=== PATIENT | male | born 1950 | race Two or more races ===

== ENCOUNTER → 2020-07-25 10:09 | Outpatient (BNVA) | payer MEDICARE, MEDICAID, SELFPAY | PROVIDERS: PCP Internal Medicine; Referring Provider Internal Medicine; Visit Provider Internal Medicine Endocrinology, Diabetes & Metabolism | DX: E11.65 Type 2 diabetes mellitus with hyperglycemia (principal); E11.649 Type 2 diabetes mellitus with hypoglycemia without coma; E11.22 Type 2 diabetes mellitus with diabetic chronic kidney disease; I12.9 Hypertensive chronic kidney disease with stage 1 through stage 4 chronic kidney disease, or unspecified chronic kidney disease; N18.30 Chronic kidney disease, stage 3 unspecified; Z79.4 Long term (current) use of insulin; E78.5 Hyperlipidemia, unspecified | CPT/HCPCS: 99214 ==

== ENCOUNTER → 2020-08-24 10:44 | Outpatient (BNVA) | payer MEDICARE, MEDICAID, SELFPAY | PROVIDERS: PCP Internal Medicine; Visit Provider Internal Medicine | DX: I25.10 Atherosclerotic heart disease of native coronary artery without angina pectoris (principal); R94.39 Abnormal result of other cardiovascular function study; Z79.899 Other long term (current) drug therapy | CPT/HCPCS: 99212 ==

== ENCOUNTER → 2020-10-24 08:22 | Outpatient (BNVA) | payer MEDICARE, MEDICAID, SELFPAY | PROVIDERS: PCP Internal Medicine; Referring Provider Internal Medicine; Visit Provider Internal Medicine Endocrinology, Diabetes & Metabolism | DX: Z76.89 Persons encountering health services in other specified circumstances (principal) | CPT/HCPCS: Q3014 ==

== ENCOUNTER → 2020-11-09 13:49 | Outpatient (BNVA) | payer MEDICARE, MEDICAID, SELFPAY | PROVIDERS: PCP Internal Medicine; Referring Provider Internal Medicine; Visit Provider Internal Medicine Gastroenterology | DX: Z13.89 Encounter for screening for other disorder (principal) | CPT/HCPCS: Q3014 ==

== ENCOUNTER → 2021-01-15 09:03 | Outpatient (BNVA) | payer MEDICARE, MEDICAID, SELFPAY | PROVIDERS: Visit Provider Internal Medicine | DX: R94.39 Abnormal result of other cardiovascular function study (principal); E11.8 Type 2 diabetes mellitus with unspecified complications; E11.22 Type 2 diabetes mellitus with diabetic chronic kidney disease; I12.9 Hypertensive chronic kidney disease with stage 1 through stage 4 chronic kidney disease, or unspecified chronic kidney disease; N18.32 Chronic kidney disease, stage 3b; I77.810 Thoracic aortic ectasia; K74.60 Unspecified cirrhosis of liver; R18.8 Other ascites | CPT/HCPCS: 99212 ==

== ENCOUNTER → 2021-01-23 09:37 | Outpatient (BNVA) | payer MEDICARE, MEDICAID, SELFPAY | PROVIDERS: PCP Internal Medicine; Visit Provider Internal Medicine Endocrinology, Diabetes & Metabolism | DX: E11.21 Type 2 diabetes mellitus with diabetic nephropathy (principal); E11.649 Type 2 diabetes mellitus with hypoglycemia without coma; Z79.4 Long term (current) use of insulin; I10 Essential (primary) hypertension; E78.5 Hyperlipidemia, unspecified | CPT/HCPCS: 82947; 99212 ==

== ENCOUNTER 2021-01-25 09:26 | Outpatient (REF) | payer MEDICARE, MEDICAID, SELFPAY ==
[2021-01-25 11:04] LABS: Hematocrit 35.1 % (42-52); Hemoglobin 10.4 g/dl (14.0-18.0); Mean Corpuscular HGB Conc 29.6 g/dl (31.0-36.0); Mean Corpuscular Volume 74.4 fL (80-98); Red Blood Count 4.72 X10*6/uL (4.60-5.80); Red Cell Distribution Width 16.3 % (11.0-16.0); White Blood Count 5.9 X10*3/uL (4.8-10.8)
[2021-01-25 11:10] LABS: Platelet Count 73 X10*3/uL (160-400)
[2021-01-25 11:24] LABS: Estimated Average Glucose 123 mg/dL; Hemoglobin A1c % 5.9 %; Iron 43 mcg/dL (45-160); Percent Iron Saturation 13 % (15-50); Phosphorus 3.8 mg/dL (2.7-4.5); Total Iron Binding Capacity 344 mcg/dL (228-428); Unsaturated Iron Binding 301 ug/dL
[2021-01-25 11:27] LABS: Alanine Aminotransferase 27 U/L (0-40); Albumin Level 3.5 g/dL (3.5-5.0); Alkaline Phosphatase 111 U/L (39-117); Anion Gap 15 (12-20); Aspartate Amino Transferase 37 U/L (5-37); Bilirubin Total 1.1 mg/dL (0.0-1.0); Blood Urea Nitrogen 18 mg/dL (9-16); Calcium 9.1 mg/dL (8.4-10.2); Carbon Dioxide 23 mmol/L (22-29); Chloride 109 mmol/L (96-108); Cholesterol 123 mg/dL; Estimated Glomerular Filt Rate 57; Glucose Fasting 89 mg/dL (60-99); HDL Cholesterol 60 mg/dL; LDL Cholesterol Calculated 47 mg/dl; Potassium 4.2 mmol/L (3.3-5.1); Sodium 143 mmol/L (135-145); Total Protein 7.5 g/dL (6.5-8.0); Triglycerides 80 mg/dL; Uric Acid 6.3 mg/dL (3.4-7.0)
[2021-01-25 11:45] LABS: Free T4 (Free Thyroxine) 0.83 ng/dL (0.71-1.85); Thyroid Stimulating Hormone 0.94 uIU/mL (0.32-4.0)
[2021-01-25 11:48] LABS: Vitamin B12 641 pg/mL (200-900)
[2021-01-25 12:01] LABS: Creatinine Urine 182.72 mg/dL; Creatinine Urine 184.17 mg/dL
[2021-01-25 12:14] LABS: Protein/Creatinine Ratio, Ur 2.05 (<0.2); Total Protein Urine Random 374 mg/dL (<12)
[2021-01-25 12:23] LABS: Microalbum/Creatinine Ratio Ur 1070.2 ug/mg cr
[2021-01-26 05:12] LABS: LDL Cholesterol Direct 46 mg/dL (<100)
[2021-01-26 12:46] LABS: Calcium (PTHI) 9.1 mg/dL (8.6-10.3); PTHI 75 pg/mL (14-64)
[2021-01-31 12:31] LABS: Vitamin D 25-OH, D2 <4 ng/mL; Vitamin D 25-OH, D3 25 ng/mL; Vitamin D 25-OH, Total 25 ng/mL (30-100)
== END 2021-01-25 09:27 | disposition home or self-care (01) ==
LOC: HO.LAB 09:26
PROVIDERS: Absent Provider Internal Medicine; PCP Internal Medicine; Referring Provider Internal Medicine Nephrology; Visit Provider Internal Medicine Endocrinology, Diabetes & Metabolism
DX: M1A.30X0 Chronic gout due to renal impairment, unspecified site, without tophus (tophi) (principal); I12.9 Hypertensive chronic kidney disease with stage 1 through stage 4 chronic kidney disease, or unspecified chronic kidney disease; N18.32 Chronic kidney disease, stage 3b; E11.22 Type 2 diabetes mellitus with diabetic chronic kidney disease; E78.5 Hyperlipidemia, unspecified; E55.9 Vitamin D deficiency, unspecified; E11.65 Type 2 diabetes mellitus with hyperglycemia
CPT/HCPCS: 36415; 80053; 80061; 82043; 82306; 82607; 83036; 83540; 83721; 83970; 84100; 84156; 84439; 84443; 84550; 85027

== ENCOUNTER → 2021-04-24 09:37 | Outpatient (BNVA) | payer MEDICARE, MEDICAID, SELFPAY | PROVIDERS: PCP Internal Medicine; Visit Provider Internal Medicine Endocrinology, Diabetes & Metabolism | DX: E11.65 Type 2 diabetes mellitus with hyperglycemia (principal); E11.21 Type 2 diabetes mellitus with diabetic nephropathy; E11.649 Type 2 diabetes mellitus with hypoglycemia without coma; E78.5 Hyperlipidemia, unspecified; I10 Essential (primary) hypertension; Z79.4 Long term (current) use of insulin | CPT/HCPCS: 82947; 99212 ==

== ENCOUNTER 2021-05-07 18:58 | Emergency (ER) | payer MEDICARE, MEDICAID, SELFPAY ==
--- NOTE | 2021-05-07 | ECG_ITS ---
Test Reason : HIGH BLOOD PRESSURE Blood Pressure : / mmHG Vent. Rate : 055 BPM Atrial Rate : 055 BPM P-R Int : 166 ms QRS Dur : 102 ms QT Int : 488 ms P-R-T Axes : 040 -38 022 degrees QTc Int : 466 ms Sinus bradycardia Left axis deviation Incomplete right bundle branch block Abnormal ECG When compared with ECG of 29-MAR-2014 21:17, Nonspecific T wave abnormality no longer evident in Lateral leads QT has lengthened Referred By: Generic ED Physician Electronically Signed By:TOBY TRUJILLO
--- NOTE | ~2021-05-07 | CT_ITS ---
EXAMINATION: CT ABDOMEN AND PELVIS WITHOUT CONTRAST CLINICAL INFORMATION: Abdominal pain COMPARISON: 02/03/2020 TECHNIQUE: Multidetector volumetric imaging was performed from the superior aspect of the liver through the pubic symphysis. Sagittal and coronal reformatted images were obtained on the technologist's workstation. This CT examination was performed using dose optimization techniques as appropriate, variously including the following: *Automated exposure control *Adjustment of mA and/or kV according to patient size (this includes techniques or standardized protocols for targeted exams where dose is matched to indication/reason for exam; i.e. extremities or head) *Use of iterative reconstruction technique DLP: 649 mGy-cm FINDINGS: LUNG BASES: Lungs are clear. Coronary calcifications. LIVER, GALLBLADDER, AND BILIARY TREE: Morphologically cirrhotic liver. No focal liver lesions. No intra or extrahepatic biliary dilatation. Cholelithiasis. No pericholecystic fluid. PANCREAS: Unremarkable. SPLEEN: Mildly enlarged measuring 14 cm long axis. ADRENAL GLANDS: Unremarkable. KIDNEYS AND URETERS: The kidneys are normal in size, shape, and attenuation. Bilateral renal cysts redemonstrated, incompletely characterized on this unenhanced exam but stable in size. No hydronephrosis, hydroureter, or calculi seen. No perinephric stranding. BLADDER: Unremarkable. GASTROINTESTINAL TRACT: Pancolonic diverticulosis without evidence of diverticulitis. Normal appendix. ABDOMINAL WALL: No significant hernia is appreciated. PERITONEUM: Small volume ascites. LYMPH NODES: Mildly prominent but nonpathologically enlarged upper abdominal lymph nodes redemonstrated. VASCULAR: Aorta is atherosclerotic but normal caliber. PELVIC VISCERA: Mild prostatomegaly. OSSEOUS STRUCTURES: No acute or suspicious osseous abnormalities. CT/CT abdomen pelvis wo con IMPRESSION: * Cholelithiasis without CT imaging evidence of cholecystitis. * Morphologically cirrhotic liver with small volume ascites, decreased from prior. Mild splenomegaly. * Pancolonic diverticulosis, most extensive within the left colon. No evidence of diverticulitis.
[2021-05-07 19:03] VITALS: BP 177/100; PULSE 62; RESP 18; TEMP 37.1; O2SAT 97; BMI 30.5
[2021-05-07 20:55] LABS: Eosinophils Percent Auto 23.7 % (0-4); Imm Gran Abs Auto 0.01 X10*3/uL (0.00-0.03); Imm Gran Pct Auto 0.2 % (0.0-0.4); MANUAL DIFF FLAG SCAN; Mean Corpuscular HGB Conc 31.1 g/dl (31.0-36.0); Red Cell Distribution Width 17.5 % (11.0-16.0); SCAN SMEAR FLAG 1
[2021-05-07 20:56] LABS: Basophils Percent Auto 0.5 % (0-2); Eosinophils Absolute Auto 1.4 X10*3/uL (0.0-0.4); Hematocrit 36.6 % (42-52); Hemoglobin 11.4 g/dl (14.0-18.0); Lymphocytes Absolute Auto 1.9 X10*3/uL (1.2-4.9); Lymphocytes Percent Auto 31.8 % (20-40); Mean Corpuscular Hemoglobin 23.5 pg (27.0-33.0); Mean Corpuscular Volume 75.5 fL (80-98); Monocytes Absolute Auto 0.6 X10*3/uL (0.1-1.2); Monocytes Percent Auto 9.3 % (2-11); Neutrophils Percent Auto 34.5 % (45-73); Red Blood Count 4.85 X10*6/uL (4.60-5.80); White Blood Count 5.9 X10*3/uL (4.8-10.8)
[2021-05-07 21:16] LABS: PLT ABN DIST 1; Platelet Count 54 X10*3/uL (160-400)
[2021-05-07 21:17] LABS: SLIDE REVIEW VERIFIED
[2021-05-07 21:27] LABS: Alanine Aminotransferase 23 U/L (0-40); Albumin Level 3.6 g/dL (3.5-5.0); Alkaline Phosphatase 105 U/L (39-117); Anion Gap 13 (12-20); Aspartate Amino Transferase 30 U/L (5-37); Bilirubin Total 0.8 mg/dL (0.0-1.0); Blood Urea Nitrogen 17 mg/dL (9-16); Calcium 9.3 mg/dL (8.4-10.2); Carbon Dioxide 27 mmol/L (22-29); Chloride 110 mmol/L (96-108); Estimated Glomerular Filt Rate 50; Glucose Random 115 mg/dL (60-115); Lipase 74 U/L (8-78); Potassium 4.1 mmol/L (3.3-5.1); Sodium 146 mmol/L (135-145); Total Protein 7.3 g/dL (6.5-8.0); Troponin-I High Sensitivity 4.7 ng/L (<3.5-35.0)
[2021-05-07 22:35] VITALS: BP 190/105; PULSE 55; RESP 18; TEMP 36.4; O2SAT 98
--- NOTE | 2021-05-07 22:59 | ED_ITS ---
HPI - General Adult General Chief complaint: General Medical Stated complaint: high bp Time Seen by Provider: 05/07/21 19:20 Source: patient Mode of arrival: ambulatory History of Present Illness HPI narrative: 70-year-old male with significant past medical history of diabetes/gastroparesis/CKD as well as liver cirrhosis who presents with a few days of increased shortness breath and patient states that he feels like ?I have fluid accumulating again?. Otherwise, he denies any fevers, chills, chest pain/palpitations, nausea, vomiting, diarrhea or urinary symptoms, but states he does feel ?very tired?. As per his who is at bedside she states that he has not been very active today and has not eaten very much. Patient has had [place] VID-19 vaccine ([place]) and otherwise has not seen a primary care provider or had any recent changes in medications in the past 3 months. Related Data Home Medications Medication Instructions Recorded Confirmed potassium chloride 10 mEq meq PO 07/25/20 04/24/21 tablet,extended release(part/cryst) metoprolol succinate 50 mg 50 mg PO BID tab 01/23/21 04/24/21 tablet,extended release 24 hr ibuprofen 600 mg tablet 600 mg PO TID 04/24/21 04/24/21 Previous Rx's Medication Instructions Recorded alcohol swabs 1 pad TOPICAL TID 30 Days #100 ea 07/25/20 flash glucose scanning reader #1 ea 07/25/20 flash glucose sensor #2 ea 07/25/20 atorvastatin 20 mg tablet 20 mg PO DAILY 90 Days #90 tab 01/23/21 ezetimibe 10 mg tablet 10 mg PO BEDTIME #28 tab 01/23/21 ferrous sulfate 325 mg (65 mg 325 mg PO DAILY 90 Days #90 tab 02/02/21 iron) tablet aspirin 81 mg tablet,delayed 81 mg PO DAILY #90 tab 02/09/21 release nitroglycerin 0.4 mg sublingual 0.4 mg SUBLINGUAL Q5M PRN #30 tab 03/19/21 tablet blood sugar diagnostic 1 strip MISCELLANEOUS .3 times a 04/24/21 day 90 Days #300 strip insulin glargine U-300 conc 300 25 unit SUBCUT DAILY 30 Days #4.5 04/24/21 unit/mL (1.5 mL) subcutaneous pen ml insulin lispro 100 unit/mL See Rx Instructions SUBCUT TID 30 04/24/21 subcutaneous pen Days #15 ml lancets 28 gauge 31 gauge TOPICAL .3 times a day 90 04/24/21 Days #300 ea linagliptin 5 mg tablet 5 mg PO QAM 30 Days #30 tab 04/24/21 metformin 500 mg tablet 500 mg PO BID 30 Days #60 tab 04/24/21 pen needle, diabetic 32 gauge x #400 ea 04/24/21 hydralazine 10 mg tablet 10 mg PO TID #84 tab 05/07/21 isosorbide mononitrate 30 mg 30 mg PO DAILY 90 Days #90 tab 05/07/21 tablet,extended release 24 hr omeprazole 40 mg capsule,delayed 40 mg PO DAILY #28 cap 05/07/21 release lactulose 20 g PO TID #237 ml 05/08/21 Allergies Allergy/AdvReac Type Severity Reaction Status Date / Time wheat [WHEAT] AdvReac Intermediate DIARRHEA Verified 01/31/21 17:13 Review of Systems Review of Systems: Pertinent positives and negatives as stated in HPI 10 point review of systems is otherwise negative. 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 GENERAL: Well developed, well nourished, in no acute distress. HEAD: Normocephalic/atraumatic, EYES: PERRLA, EOMI EARS: Ext canals without abnormality NOSE: Nares patent bilateral OROPHARYNX: no oral lesions noted, posterior pharynx clear LUNGS: Normal breath sounds. No adventitious sounds or accessory muscle use. SpO2<98> CARDIOVASCULAR: Regular rate and rhythm without noted murmurs, no JVD or lower extremity edema. ABDOMEN: Soft, mild tenderness on palpation of the left lower quadrant without rebound, non-distended with bowel sounds. MUSCULOSKELETAL: No tenderness, deformities, or effusions noted on gross inspection. EXTREMITIES: No cyanosis, clubbing or edema. SKIN: Inspection of the skin reveals no rashes, jaundice NEUROLOGIC: Alert and oriented x 4. Strength and sensation to light touch were grossly intact x 4, no facial asymmetry, no pronator drift, cranial nerves 2-12 grossly intact. Course Course Course Narrative: 70-year-old male with history and clinical presentation consistent with abdominal ascites, but will rule out infectious etiology, ammonia level, and ensure no acute diabetic pathology. Patient received medication here in the emergency room for blood pressure and on re-evaluation is noted to be within normal limits and patient is otherwise asymptomatic. Review of all investigations without acute findings when compared to chronic levels. Sodium and chloride levels are noted and the renal function is chronically stable. The ammonia level is duly noted but is in conjunction without confusion and CT scan shows small volume of ascites. On re-evaluation patient is answering all questions appropriately and both he and his were encouraged to return to the emergency room for any acute worsening of symptoms to include confusion. They understand that he will be discharged with a medication called lactulose and that he will need a repeat ammonia level which should prompt a call to the PCP this morning. Medical Decision Making Lab Data Result diagrams: 05/07/21 20:44 05/07/21 20:44 Labs: Lab Results 05/07/21 05/07/21 05/07/21 Range/Units 20:44 20:44 20:44 WBC 5.9 (4.8-10.8) X10*3/uL RBC 4.85 (4.60-5.80) X10*6/uL Hgb 11.4 L (14.0-18.0) g/dl Hct 36.6 L (42-52) % MCV 75.5 L (80-98) fL MCH 23.5 L (27.0-33.0) pg MCHC 31.1 (31.0-36.0) g/dl RDW 17.5 H (11.0-16.0) % Plt Count 54 L D (160-400) X10*3/uL MPV Not Reportable Immature Gran % (Auto) 0.2 (0.0-0.4) % Neut % (Auto) 34.5 L (45-73) % Lymph % (Auto) 31.8 (20-40) % [place] % (Auto) 9.3 (2-11) % Eos % (Auto) 23.7 H (0-4) % Baso % (Auto) 0.5 (0-2) % Lymph # (Auto) 1.9 (1.2-4.9) X10*3/uL [place] # (Auto) 0.6 (0.1-1.2) X10*3/uL Eos # (Auto) 1.4 H (0.0-0.4) X10*3/uL Baso # (Auto) 0.0 (0.0-0.2) X10*3/uL Abs Immat Gran (auto) 0.01 (0.00-0.03) X10*3/uL Absolute Neuts (auto) 2.0 (2.0-8.3) X10*3/uL Absolute Nucleated RBC 0.000 (0.0-0.012) X10*3/uL Nucleated RBC % (auto) 0.0 (0.0-0.2) /100WBC Smear Tech's Comments VERIFIED Sodium 146 H (135-145) mmol/L Potassium 4.1 (3.3-5.1) mmol/L Chloride 110 H (96-108) mmol/L Carbon Dioxide 27 (22-29) mmol/L Anion Gap 13 (12-20) BUN 17 H (9-16) mg/dL Creatinine 1.41 H (0.5-1.4) mg/dL Estim Creat Clear Calc 48.0 Estimated GFR 50 Random Glucose 115 (60-115) mg/dL Calcium 9.3 (8.4-10.2) mg/dL Total Bilirubin 0.8 (0.0-1.0) mg/dL AST 30 (5-37) U/L ALT 23 (0-40) U/L Alkaline Phosphatase 105 (39-117) U/L Ammonia (13-55) umol/L Troponin I High Sens 4.7 (<3.5-35.0) ng/L Total Protein 7.3 (6.5-8.0) g/dL Albumin 3.6 (3.5-5.0) g/dL Lipase 74 (8-78) U/L Specimen Comment 05/08/21 05/08/21 Range/Units 00:53 01:10 WBC (4.8-10.8) X10*3/uL RBC (4.60-5.80) X10*6/uL Hgb (14.0-18.0) g/dl Hct (42-52) % MCV (80-98) fL MCH (27.0-33.0) pg MCHC (31.0-36.0) g/dl RDW (11.0-16.0) % Plt Count (160-400) X10*3/uL MPV Immature Gran % (Auto) (0.0-0.4) % Neut % (Auto) (45-73) % Lymph % (Auto) (20-40) % [place] % (Auto) (2-11) % Eos % (Auto) (0-4) % Baso % (Auto) (0-2) % Lymph # (Auto) (1.2-4.9) X10*3/uL [place] # (Auto) (0.1-1.2) X10*3/uL Eos # (Auto) (0.0-0.4) X10*3/uL Baso # (Auto) (0.0-0.2) X10*3/uL Abs Immat Gran (auto) (0.00-0.03) X10*3/uL Absolute Neuts (auto) (2.0-8.3) X10*3/uL Absolute Nucleated RBC (0.0-0.012) X10*3/uL Nucleated RBC % (auto) (0.0-0.2) /100WBC Smear Tech's Comments Sodium (135-145) mmol/L Potassium (3.3-5.1) mmol/L Chloride (96-108) mmol/L Carbon Dioxide (22-29) mmol/L Anion Gap (12-20) BUN (9-16) mg/dL Creatinine (0.5-1.4) mg/dL Estim Creat Clear Calc Estimated GFR Random Glucose (60-115) mg/dL Calcium (8.4-10.2) mg/dL Total Bilirubin (0.0-1.0) mg/dL AST (5-37) U/L ALT (0-40) U/L Alkaline Phosphatase (39-117) U/L Ammonia 88 H (13-55) umol/L Troponin I High Sens (<3.5-35.0) ng/L Total Protein (6.5-8.0) g/dL Albumin (3.5-5.0) g/dL Lipase (8-78) U/L Specimen Comment DELAY ECG Data Attestation: I personally reviewed and interpreted this ECG as follows: Prior ECG tracings: available for review (Stress report from 11/22/2019 without acute changes) Interpretation: Sinus bradycardia, HR-55, no STEMI, MT/QTC are within normal limits. Discharge Plan Discharge Clinical Impression: Increased ammonia level, Hypertension Patient Disposition: Home, Self-Care Instructions: Lactulose (By mouth), Heart Healthy Diet (ED), DASH Eating Plan (ED), Hypertension (ED) Additional Instructions: 1. Reanude todos los medicamentos caseros seg?n lo prescrito. 2. Madiha un seguimiento con bob proveedor de atenci?n primaria llamando al consultorio esta ma?kimber para programar jorge kike para jorge reevaluaci?n y un tratamiento ambulatorio adicional. Adem?s, deber? volver a verificar bbo nivel de margarito?aco. 3. Debe regresar a esta lio de emergencias si se siente m?s confundido, fatigado o experimenta un aumento de peso. Regrese a la lio de emergencias por s?ntomas de empeoramiento bethany Prescriptions: New lactulose 10 gram/15 mL solution 20 g PO TID Qty: 237 RF: 0 No Action alcohol swabs [Alcohol Prep Pads] Pads, Medicated 1 pad topical TID 30 Days Qty: 100 RF: 11 ferrous sulfate 325 mg (65 mg iron) tablet 325 mg PO DAILY 90 Days Qty: 90 RF: 3 aspirin [Adult Aspirin Regimen] 81 mg tablet,delayed release (DR/EC) 81 mg PO DAILY Qty: 90 RF: 3 nitroglycerin 0.4 mg tablet, sublingual 0.4 mg sublingual Q5M PRN (Reason: chest pain) Qty: 30 RF: 2 isosorbide mononitrate 30 mg tablet extended release 24 hr 30 mg PO DAILY 90 Days Qty: 90 RF: 3 hydralazine 10 mg tablet 10 mg PO TID Qty: 84 RF: 3 omeprazole 40 mg capsule,delayed release(DR/EC) 40 mg PO DAILY Qty: 28 RF: 6 ibuprofen 600 mg tablet 600 mg PO TID RF: 0 Tradjenta 5 mg tablet 5 mg PO QAM 30 Days Qty: 30 RF: 5 metformin 500 mg tablet 500 mg PO BID 30 Days Qty: 60 RF: 5 insulin glargine U-300 conc 300 unit/mL (1.5 mL) insulin pen 25 unit subcut DAILY 30 Days Qty: 4.5 RF: 6 insulin lispro 100 unit/mL insulin pen See Rx Instructions subcut TID 30 Days Qty: 15 RF: 6 lancets [FreeStyle Lancets] 28 gauge misc 31 gauge topical .3 times a day 90 Days Qty: 300 RF: 3 (DME) pen needle, diabetic [BD Michell 2nd Gen Pen Needle] 32 gauge x 5/32 needle See Rx Instructions .MEDSUPPLY Qty: 400 RF: 4 FreeStyle Lite Strips Strip 1 strip miscellaneous .3 times a day 90 Days Qty: 300 RF: 3 potassium chloride 10 mEq tablet,ER particles/crystals PO RF: 0 (DME) FreeStyle Toyin 2 Sensor Kit See Rx Instructions .MEDSUPPLY Qty: 2 RF: 11 (DME) FreeStyle Toyin 2 [place] Misc See Rx Instructions .ROUTE .MEDSUPPLY Qty: 1 RF: 0 metoprolol succinate 50 mg tablet extended release 24 hr 50 mg PO BID RF: 0 atorvastatin 20 mg tablet 20 mg PO DAILY 90 Days Qty: 90 RF: 2 ezetimibe 10 mg tablet 10 mg PO BEDTIME Qty: 28 RF: 11 Referrals: Kimber Day MD [Primary Care Provider] - 2 days (Re-evaluation after noted to have hypertension as well as mildly elevated ammonia level without confusion. Patient was discharged with lactulose, and would benefit from repeat ammonia level as well as evaluation for more consistent treatment with lactulose.) Print Language: Angolan
[2021-05-07 23:46] VITALS: BP 188/104; PULSE 54
[2021-05-07] MEDS: Labetalol HCL 100 MG/20 ML VIAL IVPUSH (23:46)
--- NOTE | 2021-05-07 23:48 | PC.NURSE ---
notified of SB @ 54 bpm. Plan to continue with Labetolol per order. Pt medicated per DEC. Continue to monitor.
[2021-05-07 23:51] VITALS: BP 173/98; PULSE 58
[2021-05-08 00:01] VITALS: BP 171/95; PULSE 63
--- NOTE | 2021-05-08 00:04 | PC.NURSE ---
MD and rail car operator at bedside for primary eval.
[2021-05-08 00:31] VITALS: BP 154/84; PULSE 62
[2021-05-08 00:53] VITALS: BP 168/87; PULSE 59; O2SAT 98
[2021-05-08 01:11] LABS: Delay - Chemistry DELAY
[2021-05-08 01:42] LABS: Ammonia 88 umol/L (13-55)
[2021-05-08 02:37] VITALS: BP 165/90; PULSE 61; RESP 14
--- NOTE | 2021-05-08 03:10 | PC.NURSE ---
MD at bedside discussing results and plan of care.
[2021-05-08 03:31] VITALS: BP 162/96; PULSE 62; RESP 18
[2021-05-08] MEDS: Lactulose 20 GM/30 ML SOLUTION PO (03:31)
--- NOTE | 2021-05-08 03:33 | PC.NURSE ---
Medicated per MAR. Social Scientist at bedside for DC.
== END 2021-05-08 03:51 | disposition home or self-care (01) ==
PROVIDERS: Emergency Provider Student in an Organized Health Care Education/Training Program; PCP Internal Medicine
DX: E72.20 Disorder of urea cycle metabolism, unspecified (principal); E11.22 Type 2 diabetes mellitus with diabetic chronic kidney disease; I12.9 Hypertensive chronic kidney disease with stage 1 through stage 4 chronic kidney disease, or unspecified chronic kidney disease; N18.30 Chronic kidney disease, stage 3 unspecified; Z79.4 Long term (current) use of insulin
CPT/HCPCS: 36415; 74176; 80053; 82140; 83690; 84484; 85025; 93005; 96374; 99284

== ENCOUNTER 2021-05-09 20:14 | Inpatient (IN) | payer MEDICARE, MEDICAID, SELFPAY ==
--- NOTE | ~2021-05-09 | US_ITS ---
EXAMINATION: US ABDOMEN LIMITED CLINICAL INFORMATION: Right upper quadrant pain.. COMPARISON: CT scan abdomen pelvis May 08, 2021 TECHNIQUE: Real-time imaging of the right upper quadrant abdominal viscera. Color Doppler exam used. FINDINGS: PANCREAS: Obscured by bowel gas LIVER: Cirrhotic liver. Echotexture is coarse and nodular liver surface is nodular. GALLBLADDER: Multiple small gallstones layering dependently in the gallbladder. Gallbladder wall is slightly thickened but this is uncertain significance in the presence of abdominal ascites. Gallbladder wall measures 0.5 cm in diameter. COMMON BILE DUCT: Normal in caliber measuring 0.3 cm in diameter. RIGHT KIDNEY: Normal. No hydronephrosis. No renal calculi or suspicious focal parenchymal lesions. There are multiple cysts which are anechoic. Largest measures 1.3 cm. No follow-up imaging is recommended for simple renal cyst. The kidney measures 11 cm in maximum dimension. FREE FLUID: Moderate volume of abdominal ascites. US/US abdomen limited IMPRESSION: 1. Cirrhotic liver. 2. Abdominal ascites. 3. Cholelithiasis. Slight thickening of gallbladder wall which is of uncertain significance in the presence of abdominal ascites. No bile duct dilatation.
--- NOTE | ~2021-05-09 | NM_ITS ---
EXAMINATION: HEPATOBILIARY SCAN WITHOUT CCK. CLINICAL INFORMATION: Cholelithiasis and thickening of the gallbladder 1 ultrasound exam 05/09/2021 COMPARISON: None TECHNIQUE: Following intravenous administration of 5 mCi of 90 9M technetium identified in, imaging with a right upper quadrant was obtained up to 120 minutes. FINDINGS: There is normal hepatic uptake without any focal defect. There is prompt visualization of the gallbladder before 60 minutes. Small bowel is visualized by 18 minutes. NM/NM hepatobiliary wo pharm IMPRESSION: Patent cystic duct. Patent CBD. Patent common bile duct.
[2021-05-09 20:28] VITALS: BP 122/83; PULSE 53; RESP 18; TEMP 36.7; O2SAT 95; BMI 30.5
[2021-05-09 20:52] LABS: Glucose Urine UA NEG (NEG); Leukocyte Esterase Urine NEG (NEG); Nitrite Urine NEG (NEG); Specific Gravity - Urine >= 1.030 (1.005-1.025); UACC Culture Trigger NO; Urine Blood NEG (NEG); Urine Ketones NEG (NEG); Urine Protein 3+ MG/DL (NEG-TRACE)
[2021-05-09 20:54] LABS: Appearance Urine CLEAR; Color Urine YELLOW
[2021-05-09 21:01] LABS: Bacteria Urine 1+ /LPF; RBC Urine 0-2 /HPF (0); Squamous Epithelial Cell Urine 1+ /LPF; WBC Urine 0 /HPF (0-4)
[2021-05-09 21:59] LABS: Hemoglobin 10.2 g/dl (14.0-18.0); MANUAL DIFF FLAG SCAN; Red Cell Distribution Width 17.4 % (11.0-16.0); SCAN SMEAR FLAG 1
[2021-05-09 22:01] LABS: Basophils Percent Auto 0.6 % (0-2); Eosinophils Absolute Auto 1.1 X10*3/uL (0.0-0.4); Eosinophils Percent Auto 21.3 % (0-4); Hematocrit 32.9 % (42-52); Imm Gran Abs Auto 0.01 X10*3/uL (0.00-0.03); Imm Gran Pct Auto 0.2 % (0.0-0.4); Lymphocytes Absolute Auto 1.7 X10*3/uL (1.2-4.9); Lymphocytes Percent Auto 33.1 % (20-40); Mean Corpuscular Hemoglobin 23.3 pg (27.0-33.0); Mean Corpuscular Volume 75.3 fL (80-98); Monocytes Absolute Auto 0.5 X10*3/uL (0.1-1.2); Neutrophils Absolute Auto 1.8 X10*3/uL (2.0-8.3); Neutrophils Percent Auto 34.8 % (45-73); Red Blood Count 4.37 X10*6/uL (4.60-5.80)
[2021-05-09 22:04] LABS: PLT ABN DIST 1
[2021-05-09 22:06] LABS: INTERNATIONAL NORM RATIO 1.2 (0.9-1.1); Prothrombin Time 13.7 SEC (9.9-13.0)
[2021-05-09 22:20] VITALS: BP 172/80; PULSE 54; RESP 18; TEMP 36.9; O2SAT 96
[2021-05-09 22:29] LABS: Platelet Count 47 X10*3/uL (160-400); White Blood Count 5.1 X10*3/uL (4.8-10.8)
[2021-05-09 22:30] LABS: SLIDE REVIEW VERIFIED
[2021-05-09 22:31] LABS: Alanine Aminotransferase 20 U/L (0-40); Albumin Level 3.2 g/dL (3.5-5.0); Alkaline Phosphatase 85 U/L (39-117); Anion Gap 13 (12-20); Aspartate Amino Transferase 37 U/L (5-37); Bilirubin Total 0.7 mg/dL (0.0-1.0); Blood Urea Nitrogen 17 mg/dL (9-16); Calcium 9.4 mg/dL (8.4-10.2); Carbon Dioxide 24 mmol/L (22-29); Chloride 109 mmol/L (96-108); Creatinine Clr Calc Pharmacy 49.5; Estimated Glomerular Filt Rate 52; Glucose Random 132 mg/dL (60-115); Sodium 142 mmol/L (135-145); Total Protein 6.5 g/dL (6.5-8.0)
--- NOTE | 2021-05-09 22:41 | ED.ABDPAIN ---
HPI - Abdominal Pain General Chief Complaint: Abdominal Pain Stated Complaint: stomach and back pain Time Seen by Provider: 05/09/21 21:01 Source: patient and parts interpreter Mode of arrival: ambulatory History of Present Illness HPI narrative: 70-year-old male who presents with onset of right upper quadrant/epigastric pain that started approximately 2:00 p.m. this afternoon and has not been associated with fever, chills, nausea, vomiting that patient describes the pain as crampy and radiating into the back. Otherwise, he states that he has been feeling much better after being evaluated on Friday and has no other acute complaints as well as denying any shortness of breath or chest pain/palpitations. Related Data Home Medications Medication Instructions Recorded Confirmed atorvastatin 20 mg tablet 1 tab PO DAILY 05/09/21 05/09/21 blood sugar diagnostic (FreeStyle 05/09/21 05/09/21 Lite Strips) ezetimibe 10 mg tablet 1 tab PO DAILY 05/09/21 05/09/21 hydralazine 10 mg tablet 1 tab PO TID 05/09/21 05/09/21 insulin glargine U-300 conc 300 See Protocol SUBCUT USEASDIRECTD 05/09/21 05/09/21 unit/mL (1.5 mL) subcutaneous pen (Toujeo SoloStar U-300 Insulin) insulin lispro 100 unit/mL See Protocol SUBCUT USEASDIRECTD 05/09/21 05/09/21 subcutaneous pen (Humalog KwikPen (U-100) Insulin) isosorbide mononitrate 30 mg 1 tab PO DAILY 05/09/21 05/09/21 tablet,extended release 24 hr lactulose 10 gram/15 mL oral 15 ml PO DAILY 05/09/21 05/09/21 solution (Enulose) linagliptin 5 mg tablet (Tradjenta) 1 tab PO DAILY 05/09/21 05/09/21 metformin 500 mg tablet 1 tab PO BID 05/09/21 05/09/21 metoprolol succinate 50 mg 1 tab PO BID 05/09/21 05/09/21 tablet,extended release 24 hr nitroglycerin 0.4 mg sublingual 1 tab SUBLINGUAL BEDTIME 05/09/21 05/09/21 tablet omeprazole 40 mg capsule,delayed 1 cap PO DAILY 05/09/21 05/09/21 release Allergies Allergy/AdvReac Type Severity Reaction Status Date / Time wheat [WHEAT] AdvReac Intermediate DIARRHEA Verified 05/09/21 20:27 Review of Systems Review of Systems Pertinent positives and negatives as stated in HPI 10 point review of systems is otherwise negative. Physical Exam Vital Signs: Vital Signs: Last Vital Signs Temp 98.2 F 05/10/21 01:09 Pulse 57 05/10/21 01:09 Resp 18 05/10/21 01:09 BP 168/91 H 05/10/21 01:09 Pulse Ox 97 05/10/21 01:09 Body Mass Index 30.5 VITAL SIGNS: Reviewed. GENERAL: Well developed, well nourished, in no acute distress. HEAD: Normocephalic/atraumatic EYES: PERRLA, EOMI EARS: Ext canals without abnormality OROPHARYNX: no oral lesions noted, posterior pharynx clear LUNGS: Normal breath sounds. No adventitious sounds or accessory muscle use. SpO2<96> CARDIOVASCULAR: Regular rate and rhythm without noted murmurs, no JVD or lower extremity edema. ABDOMEN: Soft, tenderness in right upper quadrant/epigastric without rebound but voluntary guarding non-distended with bowel sounds. MUSCULOSKELETAL: No tenderness, deformities, or effusions noted on gross inspection. EXTREMITIES: No cyanosis, clubbing or edema. SKIN: Inspection of the skin reveals no rashes NEUROLOGIC: Alert and oriented x 4. Strength and sensation to light touch were grossly intact x 4. Course Course Course Narrative: 70-year-old male with history and clinical presentation suggestive of possible cholecystitis and less likely pancreatitis, but gastritis is a possibility as well. Review of all investigations consistent with biliary colic/cholecystitis and case was discussed with surgery, but given the complexity of this patient, he will be admitted to inpatient hospitalist team for co management. Reevaluation(s) Reevaluation #1: Discussed case with Surgical Services who is willing to evaluate the patient in the morning in consultation with home management by inpatient hospitalist team for significant underlying medical co-morbidities. Time: 00:35 MDM - Abdominal Pain Lab Data Result diagrams: 05/09/21 21:47 05/09/21 21:47 Labs: Lab Results 05/09/21 05/09/21 05/09/21 Range/Units 20:42 21:47 21:47 WBC 5.1 (4.8-10.8) X10*3/uL RBC 4.37 L (4.60-5.80) X10*6/uL Hgb 10.2 L (14.0-18.0) g/dl Hct 32.9 L (42-52) % MCV 75.3 L (80-98) fL MCH 23.3 L (27.0-33.0) pg MCHC 31.0 (31.0-36.0) g/dl RDW 17.4 H (11.0-16.0) % Plt Count 47 L (160-400) X10*3/uL MPV TNP Immature Gran % (Auto) 0.2 (0.0-0.4) % Neut % (Auto) 34.8 L (45-73) % Lymph % (Auto) 33.1 (20-40) % [place] % (Auto) 10.0 (2-11) % Eos % (Auto) 21.3 H (0-4) % Baso % (Auto) 0.6 (0-2) % Lymph # (Auto) 1.7 (1.2-4.9) X10*3/uL [place] # (Auto) 0.5 (0.1-1.2) X10*3/uL Eos # (Auto) 1.1 H (0.0-0.4) X10*3/uL Baso # (Auto) 0.0 (0.0-0.2) X10*3/uL Abs Immat Gran (auto) 0.01 (0.00-0.03) X10*3/uL Absolute Neuts (auto) 1.8 L (2.0-8.3) X10*3/uL Absolute Nucleated RBC 0.000 (0.0-0.012) X10*3/uL Nucleated RBC % (auto) 0.0 (0.0-0.2) /100WBC Smear Tech's Comments VERIFIED PT 13.7 H (9.9-13.0) SEC INR 1.2 H (0.9-1.1) Sodium (135-145) mmol/L Potassium (3.3-5.1) mmol/L Chloride (96-108) mmol/L Carbon Dioxide (22-29) mmol/L Anion Gap (12-20) BUN (9-16) mg/dL Creatinine (0.5-1.4) mg/dL Estim Creat Clear Calc Estimated GFR Random Glucose (60-115) mg/dL Calcium (8.4-10.2) mg/dL Total Bilirubin (0.0-1.0) mg/dL AST (5-37) U/L ALT (0-40) U/L Alkaline Phosphatase (39-117) U/L Total Protein (6.5-8.0) g/dL Albumin (3.5-5.0) g/dL Urine Color YELLOW Urine Appearance CLEAR Urine pH 6.0 (5.0-8.0) Ur Specific [place] >= 1.030 H (1.005-1.025) Urine Protein 3+ H (NEG-TRACE) MG/DL Urine Glucose (UA) NEG (NEG) MG/DL Urine Ketones NEG (NEG) MG/DL Urine Blood NEG (NEG) Urine Nitrite NEG (NEG) Ur Leukocyte Esterase NEG (NEG) Urine RBC 0-2 (0) /HPF Urine WBC 0 (0-4) /HPF Ur Squamous Epith Cells 1+ /LPF Urine Bacteria 1+ /LPF COVID-19 (STEVEN) (Negative) COVID-19 Clin Com 05/09/21 05/09/21 Range/Units 21:47 23:34 WBC (4.8-10.8) X10*3/uL RBC (4.60-5.80) X10*6/uL Hgb (14.0-18.0) g/dl Hct (42-52) % MCV (80-98) fL MCH (27.0-33.0) pg MCHC (31.0-36.0) g/dl RDW (11.0-16.0) % Plt Count (160-400) X10*3/uL MPV Immature Gran % (Auto) (0.0-0.4) % Neut % (Auto) (45-73) % Lymph % (Auto) (20-40) % [place] % (Auto) (2-11) % Eos % (Auto) (0-4) % Baso % (Auto) (0-2) % Lymph # (Auto) (1.2-4.9) X10*3/uL [place] # (Auto) (0.1-1.2) X10*3/uL Eos # (Auto) (0.0-0.4) X10*3/uL Baso # (Auto) (0.0-0.2) X10*3/uL Abs Immat Gran (auto) (0.00-0.03) X10*3/uL Absolute Neuts (auto) (2.0-8.3) X10*3/uL Absolute Nucleated RBC (0.0-0.012) X10*3/uL Nucleated RBC % (auto) (0.0-0.2) /100WBC Smear Tech's Comments PT (9.9-13.0) SEC INR (0.9-1.1) Sodium 142 (135-145) mmol/L Potassium 4.0 (3.3-5.1) mmol/L Chloride 109 H (96-108) mmol/L Carbon Dioxide 24 (22-29) mmol/L Anion Gap 13 (12-20) BUN 17 H (9-16) mg/dL Creatinine 1.37 (0.5-1.4) mg/dL Estim Creat Clear Calc 49.5 Estimated GFR 52 Random Glucose 132 H (60-115) mg/dL Calcium 9.4 (8.4-10.2) mg/dL Total Bilirubin 0.7 (0.0-1.0) mg/dL AST 37 (5-37) U/L ALT 20 (0-40) U/L Alkaline Phosphatase 85 (39-117) U/L Total Protein 6.5 (6.5-8.0) g/dL Albumin 3.2 L (3.5-5.0) g/dL Urine Color Urine Appearance Urine pH (5.0-8.0) Ur Specific [place] (1.005-1.025) Urine Protein (NEG-TRACE) MG/DL Urine Glucose (UA) (NEG) MG/DL Urine Ketones (NEG) MG/DL Urine Blood (NEG) Urine Nitrite (NEG) Ur Leukocyte Esterase (NEG) Urine RBC (0) /HPF Urine WBC (0-4) /HPF Ur Squamous Epith Cells /LPF Urine Bacteria /LPF COVID-19 (STEVEN) Negative (Negative) COVID-19 Clin Com See Note Discharge Plan Discharge Clinical Impression: Biliary colic, Thrombocytopenia, Diabetes, Cirrhosis of liver Patient Disposition: Admitted As Inpatient [facility] Past Medical History Source: nursing notes reviewed Medical History Abnormal myocardial perfusion study Ascending aorta dilatation Ascites Atherosclerotic cardiovascular disease Cirrhosis of liver CKD (chronic kidney disease) stage 3, GFR 30-59 ml/min Diabetes type 2, uncontrolled Diabetic nephropathy associated with type 2 diabetes mellitus Dyslipidemia Essential hypertension Gastroparesis GERD (gastroesophageal reflux disease) Gout Hypertension 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
[2021-05-09 23:53] LABS: COVID-19 Test Negative (Negative)
[2021-05-10] VITALS (8 sets, daily range): BP systolic 152–175; BP diastolic 81–95; PULSE 49–62; RESP 18; TEMP 36.7–36.9; O2SAT 96–97; BMI 31.0
[2021-05-10] MEDS: Lidocaine HCl Viscous 2 % 15 ML SOLUTION 10 ML MUCOUS MEM (01:08)
[2021-05-10] MEDS: Magnesium Hydrox/Alum Hydrox 30 ML ORAL.SUSP PO (01:08)
[2021-05-10] MEDS: Nitroglycerin 0.4 MG TAB.SUBL SUBLINGUAL ×2 (01:43→20:48)
[2021-05-10] MEDS: metroNIDAZOLE 500 MG TABLET PO (02:40)
[2021-05-10] MEDS: cefTRIAXone sodium 1 GM in 0.9 % Sodium Chloride 50 ML IV (02:41)
--- NOTE | 2021-05-10 05:38 | PM.IMHP ---
History of Present Illness Date of Service: 05/10/21 Chief Complaint: Abdominal pain This is a 70-year-old male with liver cirrhosis, HTN, diabetes, thrombocytopenia, CAD, gastroparesis, HLD, CKD, among others who presents to the hospital with abdominal pain. Patient reports that his abdominal pain started Friday, he came into the ED, but at that time he was complaining of abdominal ascites and was found to have slightly elevated ammonia, patient was started on lactulose and sent home. Returns today stating that his abdominal pain has increased, 10/10, right upper quadrant, radiating to the back, associated with nausea with no vomiting, no diarrhea, the pain is constant, no increased abdominal distension, no chest pain, no shortness of breath, no urinary symptoms, no diarrhea constipation, and no lower extremity edema. On arrival to the edema dynamic least stable with no significant abnormal vitals Labs are significant for WBC count of 5.1, hemoglobin of 10.2, platelets of 47 which are progressively dropping PT of 13.7, INR of 1.2, BUN of 17 with a creatinine of 1.37 which is around his baseline, albumin of 3.2, UA negative for any infection Abdominal CT done on 05/07 shows cholelithiasis without evidence of cholecystitis, abdominal ultrasound done today shows cirrhotic liver, abdominal ascites, cholelithiasis, slight thickening of gallbladder wall which is uncertain significance in the presence of abdominal ascites. This case was discussed with surgery, patient will be admitted for suspected cholecystitis Past medical history as below Review of system otherwise negative Review of Systems Review of Systems: Otherwise negative [facility] Medical History Abnormal myocardial perfusion study Ascending aorta dilatation Ascites Atherosclerotic cardiovascular disease Cirrhosis of liver CKD (chronic kidney disease) stage 3, GFR 30-59 ml/min Diabetes type 2, uncontrolled Diabetic nephropathy associated with type 2 diabetes mellitus Dyslipidemia Essential hypertension Gastroparesis GERD (gastroesophageal reflux disease) Gout Hypertension Hypoglycemia 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 with type 2 diabetes mellitus 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 Thrombocytopenia Family History Father Diabetes CVD (cardiovascular disease) Mother Diabetes Surgical History Hx of colonoscopy Social History Household Members: Spouse and Children Alcohol intake: never Smoked in Last 30 Days: No Use of substances other than those prescribed or required for medical reasons: No Advance Directives: No Advance Directives Information Provided: Yes Current occupational status: retired Meds Allergies Allergy/AdvReac Type Severity Reaction Status Date / Time wheat [WHEAT] AdvReac Intermediate DIARRHEA Verified 05/09/21 20:27 Active Medications: Current Medications Generic Name Dose Route Start Last Admin Trade Name Freq PRN Reason Stop Dose Admin Acetaminophen 650 mg 05/10/21 00:57 Acetaminophen 325 Mg Tablet PO Q6H PRN Pain, Mild (Pain Scale 1-3) Atorvastatin Calcium 20 mg 05/10/21 09:00 Atorvastatin Calcium 20 [address] Table[address] [facility] Docusate Sodium 100 mg 05/10/21 00:57 Docusate Sodium 100 Mg Capsule PO DAILY PRN Constipation Ezetimibe 10 mg 05/10/21 09:00 Ezetimibe 10 [address] Table[address] [facility] Hydralazine HCl 10 mg 05/10/21 01:00 05/10/21 01:42 Hydralazine Hcl 10 Mg Tablet PO Not Given TID [facility] Protocol Ceftriaxone Sodium 1 gm/ 50 mls @ 100 mls/hr 05/10/21 01:00 05/10/21 03:11 Sodium Chloride IV Infused Q24H [facility] Infusion Insulin Human Lispro 0 unit 05/10/21 07:30 Insulin Lispro 100 Unit/Ml 3 Ml Vial SUBCUT QIDACHS [facility] Protocol Isosorbide Mononitrate 30 mg 05/10/21 09:00 Isosorbide Mononitrate 30 Mg Tab.Er.24h PO DAILY [facility] Protocol Lactulose 10 gm 05/10/21 09:00 Lactulose 20 Gm/[address] [facility] Metoprolol Succinate 50 mg 05/10/21 01:00 05/10/21 01:42 Metoprolol Succinate Er 50 Mg Tab.Er.24h PO Not Given BID [facility] Protocol Metronidazole 500 mg 05/10/21 01:00 05/10/21 02:40 Metronidazole 500 Mg Tablet PO 500 mg Q8H SAUL Administration Morphine Sulfate 4 mg 05/10/21 00:57 Morphine Sulfate 4 Mg/Ml Cartridge IVPUSH Q4H PRN Pain, Severe (Pain Scale 7-10) Nitroglycerin 0.4 mg 05/10/21 01:00 05/10/21 01:43 Nitroglycerin 0.4 Mg Tab.Subl SUBLINGUAL 0.[address] [facility] Administration Non-Formulary Medication 12 unit 05/10/21 01:00 Insulin Glargine U-300 Conc [Toujeo Solostar U-300 Insulin] SUBCUT USEASDIRECTD [facility] Omeprazole 40 mg 05/10/21 09:00 Omeprazole 40 Mg Capsule.Dr PO DAILY [facility] Ondansetron HCl 4 mg 05/10/21 00:57 Ondansetron Hcl 4 Mg/2 Ml Vial IVPUSH Q8H PRN Nausea and Vomiting Sodium Chloride 3 ml 05/10/21 08:00 0.9 % Sodium Chloride Flush [address] M[address]ringe IVFLUSH QSHIFT [facility] Home Medications Medication Instructions Recorded Confirmed Last Taken Type atorvastatin 20 mg tablet 1 tab PO DAILY 05/09/21 05/09/21 Unknown History blood sugar diagnostic (FreeStyle 05/09/21 05/09/21 Unknown History Lite Strips) ezetimibe 10 mg tablet 1 tab PO DAILY 05/09/21 05/09/21 Unknown History hydralazine 10 mg tablet 1 tab PO TID 05/09/21 05/09/21 Unknown History insulin glargine U-300 conc 300 See Protocol SUBCUT USEASDIRECTD 05/09/21 05/09/21 Unknown History unit/mL (1.5 mL) subcutaneous pen (Toujeo SoloStar U-300 Insulin) insulin lispro 100 unit/mL See Protocol SUBCUT USEASDIRECTD 05/09/21 05/09/21 Unknown History subcutaneous pen (Humalog KwikPen (U-100) Insulin) isosorbide mononitrate 30 mg 1 tab PO DAILY 05/09/21 05/09/21 Unknown History tablet,extended release 24 hr lactulose 10 gram/15 mL oral 15 ml PO DAILY 05/09/21 05/09/21 Unknown History solution (Enulose) linagliptin 5 mg tablet (Tradjenta) 1 tab PO DAILY 05/09/21 05/09/21 Unknown History metformin 500 mg tablet 1 tab PO BID 05/09/21 05/09/21 Unknown History metoprolol succinate 50 mg 1 tab PO BID 05/09/21 05/09/21 Unknown History tablet,extended release 24 hr nitroglycerin 0.4 mg sublingual 1 tab SUBLINGUAL BEDTIME 05/09/21 05/09/21 Unknown History tablet omeprazole 40 mg capsule,delayed 1 cap PO DAILY 05/09/21 05/09/21 Unknown History release Physical Exam Vital Signs and Narrative: Vital Signs: Last Vital Signs Temp 98.2 F 05/10/21 01:09 Pulse 52 05/10/21 01:42 Resp 18 05/10/21 01:09 BP 158/91 H 05/10/21 01:42 Pulse Ox 97 05/10/21 01:09 Body Mass Index 30.5 Const: General: cooperative and no acute distress Orientation/consciousness: patient oriented x3 Eyes: General: appearance normal, both eyes and all related structures Resp: Effort & Inspection: normal respiratory effort and able to speak in complete sentences Auscultation: clear to auscultation bilaterally Cardio: Rate: regular rate Rhythm: regular rhythm GI: Other: Tender on deep palpation, no rebound or guarding, no significant ascites Palpation (GI): Soft to palpation Auscultation: normal bowel sounds Skin: General skin exam: no rashes or lesions noted Neuro: General: patient oriented x3 Cognition (Neuro): normal cognition Extrem: General: Yes normal to inspection and Yes no pedal edema Results Labs CBC and Chem 7: 05/09/21 21:47 05/09/21 21:47 Labs: Laboratory Results - last 24 hr 05/09/21 05/09/21 05/09/21 20:42 21:47 21:47 MCV 75.3 L MCH 23.3 L MCHC 31.0 RDW 17.4 H Plt Count 47 L MPV TNP Immature Gran % (Auto) 0.2 Neut % (Auto) 34.8 L Lymph % (Auto) 33.1 [place] % (Auto) 10.0 Eos % (Auto) 21.3 H Baso % (Auto) 0.6 Lymph # (Auto) 1.7 [place] # (Auto) 0.5 Eos # (Auto) 1.1 H Baso # (Auto) 0.0 Abs Immat Gran (auto) 0.01 Absolute Neuts (auto) 1.8 L Absolute Nucleated RBC 0.000 Nucleated RBC % (auto) 0.0 Smear Tech's Comments VERIFIED PT 13.7 H INR 1.2 H Anion Gap Estim Creat Clear Calc Estimated GFR Random Glucose Calcium Total Bilirubin AST ALT Alkaline Phosphatase Total Protein Albumin Urine Color YELLOW Urine Appearance CLEAR Urine pH 6.0 Ur Specific [place] >= 1.030 H Urine Protein 3+ H Urine Glucose (UA) NEG Urine Ketones NEG Urine Blood NEG Urine Nitrite NEG Ur Leukocyte Esterase NEG Urine RBC 0-2 Urine WBC 0 Ur Squamous Epith Cells 1+ Urine Bacteria 1+ COVID-19 (STEVEN) COVID-19 Clin Com 05/09/21 05/09/21 21:47 23:34 MCV MCH MCHC RDW Plt Count MPV Immature Gran % (Auto) Neut % (Auto) Lymph % (Auto) [place] % (Auto) Eos % (Auto) Baso % (Auto) Lymph # (Auto) [place] # (Auto) Eos # (Auto) Baso # (Auto) Abs Immat Gran (auto) Absolute Neuts (auto) Absolute Nucleated RBC Nucleated RBC % (auto) Smear Tech's Comments PT INR Anion Gap 13 Estim Creat Clear Calc 49.5 Estimated GFR 52 Random Glucose 132 H Calcium 9.4 Total Bilirubin 0.7 AST 37 ALT 20 Alkaline Phosphatase 85 Total Protein 6.5 Albumin 3.2 L Urine Color Urine Appearance Urine pH Ur Specific [place] Urine Protein Urine Glucose (UA) Urine Ketones Urine Blood Urine Nitrite Ur Leukocyte Esterase Urine RBC Urine WBC Ur Squamous Epith Cells Urine Bacteria COVID-19 (STEVEN) Negative COVID-19 Clin Com See Note Imaging Radiologist's Impressions: Impressions Abdomen Ultrasound 05/09/21 22:39 IMPRESSION: 1. Cirrhotic liver. 2. Abdominal ascites. 3. Cholelithiasis. Slight thickening of gallbladder wall which is of uncertain significance in the presence of abdominal ascites. No bile duct dilatation. Assessment and Plan (1) Thrombocytopenia: Status: Acute (2) Biliary colic: Status: Acute (3) Cholecystitis: Status: Acute (4) Abdominal pain: Status: Acute This is a 70-year-old male with significant past medical history presents to the hospital with complaints of abdominal pain will be admitted for suspected cholecystitis # abdominal pain - most likely secondary to cholecystitis, location, characteristics, as well as CT and ultrasound findings suggest cholecystitis - patient afebrile, no leukocytosis - no LFT or bili elevations - will start IV antibiotics - general surgery consulted # coagulopathy including thrombocytopenia - most likely secondary to his history of liver disease - monitor CBC for platelet count - monitor for any acute bleed - currently patient is not bleeding therefore not requiring platelet transfusion - will for for further platelet transfusions to surgical team if needed for surgery # diabetes - continue home insulin - hold oral antihyperglycemics - low-dose sliding scale insulin - diabetic diet # hypertension - stable -resume home medications # CAD - resume home medications # liver cirrhosis - continue lactulose DVT prophylaxis: SCDs in the setting of thrombocytopenia and coagulopathy Quality Stroke Does the patient have a stroke diagnosis?: No VTE Prior VTE?: No VTE Risk Level:: Medical - moderate - high VTE Device Contraindication: N/A - Device Ordered VTE Drug Contraindication: Treatment Not Tolerated
--- NOTE | 2021-05-10 07:33 | PC.NURSE ---
ATTEMPTED TO CALL REPORT X1
--- NOTE | 2021-05-10 07:43 | P.CONGS_ITS ---
History of Present Illness Consult details Consult date: 05/10/21 Narrative: 70-year-old male patient with history of diabetes, cirrhosis of liver, chronic kidney disease, gastroparesis and GERD presenting with complaints of right upper quadrant and epigastric abdominal pain which began 14:00 at on 05/09/2021. Patient previously was evaluated for abdominal pain approximately 2 days prior the patient's symptoms felt to be related to his liver disease. He was subsequently discharged to home but returned when the pain once again increased a. He denies fever, chills, nausea, vomiting, diarrhea, or other associated symptoms. He currently reports the pain is gone. In the emergency department is initial laboratories revealed a normal WBC.Liver function tests were normal as well. CT of the abdomen and pelvis revealed cholelithiasis without evidence of cholecystitis however subsequent ultrasound revealed ascites with gallbladder wall thickening and gallstones. The minimal wall thickening was of unknown significance due to the ascites. Patient was admitted to the hospitalist service with a presumed diagnosis of acute cholecystitis. Review of Systems Review of Systems: Yes all other systems are reviewed and are negative Cardiovascular: Cardiovascular: Denies dyspnea Respiratory: Respiratory: Denies chest congestion, Denies cough, Denies pain with cough and Denies dyspnea Gastrointestinal: Gastrointestinal: Reports as per HPI, Reports abdominal pain, Reports heartburn, Denies diarrhea, Denies nausea and Denies vomiting PMFSH Past Medical History Medical History Abnormal myocardial perfusion study Ascending aorta dilatation Ascites Atherosclerotic cardiovascular disease Cirrhosis of liver CKD (chronic kidney disease) stage 3, GFR 30-59 ml/min Diabetes type 2, uncontrolled Diabetic nephropathy associated with type 2 diabetes mellitus Dyslipidemia Essential hypertension Gastroparesis GERD (gastroesophageal reflux disease) Gout Hypertension Hypoglycemia 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 with type 2 diabetes mellitus longterm (current) use of insulin Thrombocytopenia Family History Family History Father Diabetes CVD (cardiovascular disease) Mother Diabetes Surgical History Surgical History Hx of colonoscopy Social History Social History Household Members: Spouse and Children Alcohol intake: never Smoked in Last 30 Days: No Use of substances other than those prescribed or required for medical reasons: No Advance Directives: No Advance Directives Information Provided: Yes Current occupational status: retired Meds Allergies Allergy/AdvReac Type Severity Reaction Status Date / Time wheat [WHEAT] AdvReac Intermediate DIARRHEA Verified 05/09/21 20:27 Active Medications: Current Medications Generic Name Dose Route Start Last Admin Trade Name Freq PRN Reason Stop Dose Admin Acetaminophen 650 mg 05/10/21 00:57 Acetaminophen 325 Mg Tablet PO Q6H PRN Pain, Mild (Pain Scale 1-3) Atorvastatin Calcium 20 mg 05/10/21 09:00 Atorvastatin Calcium 20 Mg Tablet PO DAILY COUNTS INCLUDE 234 BEDS AT [facility] Docusate Sodium 100 mg 05/10/21 00:57 Docusate Sodium 100 Mg Capsule PO DAILY PRN Constipation Ezetimibe 10 mg 05/10/21 09:00 Ezetimibe 10 Mg Tablet PO DAILY COUNTS INCLUDE 234 BEDS AT [facility] Hydralazine HCl 10 mg 05/10/21 01:00 05/10/21 01:42 Hydralazine Hcl 10 Mg Tablet PO Not Given TID COUNTS INCLUDE 234 BEDS AT [facility] Protocol Ceftriaxone Sodium 1 gm/ 50 mls @ 100 mls/hr 05/10/21 01:00 05/10/21 03:11 Sodium Chloride IV Infused Q24H COUNTS INCLUDE 234 BEDS AT [facility] Infusion Insulin Human Lispro 0 unit 05/10/21 07:30 Insulin Lispro 100 Unit/Ml 3 Ml Vial SUBCUT QIDACHS COUNTS INCLUDE 234 BEDS AT THE [facility] Protocol Isosorbide Mononitrate 30 mg 05/10/21 09:00 Isosorbide Mononitrate 30 Mg Tab.Er.24h PO DAILY COUNTS INCLUDE 234 BEDS AT [facility] Protocol Lactulose 10 gm 05/10/21 09:00 Lactulose 20 Gm/30 Ml Solution PO DAILY COUNTS INCLUDE 234 BEDS AT [facility] Metoprolol Succinate 50 mg 05/10/21 01:00 05/10/21 01:42 Metoprolol Succinate Er 50 Mg Tab.Er.24h PO Not Given BID COUNTS INCLUDE 234 BEDS AT [facility] Protocol Metronidazole 500 mg 05/10/21 01:00 05/10/21 02:40 Metronidazole 500 Mg Tablet PO 500 mg Q8H SAUL Administration Morphine Sulfate 4 mg 05/10/21 00:57 Morphine Sulfate 4 Mg/Ml Cartridge IVPUSH Q4H PRN Pain, Severe (Pain Scale 7-10) Nitroglycerin 0.4 mg 05/10/21 01:00 05/10/21 01:43 Nitroglycerin 0.4 Mg Tab.Subl SUBLINGUAL 0.4 mg BEDTIME SA[facility] Administration Non-Formulary Medication 12 unit 05/10/21 01:00 Insulin Glargine U-300 Conc [Toujeo Solostar U-300 Insulin] SUBCUT USEASDIRECTD COUNTS INCLUDE 234 BEDS AT THE [facility] Omeprazole 40 mg 05/10/21 09:00 Omeprazole 40 Mg Capsule.Dr PO DAILY COUNTS INCLUDE 234 BEDS AT [facility] Ondansetron HCl 4 mg 05/10/21 00:57 Ondansetron Hcl 4 Mg/2 Ml Vial IVPUSH Q8H PRN Nausea and Vomiting Sodium Chloride 3 ml 05/10/21 08:00 0.9 % Sodium Chloride Flush 3 Ml Syringe IVFLUSH QSHIFT COUNTS INCLUDE 234 BEDS AT [facility] Home Medications Medication Instructions Recorded Confirmed Last Taken Type atorvastatin 20 mg tablet 1 tab PO DAILY 05/09/21 05/09/21 Unknown History blood sugar diagnostic (FreeStyle 05/09/21 05/09/21 Unknown History Lite Strips) ezetimibe 10 mg tablet 1 tab PO DAILY 05/09/21 05/09/21 Unknown History hydralazine 10 mg tablet 1 tab PO TID 05/09/21 05/09/21 Unknown History insulin glargine U-300 conc 300 25 unit SUBCUT DAILY 05/09/21 05/10/21 Unknown History unit/mL (1.5 mL) subcutaneous pen (Toujeo SoloStar U-300 Insulin) insulin lispro 100 unit/mL See Protocol SUBCUT USEASDIRECTD 05/09/21 05/09/21 Unknown History subcutaneous pen (Humalog KwikPen (U-100) Insulin) isosorbide mononitrate 30 mg 1 tab PO DAILY 05/09/21 05/09/21 Unknown History tablet,extended release 24 hr lactulose 10 gram/15 mL oral 15 ml PO DAILY 05/09/21 05/09/21 Unknown History solution (Enulose) linagliptin 5 mg tablet (Tradjenta) 1 tab PO DAILY 05/09/21 05/09/21 Unknown History metformin 500 mg tablet 1 tab PO BID 05/09/21 05/09/21 Unknown History metoprolol succinate 50 mg 1 tab PO BID 05/09/21 05/09/21 Unknown History tablet,extended release 24 hr nitroglycerin 0.4 mg sublingual 1 tab SUBLINGUAL BEDTIME 05/09/21 05/09/21 Unknown History tablet omeprazole 40 mg capsule,delayed 1 cap PO DAILY 05/09/21 05/09/21 Unknown History release Physical Exam Vital Signs: Vital Signs: Last Vital Signs Temp 98.2 F 05/10/21 01:09 Pulse 52 05/10/21 01:42 Resp 18 05/10/21 01:09 BP 158/91 H 05/10/21 01:42 Pulse Ox 97 05/10/21 01:09 Body Mass Index 30.5 Const: General: no acute distress and well developed Nutritional Appearance: well nourished Orientation/consciousness: patient oriented x3 Limitations: no limitations HENMT: Head: Yes normocephalic and Yes atraumatic Ears: hearing grossly normal bilaterally Eyes: Sclerae: sclerae normal EOM: EOMs intact bilaterally Neck: Neck: Yes normal visual inspection, Yes full ROM, Yes trachea midline and Yes no JVD Resp: Effort & Inspection: normal respiratory effort, no audible wheezes and no cough GI: Inspection: Yes normal to inspection and No scar Palpation (GI): Soft to palpation, nontender, no guarding, not rigid, hepatosplenomegaly present and no masses Percussion: Yes normal to percussion and No Fluid wave present Skin: Other: No jaundice Neuro: General: patient oriented x3 Extrem: General: Yes no clubbing, cyanosis or edema Results Labs Result diagrams: 05/09/21 21:47 05/09/21 21:47 Labs: Abnormal lab results 05/09/21 05/09/21 05/09/21 Range/Units 20:42 21:47 21:47 RBC 4.37 L (4.60-5.80) X10*6/uL Hgb 10.2 L (14.0-18.0) g/dl Hct 32.9 L (42-52) % MCV 75.3 L (80-98) fL MCH 23.3 L (27.0-33.0) pg RDW 17.4 H (11.0-16.0) % Plt Count 47 L (160-400) X10*3/uL Neut % (Auto) 34.8 L (45-73) % Eos % (Auto) 21.3 H (0-4) % Eos # (Auto) 1.1 H (0.0-0.4) X10*3/uL Absolute Neuts (auto) 1.8 L (2.0-8.3) X10*3/uL PT 13.7 H (9.9-13.0) SEC INR 1.2 H (0.9-1.1) Chloride (96-108) mmol/L BUN (9-16) mg/dL Random Glucose (60-115) mg/dL Albumin (3.5-5.0) g/dL Ur Specific [place] >= 1.030 H (1.005-1.025) Urine Protein 3+ H (NEG-TRACE) MG/DL 05/09/21 Range/Units 21:47 RBC (4.60-5.80) X10*6/uL Hgb (14.0-18.0) g/dl Hct (42-52) % MCV (80-98) fL MCH (27.0-33.0) pg RDW (11.0-16.0) % Plt Count (160-400) X10*3/uL Neut % (Auto) (45-73) % Eos % (Auto) (0-4) % Eos # (Auto) (0.0-0.4) X10*3/uL Absolute Neuts (auto) (2.0-8.3) X10*3/uL PT (9.9-13.0) SEC INR (0.9-1.1) Chloride 109 H (96-108) mmol/L BUN 17 H (9-16) mg/dL Random Glucose 132 H (60-115) mg/dL Albumin 3.2 L (3.5-5.0) g/dL Ur Specific [place] (1.005-1.025) Urine Protein (NEG-TRACE) MG/DL Short CBC 05/09/21 Range/Units 21:47 WBC 5.1 (4.8-10.8) X10*3/uL Hgb 10.2 L (14.0-18.0) g/dl Hct 32.9 L (42-52) % Plt Count 47 L (160-400) X10*3/uL BMP 05/09/21 21:47 Sodium 142 Potassium 4.0 Chloride 109 H Carbon Dioxide 24 BUN 17 H Creatinine 1.37 Calcium 9.4 Liver Function 05/09/21 Range/Units 21:47 Total Bilirubin 0.7 (0.0-1.0) mg/dL AST 37 (5-37) U/L ALT 20 (0-40) U/L Alkaline Phosphatase 85 (39-117) U/L Albumin 3.2 L (3.5-5.0) g/dL Urine 05/09/21 Range/Units 20:42 Urine Color YELLOW Urine Appearance CLEAR Urine pH 6.0 (5.0-8.0) Ur Specific [place] >= 1.030 H (1.005-1.025) Urine Protein 3+ H (NEG-TRACE) MG/DL Urine Glucose (UA) NEG (NEG) MG/DL All other labs normal. Imaging Abdomen CT scan report/results: image reviewed Abdominal ultrasound report/results: image reviewed Assessment and Plan (1) Cirrhosis of liver with ascites: Qualifiers: Hepatic cirrhosis type: unspecified hepatic cirrhosis Qualified Code(s): K74.60 - Unspecified cirrhosis of liver; R18.8 - Other ascites Status: Acute (2) Biliary colic: Status: Acute 70-year-old male patient presenting with recurrent abdominal pain mainly in the right upper quadrant not associated with nausea, vomiting, fever, or chills, patient has an underlying history of liver disease with cirrhosis and ascites, diabetes, GERD, chronic kidney disease. His symptoms are now improved with no tenderness on examination. Review of the CT and ultrasound does reveal some ascites especially in the right upper quadrant. Gallbladder wall is minimally thickened on ultrasound. I will request a HIDA scan to better evaluate for acute cholecystitis. Will await these results before deciding on surgical intervention. Procedures Date of Service Date of Service: 05/10/21
--- NOTE | 2021-05-10 08:23 | PC.NURSE ---
ATTEMPTED TO CALL REPORT X2
[2021-05-10 08:44] LABS: Glucose, Whole Blood 91 mg/dL (60-115)
--- NOTE | 2021-05-10 08:47 | MHC.CM.PN ---
CM met with Patient at bedside, with the assist of Romanian translation, and addressed the IMM, providing Patient with the original and placing a copy on the chart. 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 Patient's goal is to return home and resume existing services and CM has initiated and will follow for dc planning. PCP is Dr. Kimber Vazquez.
--- NOTE | 2021-05-10 13:37 | PM.EVENT ---
Event Note Date of Service: 05/10/21 Event Note: Seen and examined this morning. Reports improvement in abdominal pain. Denies associated nausea, vomiting, diarrhea. Denies fever, chills This is a 70-year-old male with significant past medical history presents to the hospital with complaints of abdominal pain will be admitted for suspected cholecystitis # abdominal pain possible cholecystitis - patient afebrile, no leukocytosis - no LFT or bili elevations - continue IV antibiotics for now - seen by surgery, recommend HIDA scan # coagulopathy including thrombocytopenia secondary to his history of liver disease - monitor CBC for platelet count - monitor for any acute bleed #? diabetes - continue home insulin - hold oral antihyperglycemics - low-dose sliding scale insulin - diabetic diet # hypertension - stable -resume home medications # CAD - resume home medications # liver cirrhosis elevated ammonia, no encephalopathy or asterisks - continue lactulose DVT prophylaxis:? SCDs in the setting of thrombocytopenia and coagulopathy Attending: Dr. aj
[2021-05-10 14:08] LABS: Glucose, Whole Blood 75 mg/dL (60-115)
[2021-05-10 16:22] LABS: Glucose, Whole Blood 76 mg/dL (60-115)
[2021-05-10] MEDS: hydrALAZINE HCl 10 MG TABLET PO ×2 (16:49→20:48)
[2021-05-10] MEDS: Lactulose 20 GM/30 ML SOLUTION 10 GM PO (16:49)
[2021-05-10] MEDS: 0.9 % Sodium Chloride Flush 3 ML SYRINGE IVFLUSH ×2 (17:23→20:48)
[2021-05-10 20:27] LABS: Glucose, Whole Blood 182 mg/dL (60-115)
[2021-05-11 03:25] VITALS: BP 167/85; PULSE 65; RESP 18; TEMP 36.8; O2SAT 95
[2021-05-11 06:05] LABS: Basophils Percent Auto 0.6 % (0-2); Hemoglobin 10.3 g/dl (14.0-18.0); MANUAL DIFF FLAG SCAN; SCAN SMEAR FLAG 1
[2021-05-11 06:07] LABS: Eosinophils Absolute Auto 1.2 X10*3/uL (0.0-0.4); Eosinophils Percent Auto 22.8 % (0-4); Hematocrit 33.3 % (42-52); Mean Corpuscular HGB Conc 30.9 g/dl (31.0-36.0); Mean Corpuscular Hemoglobin 22.8 pg (27.0-33.0); Mean Corpuscular Volume 73.8 fL (80-98); Monocytes Absolute Auto 0.5 X10*3/uL (0.1-1.2); Monocytes Percent Auto 8.8 % (2-11); Neutrophils Absolute Auto 1.7 X10*3/uL (2.0-8.3); Neutrophils Percent Auto 31.8 % (45-73); Red Blood Count 4.51 X10*6/uL (4.60-5.80); Red Cell Distribution Width 17.1 % (11.0-16.0); White Blood Count 5.4 X10*3/uL (4.8-10.8)
[2021-05-11 06:38] LABS: PLT ABN DIST 1; Platelet Count 46 X10*3/uL (160-400)
[2021-05-11 06:46] LABS: Anion Gap 11 (12-20); Blood Urea Nitrogen 15 mg/dL (9-16); Calcium 8.8 mg/dL (8.4-10.2); Carbon Dioxide 26 mmol/L (22-29); Chloride 110 mmol/L (96-108); Creatinine Clr Calc Pharmacy 54.2; Estimated Glomerular Filt Rate 57; Glucose Random 84 mg/dL (60-115); Potassium 3.8 mmol/L (3.3-5.1); Sodium 143 mmol/L (135-145)
[2021-05-11 07:06] VITALS: BP 172/85; PULSE 63; RESP 20; TEMP 36.9; O2SAT 96
[2021-05-11 07:25] LABS: SLIDE REVIEW VERIFIED
[2021-05-11 07:48] LABS: Glucose, Whole Blood 85 mg/dL (60-115)
[2021-05-11 07:55] LABS: Alanine Aminotransferase 20 U/L (0-40); Albumin Level 3.2 g/dL (3.5-5.0); Alkaline Phosphatase 89 U/L (39-117); Aspartate Amino Transferase 29 U/L (5-37); Bilirubin Direct 0.5 mg/dL (0.0-0.5); Total Protein 6.3 g/dL (6.5-8.0)
[2021-05-11 08:14] VITALS: BP 172/82; BP 172/85; PULSE 63
[2021-05-11] MEDS: hydrALAZINE HCl 10 MG TABLET PO (08:14)
[2021-05-11] MEDS: Metoprolol Succinate ER 50 MG TAB.ER.24H PO (08:14)
[2021-05-11] MEDS: Ezetimibe 10 MG TABLET PO (08:14)
[2021-05-11 08:15] VITALS: BP 172/85; PULSE 63
[2021-05-11] MEDS: Atorvastatin Calcium 20 MG TABLET PO (08:15)
[2021-05-11] MEDS: Isosorbide Mononitrate 30 MG TAB.ER.24H PO (08:15)
[2021-05-11] MEDS: Lactulose 20 GM/30 ML SOLUTION 10 GM PO (08:15)
[2021-05-11] MEDS: 0.9 % Sodium Chloride Flush 3 ML SYRINGE IVFLUSH (08:16)
[2021-05-11] MEDS: Omeprazole 40 MG CAPSULE.DR PO (08:18)
--- NOTE | 2021-05-11 08:51 | P.DS_ITS ---
DS: Providers Provider Date of Service: 05/11/21 Date of admission: 05/10/21 00:55 Primary care physician: [facility] Consults: 05/10/21 00:57 Consult to General Surgery Routine Consulting Provider: Steven Oleary Reason for consultation: suspected davida Has provider been notified: Yes DS: Diagnosis Discharge Diagnosis (1) Biliary colic: Status: Acute (2) Abdominal pain: Status: Acute (3) Cirrhosis of liver with ascites: Status: Acute (4) Type 2 diabetes mellitus with unspecified complications: Status: Acute (5) Cirrhosis of liver: Status: Acute (6) Thrombocytopenia: Status: Acute DS: Medications Discharge Medications Home Medications: Home Medications Medication Instructions Recorded Confirmed atorvastatin 20 mg tablet 1 tab PO DAILY 05/09/21 05/09/21 blood sugar diagnostic (FreeStyle 05/09/21 05/09/21 Lite Strips) ezetimibe 10 mg tablet 1 tab PO DAILY 05/09/21 05/09/21 hydralazine 10 mg tablet 1 tab PO TID 05/09/21 05/09/21 insulin glargine U-300 conc 300 25 unit SUBCUT DAILY 05/09/21 05/10/21 unit/mL (1.5 mL) subcutaneous pen (Toujeo SoloStar U-300 Insulin) insulin lispro 100 unit/mL 12 unit SUBCUT TIDAC 05/09/21 05/10/21 subcutaneous pen (Humalog KwikPen (U-100) Insulin) isosorbide mononitrate 30 mg 1 tab PO DAILY 05/09/21 05/09/21 tablet,extended release 24 hr lactulose 10 gram/15 mL oral 15 ml PO DAILY 05/09/21 05/09/21 solution (Enulose) linagliptin 5 mg tablet (Tradjenta) 1 tab PO DAILY 05/09/21 05/09/21 metformin 500 mg tablet 1 tab PO BID 05/09/21 05/09/21 metoprolol succinate 50 mg 1 tab PO BID 05/09/21 05/09/21 tablet,extended release 24 hr nitroglycerin 0.4 mg sublingual 1 tab SUBLINGUAL BEDTIME 05/09/21 05/09/21 tablet omeprazole 40 mg capsule,delayed 1 cap PO DAILY 05/09/21 05/09/21 release DS: Summary Hospital Course Hospital Course: From H&P on day of admission is a 70-year-old male with liver cirrhosis, HTN, diabetes, thrombocytopenia, CAD, gastroparesis, HLD, CKD, among others who presents to the hospital with abdominal pain.? Patient reports that his abdominal pain started Friday, he came into the ED, but at that time he was complaining of abdominal ascites and was found to have slightly elevated ammonia, patient was started on lactulose and sent home.? Returns today stating that his abdominal pain has increased, 10/10, right upper quadrant, radiating to the back, associated with nausea with no vomiting, no diarrhea, the pain is constant, no increased abdominal distension, no chest pain, no shortness of breath, no urinary symptoms, no diarrhea constipation, and no lower extremity edema. On arrival to the edema dynamic least stable with no significant abnormal vitals Labs are significant for WBC count of 5.1, hemoglobin of 10.2, platelets of 47 which are progressively dropping PT of 13.7, INR of 1.2, BUN of 17 with a creatinine of 1.37 which is around his baseline, albumin of 3.2, UA negative for any infection Abdominal CT done on 05/07 shows cholelithiasis without evidence of cholecystitis, abdominal ultrasound done today shows cirrhotic liver, abdominal ascites, cholelithiasis, slight thickening of gallbladder wall which is uncertain significance in the presence of abdominal ascites. This case was discussed with surgery, patient will be admitted for suspected cholecystitis Abdominal pain Patient was admitted to the hospital due to abdominal pain with concern for cholecystitis. Abdominal ultrasound showed cholelithiasis with thickening of the gallbladder wall. He was evaluated by General surgery who recommended a HIDA scan. HIDA scan showed patent cystic duct and patent common bile duct arg uing against acute cholecystitis Liver function testing remained within normal limits. Patient's abdominal pain completely resolved. He is currently tolerating a diabetic diet without any abdominal pain and is eager to return home. Abdominal pain is likely the result of biliary colic. He is encouraged to follow a low-fat diet and avoid fried foods. Liver cirrhosis with thrombocytopenia and elevated ammonia Labs appear to be at baseline. Ammonia level was elevated however patient had no evidence of encephalopathy. He has recently been started on lactulose which she is encouraged to continue. He should follow up with GI as scheduled. No changes were made to baseline medications. Time Spent with Patient Time attestation: Total time spent providing and/or coordinating discharge services: Discharge coordination time: Greater than 30 minutes Quality: Stroke Does the patient have a stroke diagnosis?: No Physical Exam Vital Signs: Vital Signs: Last Vital Signs Temp 98.4 F 05/11/21 07:06 Pulse 63 05/11/21 08:15 Resp 20 05/11/21 07:06 BP 172/85 H 05/11/21 08:15 Pulse Ox 96 05/11/21 07:06 Body Mass Index 31.0 Const: Nutritional Appearance: well nourished Orientation/consciousness: patient oriented x3 HENMT: Head: Yes normocephalic and Yes atraumatic Eyes: Sclerae: sclerae normal Resp: Effort & Inspection: normal respiratory effort and no respiratory distress Cardio: Rate: regular rate Rhythm: regular rhythm GI: Palpation (GI): Soft to palpation and nontender Neuro: General: patient oriented x3 Cranial nerves: Yes CN's II-XII intact bilaterally and Yes Bilaterally intact EOM present DS: Data Data Completed and Pending Labs on day of discharge: Laboratory Results - last 24 hr 05/10/21 05/10/21 05/10/21 13:27 16:11 19:53 WBC RBC Hgb Hct MCV MCH MCHC RDW Plt Count MPV Immature Gran % (Auto) Neut % (Auto) Lymph % (Auto) [place] % (Auto) Eos % (Auto) Baso % (Auto) Lymph # (Auto) [place] # (Auto) Eos # (Auto) Baso # (Auto) Abs Immat Gran (auto) Absolute Neuts (auto) Absolute Nucleated RBC Nucleated RBC % (auto) Smear Tech's Comments Sodium Potassium Chloride Carbon Dioxide Anion Gap BUN Creatinine Estim Creat Clear Calc Estimated GFR POC Glucose 75 76 182 H Random Glucose Calcium Total Bilirubin Direct Bilirubin AST ALT Alkaline Phosphatase Total Protein Albumin 05/11/21 05/11/21 05/11/21 05:24 05:24 07:01 WBC 5.4 RBC 4.51 L Hgb 10.3 L Hct 33.3 L MCV 73.8 L MCH 22.8 L MCHC 30.9 L RDW 17.1 H Plt Count 46 L MPV Not Reportable Immature Gran % (Auto) 0.0 Neut % (Auto) 31.8 L Lymph % (Auto) 36.0 [place] % (Auto) 8.8 Eos % (Auto) 22.8 H Baso % (Auto) 0.6 Lymph # (Auto) 2.0 [place] # (Auto) 0.5 Eos # (Auto) 1.2 H Baso # (Auto) 0.0 Abs Immat Gran (auto) 0.00 Absolute Neuts (auto) 1.7 L Absolute Nucleated RBC 0.000 Nucleated RBC % (auto) 0.0 Smear Tech's Comments VERIFIED Sodium 143 Potassium 3.8 Chloride 110 H Carbon Dioxide 26 Anion Gap 11 L BUN 15 Creatinine 1.26 Estim Creat Clear Calc 54.2 Estimated GFR 57 POC Glucose 85 Random Glucose 84 D Calcium 8.8 D Total Bilirubin 1.0 Direct Bilirubin 0.5 AST 29 ALT 20 Alkaline Phosphatase 89 Total Protein 6.3 L Albumin 3.2 L Discharge Plan Discharge Patient Disposition: Home, Self-Care Discharge Diagnosis: Abdominal pain secondary to Biliary colic acute cholecystitis ruled out Referrals: [facility] [Primary Care Provider] - 1 Week Discharge Medications: Continued metformin 500 mg tablet 1 tab PO BID RF: 0 hydralazine 10 mg tablet 1 tab PO TID RF: 0 atorvastatin 20 mg tablet 1 tab PO DAILY RF: 0 metoprolol succinate 50 mg tablet extended release 24 hr 1 tab PO BID RF: 0 isosorbide mononitrate 30 mg tablet extended release 24 hr 1 tab PO DAILY RF: 0 (DME) FreeStyle Lite Strips Strip MISCELLANEOUS TID RF: 0 omeprazole 40 mg capsule,delayed release(DR/EC) 1 cap PO DAILY RF: 0 nitroglycerin 0.4 mg tablet, sublingual 1 tab sublingual BEDTIME RF: 0 insulin lispro [Humalog KwikPen Insulin] 100 unit/mL insulin pen 12 unit subcut TIDAC RF: 0 ezetimibe 10 mg tablet 1 tab PO DAILY RF: 0 lactulose [Enulose] 10 gram/15 mL solution 15 ml PO DAILY RF: 0 Tradjenta 5 mg tablet 1 tab PO DAILY RF: 0 Toujeo SoloStar U-300 Insulin 300 unit/mL (1.5 mL) insulin pen 25 unit subcut DAILY RF: 0 Diet: advance to usual diet, diabetic diet and low fat, low cholesterol Activity on Discharge: As tolerated Stand Alone Forms: Patient Portal Discharge page Care Plan Goals: see below Health Concerns: Abdominal pain secondary to biliary colic Plan of Treatment: Recommend low fat diet, avoid fried foods. Assessment: see discharge summary
--- NOTE | 2021-05-11 09:18 | MHC.CM.PN ---
PT CLEARED TO DC HOME TODAY WITH RESUMPTION OF HIS [employer]. FAMILY TO TRANSPORT
== END 2021-05-11 10:05 | disposition home or self-care (01) | DRG 445 ==
LOC: HO.ED 21:06 → HO.EDOVER 05-10 01:10 → HO.IMC 05-10 06:51
PROVIDERS: Physician Assistant Medical; Admitting Provider Internal Medicine; Emergency Provider Student in an Organized Health Care Education/Training Program; PCP Internal Medicine; Visit Provider Family Medicine
DX: K80.50 Calculus of bile duct without cholangitis or cholecystitis without obstruction (principal); R18.8 Other ascites; D68.9 Coagulation defect, unspecified; D69.6 Thrombocytopenia, unspecified; M10.9 Gout, unspecified; E11.42 Type 2 diabetes mellitus with diabetic polyneuropathy; K21.9 Gastro-esophageal reflux disease without esophagitis; I25.10 Atherosclerotic heart disease of native coronary artery without angina pectoris; K74.60 Unspecified cirrhosis of liver; Z87.891 Personal history of nicotine dependence; Z20.822 Contact with and (suspected) exposure to COVID-19; Z79.4 Long term (current) use of insulin; Z79.899 Other long term (current) drug therapy
CPT/HCPCS: 36415; 74176; 76705; 78226; 80048; 80053; 80076; 81001; 82140; 82947; 83690; 84484; 85025; 85610; 87635; 93005; 99284; 99285; A9537; J0696

== ENCOUNTER → 2021-05-15 09:32 | Outpatient (BNVA) | payer MEDICARE, MEDICAID, SELFPAY | PROVIDERS: PCP Internal Medicine; Referring Provider Internal Medicine; Visit Provider Internal Medicine | DX: I25.10 Atherosclerotic heart disease of native coronary artery without angina pectoris (principal); R94.39 Abnormal result of other cardiovascular function study; E11.22 Type 2 diabetes mellitus with diabetic chronic kidney disease; I12.9 Hypertensive chronic kidney disease with stage 1 through stage 4 chronic kidney disease, or unspecified chronic kidney disease; N18.32 Chronic kidney disease, stage 3b; I77.810 Thoracic aortic ectasia; K74.60 Unspecified cirrhosis of liver; R18.8 Other ascites | CPT/HCPCS: 99212 ==

== ENCOUNTER 2021-05-17 14:12 | Outpatient (REF) | payer MEDICARE, MEDICAID, SELFPAY ==
[2021-05-17 15:37] LABS: Prostate Specific Antigen 0.35 ng/mL (<0.05-4.0)
== END 2021-05-17 14:13 | disposition home or self-care (01) ==
LOC: HO.LAB 14:12
PROVIDERS: PCP Internal Medicine; Visit Provider Nurse Practitioner Family
DX: Z12.5 Encounter for screening for malignant neoplasm of prostate (principal)
CPT/HCPCS: 36415; 84153

== ENCOUNTER 2021-07-03 13:55 | Emergency (ER) | payer MEDICARE, MEDICAID, SELFPAY ==
[2021-07-03 14:26] VITALS: BP 130/72; PULSE 87; RESP 22; TEMP 37.2; O2SAT 97; BMI 30.9
[2021-07-03 17:17] LABS: Hematocrit 34.3 % (42-52); Hemoglobin 10.8 g/dl (14.0-18.0); Mean Corpuscular HGB Conc 31.5 g/dl (31.0-36.0); Mean Corpuscular Hemoglobin 23.3 pg (27.0-33.0); Mean Corpuscular Volume 73.9 fL (80-98); Red Blood Count 4.64 X10*6/uL (4.60-5.80); Red Cell Distribution Width 15.6 % (11.0-16.0); White Blood Count 6.4 X10*3/uL (4.8-10.8)
[2021-07-03 17:35] LABS: B Type Natriuretic Peptide 172 pg/mL (<100); Troponin-I High Sensitivity < 3.5 ng/L (<3.5-35.0)
[2021-07-03 17:42] LABS: Anion Gap 15 (12-20); Blood Urea Nitrogen 16 mg/dL (9-16); Calcium 9.2 mg/dL (8.4-10.2); Carbon Dioxide 22 mmol/L (22-29); Chloride 113 mmol/L (96-108); Creatinine Clr Calc Pharmacy 45.7; Estimated Glomerular Filt Rate 47; Glucose Random 53 mg/dL (60-115); Potassium 3.8 mmol/L (3.3-5.1); Sodium 146 mmol/L (135-145)
[2021-07-03 17:50] LABS: Platelet Count 56 X10*3/uL (160-400)
--- NOTE | 2021-07-03 19:19 | ED_ITS ---
HPI - General Adult General Chief complaint: Extremity Problem Stated complaint: swollen legs & abdomen Time Seen by Provider: 07/03/21 17:30 Source: patient Limitations: no limitations History of Present Illness HPI narrative: This is a 70-year-old male with history of cirrhosis of the liver, abdominal ascites, who complains of increased abdominal girth as well as swelling to his legs. This has been progressing over some time but is worse in the last few days. The patient denies any shortness of breath. Denies any cough or fever. He denies abdominal pain, vomiting or diarrhea. He previously had been on a diuretic but was taken off of it. He has had the ascites drained in the past, the last time about a year ago. Related Data Home Medications Medication Instructions Recorded Confirmed atorvastatin 20 mg tablet 1 tab PO DAILY 05/09/21 05/22/21 blood sugar diagnostic (FreeStyle 05/09/21 05/22/21 Lite Strips) ezetimibe 10 mg tablet 1 tab PO DAILY 05/09/21 05/22/21 hydralazine 10 mg tablet 1 tab PO TID 05/09/21 05/22/21 insulin glargine U-300 conc 300 25 unit SUBCUT DAILY 05/09/21 05/22/21 unit/mL (1.5 mL) subcutaneous pen (Toujeo SoloStar U-300 Insulin) insulin lispro 100 unit/mL 12 unit SUBCUT TIDAC 05/09/21 05/22/21 subcutaneous pen (Humalog KwikPen (U-100) Insulin) isosorbide mononitrate 30 mg 1 tab PO DAILY 05/09/21 05/22/21 tablet,extended release 24 hr lactulose 10 gram/15 mL oral 15 ml PO DAILY 05/09/21 05/22/21 solution (Enulose) linagliptin 5 mg tablet (Tradjenta) 1 tab PO DAILY 05/09/21 05/22/21 metformin 500 mg tablet 1 tab PO BID 05/09/21 05/22/21 metoprolol succinate 50 mg 1 tab PO BID 05/09/21 05/22/21 tablet,extended release 24 hr omeprazole 40 mg capsule,delayed 1 cap PO DAILY 05/09/21 05/22/21 release aspirin 81 mg tablet,delayed 81 mg PO DAILY 08/03/21 08/10/21 release Previous Rx's Medication Instructions Recorded amlodipine 5 mg tablet (Norvasc) 5 mg PO DAILY #90 tab 05/15/21 lancets 28 gauge (FreeStyle #100 ea 05/17/21 Lancets) blood sugar diagnostic (Prodigy No #100 ea 06/13/21 Coding) blood-glucose meter (Prodigy #1 ea 06/13/21 Autocode Meter) lancets 28 gauge (Prodigy Lancets) #100 ea 06/13/21 alcohol swabs (Alcohol Prep Pads) 1 pad TOPICAL TID 30 Days #100 ea 06/22/21 mupirocin 2 % topical ointment 1 appl TOPICAL BID 7 Days #15 g 06/22/21 nitroglycerin 0.4 mg sublingual 0.4 mg SUBLINGUAL Q5M PRN #25 ea 06/22/21 tablet hydrochlorothiazide 25 mg tablet 25 mg PO DAILY #14 tab 07/03/21 Allergies Allergy/AdvReac Type Severity Reaction Status Date / Time wheat [WHEAT] AdvReac Intermediate DIARRHEA Verified 05/22/21 09:01 Review of Systems Review of Systems: Yes all other systems are reviewed and are negative Constitutional: Constitutional: Reports as per HPI and Denies fever(s) Eyes: Eyes: Reports as per HPI and Reports no additional eye complaints ENT: Reports system reviewed and no additional complaints, except as documen arsen, Reports as per HPI, Denies nasal congestion, Denies nasal discharge and Denies sore throat Cardiovascular: Cardiovascular: Reports as per HPI, Denies chest pain and Denies dyspnea Respiratory: Respiratory: Reports as per HPI, Denies cough and Denies dyspnea Gastrointestinal: Gastrointestinal: Reports as per HPI, Denies abdominal pain, Denies diarrhea, Denies vomiting and Reports other (Abdominal distension) Genitourinary: Genitourinary: Reports as per HPI, Denies hematuria, Denies dysuria and Denies urinary frequency Musculoskeletal: Musculoskeletal: Reports no additional musculoskeletal complaints and Denies numbness Integumentary/Breasts: Skin/Breast: Reports as per HPI and Denies rash Neurologic: Reports as per HPI, Denies focal weakness, Denies numbness and Denies Sensory deficit (Neuro) Psychiatric: Psychiatric: Reports no additional psychiatric complaints and Reports as per HPI Endocrine: Endocrine: Reports no additional endocrine complaints and Reports as per HPI Hematologic/Lymphatic: Hematologic/Lymphatic: Reports no additional hematologic/lymphatic complaints, Reports as per HPI and Reports other (Leg swelling bilaterally) [facility] Past Medical History Medical History (Updated 07/03/21 @ 19:19 by Raza Araya MD) Abnormal myocardial perfusion study Ascending aorta dilatation Ascites Atherosclerotic cardiovascular disease Cirrhosis of liver Cirrhosis of liver Cirrhosis of liver with ascites CKD (chronic kidney disease) stage 3, GFR 30-59 ml/min Diabetes Diabetes type 2, uncontrolled Diabetic nephropathy associated with type 2 diabetes mellitus Dyslipidemia Dyslipidemia associated with type 2 diabetes mellitus Essential hypertension Gastroparesis GERD (gastroesophageal reflux disease) Gout Hypertension Hypoglycemia 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 with 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 diabetes mellitus 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 Thrombocytopenia Thrombocytopenia Surgical History Hx of colonoscopy Family History Family History Father Diabetes CVD (cardiovascular disease) Mother Diabetes Social History Social History Household Members: Spouse and Family Housing: Apartment Do you presently have visiting nurse or other home services: Yes ([employer] FRIDAY-FRIDAY) Alcohol intake: unknown Patient Tobacco Use Status: Never used Tobacco Tobacco use type: Cigarette e-Cigarette/Vaping Use: Never Used Use of substances other than those prescribed or required for medical reasons: Unknown Advance Directives: No Advance Directives Information Provided: Yes service: No Current occupational status: retired and disabled Physical Exam Vital Signs: Vital Signs: Last Vital Signs Temp 97.8 F 07/03/21 19:41 Pulse 67 07/03/21 19:41 Resp 16 07/03/21 19:41 BP 107/60 07/03/21 19:41 Pulse Ox 99 07/03/21 19:41 Body Mass Index 30.9 Const: General: cooperative, no acute distress and alert Orientation/consciousness: patient oriented x3 HENMT: Head: Yes normal to inspection Eyes: General: appearance normal, both eyes and all related structures Eyelids: Yes eyelids normal Conjunctivae: conjunctivae normal Pupils: Eq ual, round and reactive pupils present Neck: Neck: Yes normal visual inspection and Yes supple Chest: Chest palpation & inspection: normal inspection of the chest Resp: Effort & Inspection: normal respiratory effort Auscultation: clear to auscultation bilaterally Cardio: Rate: regular rate Rhythm: regular rhythm Heart sounds: S1 normal heart sound present, S2 normal heart sound present, no gallops, no murmurs and no rubs GI: Palpation (GI): Soft to palpation, nontender, Ascites present and Other GI palpation findings present (Non-distended) Auscultation: normal bowel sounds Skin: General skin exam: no rashes or lesions noted Neuro: General: patient oriented x3, no focal motor deficits and CN's II-XI intact bilaterally Cranial nerves: Yes Equal, round and reactive pupils present Cognition (Neuro): normal cognition Motor exam (neuro): 5/5 motor strength present throughout Sensory Exam: No Sensory deficit (Neuro) Extrem: General: Yes normal to inspection, Yes no pedal edema and Yes pedal edema (2+ pitting edema of legs bilaterally) Psych: Appearance: grossly normal Affect: normal affect Medical Decision Making MDM Narrative Medical decision making narrative: Patient with history of cirrhosis of the liver, chronic ascites, now with some peripheral edema. Patient's renal function is mildly compromised however he can start on hydrochlorothiazide daily, and needs to follow-up for outpatient drainage of ascites by Interventional Radiology. Patient had no significant dyspnea, had a normal oxygen saturation, ambulated well. Lab Data Result diagrams: 07/03/21 17:05 07/03/21 17:05 Labs: Lab Results 07/03/21 07/03/21 07/03/21 Range/Units 17:05 17:05 17:05 WBC 6.4 (4.8-10.8) X10*3/uL RBC 4.64 (4.60-5.80) X10*6/uL Hgb 10.8 L (14.0-18.0) g/dl Hct 34.3 L (42-52) % MCV 73.9 L (80-98) fL MCH 23.3 L (27.0-33.0) pg MCHC 31.5 (31.0-36.0) g/dl RDW 15.6 (11.0-16.0) % Plt Count 56 L (160-400) X10*3/uL MPV Not Reportable Absolute Nucleated RBC 0.000 (0.0-0.012) X10*3/uL Nucleated RBC % (auto) 0.0 (0.0-0.2) /100WBC Sodium 146 H (135-145) mmol/L Potassium 3.8 (3.3-5.1) mmol/L Chloride 113 H (96-108) mmol/L Carbon Dioxide 22 (22-29) mmol/L Anion Gap 15 (12-20) BUN 16 (9-16) mg/dL Creatinine 1.49 H (0.5-1.4) mg/dL Estim Creat Clear Calc 45.7 Estimated GFR 47 POC Glucose (60-115) mg/dL Random Glucose 53 L* (60-115) mg/dL Calcium 9.2 (8.4-10.2) mg/dL Troponin I High Sens < 3.5 (<3.5-35.0) ng/L B-Natriuretic Peptide 172 H (<100) pg/mL 07/03/21 Range/Units 19:48 WBC (4.8-10.8) X10*3/uL RBC (4.60-5.80) X10*6/uL Hgb (14.0-18.0) g/dl Hct (42-52) % MCV (80-98) fL MCH (27.0-33.0) pg MCHC (31.0-36.0) g/dl RDW (11.0-16.0) % Plt Count (160-400) X10*3/uL MPV Absolute Nucleated RBC (0.0-0.012) X10*3/uL Nucleated RBC % (auto) (0.0-0.2) /100WBC Sodium (135-145) mmol/L Potassium (3.3-5.1) mmol/L Chloride (96-108) mmol/L Carbon Dioxide (22-29) mmol/L Anion Gap (12-20) BUN (9-16) mg/dL Creatinine (0.5-1.4) mg/dL Estim Creat Clear Calc Estimated GFR POC Glucose 130 H (60-115) mg/dL Random Glucose (60-115) mg/dL Calcium (8.4-10.2) mg/dL Troponin I High Sens (<3.5-35.0) ng/L B-Natriuretic Peptide (<100) pg/mL Discharge Plan Discharge Clinical Impression: Abdominal ascites, Edema, peripheral Patient Disposition: Home, Self-Care Instructions: Ascites (ED), Edema (ED) Additional Instructions: Start hydrochlorothiazide as prescribed Follow-up with your primary care physician to arrange outpatient drainage of your abdominal fluid by Interventional Radiology. Return for any new or worsened symptoms Prescriptions: New hydrochlorothiazide 25 mg tablet 25 mg PO DAILY Qty: 14 RF: 0 No Action (DME) blood-glucose meter [Prodigy Autocode Meter] Kit See Rx Instructions .Route Qty: 1 RF: 0 (DME) Prodigy No Coding Strip See Rx Instructions .Route Qty: 100 RF: 11 (DME) lancets [Prodigy Lancets] 28 gauge misc See Rx Instructions .Route Qty: 100 RF: 11 nitroglycerin 0.4 mg tablet, sublingual 0.4 mg sublingual Q5M PRN (Reason: chest pain) Qty: 25 RF: 2 mupirocin 2 % ointment 1 appl topical BID 7 Days Qty: 15 RF: 1 alcohol swabs [Alcohol Prep Pads] Pads, Medicated 1 pad topical TID 30 Days Qty: 100 RF: 3 metformin 500 mg tablet 1 tab PO BID RF: 0 hydralazine 10 mg tablet 1 tab PO TID RF: 0 atorvastatin 20 mg tablet 1 tab PO DAILY RF: 0 metoprolol succinate 50 mg tablet extended release 24 hr 1 tab PO BID RF: 0 isosorbide mononitrate 30 mg tablet extended release 24 hr 1 tab PO DAILY RF: 0 (DME) FreeStyle Lite Strips Strip MISCELLANEOUS TID RF: 0 omeprazole 40 mg capsule,delayed release(DR/EC) 1 cap PO DAILY RF: 0 insulin lispro [Humalog KwikPen Insulin] 100 unit/mL insulin pen 12 unit subcut TIDAC RF: 0 ezetimibe 10 mg tablet 1 tab PO DAILY RF: 0 lactulose [Enulose] 10 gram/15 mL solution 15 ml PO DAILY RF: 0 Tradjenta 5 mg tablet 1 tab PO DAILY RF: 0 Toujeo SoloStar U-300 Insulin 300 unit/mL (1.5 mL) insulin pen 25 unit subcut DAILY RF: 0 (DME) lancets [FreeStyle Lancets] 28 gauge misc See Rx Instructions .Route Qty: 100 RF: 0 aspirin 81 mg tablet,delayed release (DR/EC) 81 mg PO DAILY RF: 0 amlodipine [Norvasc] 5 mg tablet 5 mg PO DAILY Qty: 90 RF: 4 Interventions: ED Discharge Assessment Last Done: 07/03/21 19:59 Discharge Date/Time: 07/03/21 20:02
[2021-07-03 19:41] VITALS: BP 107/60; PULSE 67; RESP 16; TEMP 36.6; O2SAT 99
[2021-07-03 19:51] LABS: Glucose, Whole Blood 130 mg/dL (60-115)
[2021-07-03] MEDS: hydroCHLOROthiazide 25 MG TABLET PO (19:53)
[2021-07-04 09:20] LABS: Glucose, Whole Blood 68 mg/dL (60-115)
== END 2021-07-03 20:02 | disposition home or self-care (01) ==
PROVIDERS: Emergency Provider Emergency Medicine; PCP Internal Medicine
DX: R60.0 Localized edema (principal); R10.9 Unspecified abdominal pain; E11.9 Type 2 diabetes mellitus without complications; F17.210 Nicotine dependence, cigarettes, uncomplicated; Z71.6 Tobacco abuse counseling; Z79.4 Long term (current) use of insulin; Z79.899 Other long term (current) drug therapy
CPT/HCPCS: 36415; 80048; 82947; 83880; 84484; 85027; 99283; 99284

== ENCOUNTER 2021-07-04 18:11 | Emergency (ER) | payer MEDICARE, MEDICAID, SELFPAY ==
--- NOTE | ~2021-07-04 | XR_ITS ---
EXAMINATION: XR CHEST CLINICAL INFORMATION: SOB. COMPARISON: Chest x-ray 02/03/2020 TECHNIQUE: Frontal view of the chest was obtained. FINDINGS: The lungs are well-expanded and clear. The heart size and pulmonary vascularity is normal. There is mild spondylosis dorsal spine. XR/XR chest 1V IMPRESSION: Unremarkable chest exam. No change from previous study 02/03/2020
[2021-07-04 19:26] VITALS: BP 153/81; PULSE 73; RESP 18; TEMP 36.6; O2SAT 98; BMI 31.6
--- NOTE | 2021-07-04 20:34 | PC.NURSE ---
Reporting SOB at this time
[2021-07-04 21:18] LABS: Basophils Percent Auto 0.4 % (0-2); Eosinophils Absolute Auto 1.5 X10*3/uL (0.0-0.4); Eosinophils Percent Auto 27.2 % (0-4); Hematocrit 36.2 % (42-52); Hemoglobin 11.3 g/dl (14.0-18.0); Imm Gran Abs Auto 0.01 X10*3/uL (0.00-0.03); Imm Gran Pct Auto 0.2 % (0.0-0.4); Lymphocytes Absolute Auto 2.1 X10*3/uL (1.2-4.9); Lymphocytes Percent Auto 36.2 % (20-40); Mean Corpuscular HGB Conc 31.2 g/dl (31.0-36.0); Mean Corpuscular Hemoglobin 23.3 pg (27.0-33.0); Mean Corpuscular Volume 74.5 fL (80-98); Monocytes Absolute Auto 0.5 X10*3/uL (0.1-1.2); Monocytes Percent Auto 7.9 % (2-11); Neutrophils Absolute Auto 1.6 X10*3/uL (2.0-8.3); Neutrophils Percent Auto 28.1 % (45-73); Platelet Count 58 X10*3/uL (160-400); Red Blood Count 4.86 X10*6/uL (4.60-5.80); Red Cell Distribution Width 15.8 % (11.0-16.0); White Blood Count 5.7 X10*3/uL (4.8-10.8)
[2021-07-04 21:28] LABS: Anion Gap 15 (12-20); Blood Urea Nitrogen 19 mg/dL (9-16); Calcium 9.6 mg/dL (8.4-10.2); Carbon Dioxide 23 mmol/L (22-29); Chloride 110 mmol/L (96-108); Creatinine Clr Calc Pharmacy 40.5; Estimated Glomerular Filt Rate 40; Glucose Random 145 mg/dL (60-115); Potassium 4.1 mmol/L (3.3-5.1); Sodium 144 mmol/L (135-145)
[2021-07-04 21:34] LABS: B Type Natriuretic Peptide 197 pg/mL (<100); MANUAL DIFF FLAG SCAN; SLIDE REVIEW VERIFIED; Troponin-I High Sensitivity 3.6 ng/L (<3.5-35.0)
--- NOTE | 2021-07-04 23:08 | ED_ITS ---
HPI - General Adult General Chief complaint: Dyspnea Stated complaint: EDEMA Time Seen by Provider: 07/04/21 23:08 Source: patient Mode of arrival: ambulatory Limitations: no limitations History of Present Illness HPI narrative: patient was here yesterday with the same problems. Here for leg swelling, abdominal swelling, and facial swelling. States that the pharmacy did not have his medications. Onset (ago): year(s) Location: abdomen and lower extremity Severity: moderate Relieving factors: none Exacerbating factors: none Related Data Home Medications Medication Instructions Recorded Confirmed atorvastatin 20 mg tablet 1 tab PO DAILY 05/09/21 05/22/21 blood sugar diagnostic (FreeStyle 05/09/21 05/22/21 Lite Strips) ezetimibe 10 mg tablet 1 tab PO DAILY 05/09/21 05/22/21 hydralazine 10 mg tablet 1 tab PO TID 05/09/21 05/22/21 insulin glargine U-300 conc 300 25 unit SUBCUT DAILY 05/09/21 05/22/21 unit/mL (1.5 mL) subcutaneous pen (Toujeo SoloStar U-300 Insulin) insulin lispro 100 unit/mL 12 unit SUBCUT TIDAC 05/09/21 05/22/21 subcutaneous pen (Humalog KwikPen (U-100) Insulin) isosorbide mononitrate 30 mg 1 tab PO DAILY 05/09/21 05/22/21 tablet,extended release 24 hr lactulose 10 gram/15 mL oral 15 ml PO DAILY 05/09/21 05/22/21 solution (Enulose) linagliptin 5 mg tablet (Tradjenta) 1 tab PO DAILY 05/09/21 05/22/21 metformin 500 mg tablet 1 tab PO BID 05/09/21 05/22/21 metoprolol succinate 50 mg 1 tab PO BID 05/09/21 05/22/21 tablet,extended release 24 hr omeprazole 40 mg capsule,delayed 1 cap PO DAILY 05/09/21 05/22/21 release aspirin 81 mg tablet,delayed 81 mg PO DAILY 05/15/21 05/22/21 release Previous Rx's Medication Instructions Recorded amlodipine 5 mg tablet (Norvasc) 5 mg PO DAILY #90 tab 05/15/21 lancets 28 gauge (FreeStyle #100 ea 05/17/21 Lancets) blood sugar diagnostic (Prodigy No #100 ea 06/13/21 Coding) blood-glucose meter (Prodigy #1 ea 06/13/21 Autocode Meter) lancets 28 gauge ([place]'s Talkingy Lancets) #100 ea 06/13/21 alcohol swabs (Alcohol Prep Pads) 1 pad TOPICAL TID 30 Days #100 ea 06/22/21 mupirocin 2 % topical ointment 1 appl TOPICAL BID 7 Days #15 g 06/22/21 nitroglycerin 0.4 mg sublingual 0.4 mg SUBLINGUAL Q5M PRN #25 ea 06/22/21 tablet hydrochlorothiazide 25 mg tablet 25 mg PO DAILY #14 tab 07/04/21 spironolactone 25 mg tablet 25 mg PO DAILY #20 tab 07/04/21 (Aldactone) Allergies Allergy/AdvReac Type Severity Reaction Status Date / Time wheat [WHEAT] AdvReac Intermediate DIARRHEA Verified 07/04/21 14:54 Review of Systems Constitutional: Constitutional: Reports no additional constitutional complaints Eyes: Eyes: Reports no additional eye complaints ENT: Denies dizziness Cardiovascular: Cardiovascular: Reports no additional cardiovascular complaints Respiratory: Respiratory: Reports as per HPI Gastrointestinal: Gastrointestinal: Reports no additional gastrointestinal complaints Musculoskeletal: Musculoskeletal: Reports no additional musculoskeletal complaints Integumentary/Breasts: Skin/Breast: Denies rash Neurologic: Reports system reviewed and no additional complaints, except as documented, Denies dizziness and Denies Sensory deficit (Neuro) Psychiatric: Psychiatric: Denies anxiety [facility] Past Medical History Medical History (Updated 07/04/21 @ 23:14 by Domingo Mahmood MD) Abnormal myocardial perfusion study Ascending aorta dilatation Ascites Atherosclerotic cardiovascular disease Cirrhosis of liver Cirrhosis of liver Cirrhosis of liver with ascites CKD (chronic kidney disease) stage 3, GFR 30-59 ml/min Diabetes Diabetes type 2, uncontrolled Diabetic nephropathy associated with type 2 diabetes mellitus Dyslipidemia Dyslipidemia associated with type 2 diabetes mellitus Essential hypertension Gastroparesis GERD (gastroesophageal reflux disease) Gout Hypertension Hypoglycemia 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 with type 2 diabetes mellitus 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 cancer Thrombocytopenia Thrombocytopenia Surgical History Hx of colonoscopy Family History Family History Father Diabetes CVD (cardiovascular disease) Mother Diabetes Social History Social History Household Members: Spouse and Family Housing: Apartment Do you presently have visiting nurse or other home services: Yes ([employer] FRIDAY- FRIDAY) Alcohol intake: unknown Patient Tobacco Use Status: Never used Tobacco Tobacco use type: Cigarette e-Cigarette/Vaping Use: Never Used service: No Current occupational status: retired and disabled Physical Exam Vital Signs: Vital Signs: Last Vital Signs Temp 98 F 07/04/21 19:26 Pulse 73 07/04/21 19:26 Resp 18 07/04/21 19:26 BP 153/81 H 07/04/21 19:26 Pulse Ox 98 07/04/21 19:26 Body Mass Index 31.6 Const: General: healthy appearing Nutritional Appearance: average body habitus Orientation/consciousness: oriented to person and patient oriented x3 Limitations: no limitations HENMT: Head: Yes normal to inspection Ears: external ears normal General nose exam: Normal external nose present Mouth: Normal oral and palatal mucosa present and oropharynx normal Throat: Yes posterior oropharynx normal Eyes: General: appearance normal, both eyes and all related structures Neck: Other: supple Neck: Yes normal visual inspection Chest: Chest palpation & inspection: normal inspection of the chest Resp: Auscultation: clear to auscultation bilaterally Cardio: Jugular venous distension: no JVD Rate: regular rate Rhythm: regular rhythm Heart sounds: S1 normal heart sound present and S2 normal heart sound present GI: Other: large abdomen with ascites Auscultation: normal bowel sounds : General: Yes no CVA tenderness Back/Spine/Pelvis: Back: no CVA tenderness Skin: General skin exam: no rashes or lesions noted Neuro: General: oriented to person and patient oriented x3 Cranial nerves: Yes CN's II-XII intact bilaterally Motor exam (neuro): 5/5 motor strength present throughout Sensory Exam: No Sensory deficit (Neuro) Extrem: Other: bilateral edema Psych: Appearance: grossly normal Course Reevaluation(s) Reevaluation #1: patient with cirrhosis and ascities with edema. Will start potassium sparing diuretic and dc home Time: 23:18 Medical Decision Making Lab Data Result diagrams: 07/04/21 21:08 07/04/21 21:08 Labs: Lab Results 07/04/21 07/04/21 07/04/21 Range/Units 21:08 21:08 21:08 WBC 5.7 (4.8-10.8) X10*3/uL RBC 4.86 (4.60-5.80) X10*6/uL Hgb 11.3 L (14.0-18.0) g/dl Hct 36.2 L (42-52) % MCV 74.5 L (80-98) fL MCH 23.3 L (27.0-33.0) pg MCHC 31.2 (31.0-36.0) g/dl RDW 15.8 (11.0-16.0) % Plt Count 58 L (160-400) X10*3/uL MPV TNP Immature Gran % (Auto) 0.2 (0.0-0.4) % Neut % (Auto) 28.1 L (45-73) % Lymph % (Auto) 36.2 (20-40) % [place] % (Auto) 7.9 (2-11) % Eos % (Auto) 27.2 H (0-4) % Baso % (Auto) 0.4 (0-2) % Lymph # (Auto) 2.1 (1.2-4.9) X10*3/uL [place] # (Auto) 0.5 (0.1-1.2) X10*3/uL Eos # (Auto) 1.5 H (0.0-0.4) X10*3/uL Baso # (Auto) 0.0 (0.0-0.2) X10*3/uL Abs Immat Gran (auto) 0.01 (0.00-0.03) X10*3/uL Absolute Neuts (auto) 1.6 L (2.0-8.3) X10*3/uL Absolute Nucleated RBC 0.000 (0.0-0.012) X10*3/uL Nucleated RBC % (auto) 0.0 (0.0-0.2) /100WBC Smear Tech's Comments VERIFIED Sodium 144 (135-145) mmol/L Potassium 4.1 (3.3-5.1) mmol/L Chloride 110 H (96-108) mmol/L Carbon Dioxide 23 (22-29) mmol/L Anion Gap 15 (12-20) BUN 19 H (9-16) mg/dL Creatinine 1.70 H (0.5-1.4) mg/dL Estim Creat Clear Calc 40.5 Estimated GFR 40 Random Glucose 145 H D (60-115) mg/dL Calcium 9.6 (8.4-10.2) mg/dL Troponin I High Sens 3.6 (<3.5-35.0) ng/L B-Natriuretic Peptide 197 H (<100) pg/mL Imaging Data Chest x-ray: Radiologist's impression: IMPRESSION: Unremarkable chest exam. No change from previous study 02/03/2020 ? Discharge Plan Discharge Clinical Impression: Cirrhosis of liver with ascites Patient Disposition: Home, Self-Care Instructions: Cirrhosis (ED) Prescriptions: New spironolactone [Aldactone] 25 mg tablet 25 mg PO DAILY Qty: 20 RF: 0 No Action (DME) blood-glucose meter [[employer]Rware Autocode Meter] Kit See Rx Instructions .Route Qty: 1 RF: 0 (DME) Prodigy No Coding Strip See Rx Instructions .Route Qty: 100 RF: 11 (DME) lancets [Prodigy Lancets] 28 gauge misc See Rx Instructions .Route Qty: 100 RF: 11 nitroglycerin 0.4 mg tablet, sublingual 0.4 mg sublingual Q5M PRN (Reason: chest pain) Qty: 25 RF: 2 mupirocin 2 % ointment 1 appl topical BID 7 Days Qty: 15 RF: 1 alcohol swabs [Alcohol Prep Pads] Pads, Medicated 1 pad topical TID 30 Days Qty: 100 RF: 3 metformin 500 mg tablet 1 tab PO BID RF: 0 hydralazine 10 mg tablet 1 tab PO TID RF: 0 atorvastatin 20 mg tablet 1 tab PO DAILY RF: 0 metoprolol succinate 50 mg tablet extended release 24 hr 1 tab PO BID RF: 0 isosorbide mononitrate 30 mg tablet extended release 24 hr 1 tab PO DAILY RF: 0 (DME) FreeStyle Lite Strips Strip MISCELLANEOUS TID RF: 0 omeprazole 40 mg capsule,delayed release(DR/EC) 1 cap PO DAILY RF: 0 insulin lispro [Humalog KwikPen Insulin] 100 unit/mL insulin pen 12 unit subcut TIDAC RF: 0 ezetimibe 10 mg tablet 1 tab PO DAILY RF: 0 lactulose [Enulose] 10 gram/15 mL solution 15 ml PO DAILY RF: 0 Tradjenta 5 mg tablet 1 tab PO DAILY RF: 0 [place] SoloStar U-300 Insulin 300 unit/mL (1.5 mL) insulin pen 25 unit subcut DAILY RF: 0 (DME) lancets [FreeStyle Lancets] 28 gauge misc See Rx Instructions .Route Qty: 100 RF: 0 hydrochlorothiazide 25 mg tablet 25 mg PO DAILY Qty: 14 RF: 0 aspirin 81 mg tablet,delayed release (DR/EC) 81 mg PO DAILY RF: 0 amlodipine [Norvasc] 5 mg tablet 5 mg PO DAILY Qty: 90 RF: 4 Referrals: Physician,Unknown [Physician] - 5 days
[2021-07-04] MEDS: Spironolactone 25 MG TABLET PO (23:42)
== END 2021-07-04 23:43 | disposition home or self-care (01) ==
LOC: HO.ED 23:22
PROVIDERS: Emergency Provider Emergency Medicine
DX: K74.60 Unspecified cirrhosis of liver (principal); R60.0 Localized edema; R06.02 Shortness of breath; Z79.899 Other long term (current) drug therapy; F17.210 Nicotine dependence, cigarettes, uncomplicated; Z71.6 Tobacco abuse counseling
CPT/HCPCS: 36415; 71045; 80048; 83880; 84484; 85025; 99283

== ENCOUNTER 2021-07-17 11:44 | Outpatient (REF) | payer MEDICARE, MEDICAID, SELFPAY ==
[2021-07-17 13:20] LABS: Anion Gap 14 (12-20); Blood Urea Nitrogen 27 mg/dL (9-16); Carbon Dioxide 26 mmol/L (22-29); Chloride 107 mmol/L (96-108); Estimated Glomerular Filt Rate 39; Potassium 4.3 mmol/L (3.3-5.1); Sodium 143 mmol/L (135-145)
[2021-07-17 14:23] LABS: Creatinine Urine 164.31 mg/dL
[2021-07-17 14:36] LABS: Microalbum/Creatinine Ratio Ur 721.1 ug/mg cr
== END 2021-07-17 11:45 | disposition home or self-care (01) ==
LOC: HO.LAB 11:44
PROVIDERS: PCP Internal Medicine; Visit Provider Internal Medicine Nephrology
DX: E11.21 Type 2 diabetes mellitus with diabetic nephropathy (principal); E11.22 Type 2 diabetes mellitus with diabetic chronic kidney disease; I12.9 Hypertensive chronic kidney disease with stage 1 through stage 4 chronic kidney disease, or unspecified chronic kidney disease; N18.32 Chronic kidney disease, stage 3b
CPT/HCPCS: 36415; 80051; 82043; 82310; 82565; 84520

== ENCOUNTER → 2021-08-15 09:34 | Outpatient (BNVA) | payer MEDICARE, MEDICAID, SELFPAY | PROVIDERS: PCP Internal Medicine; Referring Provider Internal Medicine; Visit Provider Internal Medicine | DX: I25.10 Atherosclerotic heart disease of native coronary artery without angina pectoris (principal); I77.810 Thoracic aortic ectasia; E11.22 Type 2 diabetes mellitus with diabetic chronic kidney disease; I12.9 Hypertensive chronic kidney disease with stage 1 through stage 4 chronic kidney disease, or unspecified chronic kidney disease; N18.32 Chronic kidney disease, stage 3b; E11.8 Type 2 diabetes mellitus with unspecified complications; K74.60 Unspecified cirrhosis of liver; R18.8 Other ascites | CPT/HCPCS: 99212 ==

== ENCOUNTER → 2021-08-24 10:20 | Outpatient (BNVA) | payer MEDICARE, MEDICAID, SELFPAY | PROVIDERS: PCP Internal Medicine; Visit Provider Nurse Practitioner Gerontology | DX: E11.65 Type 2 diabetes mellitus with hyperglycemia (principal); E11.21 Type 2 diabetes mellitus with diabetic nephropathy; E11.649 Type 2 diabetes mellitus with hypoglycemia without coma; I10 Essential (primary) hypertension; E78.5 Hyperlipidemia, unspecified; E66.09 Other obesity due to excess calories; Z79.4 Long term (current) use of insulin | CPT/HCPCS: 82947; 83036; 99212 ==

== ENCOUNTER 2021-09-14 10:08 | Emergency (ER) | payer MEDICARE, MEDICAID, SELFPAY ==
[2021-09-14 11:53] VITALS: BP 140/90; PULSE 59; RESP 18; TEMP 36.6; O2SAT 98; BMI 31.4
--- NOTE | 2021-09-14 11:59 | ECG_ITS ---
Test Reason : WEAKNESS Blood Pressure : / mmHG Vent. Rate : 056 BPM Atrial Rate : 056 BPM P-R Int : 166 ms QRS Dur : 102 ms QT Int : 488 ms P-R-T Axes : 016 -37 022 degrees QTc Int : 470 ms Sinus bradycardia Left axis deviation Abnormal ECG When compared with ECG of 07-MAY-2021 20:35, No significant change was found Referred By: Generic ED Physician Electronically Signed By:TOYB TRUJILLO
[2021-09-14 12:46] LABS: Lymphocytes Percent Auto 26.3 % (20-40); MANUAL DIFF FLAG NO; Red Cell Distribution Width 16.1 % (11.0-16.0); SCAN SMEAR FLAG 1
[2021-09-14 12:48] LABS: Basophils Percent Auto 0.7 % (0-2); Eosinophils Absolute Auto 1.6 X10*3/uL (0.0-0.4); Eosinophils Percent Auto 27.3 % (0-4); Hematocrit 34.3 % (42.0-52.0); Hemoglobin 10.7 g/dl (14.0-18.0); Imm Gran Abs Auto 0.01 X10*3/uL (0.00-0.03); Imm Gran Pct Auto 0.2 % (0.0-0.4); Lymphocytes Absolute Auto 1.6 X10*3/uL (1.2-4.9); Mean Corpuscular HGB Conc 31.2 g/dl (31.0-36.0); Mean Corpuscular Hemoglobin 23.7 pg (27.0-33.0); Mean Corpuscular Volume 75.9 fL (80.0-98.0); Monocytes Absolute Auto 0.4 X10*3/uL (0.1-1.2); Monocytes Percent Auto 7.3 % (2-11); Neutrophils Absolute Auto 2.3 x10*3/uL (2.0-8.3); Neutrophils Percent Auto 38.2 % (45-73); Red Blood Count 4.52 X10*6/uL (4.60-5.80); White Blood Count 5.9 X10*3/uL (4.8-10.8)
[2021-09-14 12:53] LABS: PLT ABN DIST 1; Platelet Count 50 X10*3/uL (160-400)
[2021-09-14 13:11] LABS: Anion Gap 16 (12-20); Blood Urea Nitrogen 16 mg/dL (9-16); Calcium 9.9 mg/dL (8.4-10.2); Carbon Dioxide 23 mmol/L (22-29); Chloride 109 mmol/L (96-108); Creatinine Clr Calc Pharmacy 47.3; Estimated Glomerular Filt Rate 49; Glucose Random 87 mg/dL (60-115); Potassium 4.4 mmol/L (3.3-5.1); Sodium 144 mmol/L (135-145)
--- NOTE | 2021-09-14 14:03 | ED_ITS ---
HPI - Abdominal Pain General Chief Complaint: Abdominal Pain Stated Complaint: abd swelling liquid Time Seen by Provider: 09/14/21 14:03 Source: patient Mode of arrival: ambulatory Limitations: no limitations History of Present Illness HPI narrative: Patient with increased swelling of his abdomen. His abdomen was last drained 1 year ago. Patient states that he is taking his medications with no change. Years ago he was a drinker but not recently. MD elicited complaint: abdominal pain Pertinent past history: other (cirrhosis) Onset (ago): month(s) Pain Consistency: constant Location: diffuse Severity: moderate Exacerbating factors: movement Related Data Home Medications Medication Instructions Recorded Confirmed atorvastatin 20 mg tablet 1 tab PO DAILY 05/09/21 08/24/21 ezetimibe 10 mg tablet 1 tab PO DAILY 05/09/21 08/24/21 hydralazine 10 mg tablet 1 tab PO TID 05/09/21 08/24/21 isosorbide mononitrate 30 mg 1 tab PO DAILY 05/09/21 08/24/21 tablet,extended release 24 hr lactulose 10 gram/15 mL oral 15 ml PO DAILY 05/09/21 08/24/21 solution (Enulose) linagliptin 5 mg tablet (Tradjenta) 1 tab PO DAILY 05/09/21 08/24/21 metformin 500 mg tablet 1 tab PO BID 05/09/21 08/24/21 metoprolol succinate 50 mg 1 tab PO BID 05/09/21 08/24/21 tablet,extended release 24 hr omeprazole 40 mg capsule,delayed 1 cap PO DAILY 05/09/21 08/24/21 release aspirin 81 mg tablet,delayed 81 mg PO DAILY 05/15/21 08/24/21 release blood sugar diagnostic (FreeStyle 08/24/21 08/24/21 Lite Strips) Previous Rx's Medication Instructions Recorded amlodipine 5 mg tablet (Norvasc) 5 mg PO DAILY #90 tab 05/15/21 lancets 28 gauge (FreeStyle #100 ea 05/17/21 Lancets) blood sugar diagnostic (Prodigy No #100 ea 06/13/21 Coding) blood-glucose meter (Prodigy #1 ea 06/13/21 Autocode Meter) lancets 28 gauge (Prodigy Lancets) #100 ea 06/13/21 nitroglycerin 0.4 mg sublingual 0.4 mg SUBLINGUAL Q5M PRN #25 ea 06/22/21 tablet alcohol swabs (Alcohol Prep Pads) 1 pad TOPICAL TID 30 Days #100 ea 07/23/21 insulin glargine U-300 conc 300 18 unit (0.06 mL) SUBCUT DAILY 08/24/21 unit/mL (1.5 mL) subcutaneous pen #4.5 ml (Toujeo SoloStar U-300 Insulin) insulin lispro 100 unit/mL 8 unit (0.08 mL) SUBCUT TIDAC #15 08/24/21 subcutaneous pen (Humalog KwikPen ml (U-100) Insulin) mupirocin 2 % topical ointment 1 appl TOPICAL BID 7 Days #15 g 08/27/21 furosemide 40 mg tablet (Lasix) 40 mg PO DAILY #30 tab 09/14/21 Allergies Allergy/AdvReac Type Severity Reaction Status Date / Time wheat [WHEAT] AdvReac Intermediate DIARRHEA Verified 08/24/21 10:27 Review of Systems Constitutional: Reports no additional constitutional complaints Eyes: Reports no additional eye complaints Denies dizziness Cardiovascular: Reports no additional cardiovascular complaints Respiratory: Reports as per HPI Gastrointestinal: Reports no additional gastrointestinal complaints Musculoskeletal: Reports no additional musculoskeletal complaints Skin/Breast: Denies rash Reports system reviewed and no additional complaints, except as documented, Denies dizziness and Denies Sensory deficit (Neuro) Psychiatric: Denies anxiety Physical Exam Vital Signs: Vital Signs: Last Vital Signs Temp 97.8 F 09/14/21 11:53 Pulse 61 09/14/21 16:41 Resp 18 09/14/21 11:53 BP 118/65 09/14/21 16:41 Pulse Ox 98 09/14/21 11:53 BMI result Body Mass Index 31.4 Const: General: healthy appearing Nutritional Appearance: average body h abitus Orientation/consciousness: oriented to person and patient oriented x3 Limitations: no limitations HENMT: Head: Yes normal to inspection Ears: external ears normal General nose exam: Normal external nose present Mouth: Normal oral and palatal mucosa present and oropharynx normal Throat: Yes posterior oropharynx normal Eyes: General: appearance normal, both eyes and all related structures Neck: Other: supple Neck: Yes normal visual inspection Chest: Chest palpation & inspection: normal inspection of the chest Resp: Auscultation: clear to auscultation bilaterally Cardio: Jugular venous distension: no JVD Rate: regular rate Rhythm: regular rhythm Heart sounds: S1 normal heart sound present and S2 normal heart sound present GI: Other: Patient with distended abdomen and fluid wave nontender Palpation (GI): Soft to palpation Auscultation: normal bowel sounds : General: Yes no CVA tenderness Back/Spine/Pelvis: Back: no CVA tenderness Skin: General skin exam: no rashes or lesions noted Neuro: General: oriented to person and patient oriented x3 Cranial nerves: Yes CN's II-XII intact bilaterally Motor exam (neuro): 5/5 motor strength present throughout Sensory Exam: No Sensory deficit (Neuro) Extrem: Other: 3+ edema up to knees Psych: Appearance: grossly normal Course Reevaluation(s) Reevaluation #1: Patient has been non compliant with lasix will restart and dc home patient does not need acute paracentisis Time: 17:08 MDM - Abdominal Pain Lab Data Result diagrams: 09/14/21 12:38 09/14/21 12:38 Labs: Lab Results 09/14/21 09/14/21 09/14/21 Range/Units 12:38 12:38 15:18 WBC 5.9 (4.8-10.8) X10*3/uL RBC 4.52 L (4.60-5.80) X10*6/uL Hgb 10.7 L (14.0-18.0) g/dl Hct 34.3 L (42.0-52.0) % MCV 75.9 L (80.0-98.0) fL MCH 23.7 L (27.0-33.0) pg MCHC 31.2 (31.0-36.0) g/dl RDW 16.1 H (11.0-16.0) % Plt Count 50 L (160-400) X10*3/uL MPV Not Reportable Immature Gran % (Auto) 0.2 (0.0-0.4) % Neut % (Auto) 38.2 L (45-73) % Lymph % (Auto) 26.3 (20-40) % [place] % (Auto) 7.3 (2-11) % Eos % (Auto) 27.3 H (0-4) % Baso % (Auto) 0.7 (0-2) % Lymph # (Auto) 1.6 (1.2-4.9) X10*3/uL [place] # (Auto) 0.4 (0.1-1.2) X10*3/uL Eos # (Auto) 1.6 H (0.0-0.4) X10*3/uL Baso # (Auto) 0.0 (0.0-0.2) X10*3/uL Abs Immat Gran (auto) 0.01 (0.00-0.03) X10*3/uL Absolute Neuts (auto) 2.3 (2.0-8.3) x10*3/uL Absolute Nucleated RBC 0.000 (0.0-0.012) X10*3/uL Nucleated RBC % (auto) 0.0 (0.0-0.2) /100WBC Sodium 144 (135-145) mmol/L Potassium 4.4 (3.3-5.1) mmol/L Chloride 109 H (96-108) mmol/L Carbon Dioxide 23 (22-29) mmol/L Anion Gap 16 (12-20) BUN 16 (9-16) mg/dL Creatinine 1.43 H (0.5-1.4) mg/dL Estim Creat Clear Calc 47.3 Estimated GFR 49 Random Glucose 87 D (60-115) mg/dL Calcium 9.9 (8.4-10.2) mg/dL Total Bilirubin 1.3 H (0.0-1.0) mg/dL Direct Bilirubin 0.6 H (0.0-0.5) mg/dL AST 30 (5-37) U/L ALT 22 (0-40) U/L Alkaline Phosphatase 98 (39-117) U/L Total Protein 7.3 (6.5-8.0) g/dL Albumin 3.6 (3.5-5.0) g/dL Discharge Plan Discharge Clinical Impression: Cirrhosis of liver, Abdominal ascites Patient Disposition: Home, Self-Care Instructions: Cirrhosis (ED), Ascites (ED) Prescriptions: New furosemide [Lasix] 40 mg tablet 40 mg PO DAILY Qty: 30 RF: 0 No Action (DME) blood-glucose meter [Prodigy Autocode Meter] Kit See Rx Instructions .Route Qty: 1 RF: 0 (DME) Prodigy No Coding Strip See Rx Instructions .Route Qty: 100 RF: 11 (DME) lancets [Prodigy Lancets] 28 gauge misc See Rx Instructions .Route Qty: 100 RF: 11 nitroglycerin 0.4 mg tablet, sublingual 0.4 mg sublingual Q5M PRN (Reason: chest pain) Qty: 25 RF: 2 alcohol swabs [Alcohol Prep Pads] Pads, Medicated 1 pad topical TID 30 Days Qty: 100 RF: 3 mupirocin 2 % ointment 1 appl topical BID 7 Days Qty: 15 RF: 1 metformin 500 mg tablet 1 tab PO BID RF: 0 hydralazine 10 mg tablet 1 tab PO TID RF: 0 atorvastatin 20 mg tablet 1 tab PO DAILY RF: 0 metoprolol succinate 50 mg tablet extended release 24 hr 1 tab PO BID RF: 0 isosorbide mononitrate 30 mg tablet extended release 24 hr 1 tab PO DAILY RF: 0 omeprazole 40 mg capsule,delayed release(DR/EC) 1 cap PO DAILY RF: 0 ezetimibe 10 mg tablet 1 tab PO DAILY RF: 0 lactulose [Enulose] 10 gram/15 mL solution 15 ml PO DAILY RF: 0 Tradjenta 5 mg tablet 1 tab PO DAILY RF: 0 (DME) FreeStyle Lite Strips Strip See Rx Instructions strip MISCELLANEOUS TID RF: 0 (DME) lancets [FreeStyle Lancets] 28 gauge misc See Rx Instructions .Route Qty: 100 RF: 0 aspirin 81 mg tablet,delayed release (DR/EC) 81 mg PO DAILY RF: 0 amlodipine [Norvasc] 5 mg tablet 5 mg PO DAILY Qty: 90 RF: 4 Toujeo SoloStar U-300 Insulin 300 unit/mL (1.5 mL) insulin pen 18 unit subcut DAILY Qty: 4.5 RF: 3 insulin lispro [Humalog KwikPen Insulin] 100 unit/mL insulin pen 8 unit subcut TIDAC Qty: 15 RF: 3 Referrals: Kmiber Day MD [Primary Care Provider] - 1 week [facility] Past Medical History Medical History Abnormal myocardial perfusion study Ascending aorta dilatation Ascites Atherosclerotic cardiovascular disease Cirrhosis of liver Cirrhosis of liver Cirrhosis of liver with ascites CKD (chronic kidney disease) stage 3, GFR 30-59 ml/min Diabetes Diabetes type 2, uncontrolled Diabetic nephropathy associated with type 2 diabetes mellitus Dyslipidemia Dyslipidemia associated with type 2 diabetes mellitus Essential hypertension Gastroparesis GERD (gastroesophageal reflux disease) Gout Hypertension Hypoglycemia 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 with type 2 diabetes mellitus 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 Obesity due to excess calories 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 cancer Thrombocytopenia Thrombocytopenia Surgical History Hx of colonoscopy Family History Family History Father Diabetes CVD (cardiovascular disease) Mother Diabetes Social History Social History Household Members: Spouse and Family Housing: Apartment Do you presently have visiting nurse or other home services: Yes ([employer] FRIDAY- FRIDAY) Alcohol intake: former Patient Tobacco Use Status: Never used Tobacco Tobacco use type: Cigarette e-Cigarette/Vaping Use: Never Used Use of substances other than those prescribed or required for medical reasons: No Advance Directives: No Advance Directives Information Provided: Yes service: No Current occupational status: retired and disabled
[2021-09-14 14:05] VITALS: BP 121/77; PULSE 59
[2021-09-14] MEDS: Furosemide 40 MG TABLET PO (14:37)
[2021-09-14 15:39] LABS: Alanine Aminotransferase 22 U/L (0-40); Albumin Level 3.6 g/dL (3.5-5.0); Alkaline Phosphatase 98 U/L (39-117); Aspartate Amino Transferase 30 U/L (5-37); Bilirubin Direct 0.6 mg/dL (0.0-0.5); Bilirubin Total 1.3 mg/dL (0.0-1.0); Total Protein 7.3 g/dL (6.5-8.0)
[2021-09-14 16:41] VITALS: BP 118/65; PULSE 61
[2021-09-14 17:18] LABS: Glucose, Whole Blood 78 mg/dL (60-115)
== END 2021-09-14 17:23 | disposition home or self-care (01) ==
PROVIDERS: Emergency Provider Emergency Medicine; PCP Internal Medicine
DX: R18.8 Other ascites (principal); K74.60 Unspecified cirrhosis of liver; E11.22 Type 2 diabetes mellitus with diabetic chronic kidney disease; I12.9 Hypertensive chronic kidney disease with stage 1 through stage 4 chronic kidney disease, or unspecified chronic kidney disease; N18.30 Chronic kidney disease, stage 3 unspecified; Z79.4 Long term (current) use of insulin; Z91.14 Patient's other noncompliance with medication regimen
CPT/HCPCS: 36415; 80048; 80076; 82947; 85025; 93005; 99283; 99284

== ENCOUNTER → 2021-09-18 10:46 | Outpatient (BNVA) | payer MEDICARE, MEDICAID, SELFPAY | PROVIDERS: PCP Internal Medicine; Visit Provider Registered Nurse Diabetes Educator | DX: E11.69 Type 2 diabetes mellitus with other specified complication (principal); E78.5 Hyperlipidemia, unspecified | CPT/HCPCS: 99211 ==

== ENCOUNTER → 2021-10-11 11:01 | Outpatient (BNVA) | payer MEDICARE, MEDICAID, SELFPAY | PROVIDERS: PCP Internal Medicine; Referring Provider Internal Medicine; Visit Provider Internal Medicine Gastroenterology | DX: K74.60 Unspecified cirrhosis of liver (principal); K31.84 Gastroparesis; K21.9 Gastro-esophageal reflux disease without esophagitis; K72.90 Hepatic failure, unspecified without coma; R18.8 Other ascites | CPT/HCPCS: 99212 ==

== ENCOUNTER 2021-10-24 09:32 | Outpatient (REF) | payer MEDICARE, MEDICAID, SELFPAY ==
--- NOTE | ~2021-10-24 | US_ITS ---
EXAMINATION: US ABDOMEN LIMITED WITH LIVER ELASTOGRAPHY CLINICAL INFORMATION: Cirrhosis. COMPARISON: Previous limited abdominal ultrasound April [address] of the abdomen and pelvis April 2021. TECHNIQUE: Real-time imaging of the abdominal viscera. Noninvasive ultrasound liver fibrosis assessment is performed using Robert ElastPQ point quantification shear wave elastography (2D-SWE) with a C5-2 MHz transducer. Multiple elastography samples are obtained. FINDINGS: PANCREAS: Not well visualized due to bowel gas. LIVER: Liver echotexture is slightly increased and heterogeneous. The contour of the liver is irregular with mild cirrhotic changes. No focal liver lesion or biliary duct dilatation. The right lobe measures 17 cm in length. The left lobe measures 12 cm in length. Portal flow is normal/hepatopedal. Shear wave liver elastography median stiffness is 1.6 m/s (reference: normal median stiffness is 1.3 m/s or less). IQR/median stiffness to assess sampling precision is 0.2 (reference: good quality data set is IQR/median stiffness of 0.15 or less). GALLBLADDER: The gallbladder is contracted. There is echogenic material in the gallbladder questionable for gallstones. The gallbladder wall appears slightly thickened measuring up to 6 mm. It is uncertain whether this is related to contraction and liver disease. COMMON BILE DUCT: Normal in caliber measuring 0.5 cm in diameter. RIGHT KIDNEY: There is a 1.5 cm cyst in the midpole. There is an 8 x 10 mm cyst in the lower pole. No hydronephrosis. No renal calculi or focal parenchymal lesions. The kidney measures 11.7 cm in maximum dimension. FREE FLUID: There is a moderate amount of ascites. US/US abdomen lozano w elastography IMPRESSION: 1. Impression: Mild cirrhotic changes of the liver. Moderate amount of ascites. Limited visualization of the pancreas. Limited visualization of the gallbladder. Question gallstones. Small renal cysts. 2. Liver elastography: Limited due to sampling error. REFERENCE: Society of Radiologists in Ultrasound Liver Stiffness Thresholds (2020): LIVER STIFFNESS THRESHOLDS: *Liver Stiffness equal or less than 1.3 m/s: High probability of being normal. *Liver Stiffness less than 1.7 m/s: In the absence of other known clinical signs, rules out compensated advanced chronic liver disease. *Liver Stiffness 1.7-2.1 m/s: Suggestive of compensated advanced chronic liver disease but need further test for confirmation. *Liver Stiffness over 2.1 m/s: Rules in compensated advanced chronic liver disease. *Liver Stiffness over 2.4 m/s: Suggestive of clinically significant portal hypertension. QUALITY OF DATA SET: *IQR/Median value equal or less than 0.15 implies a quality data set. *IQR/Median value over 0.15 implies a poor quality data set. SIGNIFICANT CHANGE FROM PRIOR EXAM: Significant change if liver stiffness measurement is 10% or greater from prior exam. OTHER CONSIDERATIONS: The stage of liver fibrosis may be overestimated in the setting of acute hepatitis, liver inflammation, elevated liver function tests, hepatic vascular congestion, obstructive cholestasis, non-fasting state, and infiltrative diseases such as amyloidosis and lymphoma. In some patients with NAFLD, the liver stiffness thresholds for compensated advanced chronic liver disease may be lower. In causes other than viral hepatitis and NAFLD, liver stiffness thresholds are not well established.
[2021-10-24 11:20] LABS: Basophils Percent Auto 0.7 % (0-2); Eosinophils Absolute Auto 2.1 X10*3/uL (0.0-0.4); Eosinophils Percent Auto 35.3 % (0-4); Hematocrit 37.4 % (42.0-52.0); Hemoglobin 11.8 g/dl (14.0-18.0); Imm Gran Abs Auto 0.01 X10*3/uL (0.00-0.03); Imm Gran Pct Auto 0.2 % (0.0-0.4); Lymphocytes Absolute Auto 1.5 X10*3/uL (1.2-4.9); Lymphocytes Percent Auto 25.7 % (20-40); MANUAL DIFF FLAG SCAN; Mean Corpuscular HGB Conc 31.6 g/dl (31.0-36.0); Mean Corpuscular Hemoglobin 23.4 pg (27.0-33.0); Mean Corpuscular Volume 74.2 fL (80.0-98.0); Monocytes Absolute Auto 0.4 X10*3/uL (0.1-1.2); Monocytes Percent Auto 6.5 % (2-11); Neutrophils Absolute Auto 1.8 x10*3/uL (2.0-8.3); Neutrophils Percent Auto 31.6 % (45-73); Red Blood Count 5.04 X10*6/uL (4.60-5.80); Red Cell Distribution Width 15.2 % (11.0-16.0); SCAN SMEAR FLAG 1; White Blood Count 5.8 X10*3/uL (4.8-10.8)
[2021-10-24 11:21] LABS: Platelet Count 50 X10*3/uL (160-400)
[2021-10-24 11:23] LABS: INTERNATIONAL NORM RATIO 1.3 (0.9-1.1); Prothrombin Time 14.5 SEC (9.9-13.0)
[2021-10-24 11:45] LABS: Anion Gap 16 (12-20); Blood Urea Nitrogen 17 mg/dL (9-16); Carbon Dioxide 25 mmol/L (22-29); Chloride 107 mmol/L (96-108); Estimated Glomerular Filt Rate 37; Glucose Random 90 mg/dL (60-115); Potassium 4.6 mmol/L (3.3-5.1); Sodium 143 mmol/L (135-145)
[2021-10-24 11:50] LABS: Calcium 10.6 mg/dL (8.4-10.2)
[2021-10-24 11:57] LABS: SLIDE REVIEW VERIFIED
[2021-10-24 12:00] LABS: Hepatitis A Antibody IgG REACTIVE (Nonreactive); ~Hepatitis A Antibody IgG 10.01 S/CO (0.00-0.99)
[2021-10-24 12:08] LABS: Ferritin 66 ng/mL (20-250); Vitamin D 25-OH Total 24.3 ng/mL (>30)
[2021-10-24 12:34] LABS: Folate > 20.0 ng/mL (> or = 4.0); Vitamin B12 662 pg/mL (200-900)
[2021-10-28 01:50] LABS: Zinc 75 mcg/dL (60-130)
== END 2021-10-24 09:33 | disposition home or self-care (01) ==
LOC: HO.US 09:32
PROVIDERS: Absent Provider Internal Medicine Gastroenterology; PCP Internal Medicine; Visit Provider Internal Medicine
DX: K74.60 Unspecified cirrhosis of liver (principal); R18.8 Other ascites
CPT/HCPCS: 36415; 76705; 76981; 80048; 82306; 82607; 82728; 82746; 84630; 85025; 85610; 86708

== ENCOUNTER 2021-10-31 10:34 | Outpatient (REF) | payer MEDICARE, MEDICAID, SELFPAY ==
[2021-10-31 11:57] LABS: Estimated Glomerular Filt Rate 37
== END 2021-10-31 10:35 | disposition home or self-care (01) ==
LOC: HO.LAB 10:34
PROVIDERS: PCP Internal Medicine; Visit Provider Internal Medicine Gastroenterology
DX: K74.60 Unspecified cirrhosis of liver (principal); R18.8 Other ascites
CPT/HCPCS: 36415; 82565

== ENCOUNTER → 2021-11-15 12:46 | Outpatient (BNVA) | payer MEDICARE, MEDICAID, SELFPAY | PROVIDERS: PCP Internal Medicine; Referring Provider Internal Medicine; Visit Provider Internal Medicine Gastroenterology | DX: K74.60 Unspecified cirrhosis of liver (principal); R18.8 Other ascites; K72.90 Hepatic failure, unspecified without coma; K31.84 Gastroparesis; K21.9 Gastro-esophageal reflux disease without esophagitis; E11.22 Type 2 diabetes mellitus with diabetic chronic kidney disease; N18.32 Chronic kidney disease, stage 3b | CPT/HCPCS: 99212 ==

== ENCOUNTER 2021-11-19 09:22 | Outpatient (REF) | payer MEDICARE, MEDICAID, SELFPAY ==
[2021-11-19 10:08] LABS: Hematocrit 32.2 % (42.0-52.0); Hemoglobin 10.2 g/dl (14.0-18.0); Mean Corpuscular HGB Conc 31.7 g/dl (31.0-36.0); Mean Corpuscular Hemoglobin 23.8 pg (27.0-33.0); Mean Corpuscular Volume 75.1 fL (80.0-98.0); Red Blood Count 4.29 X10*6/uL (4.60-5.80); Red Cell Distribution Width 16.1 % (11.0-16.0); White Blood Count 11.1 X10*3/uL (4.8-10.8)
[2021-11-19 10:09] LABS: Platelet Count 55 X10*3/uL (160-400)
[2021-11-19 10:42] LABS: Alanine Aminotransferase 19 U/L (0-40); Albumin Level 3.5 g/dL (3.5-5.0); Alkaline Phosphatase 118 U/L (39-117); Anion Gap 11 (12-20); Aspartate Amino Transferase 28 U/L (5-37); Bilirubin Total 1.1 mg/dL (0.0-1.0); Blood Urea Nitrogen 16 mg/dL (9-16); Calcium 9.9 mg/dL (8.4-10.2); Carbon Dioxide 27 mmol/L (22-29); Chloride 112 mmol/L (96-108); Cholesterol 108 mg/dL; Estimated Glomerular Filt Rate 46; Glucose Fasting 81 mg/dL (60-99); HDL Cholesterol 46 mg/dL; LDL Cholesterol Calculated 52 mg/dl; Potassium 4.6 mmol/L (3.3-5.1); Sodium 145 mmol/L (135-145); Total Protein 7.2 g/dL (6.5-8.0); Triglycerides 52 mg/dL
[2021-11-19 11:37] LABS: Creatinine Urine 156.36 mg/dL
[2021-11-21 22:52] LABS: LDL Cholesterol Direct 44 mg/dL (<100)
== END 2021-11-19 09:23 | disposition home or self-care (01) ==
LOC: HO.LAB 09:22
PROVIDERS: Internal Medicine Gastroenterology; Nurse Practitioner Gerontology; Absent Provider Internal Medicine Endocrinology, Diabetes & Metabolism; PCP Internal Medicine; Visit Provider Internal Medicine
DX: K74.60 Unspecified cirrhosis of liver (principal); R18.8 Other ascites; E11.8 Type 2 diabetes mellitus with unspecified complications
CPT/HCPCS: 36415; 80053; 80061; 82043; 83721; 85027

== ENCOUNTER → 2021-12-11 11:05 | Outpatient (BNVA) | payer MEDICARE, MEDICAID, SELFPAY | PROVIDERS: PCP Internal Medicine; Visit Provider Registered Nurse Diabetes Educator | DX: E11.40 Type 2 diabetes mellitus with diabetic neuropathy, unspecified (principal); Z79.4 Long term (current) use of insulin | CPT/HCPCS: 95250 ==

== ENCOUNTER → 2021-12-17 10:42 | Outpatient (BNVA) | payer MEDICARE, MEDICAID, SELFPAY | PROVIDERS: PCP Internal Medicine; Visit Provider Nurse Practitioner Gerontology | DX: E11.65 Type 2 diabetes mellitus with hyperglycemia (principal); E11.649 Type 2 diabetes mellitus with hypoglycemia without coma; E11.21 Type 2 diabetes mellitus with diabetic nephropathy; E78.5 Hyperlipidemia, unspecified; E66.09 Other obesity due to excess calories; I10 Essential (primary) hypertension; Z79.4 Long term (current) use of insulin; Z68.27 Body mass index [BMI] 27.0-27.9, adult | CPT/HCPCS: 82947; 83036; 99212 ==

== ENCOUNTER → 2021-12-31 11:05 | Outpatient (BNVA) | payer MEDICARE, MEDICAID, SELFPAY | PROVIDERS: PCP Internal Medicine; Referring Provider Internal Medicine; Visit Provider Internal Medicine | DX: I25.10 Atherosclerotic heart disease of native coronary artery without angina pectoris (principal); I77.810 Thoracic aortic ectasia; I12.9 Hypertensive chronic kidney disease with stage 1 through stage 4 chronic kidney disease, or unspecified chronic kidney disease; N18.32 Chronic kidney disease, stage 3b; E11.22 Type 2 diabetes mellitus with diabetic chronic kidney disease; K74.60 Unspecified cirrhosis of liver; R18.8 Other ascites | CPT/HCPCS: 99212 ==

== ENCOUNTER 2022-01-01 09:31 | Outpatient (REF) | payer MEDICARE, MEDICAID, SELFPAY ==
[2022-01-01 11:24] LABS: Anion Gap 13 (12-20); Blood Urea Nitrogen 12 mg/dL (9-16); Carbon Dioxide 26 mmol/L (22-29); Chloride 109 mmol/L (96-108); Estimated Glomerular Filt Rate 50; Potassium 4.6 mmol/L (3.3-5.1); Sodium 143 mmol/L (135-145)
[2022-01-01 14:13] LABS: Creatinine Urine 136.44 mg/dL; Protein/Creatinine Ratio, Ur 1.41 (<0.2); Total Protein Urine Random 192 mg/dL (<12)
== END 2022-01-01 09:32 | disposition home or self-care (01) ==
LOC: HO.LAB 09:31
PROVIDERS: PCP Internal Medicine; Visit Provider Internal Medicine Nephrology
DX: I12.9 Hypertensive chronic kidney disease with stage 1 through stage 4 chronic kidney disease, or unspecified chronic kidney disease (principal); N18.32 Chronic kidney disease, stage 3b
CPT/HCPCS: 36415; 80051; 82310; 82565; 84156; 84520

== ENCOUNTER 2022-01-08 07:55 | Day surgery (SDC) | payer MEDICARE, MEDICAID, SELFPAY ==
--- NOTE | 2022-01-07 10:57 | PC.NURSE ---
preprocedure instructions relayed via phone to pt's spouse indira @ [phone] as well as pt's car sales consultant kevin at [phone] as requested.
--- NOTE | ~2022-01-08 | US_ITS ---
EXAMINATION: US PARACENTESIS OF ABDOMEN WITH IMAGE CLINICAL INFORMATION: Cirrhosis of the liver. COMPARISON: None TECHNIQUE: Following explaining the ultrasound-guided paracentesis procedure, and the benefits and risks, a written consent was obtained. The patient was placed supine on the ultrasound stretcher and preliminary ultrasound imaging was obtained through the abdomen. An optimal site was selected along the right lower quadrant and marked. The marked site was cleaned and draped in the usual sterile manner. 1% lidocaine was injected at the puncture site. Through a small skin incision, a 5-Moz[place] Terarecon catheter was advanced into the peritoneal space. After observing fluid return, the stylet was withdrawn and the catheter connected to a vacuum bottle via a connecting cannula. After draining all fluid and observing no more fluid return, the catheter was withdrawn and complete hemostasis was achieved at the puncture site. A sterile Band-Aid was applied post procedure. The patient tolerated the procedure extremely well. FINDINGS: On preliminary ultrasound imaging, there was a small amount of fluid seen. The liver is lobulated and hypoechoic. There is small to moderate free fluid in the abdomen. Approximately 1.9 liters of clear yellowish fluid was drained. None of this fluid was sent to the lab. US/US paracentesis abd w/image IMPRESSION: Successful therapeutic ultrasound-guided paracentesis performed.
[2022-01-08 08:05] VITALS: BMI 28.3
[2022-01-08 08:44] LABS: Basophils Percent Auto 0.4 % (0-2); Eosinophils Absolute Auto 5.3 X10*3/uL (0.0-0.4); Eosinophils Percent Auto 52.9 % (0-4); Hematocrit 34.6 % (42.0-52.0); Hemoglobin 10.9 g/dl (14.0-18.0); Imm Gran Abs Auto 0.02 X10*3/uL (0.00-0.03); Imm Gran Pct Auto 0.2 % (0.0-0.4); Lymphocytes Absolute Auto 2.1 X10*3/uL (1.2-4.9); Lymphocytes Percent Auto 20.8 % (20-40); MANUAL DIFF FLAG SCAN; Mean Corpuscular HGB Conc 31.5 g/dl (31.0-36.0); Mean Corpuscular Hemoglobin 23.7 pg (27.0-33.0); Mean Corpuscular Volume 75.2 fL (80.0-98.0); Monocytes Absolute Auto 0.5 X10*3/uL (0.1-1.2); Monocytes Percent Auto 4.7 % (2-11); Neutrophils Absolute Auto 2.1 x10*3/uL (2.0-8.3); PLT CLUMP 1; Red Cell Distribution Width 17.5 % (11.0-16.0); SCAN SMEAR FLAG 1
[2022-01-08 08:59] LABS: Alanine Aminotransferase 22 U/L (0-40); Albumin Level 3.6 g/dL (3.5-5.0); Alkaline Phosphatase 143 U/L (39-117); Anion Gap 18 (12-20); Aspartate Amino Transferase 36 U/L (5-37); Bilirubin Total 1.3 mg/dL (0.0-1.0); Blood Urea Nitrogen 21 mg/dL (9-16); Calcium 9.9 mg/dL (8.4-10.2); Carbon Dioxide 23 mmol/L (22-29); Chloride 110 mmol/L (96-108); Cholesterol 103 mg/dL; Creatinine Clr Calc Pharmacy 37.9; Estimated Glomerular Filt Rate 40; Glucose Fasting 76 mg/dL (60-99); HDL Cholesterol 45 mg/dL; Iron 69 mcg/dL (45-160); LDL Cholesterol Calculated 37 mg/dl; Percent Iron Saturation 30 % (15-50); Potassium 4.8 mmol/L (3.3-5.1); Sodium 146 mmol/L (135-145); Total Iron Binding Capacity 233 mcg/dL (228-428); Total Protein 7.7 g/dL (6.5-8.0); Triglycerides 105 mg/dL; Unsaturated Iron Binding 164 ug/dL
[2022-01-08 09:02] LABS: Platelet Count 64 X10*3/uL (160-400)
[2022-01-08 09:45] LABS: INTERNATIONAL NORM RATIO 1.3 (0.9-1.1); Prothrombin Time 15.4 SEC (9.9-13.0)
[2022-01-08 09:47] LABS: Basophils Percent Auto 0.3 % (0-2); Eosinophils Absolute Auto 4.8 X10*3/uL (0.0-0.4); Eosinophils Percent Auto 53.2 % (0-4); Hematocrit 31.4 % (42.0-52.0); Hemoglobin 9.9 g/dl (14.0-18.0); Imm Gran Abs Auto 0.02 X10*3/uL (0.00-0.03); Imm Gran Pct Auto 0.2 % (0.0-0.4); Lymphocytes Absolute Auto 1.8 X10*3/uL (1.2-4.9); Lymphocytes Percent Auto 19.9 % (20-40); MANUAL DIFF FLAG SCAN; Mean Corpuscular HGB Conc 31.5 g/dl (31.0-36.0); Mean Corpuscular Hemoglobin 23.7 pg (27.0-33.0); Mean Corpuscular Volume 75.1 fL (80.0-98.0); Monocytes Absolute Auto 0.5 X10*3/uL (0.1-1.2); Monocytes Percent Auto 5.8 % (2-11); Neutrophils Absolute Auto 1.8 x10*3/uL (2.0-8.3); Neutrophils Percent Auto 20.6 % (45-73); Partial Thromboplastin Time 32.2 SEC (24.1-38.0); Red Blood Count 4.18 X10*6/uL (4.60-5.80); Red Cell Distribution Width 17.3 % (11.0-16.0); SCAN SMEAR FLAG 1; White Blood Count 8.9 X10*3/uL (4.8-10.8)
[2022-01-08 09:50] LABS: SLIDE REVIEW VERIFIED
[2022-01-08 09:53] LABS: Platelet Count 63 X10*3/uL (160-400)
[2022-01-08] MEDS: Lidocaine HCl 1 % MPF 5 ML VIAL SUBCUT (10:37)
[2022-01-08 10:43] VITALS: BP 105/72; PULSE 66; RESP 18; TEMP 36.8; O2SAT 98
[2022-01-08 10:58] VITALS: BP 106/73; PULSE 65; RESP 18; O2SAT 99
[2022-01-08 11:30] VITALS: BP 114/69; PULSE 62; RESP 18; O2SAT 99
[2022-01-08 12:00] VITALS: BP 113/69; PULSE 60; RESP 18; O2SAT 99
[2022-01-08 12:30] VITALS: BP 110/65; PULSE 64; RESP 17; O2SAT 99
== END 2022-01-08 12:33 | disposition home or self-care (01) ==
PROVIDERS: Absent Provider Internal Medicine Gastroenterology; PCP Internal Medicine; Visit Provider Radiology Diagnostic Radiology
DX: R18.8 Other ascites (principal); K74.60 Unspecified cirrhosis of liver; K31.84 Gastroparesis; D64.9 Anemia, unspecified; E78.5 Hyperlipidemia, unspecified; E11.22 Type 2 diabetes mellitus with diabetic chronic kidney disease; E11.21 Type 2 diabetes mellitus with diabetic nephropathy; Z79.4 Long term (current) use of insulin; I12.9 Hypertensive chronic kidney disease with stage 1 through stage 4 chronic kidney disease, or unspecified chronic kidney disease; N18.30 Chronic kidney disease, stage 3 unspecified; Z87.891 Personal history of nicotine dependence; Z79.82 Long term (current) use of aspirin; Z79.899 Other long term (current) drug therapy
CPT/HCPCS: 36415; 49083; 80053; 80061; 83540; 85025; 85610; 85730

== ENCOUNTER 2022-01-16 10:45 | Outpatient (REF) | payer MEDICARE, MEDICAID, SELFPAY ==
[2022-01-16 11:20] LABS: Ammonia 134 umol/L (13-55)
[2022-01-16 11:38] LABS: INTERNATIONAL NORM RATIO 1.3 (0.9-1.1); Prothrombin Time 14.3 SEC (9.9-13.0)
[2022-01-16 11:40] LABS: Hematocrit 34.1 % (42.0-52.0); Hemoglobin 10.9 g/dl (14.0-18.0); Mean Corpuscular Hemoglobin 23.8 pg (27.0-33.0); Mean Corpuscular Volume 74.5 fL (80.0-98.0); Red Blood Count 4.58 X10*6/uL (4.60-5.80); Red Cell Distribution Width 17.1 % (11.0-16.0); White Blood Count 12.6 X10*3/uL (4.8-10.8)
[2022-01-16 11:45] LABS: Platelet Count 68 X10*3/uL (160-400)
[2022-01-16 11:48] LABS: Appearance Urine HAZY; Color Urine YELLOW; Glucose Urine UA NEG (NEG); Leukocyte Esterase Urine NEG (NEG); Nitrite Urine NEG (NEG); PH 5.5 (5.0-8.0); Specific Gravity - Urine >= 1.030 (1.005-1.025); UACC Culture Trigger NO; Urine Blood NEG (NEG); Urine Ketones NEG (NEG); Urine Protein 2+ MG/DL (NEG-TRACE)
[2022-01-16 12:12] LABS: B Type Natriuretic Peptide 207 pg/mL (<100)
[2022-01-16 12:13] LABS: Alanine Aminotransferase 17 U/L (0-40); Albumin Level 3.5 g/dL (3.5-5.0); Alkaline Phosphatase 130 U/L (39-117); Anion Gap 14 (12-20); Aspartate Amino Transferase 22 U/L (5-37); Bilirubin Direct 0.6 mg/dL (0.0-0.5); Bilirubin Total 1.3 mg/dL (0.0-1.0); Blood Urea Nitrogen 31 mg/dL (9-16); Calcium 9.8 mg/dL (8.4-10.2); Carbon Dioxide 22 mmol/L (22-29); Chloride 109 mmol/L (96-108); Estimated Glomerular Filt Rate 32; Glucose Random 113 mg/dL (60-115); Potassium 4.4 mmol/L (3.3-5.1); Sodium 141 mmol/L (135-145); Total Protein 7.6 g/dL (6.5-8.0)
[2022-01-16 12:17] LABS: Mucus Urine 2+ /LPF; RBC Urine 0 /HPF (0); Squamous Epithelial Cell Urine 1+ /LPF; WBC Urine 0 /HPF (0-4)
== END 2022-01-16 10:46 | disposition home or self-care (01) ==
LOC: HO.LAB 10:45
PROVIDERS: PCP Internal Medicine; Visit Provider Physician Assistant
DX: Z13.89 Encounter for screening for other disorder (principal)
CPT/HCPCS: 36415; 80048; 80076; 81001; 82140; 83880; 85027; 85610

== ENCOUNTER 2022-01-17 11:10 | Inpatient (IN) | payer MEDICARE, MEDICAID, SELFPAY ==
--- NOTE | ~2022-01-17 | CT_ITS ---
EXAMINATION: CT HEAD WITHOUT CONTRAST CLINICAL INFORMATION: Dizziness. COMPARISON: 03/29/[address] scan[address] TECHNIQUE: Contiguous axial imaging was performed from the skull base to vertex without intravenous administration of contrast. Coronal and sagittal reformatted images were obtained. This CT examination was performed using dose optimization techniques as appropriate, variously including the following: *Automated exposure control *Adjustment of mA and/or kV according to patient size (this includes techniques or standardized protocols for targeted exams where dose is matched to indication/reason for exam; i.e. extremities or head) *Use of iterative reconstruction technique DLP: 621 mGy-cm FINDINGS: There is no evidence of acute intracranial hemorrhage or territorial infarction. No abnormal mass effect or midline shift is seen. Barb[place] to white matter differentiation is well preserved. No extra-axial fluid collections are identified. The ventricles are normal in size. There is no abnormal attenuation within the brain parenchyma. The osseous structures and soft tissues are normal. The mastoid air cells and visualized portions of the paranasal sinuses are well aerated. Mild anterior nasal septal deviation, apex the left. CT/CT head/brain wo con IMPRESSION: No acute intracranial pathology.
--- NOTE | ~2022-01-17 | US_ITS ---
EXAMINATION: US GUIDED PARACENTESIS CLINICAL INFORMATION: Ascites. Cirrhosis. COMPARISON: Ultrasound-guided paracentesis 01/08/2022. TECHNIQUE: Following explaining ultrasound-guided paracentesis procedure, benefits and risk through a lump machine operator, a written consent was obtained. Patient was placed supine on ultrasound stretcher and preliminary ultrasound imaging was obtained through the abdomen. An optimal site was selected along the right lower quadrant and marked. The marked site was cleaned and draped in the usual sterile manner. 1% lidocaine was injected at puncture site. Through a small skin incision, a 5-Emirati BriefMe catheter was advanced into the peritoneal space. After observing fluid return, fluid was collected in a 50 mL syringe. Subsequently, the catheter was connected to a vacuum bottle via connecting cannula. After obtaining all fluid and observing no more fluid return, the catheter was withdrawn and complete hemostasis achieved at puncture site. Sterile dressing applied postprocedure. Patient tolerated the procedure extremely well. FINDINGS: On preliminary ultrasound imaging, there is moderate free fluid visualized throughout the abdomen. Approximately 2.3 L of clear yellowish fluid was drained from the right lower quadrant. Part of this fluid was sent to lab as per referring physician's orders. US/US paracentesis abd w/image IMPRESSION: Ultrasound-guided therapeutic and diagnostic paracentesis performed.
--- NOTE | ~2022-01-17 | XR_ITS ---
EXAMINATION: XR CHEST CLINICAL INFORMATION: Weakness COMPARISON: 07/04/2021 TECHNIQUE: 2 views of the chest were obtained. FINDINGS: Lung volumes are low. No dense consolidation. No edema or effusion. No pneumothorax. The cardiomediastinal silhouette is unchanged, with a tortuous aorta. XR/XR chest 2V IMPRESSION: Low lung volumes. No consolidation.
[2022-01-17 11:18] VITALS: BP 114/65; BP 126/78; PULSE 63; PULSE 68; RESP 18; TEMP 36.6; O2SAT 99; BMI 29.1
--- NOTE | 2022-01-17 11:43 | ED.GENADULT ---
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 The tells me for the past few days the patient has been more confused. Today he got up and went to the bathroom. He had 3 episodes of vomiting and then started to feel very dizzy and lightheaded and had to sit down. She denies any fall to the ground or head trauma or loss of consciousness. She tells me since then the patient is continuing to report dizziness, nausea and he seems more confused. He has been compliant with his lactulose. He denies any abdominal pain, diarrhea, fevers, chills, shortness of breath, chest pain, headache.. He is not on any anticoagulation Related Data Home Medications Medication Instructions Recorded Confirmed isosorbide mononitrate 30 mg 1 tab PO DAILY 05/09/21 01/17/22 tablet,extended release 24 hr blood sugar diagnostic (FreeStyle 08/24/21 01/15/22 Lite Strips) zaleplon 5 mg capsule 5 mg PO BEDTIME PRN 09/27/21 01/17/22 metoprolol succinate 50 mg 50 mg PO BID 12/31/21 01/17/22 tablet,extended release 24 hr insulin lispro 100 unit/mL 4 unit SUBCUT TIDAC 01/17/22 01/17/22 subcutaneous pen (Humalog KwikPen (U-100) Insulin) metformin 500 mg tablet 1 tab PO BID 01/17/22 01/17/22 Previous Rx's Medication Instructions Recorded lancets 28 gauge (FreeStyle #100 ea 05/17/21 Lancets) blood sugar diagnostic (Prodigy No #100 ea 06/13/21 Coding) blood-glucose meter (Prodigy #1 ea 06/13/21 Autocode Meter) lancets 28 gauge (Prodigy Lancets) #100 ea 06/13/21 hydralazine 10 mg tablet 10 mg PO TID 90 Days #270 tab 09/24/21 lactulose 10 gram/15 mL oral 15 ml PO DAILY 30 Days #450 ml 10/11/21 solution (Enulose) linagliptin 5 mg tablet (Tradjenta) 5 mg PO DAILY #30 tab 11/22/21 atorvastatin 20 mg tablet 20 mg PO DAILY 30 Days #90 tab 11/28/21 mupirocin 2 % topical ointment 1 appl TOPICAL BID 7 Days #15 g 12/11/21 omeprazole 40 mg capsule,delayed 40 mg PO DAILY 90 Days #90 cap 12/11/21 release insulin glargine U-300 conc 300 12 unit (0.04 mL) SUBCUT DAILY 90 12/17/21 unit/mL (1.5 mL) subcutaneous pen Days #4.5 ml (Toujeo SoloStar U-300 Insulin) flash glucose scanning reader #1 ea 12/25/21 (FreeStyle Toyin 2 Aurora) flash glucose sensor (FreeStyle #2 ea 12/25/21 Toyin 2 Sensor) amlodipine 10 mg tablet 10 mg PO DAILY #90 tab 12/31/21 nitroglycerin 0.4 mg sublingual 0.4 mg SUBLINGUAL Q5M PRN #25 ea 01/09/22 tablet ezetimibe 10 mg tablet 10 mg PO DAILY #30 tab 01/10/22 Allergies Allergy/AdvReac Type Severity Reaction Status Date / Time latex Allergy Unknown Verified 01/15/22 15:02 Review of Systems Review of Systems: Yes Unobtainable due to mental status (very limited) Neurologic: Reports confusion Psychiatric: Psychiatric: Reports confusion PMFSH Past Medical History Attestation statement: The following information was validated with the patient. 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 Obesity due to excess calories 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 cancer Thrombocytopenia Thrombocytopenia Surgical History Hx of colonoscopy Family History Family History Father Diabetes CVD (cardiovascular disease) Mother Diabetes Social History Social History Household Members: Spouse Housing: Apartment Do you presently have visiting nurse or other home services: No Alcohol intake: former Patient Tobacco Use Status: Former Tobacco user Tobacco use type: Cigarette e-Cigarette/Vaping Use: Never Used Use of substances other than those prescribed or required for medical reasons: No Currently Displaying Signs/Symptoms of Drug Intoxication Withdrawal: No Any prior treatment program specific to substance use: No Have you been hit, kicked, punched, or otherwise hurt by someone within the past year? If so, by whom?: No Do you feel safe in your current relationship?: Yes Is there a partner from a previous relationship who is making you feel unsafe now?: No Are you made to feel afraid or neglected: No Advance Directives: Yes Advance Directives on File: Yes Advance Directives Date on File: 05/24/21 Do you have thoughts of harming others: None Do you have a plan to hurt others: No Plan Recently lost weight without trying: No Nutrition Risks: No Nutritional Risk Poor oral hygiene: No service: No Current occupational status: retired and disabled Cognitive needs: Yes (Pt has a walker) Hearing needs: No Vision needs: Yes (wear glasses) Physical Exam ED Vital Signs: Vital Signs - 24 hr 01/17/22 11:18 01/17/22 15:09 Temperature 97.9 F 97.7 F Pulse Rate 63 69 Respiratory Rate 18 16 Blood Pressure 114/65 95/60 Pulse Oximetry 99 97 BMI result Body Mass Index 29.1 Const General: alert and confusion Orientation/consciousness: confusion Limitations: altered mental status HENMT Head: Yes normal to inspection Ears: hearing grossly normal bilaterally and TM's normal bilaterally General nose exam: Normal external nose present Face and sinus: Yes normal facial exam Mouth: Normal oral and palatal mucosa present Teeth and gingiva: dentition normal Throat: Yes posterior oropharynx normal, Yes tonsils normal and Yes uvula midline Eyes General: appearance normal, both eyes and all related structures Pupils: Equal, round and reactive pupils present Neck Neck: Yes normal visual inspection, Yes full ROM, Yes no lymphadenopathy and Yes no meningeal signs Chest Chest palpation & inspection: normal inspection of the chest Resp Effort & Inspection: normal respiratory effort Auscultation: clear to auscultation bilaterally Cardio Rate: regular rate Rhythm: regular rhythm Peripheral pulses: Peripheral pulses 2+ throughout GI Other: distended Inspection: Yes normal to inspection Palpation (GI): Firmness to palpation present (GI) and nontender Skin General skin exam: no rashes or lesions noted Neuro Other: Unable to complete neuro exam is the patient is having hard time following commands General: moves all extremities, no meningeal signs, confusion and Unable to assess gait Cranial nerves: Yes Equal, round and reactive pupils present, Yes Normal facial strength present and Yes Midline tongue present Gait exam (Neuro): Unable to assess gait Sensory Exam: Normal double simultaneous stimulation for sensation Course Reevaluation(s) Reevaluation #1: 71-year-old male here with reports of increasing lethargy and confusion over the last few days with several episodes of vomiting this morning with subsequent lightheadedness. Difficult to examine patient as he is confused and having difficulty following commands. Vitals are stable. No focal abdominal pain. Will check CT head, chest x-ray, EKG, labs and UA Reevaluation #2: 1400- elevated ammonia 177. Patient given dose of lactulose. Will call for admit for hepatic encephalopathy. Reviewed additional labs show mild leukocytosis with no shift which appears unchanged from labs to from 01/16, renal function at baseline. CT head negative, CXR shows no acute finding. Medical Decision Making MDM Narrative Medical decision making narrative: Altered mental status, [id number] ammonia, anemia, electrolyte abnormality, ACS No focal neurological findings on exam. Less likely acute stroke. Additionally patient not a tPA candidate it due to unknown length of symptoms, platelets less than 100,000, coagulopathy Medical Records Medical records reviewed: Yes I reviewed the patient's medical records. Lab Data Lab results reviewed: Yes I reviewed the patient's lab results. Result diagrams: 01/17/22 12:34 01/17/22 12:34 Labs: Lab Results 01/17/22 01/17/22 01/17/22 Range/Units 12:34 12:34 12:34 WBC 12.2 H (4.8-10.8) X10*3/uL RBC 4.52 L (4.60-5.80) X10*6/uL Hgb 10.6 L (14.0-18.0) g/dl Hct 33.5 L (42.0-52.0) % MCV 74.1 L (80.0-98.0) fL MCH 23.5 L (27.0-33.0) pg MCHC 31.6 (31.0-36.0) g/dl RDW 17.0 H (11.0-16.0) % Plt Count 65 L (160-400) X10*3/uL MPV Not Reportable Immature Gran % (Auto) 0.2 (0.0-0.4) % Neut % (Auto) 18.8 L (45-73) % Lymph % (Auto) 15.8 L (20-40) % [place] % (Auto) 4.5 (2-11) % Eos % (Auto) 60.5 H (0-4) % Baso % (Auto) 0.2 (0-2) % Lymph # (Auto) 1.9 (1.2-4.9) X10*3/uL [place] # (Auto) 0.6 (0.1-1.2) X10*3/uL Eos # (Auto) 7.4 H (0.0-0.4) X10*3/uL Baso # (Auto) 0.0 (0.0-0.2) X10*3/uL Abs Immat Gran (auto) 0.02 (0.00-0.03) X10*3/uL Absolute Neuts (auto) 2.3 (2.0-8.3) x10*3/uL Absolute Nucleated RBC 0.000 (0.0-0.012) X10*3/uL Nucleated RBC % (auto) 0.0 (0.0-0.2) /100WBC Smear Tech's Comments VERIFIED PT 14.7 H (9.9-13.0) SEC INR 1.3 H (0.9-1.1) Sodium 140 (135-145) mmol/L Potassium 4.6 (3.3-5.1) mmol/L Chloride 109 H (96-108) mmol/L Carbon Dioxide 20 L (22-29) mmol/L Anion Gap 16 (12-20) BUN 32 H (9-16) mg/dL Creatinine 2.03 H (0.5-1.4) mg/dL Estim Creat Clear Calc 32.2 Estimated GFR 33 Random Glucose 103 (60-115) mg/dL Calcium 9.8 (8.4-10.2) mg/dL Magnesium 1.9 (1.6-2.6) mg/dL Total Bilirubin 1.3 H (0.0-1.0) mg/dL Direct Bilirubin 0.6 H (0.0-0.5) mg/dL AST 21 (5-37) U/L ALT 18 (0-40) U/L Alkaline Phosphatase 137 H (39-117) U/L Ammonia (13-55) umol/L Total Creatine Kinase (38-174) U/L Troponin I High Sens (<3.5-35.0) ng/L Total Protein 7.4 (6.5-8.0) g/dL Albumin 3.4 L (3.5-5.0) g/dL COVID-19 (STEVEN) (Negative) COVID-19 Clin Com 01/17/22 01/17/22 01/17/22 Range/Units 12:34 12:34 12:34 WBC (4.8-10.8) X10*3/uL RBC (4.60-5.80) X10*6/uL Hgb (14.0-18.0) g/dl Hct (42.0-52.0) % MCV (80.0-98.0) fL MCH (27.0-33.0) pg MCHC (31.0-36.0) g/dl RDW (11.0-16.0) % Plt Count (160-400) X10*3/uL MPV Immature Gran % (Auto) (0.0-0.4) % Neut % (Auto) (45-73) % Lymph % (Auto) (20-40) % [place] % (Auto) (2-11) % Eos % (Auto) (0-4) % Baso % (Auto) (0-2) % Lymph # (Auto) (1.2-4.9) X10*3/uL [place] # (Auto) (0.1-1.2) X10*3/uL Eos # (Auto) (0.0-0.4) X10*3/uL Baso # (Auto) (0.0-0.2) X10*3/uL Abs Immat Gran (auto) (0.00-0.03) X10*3/uL Absolute Neuts (auto) (2.0-8.3) x10*3/uL Absolute Nucleated RBC (0.0-0.012) X10*3/uL Nucleated RBC % (auto) (0.0-0.2) /100WBC Smear Tech's Comments PT (9.9-13.0) SEC INR (0.9-1.1) Sodium (135-145) mmol/L Potassium (3.3-5.1) mmol/L Chloride (96-108) mmol/L Carbon Dioxide (22-29) mmol/L Anion Gap (12-20) BUN (9-16) mg/dL Creatinine (0.5-1.4) mg/dL Estim Creat Clear Calc Estimated GFR Random Glucose (60-115) mg/dL Calcium (8.4-10.2) mg/dL Magnesium (1.6-2.6) mg/dL Total Bilirubin (0.0-1.0) mg/dL Direct Bilirubin (0.0-0.5) mg/dL AST (5-37) U/L ALT (0-40) U/L Alkaline Phosphatase (39-117) U/L Ammonia (13-55) umol/L Total Creatine Kinase 116 (38-174) U/L Troponin I High Sens < 3.5 (<3.5-35.0) ng/L Total Protein (6.5-8.0) g/dL Albumin (3.5-5.0) g/dL COVID-19 (STEVEN) Negative (Negative) COVID-19 Clin Com See Note 01/17/22 Range/Units 13:23 WBC (4.8-10.8) X10*3/uL RBC (4.60-5.80) X10*6/uL Hgb (14.0-18.0) g/dl Hct (42.0-52.0) % MCV (80.0-98.0) fL MCH (27.0-33.0) pg MCHC (31.0-36.0) g/dl RDW (11.0-16.0) % Plt Count (160-400) X10*3/uL MPV Immature Gran % (Auto) (0.0-0.4) % Neut % (Auto) (45-73) % Lymph % (Auto) (20-40) % [place] % (Auto) (2-11) % Eos % (Auto) (0-4) % Baso % (Auto) (0-2) % Lymph # (Auto) (1.2-4.9) X10*3/uL [place] # (Auto) (0.1-1.2) X10*3/uL Eos # (Auto) (0.0-0.4) X10*3/uL Baso # (Auto) (0.0-0.2) X10*3/uL Abs Immat Gran (auto) (0.00-0.03) X10*3/uL Absolute Neuts (auto) (2.0-8.3) x10*3/uL Absolute Nucleated RBC (0.0-0.012) X10*3/uL Nucleated RBC % (auto) (0.0-0.2) /100WBC Smear Tech's Comments PT (9.9-13.0) SEC INR (0.9-1.1) Sodium (135-145) mmol/L Potassium (3.3-5.1) mmol/L Chloride (96-108) mmol/L Carbon Dioxide (22-29) mmol/L Anion Gap (12-20) BUN (9-16) mg/dL Creatinine (0.5-1.4) mg/dL Estim Creat Clear Calc Estimated GFR Random Glucose (60-115) mg/dL Calcium (8.4-10.2) mg/dL Magnesium (1.6-2.6) mg/dL Total Bilirubin (0.0-1.0) mg/dL Direct Bilirubin (0.0-0.5) mg/dL AST (5-37) U/L ALT (0-40) U/L Alkaline Phosphatase (39-117) U/L Ammonia 177 H (13-55) umol/L Total Creatine Kinase (38-174) U/L Troponin I High Sens (<3.5-35.0) ng/L Total Protein (6.5-8.0) g/dL Albumin (3.5-5.0) g/dL COVID-19 (STEVEN) (Negative) COVID-19 Clin Com Imaging Data CT scan - head: Attestation: I personally reviewed and interpreted this imaging study as follows: Radiologist's impression: [id number] [place] [id number] CT Scan Report Signed Patient: Phillip Kowalski MR#: [id number] : 1950 Acct:[id number] Age/Sex: 71 / M ADM Date: 01/17/22 Loc: HO.ED Attending Dr: Ordering Physician: Nancy Do NP Date of Service: 01/17/22 Procedure(s): CT head/brain wo con Accession Number(s): [id number] cc: Nancy Do NP~ EXAMINATION: CT HEAD WITHOUT CONTRAST CLINICAL INFORMATION: Dizziness.? COMPARISON: 03/29/[address] scan. TECHNIQUE: Contiguous axial imaging was performed from the skull base to vertex without intravenous administration of contrast. Coronal and sagittal reformatted images were obtained. This CT examination was performed using dose optimization techniques as appropriate, variously including the following: *Automated exposure control *Adjustment of mA and/or kV according to patient size (this includes techniques or standardized protocols for targeted exams where dose is matched to indication/reason for exam; i.e. extremities or head) *Use of iterative reconstruction technique DLP: 621 mGy-cm FINDINGS: There is no evidence of acute intracranial hemorrhage or territorial infarction. No abnormal mass effect or midline shift is seen. [place] to white matter differentiation is well preserved. No extra-axial fluid collections are identified. The ventricles are normal in size. There is no abnormal attenuation within the brain parenchyma. The osseous structures and soft tissues are normal. The mastoid air cells and visualized portions of the paranasal sinuses are well aerated. Mild anterior nasal septal deviation, apex the left. ? CT/CT head/brain wo con IMPRESSION: No acute intracranial pathology. Chest x-ray: Attestation: I personally reviewed and interpreted this imaging study as follows: Radiologist's impression: c: Nancy Do NP~ EXAMINATION: XR CHEST CLINICAL INFORMATION: Weakness COMPARISON: 07/04/2021 TECHNIQUE: 2 views of the chest were obtained. FINDINGS: Lung volumes are low. No dense consolidation. No edema or effusion. No pneumothorax. The cardiomediastinal silhouette is unchanged, with a tortuous aorta. XR/XR chest 2V IMPRESSION: Low lung volumes. No consolidation. ECG Data Attestation: I personally reviewed and interpreted this ECG as follows: Interpretation: Normal sinus rhythm with a rate of 60, normal RI, normal QRS, and QT Discharge Plan Discharge Clinical Impression: Hepatic encephalopathy Patient Disposition: Admitted As Inpatient Interventions: Admission Worksheet (ED) Last Done: 01/17/22 19:42 Discharge Date/Time: 01/17/22 19:42
--- NOTE | 2022-01-17 12:03 | ECG_ITS ---
Test Reason : altered mental Blood Pressure : / mmHG Vent. Rate : 062 BPM Atrial Rate : 062 BPM P-R Int : 168 ms QRS Dur : 094 ms QT Int : 464 ms P-R-T Axes : 039 -40 012 degrees QTc Int : 470 ms Normal sinus rhythm Left axis deviation Abnormal ECG When compared with ECG of 14-SEP-2021 12:30, No significant change was found Referred By: Nancy Do Electronically Signed By:MIGUEL JAFFE MD
[2022-01-17 12:55] LABS: Basophils Percent Auto 0.2 % (0-2); Eosinophils Absolute Auto 7.4 X10*3/uL (0.0-0.4); Eosinophils Percent Auto 60.5 % (0-4); Hematocrit 33.5 % (42.0-52.0); Hemoglobin 10.6 g/dl (14.0-18.0); Imm Gran Abs Auto 0.02 X10*3/uL (0.00-0.03); Imm Gran Pct Auto 0.2 % (0.0-0.4); Lymphocytes Absolute Auto 1.9 X10*3/uL (1.2-4.9); Lymphocytes Percent Auto 15.8 % (20-40); MANUAL DIFF FLAG SCAN; Mean Corpuscular HGB Conc 31.6 g/dl (31.0-36.0); Mean Corpuscular Hemoglobin 23.5 pg (27.0-33.0); Mean Corpuscular Volume 74.1 fL (80.0-98.0); Monocytes Absolute Auto 0.6 X10*3/uL (0.1-1.2); Monocytes Percent Auto 4.5 % (2-11); Neutrophils Absolute Auto 2.3 x10*3/uL (2.0-8.3); Neutrophils Percent Auto 18.8 % (45-73); Red Blood Count 4.52 X10*6/uL (4.60-5.80); SCAN SMEAR FLAG 1; White Blood Count 12.2 X10*3/uL (4.8-10.8)
[2022-01-17 12:57] LABS: Platelet Count 65 X10*3/uL (160-400)
[2022-01-17 13:04] LABS: INTERNATIONAL NORM RATIO 1.3 (0.9-1.1); Prothrombin Time 14.7 SEC (9.9-13.0)
[2022-01-17 13:06] LABS: COVID-19 Test Negative (Negative)
[2022-01-17 13:10] LABS: Alanine Aminotransferase 18 U/L (0-40); Albumin Level 3.4 g/dL (3.5-5.0); Alkaline Phosphatase 137 U/L (39-117); Anion Gap 16 (12-20); Aspartate Amino Transferase 21 U/L (5-37); Bilirubin Direct 0.6 mg/dL (0.0-0.5); Bilirubin Total 1.3 mg/dL (0.0-1.0); Blood Urea Nitrogen 32 mg/dL (9-16); Calcium 9.8 mg/dL (8.4-10.2); Carbon Dioxide 20 mmol/L (22-29); Chloride 109 mmol/L (96-108); Creatinine Clr Calc Pharmacy 32.2; Estimated Glomerular Filt Rate 33; Glucose Random 103 mg/dL (60-115); Magnesium 1.9 mg/dL (1.6-2.6); Potassium 4.6 mmol/L (3.3-5.1); Sodium 140 mmol/L (135-145); Total Protein 7.4 g/dL (6.5-8.0)
[2022-01-17 13:16] LABS: Troponin-I High Sensitivity < 3.5 ng/L (<3.5-35.0)
[2022-01-17 13:21] LABS: SLIDE REVIEW VERIFIED
[2022-01-17 13:41] LABS: Ammonia 177 umol/L (13-55)
[2022-01-17] MEDS: Lactulose 20 GM/30 ML SOLUTION PO (14:13)
[2022-01-17] MEDS: Lactulose 20 GM/30 ML SOLUTION 30 GM PO ×2 (14:36→21:22)
--- NOTE | 2022-01-17 15:07 | PM.IMHP ---
History of Present Illness Date of Service: 01/17/22 Attending physician on admission: Marie Sethi Chief Complaint: confusion 71 yo Kyrgyz-speaking gentleman came to [place] [facility] accompanied with his , with pmh liver cirrhosis, HTN, diabetes, thrombocytopenia, CAD, gastroparesis, HLD, CKD with complaints lethargy, AMS, vomiting. 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 She denies any fall to the ground or head trauma or loss of consciousness, he had his labs drawn yesterday and was told to have elevated ammonia level of 134 and was recommended lactulose however patient declined to use lactulose, since he was becoming more confused with persistent dizziness she brought him to the hospital, He denies any abdominal pain, diarrhea, fevers, chills, chest pain, headache, denies hematemesis , no melena, no recent travel, no sick contacts, patient follows with Dr. Clifton from Gastroenterology and recently underwent paracentesis, feels belly is more distended than his baseline denies associated pain or shortness of breath. Review of Systems Review of Systems: General no headache, no dizziness no fever chills. CVS no chest pain, no palpitation. Respiratory cough , shortness of breath Gastrointestinal no abdominal pain, positive distension musculoskeletal no pain Yes all other systems are reviewed and are negative [facility] Medical History Abnormal myocardial perfusion study Ascending aorta dilatation Ascites Atherosclerotic cardiovascular disease Cirrhosis of liver with ascites CKD (chronic kidney disease) stage 3, GFR 30-59 ml/min Diabetes Diabetes type 2, uncontrolled Diabetic nephropathy associated with type 2 diabetes mellitus Dyslipidemia Dyslipidemia associated with type 2 diabetes mellitus Essential hypertension Gastroparesis GERD (gastroesophageal reflux disease) Gout Hypertension Hypoglycemia 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 with type 2 diabetes mellitus 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 Obesity due to excess calories 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 cancer Thrombocytopenia Thrombocytopenia Family History Father Diabetes CVD (cardiovascular disease) Mother Diabetes Surgical History Hx of colonoscopy Social History Household Members: Spouse Housing: Apartment Do you presently have visiting nurse or other home services: No Alcohol intake: former Patient Tobacco Use Status: Former Tobacco user Tobacco use type: Cigarette e-Cigarette/Vaping Use: Never Used Use of substances other than those prescribed or required for medical reasons: No Currently Displaying Signs/Symptoms of Drug Intoxication Withdrawal: No Any prior treatment program specific to substance use: No Have you been hit, kicked, punched, or otherwise hurt by someone within the past year? If so, by whom?: No Do you feel safe in your current relationship?: Yes Is there a partner from a previous relationship who is making you feel unsafe now?: No Are you made to feel afraid or neglected: No Advance Directives: Yes Advance Directives on File: Yes Advance Directives Date on File: 05/24/21 Do you have thoughts of harming others: None Do you have a plan to hurt others: No Plan Recently lost weight without trying: No Nutrition Risks: No Nutritional Risk Poor oral hygiene: No service: No Current occupational status: retired and disabled Cognitive needs: Yes (Pt has a walker) Hearing needs: No Vision needs: Yes (wear glasses) Meds Allergies Allergy/AdvReac Type Severity Reaction Status Date / Time latex Allergy Unknown Verified 01/15/22 15:02 Active Medications: Current Medications Acetaminophen (Acetaminophen 325 Mg Tablet) 650 mg PO Q6H PRN PRN Reason: Pain, Mild (Pain Scale 1-3) Ondansetron HCl (Ondansetron Hcl 4 Mg/2 Ml Vial) 4 mg IVPUSH Q8H PRN PRN Reason: Nausea and Vomiting Pharmacy Consult (Consult Rx Perform Med Rec) 1 each MISCELLANE ONCE PRN PRN Reason: Consult order Sodium Chloride (0.9 % Sodium Chloride Flush 3 Ml Syringe) 3 [facility] Medications Medication Instructions Recorded Confirmed Last Taken Type isosorbide mononitrate 30 mg 1 tab PO DAILY 05/09/21 01/17/22 01/16/22 History tablet,extended release 24 hr blood sugar diagnostic (FreeStyle 08/24/21 01/15/22 Unknown History Lite Strips) zaleplon 5 mg capsule 5 mg PO BEDTIME PRN 09/27/21 01/17/22 Unknown History metoprolol succinate 50 mg 50 mg PO BID 12/31/21 01/17/22 01/16/22 History tablet,extended release 24 hr insulin lispro 100 unit/mL 4 unit SUBCUT TIDAC 01/17/22 01/17/22 01/16/22 History subcutaneous pen (Humalog KwikPen (U-100) Insulin) metformin 500 mg tablet 1 tab PO BID 01/17/22 01/17/22 01/16/22 History Physical Exam Vital Signs and Narrative: Vital Signs: Last Vital Signs Temp 97.9 F 01/17/22 11:18 Pulse 63 01/17/22 11:18 Resp 18 01/17/22 11:18 BP 114/65 01/17/22 11:18 Pulse Ox 99 01/17/22 11:18 BMI result Body Mass Index 29.1 Const: Other: General resting comfortably ,no acute distress. HEENT anicteric sclerae Neck supple no JVD. CVS regular rate rhythm, Respiratory lungs clear to auscultation, no respiratory distress, no wheeze, no rhonchi. Gastrointestinal abdomen distended,soft, nontender, bowel sounds audible, no guarding , no rigidity. Extremities trace edema. Neuro moving all 4 extremity, speech clear, asterixix. Skin no jaundice Musculoskeletal no deformity Results Labs CBC and Chem 7: 01/18/22 09:08 01/18/22 05:44 Labs: Laboratory Results - last 24 hr 01/17/22 01/17/22 01/17/22 12:34 12:34 12:34 MCV 74.1 L MCH 23.5 L MCHC 31.6 RDW 17.0 H Plt Count 65 L MPV Not Reportable Immature Gran % (Auto) 0.2 Neut % (Auto) 18.8 L Lymph % (Auto) 15.8 L Wilkinson % (Auto) 4.5 Eos % (Auto) 60.5 H Baso % (Auto) 0.2 Lymph # (Auto) 1.9 Wilkinson # (Auto) 0.6 Eos # (Auto) 7.4 H Baso # (Auto) 0.0 Abs Immat Gran (auto) 0.02 Absolute Neuts (auto) 2.3 Absolute Nucleated RBC 0.000 Nucleated RBC % (auto) 0.0 Smear Tech's Comments VERIFIED PT 14.7 H INR 1.3 H Anion Gap 16 Estim Creat Clear Calc 32.2 Estimated GFR 33 Random Glucose 103 Calcium 9.8 Magnesium 1.9 Total Bilirubin 1.3 H Direct Bilirubin 0.6 H AST 21 ALT 18 Alkaline Phosphatase 137 H Ammonia Total Creatine Kinase Troponin I High Sens Total Protein 7.4 Albumin 3.4 L COVID-19 (STEVEN) COVID-Elli Com 01/17/22 01/17/22 01/17/22 12:34 12:34 12:34 MCV MCH MCHC RDW Plt Count MPV Immature Gran % (Auto) Neut % (Auto) Lymph % (Auto) Wilkinson % (Auto) Eos % (Auto) Baso % (Auto) Lymph # (Auto) Wilkinson # (Auto) Eos # (Auto) Baso # (Auto) Abs Immat Gran (auto) Absolute Neuts (auto) Absolute Nucleated RBC Nucleated RBC % (auto) Smear Tech's Comments PT INR Anion Gap Estim Creat Clear Calc Estimated GFR Random Glucose Calcium Magnesium Total Bilirubin Direct Bilirubin AST ALT Alkaline Phosphatase Ammonia Total Creatine Kinase 116 Troponin I High Sens < 3.5 Total Protein Albumin COVID-19 (STEVEN) Negative COVID-[employer] See Note 01/17/22 13:23 MCV MCH MCHC RDW Plt Count MPV Immature Gran % (Auto) Neut % (Auto) Lymph % (Auto) Wilkinson % (Auto) Eos % (Auto) Baso % (Auto) Lymph # (Auto) Wilkinson # (Auto) Eos # (Auto) Baso # (Auto) Abs Immat Gran (auto) Absolute Neuts (auto) Absolute Nucleated RBC Nucleated RBC % (auto) Smear Tech's Comments PT INR Anion Gap Estim Creat Clear Calc Estimated GFR Random Glucose Calcium Magnesium Total Bilirubin Direct Bilirubin AST ALT Alkaline Phosphatase Ammonia 177 H Total Creatine Kinase Troponin I High Sens Total Protein Albumin COVID-19 (STEVEN) [employer] [facility] Radiologist's Impressions: Impressions Chest X-Ray 01/17/22 12:51 IMPRESSION: Low lung volumes. No consolidation. Head CT 01/17/22 13:20 IMPRESSION: No acute intracranial pathology. Assessment and Plan (1) Hepatic encephalopathy: Status: Acute (2) Ascites: Status: Acute (3) Cirrhosis of liver with ascites: Qualifiers: Hepatic cirrhosis type: unspecified hepatic cirrhosis Qualified Code(s): K74.60 - Unspecified cirrhosis of liver; R18.8 - Other ascites Status: Acute Plan 71-year-old gentleman with past medical history of diabetes mellitus type 2, hypertension, hyperlipidemia, gout, history of cirrhosis likely SEGUNDO , prior normal APC serologies, sad ratio consistent with portal hypertension, prior history of SBP currently noncompliant with lactulose presented to [facility] for 5 days history of progressive confusion today associated with nausea vomiting, and they are noted to have significantly elevated ammonia level therefore being admitted with a diagnosis of acute hepatic encephalopathy. Acute hepatic encephalopathy persistent confusion, ammonia 177 no evidence of GI blood loss, no new medication, noncompliance with lactulose, history of SBP ,has ascites will do paracentesis, and empirically placed on IV ceftriaxone, last paracentesis January 08,1.9 L of clear fluid was drained, none of the fluid was sent to lab will place on scheduled lactulose 30 g t.i.d. hold for greater than 2 bowel movements per day Cirrhosis of liver with ascites likely SEGUNDO, hold diuretics due to hypotension, albumin 3.4, INR 1.3, platelets 65 acute on chronic kidney disease stage 3 pre renal likely due to GI loss, hold diuretics give 500 mL IV fluid, avoid nephrotoxins and hypotension diabetes mellitus type 2 on insulin blood sugar is stable at 103, hold pre meal insulin , hold metformin due to kidney disease,will place on diabetic diet monitor blood sugar and place on insulin sliding scale. hypertension Low blood pressure will hold antihypertensive and follow blood pressure closely DVT prophylaxis with compression boots in the setting of coagulopathy and thrombocytopenia Quality Stroke Does the patient have a stroke diagnosis?: No VTE Prior VTE?: No VTE Risk Level:: Medical - moderate - high VTE Device Contraindication: N/A - Device Ordered VTE Drug Contraindication: Treatment Not Indicated
[2022-01-17 15:09] VITALS: BP 95/60; PULSE 69; RESP 16; TEMP 36.5; O2SAT 97
--- NOTE | 2022-01-17 15:11 | PHA.MEDREC ---
Pharmacy Consult ? Medication Reconciliation Pharmacy has completed the medication reconciliation. Pt had at bedside, used [facility] but both pt and his were unaware exactly of which medications he's currently taking. did state that they use [facility], reconciled medications based on most recent claim history. Dr. Sethi present, made her aware that that is how I would be reconciling. Maria Teresa Lopez, PharmD
--- NOTE | 2022-01-17 17:27 | P.CNGI_ITS ---
History of Present Illness Data of Consult Service Date: 01/17/22 Requesting physician: aMrie Sethi Primary Care Provider: Tru Pastor MD HPI Reason for consult: Change in mental status, abdominal distension 71 year old Maldivian-speaking Male with liver cirrhosis, HTN, diabetes, thromb ocytopenia, CAD, gastroparesis, HLD, CKD seen at [facility] today accompanied with his , with lethargy, AMS, vomiting. Per patient has been confused for last 5 days,today he got up at 09:30 am,and noted to be coughing, gagging and threw up small amount of mucus, he did not eat and went ?back to bed then? again he started coughing? again and had 3 episodes of vomiting , then started to feel very dizzy and lightheaded and had to sit down.? denied any fall to the ground or head trauma or loss of consciousness. Pt had his labs drawn yesterday and was told to have elevated ammonia level of 134 and was recommended lactulose however patient declined to use lactulose, since he was becoming more confused with persistent dizziness Pt notes worsening abdominal distension and denies any abdominal pain, diarrhea, fevers, chills, chest pain, headache, denies hematemesis or melena 01/08/22 Pt had a LV paracentesis with removal of 1.9 litres of fluid ?Decreased appetite due to abdominal distension ?? ? Quitted drinking 10 yrs ago (was drinking once a week Labs showed chronic anemia and elevated BUN and Creatinine Review of Systems Review of Systems: General no headache, no dizziness no fever chills. CVS no chest pain, no palpitation. Respiratory cough , shortness of breath Gastrointestinal no abdominal pain, positive distension musculoskeletal no pain Yes all other systems are reviewed and are negative [facility] Past Medical History Medical History Abnormal myocardial perfusion study Ascending aorta dilatation Ascites Atherosclerotic cardiovascular disease Cirrhosis of liver with ascites CKD (chronic kidney disease) stage 3, GFR 30-59 ml/min Diabetes Diabetes type 2, uncontrolled Diabetic nephropathy associated with type 2 diabetes mellitus Dyslipidemia Dyslipidemia associated with type 2 diabetes mellitus Essential hypertension Gastroparesis GERD (gastroesophageal reflux disease) Gout Hypertension Hypoglycemia 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 with type 2 diabetes mellitus 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 Obesity due to excess calories 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 cancer Thrombocytopenia Thrombocytopenia Family History Family History Father Diabetes CVD (cardiovascular disease) Mother Diabetes Surgical History Surgical History Hx of colonoscopy Social History Social History Household Members: Spouse Housing: Apartment Do you presently have visiting nurse or other home services: No Alcohol intake: former Patient Tobacco Use Status: Former Tobacco user Tobacco use type: Cigarette e-Cigarette/Vaping Use: Never Used Advance Directives Date on File: 05/24/21 service: No Current occupational status: retired and disabled Cognitive needs: Yes (Pt has a walker) Hearing needs: No Vision needs: Yes (wear glasses) Meds Allergies Allergy/AdvReac Type Severity Reaction Status Date / Time latex Allergy Unknown Verified 01/15/22 15:02 Active Medications: Current Medications Acetaminophen (Acetaminophen 325 Mg Tablet) 650 mg PO Q6H PRN PRN Reason: Pain, Mild (Pain Scale 1-3) Atorvastatin Calcium (Atorvastatin Calcium 20 Mg Tablet) 20 mg PO BEDTIME [facility] Dextrose (Dextrose 50 % 25 Gm/50 Ml Syringe) 25 gm IVPUSH Q15M PRN; Protocol PRN Reason: per Hypoglycemia Standing Ord. Glucose (Glucose Gel 15 Gm Gel..Gram.) 15 gm PO Q15M PRN; Protocol PRN Reason: per Hypoglycemia Standing Ord. Sodium Chloride (Ns) 500 mls @ 100 mls/hr IVCONT .Q5H SAUL Stop: 01/17/22 20:44 Ceftriaxone Sodium 1 gm/ (Sodium Chloride) 50 mls @ 100 mls/hr IV Q24H [facility] Insulin Human Lispro (Insulin Lispro 100 Unit/Ml 3 Ml Vial) 0 unit SUBCUT QIDACHS [facility]; Protocol Lactulose (Lactulose 20 Gm/30 Ml Solution) 30 gm PO TID SAUL Nitroglycerin (Nitroglycerin 0.4 Mg Tab.Subl) 0.4 mg SUBLINGUAL Q5M PRN PRN Reason: chest pain Omeprazole (Omeprazole 40 Mg Capsule.Dr) 40 mg PO DAILY@0630 [facility] Ondansetron HCl (Ondansetron Hcl 4 Mg/2 Ml Vial) 4 mg IVPUSH Q8H PRN PRN Reason: Nausea and Vomiting Pharmacy Consult (Consult Rx Perform Med Rec) 1 each MISCELLANE ONCE PRN PRN Reason: Consult order Sodium Chloride (0.9 % Sodium Chloride Flush 3 Ml Syringe) [facility] Temazepam (Temazepam 15 Mg Capsule) 15 mg PO BEDTIME PRN PRN Reason: Insomnia Home Medications Medication Instructions Recorded Confirmed Last Taken Type isosorbide mononitrate 30 mg 1 tab PO DAILY 05/09/21 01/17/22 01/16/22 History tablet,extended release 24 hr blood sugar diagnostic (FreeStyle 08/24/21 01/15/22 Unknown History Lite Strips) zaleplon 5 mg capsule 5 mg PO BEDTIME PRN 09/27/21 01/17/22 Unknown History metoprolol succinate 50 mg 50 mg PO BID 12/31/21 01/17/22 01/16/22 History tablet,extended release 24 hr insulin lispro 100 unit/mL 4 unit SUBCUT TIDAC 01/17/22 01/17/22 01/16/22 History subcutaneous pen (Humalog KwikPen (U-100) Insulin) metformin 500 mg tablet 1 tab PO BID 01/17/22 01/17/22 01/16/22 History Physical Exam Vital Signs: Vital Signs: Last Vital Signs Temp 97.7 F 01/17/22 15:09 Pulse 69 01/17/22 15:09 Resp 16 01/17/22 15:09 BP 95/60 01/17/22 15:09 Pulse Ox 97 01/17/22 15:09 BMI result Body Mass Index 29.1 Const: General: healthy appearing and no acute distress Nutritional Appearance: average body habitus Orientation/consciousness: patient oriented x3 Limitations: no limitations HEENT: Head: Yes normal to inspection Ears: hearing grossly normal bilaterally Mouth: Normal oral and palatal mucosa present Eyes: Sclerae: sclerae normal Pupils: Equal, round and reactive pupils present Neck: Neck: Yes normal visual inspection Chest: Chest palpation & inspection: normal inspection of the chest Resp: Effort & Inspection: normal respiratory effort Auscultation: clear to auscultation bilaterally Cardio: Palpation: normal PMI Rate: regular rate Rhythm: regular rhythm Heart sounds: S1 normal heart sound present, S2 normal heart sound present and no murmurs GI: Inspection: Yes distended Palpation (GI): Soft to palpation, nontender and No hepatosplenomegaly present Auscultation: normal bowel sounds Rectal Exam - Male: Yes deferred Skin: General skin exam: no rashes or lesions noted Neuro: General: patient oriented x3, gait normal and moves all extremities Cranial nerves: Yes Equal, round and reactive pupils present Extrem: General: Yes pedal edema (1+ pitting edema bilaterally) Psych: Appearance: grossly normal Mental Status: mental status grossly normal Results Labs CBC & Chem 7: 01/18/22 09:08 01/18/22 05:44 Labs: Short CBC 01/17/22 Range/Units 12:34 WBC 12.2 H (4.8-10.8) X10*3/uL Hgb 10.6 L (14.0-18.0) g/dl Hct 33.5 L (42.0-52.0) % Plt Count 65 L (160-400) X10*3/uL BMP 01/17/22 12:34 Sodium 140 Potassium 4.6 Chloride 109 H Carbon Dioxide 20 L BUN 32 H Creatinine 2.03 H Calcium 9.8 Cardiac Enzymes 01/17/22 Range/Units 12:34 Total Creatine Kinase 116 (38-174) U/L Liver Function 01/17/22 Range/Units 12:34 Total Bilirubin 1.3 H (0.0-1.0) mg/dL Direct Bilirubin 0.6 H (0.0-0.5) mg/dL AST 21 (5-37) U/L ALT 18 (0-40) U/L Alkaline Phosphatase 137 H (39-117) U/L Albumin 3.4 L (3.5-5.0) g/dL Assessment and Plan (1) Ascites: Status: Acute (2) Hepatic encephalopathy: Status: Acute (3) Gastroparesis: Status: Acute (4) GERD (gastroesophageal reflux disease): Qualifiers: Esophagitis presence: esophagitis presence not specified Qualified Code(s): K21.9 - Gastro-esophageal reflux disease without esophagitis Status: Acute (5) Cirrhosis of liver with ascites: Qualifiers: Hepatic cirrhosis type: unspecified hepatic cirrhosis Qualified Code(s): K74.60 - Unspecified cirrhosis of liver; R18.8 - Other ascites Status: Acute Plan ? 71 years old Maldivian-speaking male with HTN, HLD, diabetes, CKD admitted to [facility] with a change in mental status and worsening abdominal distension and lower extremity edema. Pt has cirrhosis of unclear etiology - likely due to SEGUNDO or AIH (autoimmune mar kers were negative). Hepatitis A, B and C serologies were negative. He has a hx of SBP during past hospitalization?RECOMMENDATIONS: ? 1. Agree with lactulose for hepatic encephalopathy and monitor ammonia levels daily ? 2. Agree with IV ceftriaxone for SBP. ? 3. Large Volume paracentesis in the am and check cell count to rule out SBP. 4. Abdominal US in the am to rule out HCC 5. Hold diuretics due to worsening renal function. 6. Pt will be schedule for large volume paracentesis as an outpatient every 2-3 weeks as an outpatient. ADDENDUM: 12/18/21 PARACENTESIS WAS PERFORMED BY IR: On preliminary ultrasound imaging, there is moderate free fluid visualized throughout the abdomen. Approximately 2.3 L of clear yellowish fluid was drained from the right lower quadrant. Part of this fluid was sent to lab as per referring physician's orders. No SBP detected on AF analysis ?? Procedures Date of Service Date of Service: 01/17/22
[2022-01-17] MEDS: cefTRIAXone sodium 1 GM in 0.9 % Sodium Chloride 50 ML IV (18:06)
[2022-01-17] MEDS: 0.9 % Sodium Chloride Flush 3 ML SYRINGE IVFLUSH (18:08)
[2022-01-17] MEDS: 0.9 % Sodium Chloride 500 ML 100 ML IVCONT (18:11)
[2022-01-17 18:20] VITALS: BP 108/76; PULSE 72; RESP 18; TEMP 36.6; O2SAT 97
[2022-01-17 18:36] LABS: Glucose, Whole Blood 134 mg/dL (60-115)
[2022-01-17 19:04] VITALS: BP 124/74; PULSE 71; RESP 16; O2SAT 98
[2022-01-17 20:00] VITALS: BP 122/65; PULSE 76; RESP 17; TEMP 37.6; O2SAT 96
[2022-01-17 20:16] LABS: Glucose, Whole Blood 110 mg/dL (60-115)
[2022-01-17 23:42] VITALS: BP 139/87; PULSE 82; RESP 18; TEMP 37.2; O2SAT 96
[2022-01-18 03:28] VITALS: BP 121/77; PULSE 75; RESP 17; TEMP 37.4; O2SAT 96
[2022-01-18] MEDS: Omeprazole 40 MG CAPSULE.DR PO (05:51)
[2022-01-18 06:12] LABS: Ammonia 57 umol/L (13-55)
[2022-01-18 06:18] LABS: Anion Gap 13 (12-20); Blood Urea Nitrogen 29 mg/dL (9-16); Calcium 9.5 mg/dL (8.4-10.2); Carbon Dioxide 22 mmol/L (22-29); Chloride 114 mmol/L (96-108); Creatinine Clr Calc Pharmacy 37.5; Estimated Glomerular Filt Rate 39; Glucose Random 78 mg/dL (60-115); Potassium 3.9 mmol/L (3.3-5.1); Sodium 145 mmol/L (135-145)
[2022-01-18 07:35] VITALS: BP 106/60; PULSE 71; RESP 18; TEMP 37; O2SAT 94
[2022-01-18 07:46] LABS: Glucose, Whole Blood 85 mg/dL (60-115)
[2022-01-18] MEDS: 0.9 % Sodium Chloride Flush 3 ML SYRINGE IVFLUSH (08:54)
[2022-01-18 09:23] LABS: Hematocrit 32.7 % (42.0-52.0); Hemoglobin 10.4 g/dl (14.0-18.0); Mean Corpuscular HGB Conc 31.8 g/dl (31.0-36.0); Mean Corpuscular Hemoglobin 23.9 pg (27.0-33.0); Platelet Count 58 X10*3/uL (160-400); Red Blood Count 4.36 X10*6/uL (4.60-5.80); Red Cell Distribution Width 17.1 % (11.0-16.0)
[2022-01-18] MEDS: Lidocaine HCl 1 % MPF 5 ML VIAL SUBCUT (10:48)
[2022-01-18 11:11] VITALS: BP 121/76; PULSE 78; RESP 18; TEMP 36.9; O2SAT 94
[2022-01-18 11:24] LABS: MN% 83.8 %; PMN% 16.2 %; WBC Peritoneal Fluid 0.229 X10*3/uL
[2022-01-18 11:25] LABS: RBC Peritoneal Fluid < 0.002 X10*6/uL
[2022-01-18 11:36] LABS: Glucose, Whole Blood 117 mg/dL (60-115)
[2022-01-18 11:41] LABS: Lymphocyte Peritoneal Fl 53 %; Neutrophils Peritoneal Fluid 1 %
[2022-01-18 11:42] LABS: BF Shift QC OK YES; Eosinophils Peritoneal Fl 18 %; Monocytes Peritoneal Fl 15 %; Other Peritioneal Fl 13 %
--- NOTE | 2022-01-18 15:15 | P.PNIM_ITS ---
Subjective Subjective Date of Service: 01/18/22 Interval History: patient awake alert feeling better, confusion resolved answering questions appropriately, had multiple loose stools overnight Physical Exam Vital Signs: Vital Signs: Last Vital Signs Temp 98.4 F 01/18/22 11:11 Pulse 78 01/18/22 11:11 Resp 18 01/18/22 11:11 BP 121/76 01/18/22 11:11 Pulse Ox 94 01/18/22 11:11 BMI result Body Mass Index 29.1 Objective Data Active Medications Acetaminophen (Acetaminophen 325 Mg Tablet) 650 mg PO Q6H PRN PRN Reason: Pain, Mild (Pain Scale 1-3) Atorvastatin Calcium (Atorvastatin Calcium 20 Mg Tablet) 20 mg PO BEDTIME [facility] Dextrose (Dextrose 50 % 25 Gm/50 Ml Syringe) 25 gm IVPUSH Q15M PRN; Protocol PRN Reason: per Hypoglycemia Standing Ord. Glucose (Glucose Gel 15 Gm Gel..Gram.) 15 gm PO Q15M PRN; Protocol PRN Reason: per Hypoglycemia Standing Ord. Ceftriaxone Sodium 1 gm/ (Sodium Chloride) 50 mls @ 100 mls/hr IV Q24H [facility] Last Infusion: 01/17/22 18:38 Dose: 0 mls/hr Documented by: JÚNIOR Insulin Human Lispro (Insulin Lispro 100 Unit/Ml 3 Ml Vial) 0 unit SUBCUT QIDACHS [facility]; Protocol Last Admin: 01/18/22 11:40 Dose: Not Given Documented by: JULES Non-Admin Reason: No Insulin Coverage Lactulose (Lactulose 20 Gm/30 Ml Solution) 30 gm PO DAILY [facility] Last Admin: 01/18/22 08:17 Dose: Not Given Documented by: JULES Non-Admin Reason: Physician Held Med Nitroglycerin (Nitroglycerin 0.4 Mg Tab.Subl) 0.4 mg SUBLINGUAL Q5M PRN PRN Reason: chest pain Omeprazole (Omeprazole 40 Mg Capsule.Dr) 40 mg PO DAILY@0630 [facility] Last Admin: 01/18/22 05:51 Dose: 40 mg Documented by: MARZENA Ondansetron HCl (Ondansetron Hcl 4 Mg/2 Ml Vial) 4 mg IVPUSH Q8H PRN PRN Reason: Nausea and Vomiting Pharmacy Consult (Consult Rx Perform Med Rec) 1 each MISCELLANE ONCE PRN PRN Reason: Consult order Sodium Chloride (0.9 % Sodium Chloride Flush 3 Ml Syringe) 3 ml IVFLUSH QSHIFT [facility] Last Admin: 01/18/22 08:54 Dose: 3 ml Documented by: COTEMA Temazepam (Temazepam 15 Mg Capsule) 15 mg PO BEDTIME PRN PRN Reason: Insomnia Labs CBC & Chem 7: 01/18/22 09:08 01/18/22 05:44 Labs: Laboratory Results - last 24 hr 01/17/22 01/17/22 01/18/22 18:33 20:12 05:44 MCV MCH MCHC RDW Plt Count MPV Absolute Nucleated RBC Nucleated RBC % (auto) Anion Gap 13 Estim Creat Clear Calc 37.5 Estimated GFR 39 POC Glucose 134 H 110 Random Glucose 78 Calcium 9.5 Ammonia Peritoneal WBC Peritoneal RBC Periton Neutrophils Periton Lymphocytes Peritoneal Monocytes Peritoneal Eosinophils Peritoneal Other Cells 01/18/22 01/18/22 01/18/22 05:44 07:33 09:08 MCV 75.0 L MCH 23.9 L MCHC 31.8 RDW 17.1 H Plt Count 58 L MPV Not Reportable Absolute Nucleated RBC 0.000 Nucleated RBC % (auto) 0.0 Anion Gap Estim Creat Clear Calc Estimated GFR POC Glucose 85 Random Glucose Calcium Ammonia 57 H Peritoneal WBC Peritoneal RBC Periton Neutrophils Periton Lymphocytes Peritoneal Monocytes Peritoneal Eosinophils Peritoneal Other Cells 01/18/22 01/18/22 10:20 11:26 MCV MCH MCHC RDW Plt Count MPV Absolute Nucleated RBC Nucleated RBC % (auto) Anion Gap Estim Creat Clear Calc Estimated GFR POC Glucose 117 H Random Glucose Calcium Ammonia Peritoneal WBC 0.229 Peritoneal RBC < 0.002 Periton Neutrophils 1 Periton Lymphocytes 53 Peritoneal Monocytes 15 Peritoneal Eosinophils 18 Peritoneal Other Cells 13 Microbiology Microbiology Results: Microbiology 01/18/22 10:20 Gram Stain - Final Abdominal Fluid Quality Stroke Does the patient have a stroke diagnosis?: No VTE Prior VTE?: No VTE Risk Level:: Medical - moderate - high VTE Device Contraindication: N/A - Device Ordered VTE Drug Contraindication: Treatment Not Indicated
--- NOTE | 2022-01-18 15:20 | PM.DS ---
DS: Providers Provider Date of Service: 01/18/22 Date of admission: 01/17/22 15:09 Primary care physician: Tru Pastor MD DS: Diagnosis Discharge Diagnosis (1) Hepatic encephalopathy: Status: Acute (2) Ascites: Status: Acute (3) Cirrhosis of liver with ascites: Status: Acute DS: Summary Hospital Course Hospital Course: Chief Complaint:? confusion 71 yo? [place]-speaking gentleman came to [facility] accompanied with his , with pmh liver cirrhosis, HTN, diabetes, thrombocytopenia, CAD, gastroparesis, HLD, CKD with complaints lethargy, AMS, vomiting. ?history obtained via manager work as per patient has been confused for last 5 days,today he got up at 09:30 am,and noted to be coughing, gagging and threw up small amount of mucus, he did not eat and went ?back to bed then? again he started coughing? again and had 3 episodes of vomiting , then started to feel very dizzy and lightheaded and had to sit down.? She denies any fall to the ground or head trauma or loss of consciousness, he had his labs drawn yesterday and was told to have elevated ammonia level of 134 and was recommended lactulose however patient declined to use lactulose, since he was becoming more confused with persistent dizziness she brought him to the hospital, He denies any abdominal pain, diarrhea, fevers, chills, chest pain, headache, denies hematemesis , no melena, no recent travel, no sick contacts, patient follows with Dr. Clifton from Gastroenterology? and recently underwent paracentesis, feels belly is more distended than his baseline denies associated pain or shortness of breath. hospital course 71-year-old gentleman with past medical history of diabetes mellitus type 2, hypertension, hyperlipidemia, gout, history of cirrhosis likely SEGUNDO , prior normal APC serologies, sad ratio consistent with portal hypertension, prior history of SBP currently noncompliant with lactulose presented to [facility] for 5 days history of progressive confusion today associated with nausea vomiting, and they are noted to have significantly elevated ammonia level therefore being admitted with a diagnosis of acute hepatic encephalopathy. ? Acute hepatic encephalopathy ? patient admitted with confusion on admission ammonia 177, patient treated with lactulose had multiple loose stools, this a.m. ammonia level improved to 57 patient awake alert answering questions appropriately tolerating diet, due to concern for spontaneous bacterial peritonitis patient underwent paracentesis fluid studies are not consistent with SBP therefore will discontinue empiric IV antibiotics and will discharge patient home with recommendation to take lactulose 30 g daily, this episode was likely due to noncompliance with lactulose. Recommend outpatient follow-up with Gastroenterology. ? ? Cirrhosis of liver with ascites likely SEGUNDO, Blood pressure improved will resume home medication, albumin 3.4, INR 1.3, platelets 65, chronic thrombocytopenia likely due to cirrhosis ? acute on chronic kidney disease stage 3? pre renal likely due to GI loss, patient treated with IV fluids renal function returned to baseline. ? diabetes mellitus type 2 on insulin blood sugar stable recommend to resume home medications and follow blood sugars closely to avoid hypoglycemia ? hypertension? noted to have Low blood pressure on admission therefore antihypertensives were held blood pressures has improved recommend to resume oral antihypertensive except hold hydralazine and follow blood pressure closely with PCP Time Spent with Patient Time attestation: Total time spent providing and/or coordinating discharge services: Discharge coordination time: Greater than 30 minutes Quality: Safe Use of Opioids Does Pt have an Active Cancer Diagnosis on the Problem List?: No Quality: Stroke Does the patient have a stroke diagnosis?: No Physical Exam Vital Signs: Vital Signs: Last Vital Signs Temp 98.4 F 01/18/22 11:11 Pulse 78 01/18/22 11:11 Resp 18 01/18/22 11:11 BP 121/76 01/18/22 11:11 Pulse Ox 94 01/18/22 11:11 BMI result Body Mass Index 29.1 Const: Other: General resting comfortably ,no acute distress.? HEENT? anicteric sclerae Neck supple no JVD. CVS? regular rate rhythm, Respiratory lungs clear to auscultation, no respiratory distress, no wheeze, no rhonchi. Gastrointestinal abdomen?,soft, nontender, less distended post paracentesis,bowel sounds audible, no guarding , no rigidity. Extremities? trace edema. Neuro? moving all 4 extremity, speech clear, no confusion Skin no jaundice Musculoskeletal no deformity DS: Data Data Completed and Pending Labs on day of discharge: Laboratory Results - last 24 hr 01/17/22 01/17/22 01/18/22 18:33 20:12 05:44 WBC RBC Hgb Hct MCV MCH MCHC RDW Plt Count MPV Absolute Nucleated RBC Nucleated RBC % (auto) Sodium 145 Potassium 3.9 Chloride 114 H Carbon Dioxide 22 Anion Gap 13 BUN 29 H Creatinine 1.74 H Estim Creat Clear Calc 37.5 Estimated GFR 39 POC Glucose 134 H 110 Random Glucose 78 Calcium 9.5 Ammonia Peritoneal WBC Peritoneal RBC Periton Neutrophils Periton Lymphocytes Peritoneal Monocytes Peritoneal Eosinophils Peritoneal Other Cells 01/18/22 01/18/22 01/18/22 05:44 07:33 09:08 WBC 12.0 H RBC 4.36 L Hgb 10.4 L Hct 32.7 L MCV 75.0 L MCH 23.9 L MCHC 31.8 RDW 17.1 H Plt Count 58 L MPV Not Reportable Absolute Nucleated RBC 0.000 Nucleated RBC % (auto) 0.0 Sodium Potassium Chloride Carbon Dioxide Anion Gap BUN Creatinine Estim Creat Clear Calc Estimated GFR POC Glucose 85 Random Glucose Calcium Ammonia 57 H Peritoneal WBC Peritoneal RBC Periton Neutrophils Periton Lymphocytes Peritoneal Monocytes Peritoneal Eosinophils Peritoneal Other Cells 01/18/22 01/18/22 10:20 11:26 WBC RBC Hgb Hct MCV MCH MCHC RDW Plt Count MPV Absolute Nucleated RBC Nucleated RBC % (auto) Sodium Potassium Chloride Carbon Dioxide Anion Gap BUN Creatinine Estim Creat Clear Calc Estimated GFR POC Glucose 117 H Random Glucose Calcium Ammonia Peritoneal WBC 0.229 Peritoneal RBC < 0.002 Periton Neutrophils 1 Periton Lymphocytes 53 Peritoneal Monocytes 15 Peritoneal Eosinophils 18 Peritoneal Other Cells 13 Discharge Plan Discharge Patient Disposition: Home, Self-Care Discharge Diagnosis: hepatitic encephalopathy ascites acute on chronic kidney disease stage 3 Referrals: Tru Pastor MD [Primary Care Provider] - 1 Week Discharge Medications: Continued (DME) blood-glucose meter [Prodigy Autocode Meter] Kit See Rx Instructions .Route Qty: 1 0RF Rx Instructions: As directed (DME) Prodigy No Coding Strip See Rx Instructions .Route Qty: 100 11RF Rx Instructions: 3 times a day (DME) lancets [Prodigy Lancets] 28 gauge misc See Rx Instructions .Route Qty: 100 11RF Rx Instructions: 3 times a day Tradjenta 5 mg tablet 5 mg PO DAILY Qty: 30 6RF atorvastatin 20 mg tablet 20 mg PO DAILY 30 Days Qty: 90 3RF mupirocin 2 % ointment 1 appl topical BID 7 Days Qty: 15 1RF omeprazole 40 mg capsule,delayed release(DR/EC) 40 mg PO DAILY 90 Days Qty: 90 1RF (DME) FreeStyle Toyin 2 [place] Misc See Rx Instructions .ROUTE .MEDSUPPLY Qty: 1 0RF Rx Instructions: As directed (DME) FreeStyle Toyin 2 Sensor Kit See Rx Instructions .ROUTE .MEDSUPPLY Qty: 2 11RF Rx Instructions: As directed every 2 weeks nitroglycerin 0.4 mg tablet, sublingual 0.4 mg sublingual Q5M PRN (Reason: chest pain) Qty: 25 2RF ezetimibe 10 mg tablet 10 mg PO DAILY Qty: 30 11RF isosorbide mononitrate 30 mg tablet extended release 24 hr 1 tab PO DAILY 0RF (DME) FreeStyle Lite Strips Strip See Rx Instructions strip MISCELLANEOUS TID 0RF Rx Instructions: As directed to test blood sugar metoprolol succinate 50 mg tablet extended release 24 hr 50 mg PO BID 0RF metformin 500 mg tablet 1 tab PO BID 0RF insulin lispro [Humalog KwikPen Insulin] 100 unit/mL insulin pen 4 unit subcut TIDAC 0RF Rx Instructions: as directed (DME) lancets [FreeStyle Lancets] 28 gauge misc See Rx Instructions .Route Qty: 100 0RF Rx Instructions: test bs three times a day zaleplon 5 mg capsule 5 mg PO BEDTIME PRN (Reason: Insomnia) 0RF amlodipine 10 mg tablet 10 mg PO DAILY Qty: 90 3RF Toujeo SoloStar U-300 Insulin 300 unit/mL (1.5 mL) insulin pen 12 unit subcut DAILY 90 Days Qty: 4.5 3RF lactulose [Enulose] 10 gram/15 mL solution 15 ml PO DAILY 30 Days Qty: 450 3RF Changed lactulose [Enulose] 10 gram/15 mL solution 30 ml PO DAILY 30 Days Qty: 450 3RF Discontinued hydralazine 10 mg tablet 10 mg PO TID 90 Days Qty: 270 3RF Discharge Orders: Discharge Order (Routine); Ordered 01/18/22 Ordered By: Marie Sethi Diet: diabetic diet Activity on Discharge: As tolerated Stand Alone Forms: Patient Portal Discharge page Care Plan Goals: confusion resolved ammonia level improved continue using lactulose 30 g daily hold for more than 2 bowel movement per day, hold hydralazine due to soft blood pressure follow BP closely, monitor blood sugars before giving insulin to avoid low blood sugars, Health Concerns: diabetes mellitus stable blood sugars, check blood sugars closely at home and if noted to have blood sugars less than 100, hold premeal insulin, also check blood pressure closely Plan of Treatment: close outpatient follow-up with primary care physician and Gastroenterology in 1 week Assessment: as per discharge summary
[2022-01-18 15:28] VITALS: BP 124/61; PULSE 89; RESP 16; TEMP 37.4; O2SAT 97
--- NOTE | 2022-01-18 15:39 | MHC.CM.PN ---
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 he is never left alone a family member of drill operator pneumatic is with him , his administers his medications and checks his poc and dminister his insulin he requires assistance with adls and he ambulates by holding someones hand s often time he get confused , she reported that he sees and diabetic , renal cardiac doctor , he is on xarelto for pe, history he recived the [facility]. confirmed his pcp carlos zuniga. 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
[2022-01-18 15:49] LABS: Glucose, Whole Blood 161 mg/dL (60-115)
== END 2022-01-18 17:34 | disposition home or self-care (01) | DRG 442 ==
LOC: HO.ED 12:39 → HO.EDOVER 15:10 → HO.S3 19:33
PROVIDERS: Nurse Practitioner Family; Radiology Diagnostic Radiology; Admitting Provider Hospitalist; Emergency Provider Emergency Medicine Emergency Medical Services; PCP Internal Medicine; Visit Provider Hospitalist
PROC: 0W9G3ZZ Drainage of Peritoneal Cavity, Percutaneous Approach (ICD-10-PCS; principal; 2022-01-18 10:00)
DX: K72.90 Hepatic failure, unspecified without coma (principal); R18.8 Other ascites; N17.9 Acute kidney failure, unspecified; K76.6 Portal hypertension; I25.10 Atherosclerotic heart disease of native coronary artery without angina pectoris; I12.9 Hypertensive chronic kidney disease with stage 1 through stage 4 chronic kidney disease, or unspecified chronic kidney disease; E11.22 Type 2 diabetes mellitus with diabetic chronic kidney disease; N18.30 Chronic kidney disease, stage 3 unspecified; K74.60 Unspecified cirrhosis of liver; E78.5 Hyperlipidemia, unspecified; K75.81 Nonalcoholic steatohepatitis (NASH); M10.9 Gout, unspecified; E11.43 Type 2 diabetes mellitus with diabetic autonomic (poly)neuropathy; K31.84 Gastroparesis; K21.9 Gastro-esophageal reflux disease without esophagitis; E11.65 Type 2 diabetes mellitus with hyperglycemia; I95.9 Hypotension, unspecified; Z91.19 Patient's noncompliance with other medical treatment and regimen; Z20.822 Contact with and (suspected) exposure to COVID-19; Z87.891 Personal history of nicotine dependence; Z91.040 Latex allergy status; Z79.4 Long term (current) use of insulin; Z79.84 Long term (current) use of oral hypoglycemic drugs; Z79.899 Other long term (current) drug therapy
CPT/HCPCS: 36415; 49083; 70450; 71046; 80048; 80076; 81001; 82140; 82550; 82947; 83735; 83880; 84484; 85025; 85027; 85610; 87071; 87073; 87205; 87635; 89051; 93005; 99285; J0696

== ENCOUNTER 2022-01-23 07:15 | Inpatient (IN) | payer MEDICARE, MEDICAID, SELFPAY ==
[2022-01-23] VITALS (15 sets, daily range): BP systolic 92–137; BP diastolic 56–81; PULSE 64–95; RESP 12–15; TEMP 36.4–37; O2SAT 97–99; BMI 30.4; BMI 25.6
--- NOTE | ~2022-01-23 | CT_ITS ---
EXAMINATION: CT HEAD WITHOUT CONTRAST CLINICAL INFORMATION: Altered mental status COMPARISON: Head CT from 01/17/2022 TECHNIQUE: Contiguous axial imaging was performed from the skull base to vertex without intravenous administration of contrast. This CT examination was performed using dose optimization techniques as appropriate, variously including the following: *Automated exposure control *Adjustment of mA and/or kV according to patient size (this includes techniques or standardized protocols for targeted exams where dose is matched to indication/reason for exam; i.e. extremities or head) *Use of iterative reconstruction technique DLP: 665 mGy-cm FINDINGS: Mild patchy hypoattenuation is present within the supratentorial white matter. This is compatible with sequela of chronic microangiopathy. Otherwise, the brain parenchyma has normal attenuation. The zamudio-white matter differentiation is well preserved. No evidence of an acute major vascular territory infarction. There is atherosclerotic calcification of cavernous carotid arteries and vertebral arteries. No intracranial hemorrhage, extra-axial fluid collection, focal mass effect or midline shift. The ventricles have normal size and configuration; no hydrocephalus. The brainstem and cerebellum have a normal appearance. The cerebellar tonsils are in normal position. The calvarium is intact. The visualized paranasal sinuses, mastoid air cells and middle ear cavities are well aerated. The orbits and globes are unremarkable. The temporomandibular joints are normal. CT/CT head/brain wo con IMPRESSION: No acute intracranial pathology compared to 01/17/2022.
--- NOTE | ~2022-01-23 | XR_ITS ---
EXAMINATION: XR CHEST CLINICAL INFORMATION: NG tube placement COMPARISON: None TECHNIQUE: Frontal view of the chest was obtained. FINDINGS: The lungs are well-expanded but clear of acute pneumonic process. The heart size and pulmonary vascularity is normal. There is an enteric tube with its tip below the diaphragm. No gross bony abnormality seen. XR/XR chest 1V IMPRESSION: Unremarkable chest exam.
--- NOTE | ~2022-01-23 | XR_ITS ---
EXAMINATION: XR CHEST CLINICAL INFORMATION: Weakness. Acute mental status change. COMPARISON: Previous x-ray most recent 01/17/2022 TECHNIQUE: Frontal view of the chest was obtained. FINDINGS: The cardiac and mediastinal contours are stable. The lung volumes are low. The lungs are clear. There is no pleural effusion or pneumothorax. There are degenerative changes of the spine. XR/XR chest 1V IMPRESSION: No evidence for acute disease in the chest.
--- NOTE | 2022-01-23 07:28 | ECG_ITS ---
Test Reason : ALTER MENTAL Blood Pressure : / mmHG Vent. Rate : 066 BPM Atrial Rate : 000 BPM P-R Int : 000 ms QRS Dur : 092 ms QT Int : 442 ms P-R-T Axes : 000 -28 -25 degrees QTc Int : 463 ms Normal sinus rhythm Nonspecific T wave abnormality Prolonged QT Abnormal ECG When compared with ECG of 17-JAN-2022 13:06, No significant changes seen Referred By: Barb Salinas Electronically Signed By:Ed Peralta
--- NOTE | 2022-01-23 07:29 | ED.AMS ---
HPI - Altered Mental Status General Chief Complaint: Altered Mental Status Stated Complaint: AMS Time Seen by Provider: 01/23/22 07:26 Source: EMS and old records reviewed Mode of arrival: EMS Limitations: altered mental status History of Present Illness HPI narrative: admitted 01/17-01/18 for ammonia 134 responded to lactulose due to noncompliance workup for SBP negative MD complaint: altered mental status, confusion and decreased responsiveness Onset (ago): hour(s) (per EMS family states at 4am today) Timing confirmed by: family member Severity: severe Consistency of symptoms: constant Context: liver disease Associated symptoms: malaise Related Data Home Medications Medication Instructions Recorded Confirmed isosorbide mononitrate 30 mg 1 tab PO DAILY 05/09/21 01/23/22 tablet,extended release 24 hr blood sugar diagnostic (FreeStyle 08/24/21 01/15/22 Lite Strips) zaleplon 5 mg capsule 5 mg PO BEDTIME PRN 09/27/21 01/23/22 metoprolol succinate 50 mg 50 mg PO BID 12/31/21 01/23/22 tablet,extended release 24 hr insulin lispro 100 unit/mL 12 - 15 unit SUBCUT TIDAC 01/17/22 01/23/22 subcutaneous pen (Humalog KwikPen (U-100) Insulin) metformin 500 mg tablet 1 tab PO BID 01/17/22 01/23/22 aspirin 81 mg tablet,delayed 81 mg PO DAILY 01/23/22 01/23/22 release ezetimibe 10 mg tablet 1 tab PO BEDTIME 01/23/22 01/23/22 ferrous sulfate 325 mg (65 mg 325 mg PO BID 01/23/22 01/23/22 iron) tablet hydralazine 10 mg tablet 1 tab PO TID 01/23/22 01/23/22 lactulose 10 gram/15 mL oral 15 ml PO DAILY 01/23/22 01/23/22 solution (Enulose) omeprazole 40 mg capsule,delayed 1 cap PO DAILY 01/23/22 01/23/22 release Previous Rx's Medication Instructions Recorded lancets 28 gauge (AmbassadorStyle #100 ea 05/17/21 Lancets) blood sugar diagnostic (Prodigy No #100 ea 06/13/21 Coding) blood-glucose meter (Prodigy #1 ea 06/13/21 Autocode Meter) lancets 28 gauge (Prodigy Lancets) #100 ea 06/13/21 atorvastatin 20 mg tablet 20 mg PO DAILY 30 Days #90 tab 11/28/21 insulin glargine U-300 conc 300 12 unit (0.04 mL) SUBCUT DAILY 90 12/17/21 unit/mL (1.5 mL) subcutaneous pen Days #4.5 ml (Toujeo SoloStar U-300 Insulin) flash glucose scanning reader #1 ea 12/25/21 (FreeStyle [place] 2 [employer]) flash glucose sensor (FreeStyle #2 ea 12/25/21 Toyin 2 Sensor) amlodipine 10 mg tablet 10 mg PO DAILY #90 tab 12/31/21 nitroglycerin 0.4 mg sublingual 0.4 mg SUBLINGUAL Q5M PRN #25 ea 01/09/22 tablet Allergies Allergy/AdvReac Type Severity Reaction Status Date / Time latex Allergy Unknown Verified 01/15/22 15:02 Review of Systems Review of Systems: ROS unable to be obtained due to altered mental status [facility] Past Medical History Source: old records reviewed Medical History Abnormal myocardial perfusion study Ascending aorta dilatation Ascites Ascites Atherosclerotic cardiovascular disease Cirrhosis of liver with ascites CKD (chronic kidney disease) stage 3, GFR 30-59 ml/min Diabetes Diabetes type 2, uncontrolled Diabetic nephropathy associated with type 2 diabetes mellitus Dyslipidemia Dyslipidemia associated with type 2 diabetes mellitus Essential hypertension Gastroparesis GERD (gastroesophageal reflux disease) Gout Hypertension Hypoglycemia 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 with 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 diabetes mellitus 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 Obesity due to excess calories 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 cancer Thrombocytopenia Thrombocytopenia Surgical History Hx of colonoscopy Family History Family History Father Diabetes CVD (cardiovascular disease) Mother Diabetes Social History Social History Household Members: Spouse Housing: Apartment Do you presently have visiting nurse or other home services: No Alcohol intake: former Patient Tobacco Use Status: Former Tobacco user Tobacco use type: Cigarette e-Cigarette/Vaping Use: Never Used Advance Directives: Yes Advance Directives on File: Yes Advance Directives Date on File: 05/24/21 service: No Current occupational status: retired and disabled Cognitive needs: Yes (Pt has a walker) Hearing needs: No Vision needs: Yes (wear glasses) Physical Exam ED Vital Signs: Vital Signs - 24 hr 01/23/22 07:28 Temperature 97.6 F Pulse Rate 64 Blood Pressure 104/62 Pulse Oximetry 99 BMI result Body Mass Index 30.4 Appearance: Somnolent follows some commands but will not answer questions moderate acute distress. Eyes: Pupils equal, round and reactive to light. ENT: Pharynx mild dry MM Neck: Normal inspection. Neck supple. CVS: Normal heart rate and rhythm. Pulses normal. Respiratory: No respiratory distress. Breath sounds diminished at the bases Abdomen: Soft and does not grimace ascites is present Skin: Skin warm and dry. pale skin color. Normal skin turgor. Extremities: 1+ pitting lower extremity edema. Neuro: Confused and somnolent cannot participate in exam Course Course Course Narrative: spoke to , he does give the family a hard time about taking medications, only having BMs x 2 per day. Was okay before bed per . lactic acidosis due to cirrhosis and CKD and not infection or severe sepsis given rectal lactulose but degree of ammonia is very high - will place NG tube and try oral lactulose NG tube placed - planned admit no tachycardia, no WBC count, no fevers doubt SBP at this time patient is more somnolent - saturating 97%, will discuss with ICU - able to place NG tube. May require closer airway monitoring vs intubation Dr. Dominguez notified 1043am. will send him to ICU for closer airway monitoring and frequent lactulose dosing MDM - Altered Mental Status MDM Narrative Medical decision making narrative: 71 yo male with hx of DM, HTN, CAD, CKD, HLD, cirrhosis with recent admission for hepatic encephalopathy comes in with c/o AMS since 4am - at this time he will need labs, CT head to r/o ICH, ammonia level, infectious labs, CXR and UA - KS lactulose. Dispo per results and findings - family not at bedside at this time presumed hepatic encephalopathy. Lab Data Result diagrams: 01/23/22 08:05 01/23/22 08:05 Labs: Lab Results 01/23/22 01/23/22 01/23/22 Range/Units 08:04 08:05 08:05 WBC 8.9 (4.8-10.8) X10*3/uL RBC 4.90 (4.60-5.80) X10*6/uL Hgb 11.7 L (14.0-18.0) g/dl Hct 36.3 L (42.0-52.0) % MCV 74.1 L (80.0-98.0) fL MCH 23.9 L (27.0-33.0) pg MCHC 32.2 (31.0-36.0) g/dl RDW 17.2 H (11.0-16.0) % Plt Count 82 L D (160-400) X10*3/uL MPV Not Reportable Immature Gran % (Auto) 0.1 (0.0-0.4) % Neut % (Auto) 32.4 L (45-73) % Lymph % (Auto) 14.4 L (20-40) % [place] % (Auto) 5.6 (2-11) % Eos % (Auto) 46.9 H (0-4) % Baso % (Auto) 0.6 (0-2) % Lymph # (Auto) 1.3 (1.2-4.9) X10*3/uL [place] # (Auto) 0.5 (0.1-1.2) X10*3/uL Eos # (Auto) 4.2 H (0.0-0.4) X10*3/uL Baso # (Auto) 0.1 (0.0-0.2) X10*3/uL Abs Immat Gran (auto) 0.01 (0.00-0.03) X10*3/uL Absolute Neuts (auto) 2.9 (2.0-8.3) x10*3/uL Absolute Nucleated RBC 0.000 (0.0-0.012) X10*3/uL Nucleated RBC % (auto) 0.0 (0.0-0.2) /100WBC Smear Tech's Comments VERIFIED PT 12.9 (9.9-13.0) SEC INR 1.1 (0.9-1.1) APTT 33.8 (24.1-38.0) SEC VBG pH (7.32-7.43) VBG pCO2 mmHg VBG pO2 mmHg VBG HCO3 (22-26) mmol/L VBG O2 Saturation % VBG Base Excess mmol/L Sodium (135-145) mmol/L Potassium (3.3-5.1) mmol/L Chloride (96-108) mmol/L Carbon Dioxide (22-29) mmol/L Anion Gap (12-20) BUN (9-16) mg/dL Creatinine (0.5-1.4) mg/dL Estim Creat Clear Calc Estimated GFR Random Glucose (60-115) mg/dL Lactic Acid (0.5-2.0) mmol/L Calcium (8.4-10.2) mg/dL Magnesium (1.6-2.6) mg/dL Total Bilirubin (0.0-1.0) mg/dL Direct Bilirubin (0.0-0.5) mg/dL AST (5-37) U/L ALT (0-40) U/L Alkaline Phosphatase (39-117) U/L Ammonia (13-55) umol/L Troponin I High Sens (<3.5-35.0) ng/L Total Protein (6.5-8.0) g/dL Albumin (3.5-5.0) g/dL Lipase (8-78) U/L COVID-19 (STEVEN) Negative (Negative) COVID-19 Clin Com See Note 01/23/22 01/23/22 01/23/22 Range/Units 08:05 08:05 08:05 WBC (4.8-10.8) X10*3/uL RBC (4.60-5.80) X10*6/uL Hgb (14.0-18.0) g/dl Hct (42.0-52.0) % MCV (80.0-98.0) fL MCH (27.0-33.0) pg MCHC (31.0-36.0) g/dl RDW (11.0-16.0) % Plt Count (160-400) X10*3/uL MPV Immature Gran % (Auto) (0.0-0.4) % Neut % (Auto) (45-73) % Lymph % (Auto) (20-40) % [place] % (Auto) (2-11) % Eos % (Auto) (0-4) % Baso % (Auto) (0-2) % Lymph # (Auto) (1.2-4.9) X10*3/uL [place] # (Auto) (0.1-1.2) X10*3/uL Eos # (Auto) (0.0-0.4) X10*3/uL Baso # (Auto) (0.0-0.2) X10*3/uL Abs Immat Gran (auto) (0.00-0.03) X10*3/uL Absolute Neuts (auto) (2.0-8.3) x10*3/uL Absolute Nucleated RBC (0.0-0.012) X10*3/uL Nucleated RBC % (auto) (0.0-0.2) /100WBC Smear Tech's Comments PT (9.9-13.0) SEC INR (0.9-1.1) APTT (24.1-38.0) SEC VBG pH (7.32-7.43) VBG pCO2 mmHg VBG pO2 mmHg VBG HCO3 (22-26) mmol/L VBG O2 Saturation % VBG Base Excess mmol/L Sodium 139 (135-145) mmol/L Potassium 5.7 H D (3.3-5.1) mmol/L Chloride 109 H (96-108) mmol/L Carbon Dioxide 18 L (22-29) mmol/L Anion Gap 18 (12-20) BUN 25 H (9-16) mg/dL Creatinine 2.04 H (0.5-1.4) mg/dL Estim Creat Clear Calc 37.3 Estimated GFR 33 Random Glucose 152 H D (60-115) mg/dL Lactic Acid 4.9 H* (0.5-2.0) mmol/L Calcium 10.2 D (8.4-10.2) mg/dL Magnesium 2.3 (1.6-2.6) mg/dL Total Bilirubin 1.1 H (0.0-1.0) mg/dL Direct Bilirubin 0.5 (0.0-0.5) mg/dL AST 45 H D (5-37) U/L ALT 27 (0-40) U/L Alkaline Phosphatase 154 H (39-117) U/L Ammonia 367 H (13-55) umol/L Troponin I High Sens (<3.5-35.0) ng/L Total Protein 8.6 H (6.5-8.0) g/dL Albumin 3.9 (3.5-5.0) g/dL Lipase 69 (8-78) U/L COVID-19 (STEVEN) (Negative) COVID-19 Clin Com 01/23/22 01/23/22 Range/Units 08:05 09:05 WBC (4.8-10.8) X10*3/uL RBC (4.60-5.80) X10*6/uL Hgb (14.0-18.0) g/dl Hct (42.0-52.0) % MCV (80.0-98.0) fL MCH (27.0-33.0) pg MCHC (31.0-36.0) g/dl RDW (11.0-16.0) % Plt Count (160-400) X10*3/uL MPV Immature Gran % (Auto) (0.0-0.4) % Neut % (Auto) (45-73) % Lymph % (Auto) (20-40) % [place] % (Auto) (2-11) % Eos % (Auto) (0-4) % Baso % (Auto) (0-2) % Lymph # (Auto) (1.2-4.9) X10*3/uL [place] # (Auto) (0.1-1.2) X10*3/uL Eos # (Auto) (0.0-0.4) X10*3/uL Baso # (Auto) (0.0-0.2) X10*3/uL Abs Immat Gran (auto) (0.00-0.03) X10*3/uL Absolute Neuts (auto) (2.0-8.3) x10*3/uL Absolute Nucleated RBC (0.0-0.012) X10*3/uL Nucleated RBC % (auto) (0.0-0.2) /100WBC Smear Tech's Comments PT (9.9-13.0) SEC INR (0.9-1.1) APTT (24.1-38.0) SEC VBG pH 7.41 (7.32-7.43) VBG pCO2 27 mmHg VBG pO2 104 mmHg VBG HCO3 17 L (22-26) mmol/L VBG O2 Saturation 99.0 % VBG Base Excess -5.3 mmol/L Sodium (135-145) mmol/L Potassium (3.3-5.1) mmol/L Chloride (96-108) mmol/L Carbon Dioxide (22-29) mmol/L Anion Gap (12-20) BUN (9-16) mg/dL Creatinine (0.5-1.4) mg/dL Estim Creat Clear Calc Estimated GFR Random Glucose (60-115) mg/dL Lactic Acid (0.5-2.0) mmol/L Calcium (8.4-10.2) mg/dL Magnesium (1.6-2.6) mg/dL Total Bilirubin (0.0-1.0) mg/dL Direct Bilirubin (0.0-0.5) mg/dL AST (5-37) U/L ALT (0-40) U/L Alkaline Phosphatase (39-117) U/L Ammonia (13-55) umol/L Troponin I High Sens < 3.5 (<3.5-35.0) ng/L Total Protein (6.5-8.0) g/dL Albumin (3.5-5.0) g/dL Lipase (8-78) U/L COVID-19 (STEVEN) (Negative) COVID-19 Clin Com ECG Data ECG #1: Attestation: I personally reviewed and interpreted this ECG as follows: ECG interpretation date: 01/23/22 ECG interpretation time: 08:48 Interpretation: Rate: 66 Rhythm: NSR [place]: left Normal P waves. Normal VALERIY. Normal QRS complex. ST T wave : no HARDY, artifact nonspecific lateral leads qTC: prolonged prior studies: VERY POOR TRACING DUE TO ARTIFACT _ VERY LIMITED The study has been interpreted contemporaneously by me. . Critical Care Time Critical Care Time Critical Care Time: Yes Total Critical Care Time: 60 Attestation: review of records, IVF, repeat assessments, medical consult, ICU admit I attest to this time spent taking care of the patient Discharge Plan Discharge Clinical Impression: Acidosis, lactic, Encephalopathy, hepatic Patient Disposition: Admitted As Inpatient
--- NOTE | 2022-01-23 07:47 | PC.NURSE ---
pt from home his family reports that around 4am this morning he became confused with visual hallucinations and vomiting. family reports that he was fine yesterday and this morning everything changed. pt currently lethargic, opens his eyes when his name is called. will continue to monitor.
[2022-01-23 08:24] LABS: Basophils Absolute Auto 0.1 X10*3/uL (0.0-0.2); Basophils Percent Auto 0.6 % (0-2); Eosinophils Absolute Auto 4.2 X10*3/uL (0.0-0.4); Eosinophils Percent Auto 46.9 % (0-4); Hematocrit 36.3 % (42.0-52.0); Hemoglobin 11.7 g/dl (14.0-18.0); Imm Gran Abs Auto 0.01 X10*3/uL (0.00-0.03); Imm Gran Pct Auto 0.1 % (0.0-0.4); Lymphocytes Absolute Auto 1.3 X10*3/uL (1.2-4.9); Lymphocytes Percent Auto 14.4 % (20-40); MANUAL DIFF FLAG SCAN; Mean Corpuscular HGB Conc 32.2 g/dl (31.0-36.0); Mean Corpuscular Hemoglobin 23.9 pg (27.0-33.0); Mean Corpuscular Volume 74.1 fL (80.0-98.0); Monocytes Absolute Auto 0.5 X10*3/uL (0.1-1.2); Monocytes Percent Auto 5.6 % (2-11); Neutrophils Absolute Auto 2.9 x10*3/uL (2.0-8.3); Neutrophils Percent Auto 32.4 % (45-73); Red Cell Distribution Width 17.2 % (11.0-16.0); SCAN SMEAR FLAG 1; White Blood Count 8.9 X10*3/uL (4.8-10.8)
[2022-01-23 08:25] LABS: INTERNATIONAL NORM RATIO 1.1 (0.9-1.1); Platelet Count 82 X10*3/uL (160-400); Prothrombin Time 12.9 SEC (9.9-13.0)
[2022-01-23 08:28] LABS: Partial Thromboplastin Time 33.8 SEC (24.1-38.0)
[2022-01-23 08:31] LABS: Lactic Acid 4.9 mmol/L (0.5-2.0)
[2022-01-23 08:33] LABS: Alanine Aminotransferase 27 U/L (0-40); Albumin Level 3.9 g/dL (3.5-5.0); Alkaline Phosphatase 154 U/L (39-117); Anion Gap 18 (12-20); Aspartate Amino Transferase 45 U/L (5-37); Bilirubin Direct 0.5 mg/dL (0.0-0.5); Bilirubin Total 1.1 mg/dL (0.0-1.0); Blood Urea Nitrogen 25 mg/dL (9-16); Calcium 10.2 mg/dL (8.4-10.2); Carbon Dioxide 18 mmol/L (22-29); Chloride 109 mmol/L (96-108); Creatinine Clr Calc Pharmacy 37.3; Estimated Glomerular Filt Rate 33; Glucose Random 152 mg/dL (60-115); Lipase 69 U/L (8-78); Magnesium 2.3 mg/dL (1.6-2.6); Potassium 5.7 mmol/L (3.3-5.1); Sodium 139 mmol/L (135-145); Total Protein 8.6 g/dL (6.5-8.0)
[2022-01-23 08:34] LABS: COVID-19 Test Negative (Negative); IDNOW Serial# 55D5AD1C
[2022-01-23] MEDS: Lactulose 20 GM/30 ML SOLUTION PR (08:35)
[2022-01-23 08:36] LABS: Troponin-I High Sensitivity < 3.5 ng/L (<3.5-35.0)
--- NOTE | 2022-01-23 08:44 | PHA.MEDREC ---
Pharmacy Consult ? Medication Reconciliation Pharmacy has completed the medication reconciliation.
[2022-01-23 08:46] LABS: Ammonia 367 umol/L (13-55)
[2022-01-23 09:11] LABS: Venous Blood Gas Refer to POC result
[2022-01-23 09:11] LABS: VBG Base Excess -5.3 mmol/L; VBG HCO3 17 mmol/L (22-26); VBG pCO2 27 mmHg; VBG pH 7.41 (7.32-7.43); VBG pO2 104 mmHg
[2022-01-23] MEDS: ondansetron HCL 4 MG/2 ML VIAL IVPUSH (09:22)
[2022-01-23] MEDS: Lidocaine HCl 4 % Topical 50 ML SOLUTION 1 APPL TOPICAL (09:24)
[2022-01-23 09:34] LABS: SLIDE REVIEW VERIFIED
[2022-01-23] MEDS: 0.9 % Sodium Chloride 1,000 ML 999 ML IV (09:36)
--- NOTE | 2022-01-23 10:00 | PC.NURSE ---
14 Fr NGT placed, advanced to 2.5, placement verified via x-ray. pt tolerated procedure well. stomach contents noted in suction canister. NGT functioning without difficulty. will continue to monitor.
[2022-01-23 10:12] LABS: Reflex Lactate? Lactic Acid Added
[2022-01-23] MEDS: Lactulose 20 GM/30 ML SOLUTION 40 GM PO (10:27)
[2022-01-23] MEDS: Calcium Gluconate/NaCl,Iso-Osm 2 GM/100 ML PLAST..BAG IV (10:27)
[2022-01-23 11:06] LABS: Appearance Urine HAZY; Color Urine YELLOW; Glucose Urine UA NEG (NEG); Leukocyte Esterase Urine NEG (NEG); Nitrite Urine NEG (NEG); Specific Gravity - Urine >= 1.030 (1.005-1.025); UACC Culture Trigger NO; Urine Blood 3+ (NEG); Urine Ketones 5 MG/DL (NEG); Urine Protein 2+ MG/DL (NEG-TRACE)
[2022-01-23 11:09] LABS: ~Lactic Acid-LAB USE ONLY 4.6 mmol/L (0.5-2.0)
[2022-01-23 11:30] LABS: RBC Urine 30-49 /HPF (0); Squamous Epithelial Cell Urine 2+ /LPF; WBC Urine 0 /HPF (0-4)
[2022-01-23] MEDS: cefTRIAXone sodium 1 GM in 0.9 % Sodium Chloride 50 ML IV (11:41)
[2022-01-23] MEDS: Lactulose 20 GM/30 ML SOLUTION 30 GM PO ×3 (11:41→20:16)
[2022-01-23 11:45] LABS: Glucose, Whole Blood 128 mg/dL (60-115)
--- NOTE | 2022-01-23 12:32 | P.HPCC_ITS ---
History of Present Illness Date of Service: 01/23/22 Chief Complaint: Alteration of mental status, hepatic encephalopathy 71-year-old gentleman with underlying alcoholic cirrhosis with recent admission to [facility] for hepatic encephalopathy readmitted on 01/23/2022 with worsening lethargy and significant hyperammonemia with underlying history of medication noncompliance. On ER evaluation patient was noted to be lethargic, but arousable to painful stimuli, with ammonia level of 357. Nasogastric tube was placed and lactulose was started. Patient remained significantly surgical with concern for airway protection, thus he was admitted to intensive care unit for further workup and management. Review of Systems Review of Systems: Yes Unobtainable due to mental condition and Unobtainable due to mental status PMFSH Past Medical History Medical History (Updated 01/23/22 @ 12:53 by Kev Dominguez MD) Abnormal myocardial perfusion study Ascending aorta dilatation Ascites Ascites Atherosclerotic cardiovascular disease Cirrhosis of liver with ascites CKD (chronic kidney disease) stage 3, GFR 30-59 ml/min Diabetes Diabetes type 2, uncontrolled Diabetic nephropathy associated with type 2 diabetes mellitus Dyslipidemia Dyslipidemia associated with type 2 diabetes mellitus Essential hypertension Gastroparesis GERD (gastroesophageal reflux disease) Gout Hypertension Hypoglycemia 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 with 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 diabetes mellitus 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 Obesity due to excess calories 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 cancer Thrombocytopenia Thrombocytopenia Family History Family History Father Diabetes CVD (cardiovascular disease) Mother Diabetes Surgical History Surgical History Hx of colonoscopy Social History Social History Household Members: Spouse Housing: Apartment Do you presently have visiting nurse or other home services: No Alcohol intake: former Patient Tobacco Use Status: Former Tobacco user Tobacco use type: Cigarette e-Cigarette/Vaping Use: Never Used Advance Directives: Yes Advance Directives on File: Yes Advance Directives Date on File: 05/24/21 service: No Current occupational status: retired and disabled Cognitive needs: Yes (Pt has a walker) Hearing needs: No Vision needs: Yes (wear glasses) Meds Allergies Allergy/AdvReac Type Severity Reaction Status Date / Time latex Allergy Unknown Verified 01/15/22 15:02 Active Medications: Current Medications Ceftriaxone Sodium 1 gm/ (Sodium Chloride) 50 mls @ 100 mls/hr IV Q24H [facility] Last Admin: 01/23/22 11:41 Dose: 100 mls/hr Documented by: Insulin Human Lispro (Insulin Lispro 100 Unit/Ml 3 Ml Vial) 0 unit SUBCUT Q6H [facility]; Protocol Last Admin: 01/23/22 11:42 Dose: Not Given Documented by: Lactulose (Lactulose 20 Gm/30 Ml Solution) 30 gm PO TID [facility] Last Admin: 01/23/22 11:41 Dose: 30 gm Documented by: Pharmacy Consult (Consult Rx Perform Med Rec) 1 each MISCELLANE ONCE PRN PRN Reason: Consult order Home Medications Medication Instructions Recorded Confirmed Last Taken Type isosorbide mononitrate 30 mg 1 tab PO DAILY 05/09/21 01/23/22 01/22/22 History tablet,extended release 24 hr blood sugar diagnostic (FreeStyle 08/24/21 01/15/22 Unknown History Lite Strips) zaleplon 5 mg capsule 5 mg PO BEDTIME PRN 09/27/21 01/23/22 Unknown History metoprolol succinate 50 mg 50 mg PO BID 12/31/21 01/23/22 01/22/22 History tablet,extended release 24 hr insulin lispro 100 unit/mL 12 - 15 unit SUBCUT TIDAC 01/17/22 01/23/22 01/22/22 History subcutaneous pen (Humalog KwikPen (U-100) Insulin) metformin 500 mg tablet 1 tab PO BID 01/17/22 01/23/22 01/22/22 History aspirin 81 mg tablet,delayed 81 mg PO DAILY 01/23/22 01/23/22 01/22/22 History release ezetimibe 10 mg tablet 1 tab PO BEDTIME 01/23/22 01/23/22 01/22/22 History ferrous sulfate 325 mg (65 mg 325 mg PO BID 01/23/22 01/23/22 01/22/22 History iron) tablet hydralazine 10 mg tablet 1 tab PO TID 01/23/22 01/23/22 01/22/22 History lactulose 10 gram/15 mL oral 15 ml PO DAILY 01/23/22 01/23/22 01/22/22 History solution (Enulose) omeprazole 40 mg capsule,delayed 1 cap PO DAILY 01/23/22 01/23/22 01/22/22 History release Physical Exam Vital Signs: Vital Signs: Last Vital Signs Temp 97.6 F 01/23/22 07:28 Pulse 68 01/23/22 11:00 Resp 14 01/23/22 11:00 BP 109/70 01/23/22 11:00 Pulse Ox 97 01/23/22 11:00 BMI result Body Mass Index 30.4 Const: General: no acute distress and lethargic ( Arousable to painful stimuli) Orientation/consciousness: lethargic ( Arousable to painful stimuli) Eyes: Sclerae: sclerae normal EOM: EOMs intact bilaterally Neck: Neck: Yes no lymphadenopathy, Yes trachea midline and Yes supple Resp: Effort & Inspection: normal respiratory effort and no respiratory distress Auscultation: clear to auscultation bilaterally Cardio: Rate: regular rate Rhythm: regular rhythm Heart sounds: no gallops, no murmurs and no rubs GI: Palpation (GI): Soft to palpation, Ascites present and Other GI palpation findings present ( Nontender) Auscultation: normal bowel sounds Extrem: General: No clubbing, No cyanosis and Yes edema ( 1+ bilateral) Results Labs CBC and Chem 7: 01/23/22 08:05 01/23/22 08:05 Labs: Laboratory Results - last 24 hr 01/23/22 01/23/22 01/23/22 08:04 08:05 08:05 MCV 74.1 L MCH 23.9 L MCHC 32.2 RDW 17.2 H Plt Count 82 L D MPV Not Reportable Immature Gran % (Auto) 0.1 Neut % (Auto) 32.4 L Lymph % (Auto) 14.4 L [place] % (Auto) 5.6 Eos % (Auto) 46.9 H Baso % (Auto) 0.6 Lymph # (Auto) 1.3 [place] # (Auto) 0.5 Eos # (Auto) 4.2 H Baso # (Auto) 0.1 Abs Immat Gran (auto) 0.01 Absolute Neuts (auto) 2.9 Absolute Nucleated RBC 0.000 Nucleated RBC % (auto) 0.0 Smear Tech's Comments VERIFIED PT 12.9 INR 1.1 APTT 33.8 VBG pH VBG pCO2 VBG pO2 VBG HCO3 VBG O2 Saturation VBG Base Excess Anion Gap Estim Creat Clear Calc Estimated GFR POC Glucose Random Glucose Lactic Acid Lactic Acid F/U @ 2Hr Calcium Magnesium Total Bilirubin Direct Bilirubin AST ALT Alkaline Phosphatase Ammonia Troponin I High Sens Total Protein Albumin Lipase Urine Color Urine Appearance Urine pH Ur Specific [place] Urine Protein Urine Glucose (UA) Urine Ketones Urine Blood Urine Nitrite Ur Leukocyte Esterase Urine RBC Urine WBC Ur Squamous Epith Cells Urine Bacteria COVID-19 (STEVEN) Negative COVID-19 Clin Com See Note 01/23/22 01/23/22 01/23/22 08:05 08:05 08:05 MCV MCH MCHC RDW Plt Count MPV Immature Gran % (Auto) Neut % (Auto) Lymph % (Auto) [place] % (Auto) Eos % (Auto) Baso % (Auto) Lymph # (Auto) [place] # (Auto) Eos # (Auto) Baso # (Auto) Abs Immat Gran (auto) Absolute Neuts (auto) Absolute Nucleated RBC Nucleated RBC % (auto) Smear Tech's Comments PT INR APTT VBG pH VBG pCO2 VBG pO2 VBG HCO3 VBG O2 Saturation VBG Base Excess Anion Gap 18 Estim Creat Clear Calc 37.3 Estimated GFR 33 POC Glucose Random Glucose 152 H D Lactic Acid 4.9 H* Lactic Acid F/U @ 2Hr Calcium 10.2 D Magnesium 2.3 Total Bilirubin 1.1 H Direct Bilirubin 0.5 AST 45 H D ALT 27 Alkaline Phosphatase 154 H Ammonia 367 H Troponin I High Sens Total Protein 8.6 H Albumin 3.9 Lipase 69 Urine Color Urine Appearance Urine pH Ur Specific [place] Urine Protein Urine Glucose (UA) Urine Ketones Urine Blood Urine Nitrite Ur Leukocyte Esterase Urine RBC Urine WBC Ur Squamous Epith Cells Urine Bacteria COVID-19 (STEVEN) COVID-19 Clin Com 01/23/22 01/23/22 01/23/22 08:05 09:05 10:36 MCV MCH MCHC RDW Plt Count MPV Immature Gran % (Auto) Neut % (Auto) Lymph % (Auto) [place] % (Auto) Eos % (Auto) Baso % (Auto) Lymph # (Auto) [place] # (Auto) Eos # (Auto) Baso # (Auto) Abs Immat Gran (auto) Absolute Neuts (auto) Absolute Nucleated RBC Nucleated RBC % (auto) Smear Tech's Comments PT INR APTT VBG pH 7.41 VBG pCO2 27 VBG pO2 104 VBG HCO3 17 L VBG O2 Saturation 99.0 VBG Base Excess -5.3 Anion Gap Estim Creat Clear Calc Estimated GFR POC Glucose Random Glucose Lactic Acid Lactic Acid F/U @ 2Hr 4.6 H* Calcium Magnesium Total Bilirubin Direct Bilirubin AST ALT Alkaline Phosphatase Ammonia Troponin I High Sens < 3.5 Total Protein Albumin Lipase Urine Color Urine Appearance Urine pH Ur Specific [place] Urine Protein Urine Glucose (UA) Urine Ketones Urine Blood Urine Nitrite Ur Leukocyte Esterase Urine RBC Urine WBC Ur Squamous Epith Cells Urine Bacteria COVID-19 (STEVEN) COVID-19 Clin Com 01/23/22 01/23/22 10:52 11:40 MCV MCH MCHC RDW Plt Count MPV Immature Gran % (Auto) Neut % (Auto) Lymph % (Auto) [place] % (Auto) Eos % (Auto) Baso % (Auto) Lymph # (Auto) [place] # (Auto) Eos # (Auto) Baso # (Auto) Abs Immat Gran (auto) Absolute Neuts (auto) Absolute Nucleated RBC Nucleated RBC % (auto) Smear Tech's Comments PT INR APTT VBG pH VBG pCO2 VBG pO2 VBG HCO3 VBG O2 Saturation VBG Base Excess Anion Gap Estim Creat Clear Calc Estimated GFR POC Glucose 128 H Random Glucose Lactic Acid Lactic Acid F/U @ 2Hr Calcium Magnesium Total Bilirubin Direct Bilirubin AST ALT Alkaline Phosphatase Ammonia Troponin I High Sens Total Protein Albumin Lipase Urine Color YELLOW Urine Appearance HAZY Urine pH 6.0 Ur Specific [place] >= 1.030 H Urine Protein 2+ H Urine Glucose (UA) NEG Urine Ketones 5 Urine Blood 3+ H Urine Nitrite NEG Ur Leukocyte Esterase NEG Urine RBC 30-49 H Urine WBC 0 Ur Squamous Epith Cells 2+ Urine Bacteria NONE COVID-19 (STEVEN) COVID-19 Clin Com Imaging Radiologist's Impressions: Impressions Chest X-Ray 01/23/22 08:18 IMPRESSION: No evidence for acute disease in the chest. Head CT 01/23/22 08:26 IMPRESSION: No acute intracranial pathology compared to 01/17/2022. Chest X-Ray 01/23/22 10:17 IMPRESSION: Unremarkable chest exam. Assessment and Plan (1) Encephalopathy, hepatic: Status: Acute (2) Type 2 diabetes mellitus with unspecified complications: Status: Acute (3) CKD (chronic kidney disease) stage 3, GFR 30-59 ml/min: Qualifiers: Chronic kidney disease stage 3 subtype: stage 3b (GFR 30-44) Qualified Code(s): N18.32 - Chronic kidney disease, stage 3b Status: Acute (4) Cirrhosis of liver with ascites: Qualifiers: Hepatic cirrhosis type: unspecified hepatic cirrhosis Qualified Code(s): K74.60 - Unspecified cirrhosis of liver; R18.8 - Other ascites Status: Acute Plan Assessment: 71-year-old gentleman with underlying liver cirrhosis, prior episodes of hepatic encephalopathy, poor medication compliance admitted with alteration of mental status and significant hyperammonemia Plan: Neuro: hepatic encephalopathy, expect to improve with decreasing pneumonia level. Continue on lactulose with target of 3-4 bowel movements/day. Cardiac: No acute issues. Underlying CAD. Pulmonary: No acute issues. Renal: Acute kidney injury on the background of chronic kidney disease. Non oliguric. Nephrology evaluation requested. Continue to monitor renal indices and urine output. Endo: No acute issues. Underlying diabetes mellitus. GI: Liver cirrhosis with ascites, followed on outpatient basis by GI. ID: No acute issues Heme/Onc: No acute issues. Underlying history of thrombocytopenia. Psych: No acute issues. Miscellaneous: No acute issues. Prophylaxis: Pneumatic compression Diet: Nothing by mouth Critical care time spent: 60 minutes
[2022-01-23 12:46] LABS: Reflex Lactate? 2 Y
[2022-01-23 13:54] LABS: ~Lactic Acid-LAB USE ONLY 5.4 mmol/L (0.5-2.0)
[2022-01-23] MEDS: Chlorhexidine Gluc Oral Rinse 15 ML MOUTHWASH BUCCAL ×2 (15:08→20:16)
[2022-01-23 16:45] LABS: Glucose, Whole Blood 122 mg/dL (60-115)
[2022-01-23 20:35] LABS: Glucose, Whole Blood 109 mg/dL (60-115)
[2022-01-24] VITALS (13 sets, daily range): BP systolic 108–141; BP diastolic 62–91; PULSE 84–111; RESP 11–16; TEMP 36.8–37.7; O2SAT 94–98; BMI 26.7
[2022-01-24 05:14] LABS: VBG Base Excess -4.6 mmol/L; VBG HCO3 18 mmol/L (22-26); VBG pCO2 26 mmHg; VBG pH 7.43 (7.32-7.43); VBG pO2 96 mmHg
[2022-01-24 05:35] LABS: Venous Blood Gas Refer to POC result
--- NOTE | 2022-01-24 05:46 | PC.NURSE ---
Patient attempting to remove NG tube. not cooperative or redirectable at present. 1:1 sitter at bedside for safety. Restraints applied , order in place as per protocol .
[2022-01-24 06:09] LABS: Basophils Absolute Auto 0.1 X10*3/uL (0.0-0.2); Basophils Percent Auto 0.8 % (0-2); Eosinophils Absolute Auto 1.7 X10*3/uL (0.0-0.4); Eosinophils Percent Auto 22.6 % (0-4); Hematocrit 32.5 % (42.0-52.0); Hemoglobin 10.4 g/dl (14.0-18.0); Imm Gran Abs Auto 0.02 X10*3/uL (0.00-0.03); Imm Gran Pct Auto 0.3 % (0.0-0.4); Lymphocytes Absolute Auto 1.8 X10*3/uL (1.2-4.9); Lymphocytes Percent Auto 24.1 % (20-40); MANUAL DIFF FLAG SCAN; Mean Corpuscular Hemoglobin 23.7 pg (27.0-33.0); Monocytes Absolute Auto 0.8 X10*3/uL (0.1-1.2); Monocytes Percent Auto 9.9 % (2-11); Neutrophils Absolute Auto 3.2 x10*3/uL (2.0-8.3); Neutrophils Percent Auto 42.3 % (45-73); Red Blood Count 4.39 X10*6/uL (4.60-5.80); Red Cell Distribution Width 16.9 % (11.0-16.0); SCAN SMEAR FLAG 1; White Blood Count 7.6 X10*3/uL (4.8-10.8)
[2022-01-24 06:10] LABS: Platelet Count 66 X10*3/uL (160-400)
[2022-01-24 06:27] LABS: Alanine Aminotransferase 29 U/L (0-40); Albumin Level 3.3 g/dL (3.5-5.0); Alkaline Phosphatase 128 U/L (39-117); Anion Gap 19 (12-20); Aspartate Amino Transferase 54 U/L (5-37); Bilirubin Total 1.3 mg/dL (0.0-1.0); Blood Urea Nitrogen 26 mg/dL (9-16); Calcium 9.5 mg/dL (8.4-10.2); Carbon Dioxide 15 mmol/L (22-29); Chloride 117 mmol/L (96-108); Creatinine Clr Calc Pharmacy 30.6; Estimated Glomerular Filt Rate 30; Glucose Random 110 mg/dL (60-115); Magnesium 2.2 mg/dL (1.6-2.6); Phosphorus 3.4 mg/dL (2.7-4.5); Potassium 5.4 mmol/L (3.3-5.1); Sodium 146 mmol/L (135-145); Total Protein 7.6 g/dL (6.5-8.0)
[2022-01-24 06:39] LABS: SLIDE REVIEW VERIFIED
[2022-01-24 06:41] LABS: Ammonia 50 umol/L (13-55)
[2022-01-24 06:47] LABS: Glucose, Whole Blood 128 mg/dL (60-115)
[2022-01-24 07:50] LABS: Glucose, Whole Blood 120 mg/dL (60-115)
[2022-01-24] MEDS: Lactulose 20 GM/30 ML SOLUTION 30 GM PO (08:32)
--- NOTE | 2022-01-24 09:52 | P.EN_ITS ---
Event Note Date of Service: 01/24/22 Event Note: Admitted through ICU with hepatic encepahaloapthy, unresponsiveness suspect non- compliance with meds, now fully awake and is transfered out to med surg. Discussed care transfer with Dr. Dominguez
--- NOTE | 2022-01-24 10:28 | P.PNCC_ITS ---
Subjective Subjective Date of Service: 01/24/22 Interval History: 71-year-old gentleman with underlying alcoholic cirrhosis with recent admission to [facility] for hepatic encephalopathy readmitted on 01/23/2022 with worsening lethargy and significant hyperammonemia with underlying history of medication noncompliance. On ER evaluation patient was noted to be lethargic, but arousable to painful stimuli, with ammonia level of 357. Nasogastric tube was placed and lactulose was started. Patient remained significantly surgical with concern for airway protection, thus he was admitted to intensive care unit for further workup and management. Overnight with significant improvement in mental status on lactulose. NG tube removed as patient is able to take p.o. at this time. Critical Care Time (minutes): 0 Physical Exam Vital Signs: Vital Signs: Last Vital Signs Temp 98.7 F 01/24/22 08:00 Pulse 98 01/24/22 09:00 Resp 12 01/24/22 09:00 BP 116/62 01/24/22 09:00 Pulse Ox 95 01/24/22 09:00 BMI result Body Mass Index 26.7 Const: General: no acute distress, awake and confusion Orientation/consciousness: confusion Eyes: Sclerae: sclerae normal EOM: EOMs intact bilaterally Neck: Neck: Yes no lymphadenopathy, Yes trachea midline and Yes supple Resp: Effort & Inspection: normal respiratory effort and no respiratory distress Auscultation: clear to auscultation bilaterally Cardio: Rate: regular rate Rhythm: regular rhythm Heart sounds: no gallops, no murmurs and no rubs GI: Palpation (GI): Soft to palpation, Ascites present and Other GI palpation findings present ( Nontender, distended) Auscultation: normal bowel sounds Neuro: General: confusion Extrem: General: No clubbing, No cyanosis and Yes edema (Trace bilateral) Objective Data Labs CBC & Chem 7: 01/24/22 05:02 01/24/22 05:02 Labs: Laboratory Results - last 24 hr 01/23/22 01/23/22 01/23/22 10:36 10:52 11:40 WBC RBC Hgb Hct MCV MCH MCHC RDW Plt Count MPV Immature Gran % (Auto) Neut % (Auto) Lymph % (Auto) [place] % (Auto) Eos % (Auto) Baso % (Auto) Lymph # (Auto) [place] # (Auto) Eos # (Auto) Baso # (Auto) Abs Immat Gran (auto) Absolute Neuts (auto) Absolute Nucleated RBC Nucleated RBC % (auto) Smear Tech's Comments VBG pH VBG pCO2 VBG pO2 VBG HCO3 VBG O2 Saturation VBG Base Excess Sodium Potassium Chloride Carbon Dioxide Anion Gap BUN Creatinine Estim Creat Clear Calc Estimated GFR POC Glucose 128 H Random Glucose Lactic Acid F/U @ 2Hr 4.6 H* Lactic Acid F/U @ 4Hr Calcium Phosphorus Magnesium Total Bilirubin AST ALT Alkaline Phosphatase Ammonia Total Protein Albumin Urine Color YELLOW Urine Appearance HAZY Urine pH 6.0 Ur Specific [place] >= 1.030 H Urine Protein 2+ H Urine Glucose (UA) NEG Urine Ketones 5 Urine Blood 3+ H Urine Nitrite NEG Ur Leukocyte Esterase NEG Urine RBC 30-49 H Urine WBC 0 Ur Squamous Epith Cells 2+ Urine Bacteria NONE 01/23/22 01/23/22 01/23/22 13:30 16:42 20:32 WBC RBC Hgb Hct MCV MCH MCHC RDW Plt Count MPV Immature Gran % (Auto) Neut % (Auto) Lymph % (Auto) [place] % (Auto) Eos % (Auto) Baso % (Auto) Lymph # (Auto) [place] # (Auto) Eos # (Auto) Baso # (Auto) Abs Immat Gran (auto) Absolute Neuts (auto) Absolute Nucleated RBC Nucleated RBC % (auto) Smear Tech's Comments VBG pH VBG pCO2 VBG pO2 VBG HCO3 VBG O2 Saturation VBG Base Excess Sodium Potassium Chloride Carbon Dioxide Anion Gap BUN Creatinine Estim Creat Clear Calc Estimated GFR POC Glucose 122 H 109 Random Glucose Lactic Acid F/U @ 2Hr Lactic Acid F/U @ 4Hr 5.4 H* Calcium Phosphorus Magnesium Total Bilirubin AST ALT Alkaline Phosphatase Ammonia Total Protein Albumin Urine Color Urine Appearance Urine pH Ur Specific [place] Urine Protein Urine Glucose (UA) Urine Ketones Urine Blood Urine Nitrite Ur Leukocyte Esterase Urine RBC Urine WBC Ur Squamous Epith Cells Urine Bacteria 01/24/22 01/24/22 01/24/22 05:02 05:02 05:06 WBC 7.6 RBC 4.39 L Hgb 10.4 L Hct 32.5 L MCV 74.0 L MCH 23.7 L MCHC 32.0 RDW 16.9 H Plt Count 66 L MPV TNP Immature Gran % (Auto) 0.3 Neut % (Auto) 42.3 L Lymph % (Auto) 24.1 [place] % (Auto) 9.9 Eos % (Auto) 22.6 H Baso % (Auto) 0.8 Lymph # (Auto) 1.8 [place] # (Auto) 0.8 Eos # (Auto) 1.7 H Baso # (Auto) 0.1 Abs Immat Gran (auto) 0.02 Absolute Neuts (auto) 3.2 Absolute Nucleated RBC 0.000 Nucleated RBC % (auto) 0.0 Smear Tech's Comments VERIFIED VBG pH 7.43 VBG pCO2 26 VBG pO2 96 VBG HCO3 18 L VBG O2 Saturation 98.0 VBG Base Excess -4.6 Sodium 146 H Potassium 5.4 H Chloride 117 H Carbon Dioxide 15 L Anion Gap 19 BUN 26 H Creatinine 2.20 H Estim Creat Clear Calc 30.6 Estimated GFR 30 POC Glucose Random Glucose 110 Lactic Acid F/U @ 2Hr Lactic Acid F/U @ 4Hr Calcium 9.5 D Phosphorus 3.4 Magnesium 2.2 Total Bilirubin 1.3 H AST 54 H ALT 29 Alkaline Phosphatase 128 H Ammonia Total Protein 7.6 Albumin 3.3 L Urine Color Urine Appearance Urine pH Ur Specific [place] Urine Protein Urine Glucose (UA) Urine Ketones Urine Blood Urine Nitrite Ur Leukocyte Esterase Urine RBC Urine WBC Ur Squamous Epith Cells Urine Bacteria 01/24/22 01/24/22 01/24/22 06:17 06:43 07:47 WBC RBC Hgb Hct MCV MCH MCHC RDW Plt Count MPV Immature Gran % (Auto) Neut % (Auto) Lymph % (Auto) [place] % (Auto) Eos % (Auto) Baso % (Auto) Lymph # (Auto) [place] # (Auto) Eos # (Auto) Baso # (Auto) Abs Immat Gran (auto) Absolute Neuts (auto) Absolute Nucleated RBC Nucleated RBC % (auto) Smear Tech's Comments VBG pH VBG pCO2 VBG pO2 VBG HCO3 VBG O2 Saturation VBG Base Excess Sodium Potassium Chloride Carbon Dioxide Anion Gap BUN Creatinine Estim Creat Clear Calc Estimated GFR POC Glucose 128 H 120 H Random Glucose Lactic Acid F/U @ 2Hr Lactic Acid F/U @ 4Hr Calcium Phosphorus Magnesium Total Bilirubin AST ALT Alkaline Phosphatase Ammonia 50 Total Protein Albumin Urine Color Urine Appearance Urine pH Ur Specific [place] Urine Protein Urine Glucose (UA) Urine Ketones Urine Blood Urine Nitrite Ur Leukocyte Esterase Urine RBC Urine WBC Ur Squamous Epith Cells Urine Bacteria Microbiology Microbiology Results: Microbiology 01/23/22 08:05 Blood - Venous Blood Culture - Preliminary No growth after 24 hours. Progress Note: A&P Assessment and plan (1) Cirrhosis of liver with ascites: Status: Acute (2) Encephalopathy, hepatic: Status: Acute (3) Type 2 diabetes mellitus with unspecified complications: Status: Acute (4) Hypertension: Status: Acute (5) CKD (chronic kidney disease) stage 3, GFR 30-59 ml/min: Status: Acute (6) Acute kidney injury: Status: Acute Plan Assessment: 71-year-old gentleman with underlying liver cirrhosis, prior episodes of hepatic encephalopathy, poor medication compliance admitted with alteration of mental status and significant hyperammonemia Plan: Neuro: hepatic encephalopathy, expect to improve with decreasing pneumonia level. Continue on lactulose with target of 3-4 bowel movements/day. Cardiac: No acute issues. Underlying CAD. Pulmonary: No acute issues. Renal: Acute kidney injury on the background of chronic kidney disease. Non oliguric. Nephrology evaluation requested. Continue to monitor renal indices and urine output. Endo: No acute issues. Underlying diabetes mellitus. GI: Liver cirrhosis with ascites, followed on outpatient basis by GI. ID: No acute issues Heme/Onc: No acute issues. Underlying history of thrombocytopenia. Psych: No acute issues. Miscellaneous: No acute issues. Prophylaxis: Pneumatic compression Diet: Regular Quality Stroke Does the patient have a stroke diagnosis?: No VTE Prior VTE?: No VTE Risk Level:: Medical - moderate - high VTE Device Contraindication: N/A - Device Ordered VTE Drug Contraindication: Treatment Not Indicated
[2022-01-24 11:14] LABS: Glucose, Whole Blood 110 mg/dL (60-115)
[2022-01-24] MEDS: cefTRIAXone sodium 1 GM in 0.9 % Sodium Chloride 50 ML IV (11:40)
[2022-01-24 11:46] LABS: Glucose, Whole Blood 104 mg/dL (60-115)
--- NOTE | 2022-01-24 11:51 | MHC.CM.PN ---
Addendum entered by Maddi Martinez 01/24/22 11:53: reports patient has PCP appt on 01/29. Has [facility] [employer] [facility] in the home (AM&PM) Family to transport home. Original Note: Spoke w/ pt's as pt was sleeping and noted to have confusion and disorientation. See CM Assessment for full eval. Vaccinated w/ J&J x2. CM will follow patient for any changes in d/c planning.
[2022-01-24 16:35] LABS: Glucose, Whole Blood 96 mg/dL (60-115)
--- NOTE | 2022-01-24 17:22 | PM.CNNEP ---
History of Present Illness Reason for Consult Consult date: 01/24/22 Chief Complaint Chief complaint: AMS, hepatic encephalopathy History of Present Illness Narrative: 71-year-old gentleman with underlying alcoholic cirrhosis with recent admission to [facility] for hepatic encephalopathy readmitted on 01/23/2022 with worsening lethargy and significant hyperammonemia with underlying history of medication noncompliance.? On ER evaluation patient was noted to be lethargic, but arousable to painful stimuli, with ammonia level of 357.? Nasogastric tube was placed and lactulose was started.? He had LORRI and was admitted for further management. Nephrology has been consulted to assist in his clinical care Review of Systems Review of Systems Yes all other systems are reviewed and are negative PMFSH Past Medical History Medical History (Updated 01/24/22 @ 10:32 by Kev Dominguez MD) Abnormal myocardial perfusion study Ascending aorta dilatation Ascites Ascites Atherosclerotic cardiovascular disease Cirrhosis of liver with ascites CKD (chronic kidney disease) stage 3, GFR 30-59 ml/min Diabetes Diabetes type 2, uncontrolled Diabetic nephropathy associated with type 2 diabetes mellitus Dyslipidemia Dyslipidemia associated with type 2 diabetes mellitus Essential hypertension Gastroparesis GERD (gastroesophageal reflux disease) Gout Hypertension Hypoglycemia 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 with type 2 diabetes mellitus 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 Obesity due to excess calories 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 cancer Thrombocytopenia Thrombocytopenia Family History Family History Father Diabetes CVD (cardiovascular disease) Mother Diabetes Surgical History Surgical History Hx of colonoscopy Social History Social History Household Members: Spouse and Family Housing: House Do you presently have visiting nurse or other home services: No Alcohol intake: former Patient Tobacco Use Status: Former Tobacco user Tobacco use type: Cigarette e-Cigarette/Vaping Use: Never Used Advance Directives Date on File: 05/24/21 service: No Current occupational status: retired and disabled Cognitive needs: Yes (Pt has a walker) Hearing needs: No Vision needs: Yes (wear glasses) Meds Allergies Allergy/AdvReac Type Severity Reaction Status Date / Time latex Allergy Unknown Verified 01/15/22 15:02 Active Medications: Current Medications Chlorhexidine Gluconate (Chlorhexidine Gluc Oral Rinse 15 Ml Mouthwash) 15 ml BUCCAL TID [facility] Last Admin: 01/24/22 13:02 Dose: Not Given Documented by: Ceftriaxone Sodium 1 gm/ (Sodium Chloride) 50 mls @ 100 mls/hr IV Q24H [facility] Last Infusion: 01/24/22 12:24 Dose: Infused Documented by: Insulin Human Lispro (Insulin Lispro 100 Unit/Ml 3 Ml Vial) 0 unit SUBCUT QIDACHS [facility]; Protocol Last Admin: 01/24/22 16:34 Dose: Not Given Documented by: Lactulose (Lactulose 20 Gm/30 Ml Solution) 20 gm PO BID [facility] Pharmacy Consult (Consult Rx Perform Med Rec) 1 each MISCELLANE ONCE PRN PRN Reason: Consult order Home Medications Medication Instructions Recorded Confirmed Last Taken Type isosorbide mononitrate 30 mg 1 tab PO DAILY 05/09/21 01/23/22 01/22/22 History tablet,extended release 24 hr blood sugar diagnostic (FreeStyle 08/24/21 01/15/22 Unknown History Lite Strips) zaleplon 5 mg capsule 5 mg PO BEDTIME PRN 09/27/21 01/23/22 Unknown History metoprolol succinate 50 mg 50 mg PO BID 12/31/21 01/23/22 01/22/22 History tablet,extended release 24 hr insulin lispro 100 unit/mL 12 - 15 unit SUBCUT TIDAC 01/17/22 01/23/22 01/22/22 History subcutaneous pen (Humalog KwikPen (U-100) Insulin) metformin 500 mg tablet 1 tab PO BID 01/17/22 01/23/22 01/22/22 History aspirin 81 mg tablet,delayed 81 mg PO DAILY 01/23/22 01/23/22 01/22/22 History release ezetimibe 10 mg tablet 1 tab PO BEDTIME 01/23/22 01/23/22 01/22/22 History ferrous sulfate 325 mg (65 mg 325 mg PO BID 01/23/22 01/23/22 01/22/22 History iron) tablet hydralazine 10 mg tablet 1 tab PO TID 01/23/22 01/23/22 01/22/22 History lactulose 10 gram/15 mL oral 15 ml PO DAILY 01/23/22 01/23/22 01/22/22 History solution (Enulose) omeprazole 40 mg capsule,delayed 1 cap PO DAILY 01/23/22 01/23/22 01/22/22 History release Physical Exam Vital Signs: Last Vital Signs Temp 99.9 F 01/24/22 16:00 Pulse 99 01/24/22 16:00 Resp 15 01/24/22 16:00 BP 135/91 H 01/24/22 16:00 Pulse Ox 96 01/24/22 16:00 BMI result Body Mass Index 26.7 Const General: no acute distress Eyes EOM: EOMs intact bilaterally Neck Neck: Yes supple Resp Auscultation: diminished lung sounds Cardio Rate: regular rate GI Palpation (GI): Soft to palpation Neuro Other: Confused General: moves all extremities Results Lab Results Result Diagrams: 01/24/22 05:02 01/24/22 05:02 Lab results: Chemistry 01/23/22 01/24/22 08:05 05:02 Sodium 139 146 H Potassium 5.7 H D 5.4 H Carbon Dioxide 18 L 15 L BUN 25 H 26 H Creatinine 2.04 H 2.20 H Calcium 10.2 D 9.5 D Phosphorus 3.4 Hematology 01/23/22 01/24/22 08:05 05:02 WBC 8.9 7.6 Hgb 11.7 L 10.4 L Plt Count 82 L D 66 L Urinalysis 01/23/22 10:52 Urine Color YELLOW Urine Appearance HAZY Urine pH 6.0 Ur Specific [place] >= 1.030 H Urine Protein 2+ H Urine Glucose (UA) NEG Urine Ketones 5 Urine Blood 3+ H Urine Nitrite NEG Ur Leukocyte Esterase NEG Urine RBC 30-49 H Urine WBC 0 Ur Squamous Epith Cells 2+ Assessment and Plan (1) Acute kidney injury: Status: Acute Plan Acute Kidney injury likely due to tubular injury DDx HRS; Has CKD 3 b from Diabetic nephropathy Metabolically acidotic; Mildly hyperkalemic Getting lactulose. May have to start NaHCO3 650 mg bid Urine sodium ordered. C/W rest of current supportive care for now Labs AM. Shall closely follow up Procedures Date of Service Date of Service: 01/24/22
[2022-01-24 20:24] LABS: Glucose, Whole Blood 169 mg/dL (60-115)
[2022-01-24] MEDS: Insulin Lispro 100 UNIT/ML 3 ML VIAL SUBCUT (20:34)
[2022-01-24] MEDS: Lactulose 20 GM/30 ML SOLUTION PO (20:34)
[2022-01-25] VITALS (7 sets, daily range): BP systolic 133–143; BP diastolic 77–87; PULSE 78–114; RESP 12–20; TEMP 36.4–37.4; O2SAT 97–98
[2022-01-25 07:31] LABS: Basophils Absolute Auto 0.1 X10*3/uL (0.0-0.2); Basophils Percent Auto 0.7 % (0-2); Eosinophils Absolute Auto 2.4 X10*3/uL (0.0-0.4); Eosinophils Percent Auto 31.8 % (0-4); Hematocrit 33.9 % (42.0-52.0); Hemoglobin 10.7 g/dl (14.0-18.0); Imm Gran Abs Auto 0.02 X10*3/uL (0.00-0.03); Imm Gran Pct Auto 0.3 % (0.0-0.4); Lymphocytes Absolute Auto 1.9 X10*3/uL (1.2-4.9); Lymphocytes Percent Auto 25.4 % (20-40); MANUAL DIFF FLAG SCAN; Mean Corpuscular HGB Conc 31.6 g/dl (31.0-36.0); Mean Corpuscular Hemoglobin 23.8 pg (27.0-33.0); Mean Corpuscular Volume 75.3 fL (80.0-98.0); Monocytes Absolute Auto 0.7 X10*3/uL (0.1-1.2); Neutrophils Absolute Auto 2.4 x10*3/uL (2.0-8.3); Neutrophils Percent Auto 31.8 % (45-73); SCAN SMEAR FLAG 1; White Blood Count 7.4 X10*3/uL (4.8-10.8)
[2022-01-25 07:32] LABS: Platelet Count 59 X10*3/uL (160-400)
[2022-01-25 07:53] LABS: SLIDE REVIEW VERIFIED
[2022-01-25 07:55] LABS: Alanine Aminotransferase 27 U/L (0-40); Albumin Level 3.3 g/dL (3.5-5.0); Alkaline Phosphatase 116 U/L (39-117); Anion Gap 14 (12-20); Aspartate Amino Transferase 54 U/L (5-37); Bilirubin Total 1.1 mg/dL (0.0-1.0); Blood Urea Nitrogen 21 mg/dL (9-16); Calcium 9.6 mg/dL (8.4-10.2); Carbon Dioxide 21 mmol/L (22-29); Chloride 115 mmol/L (96-108); Creatinine Clr Calc Pharmacy 40.3; Estimated Glomerular Filt Rate 41; Glucose Random 90 mg/dL (60-115); Magnesium 1.8 mg/dL (1.6-2.6); Phosphorus 3.3 mg/dL (2.7-4.5); Potassium 4.1 mmol/L (3.3-5.1); Sodium 148 mmol/L (135-145); Total Protein 7.2 g/dL (6.5-8.0)
--- NOTE | 2022-01-25 08:20 | P.PNNP_ITS ---
Subjective Subjective Date of Service: 01/25/22 Interval history: 71-year-old gentleman with underlying alcoholic cirrhosis with recent admission to [facility] for hepatic encephalopathy readmitted on 01/23/2022 with worsening lethargy and significant hyperammonemia with underlying history of medication noncompliance. On ER evaluation patient was noted to be lethargic, but arousable to painful stimuli, with ammonia level of 357. Nasogastric tube was placed and lactulose was started. Overnight with significant improvement in mental status on lactulose. NG tube removed as patient is able to take p.o. at this time. Physical Exam Vital Signs: Vital Signs: Last Vital Signs Temp 98.0 F 01/25/22 03:04 Pulse 80 01/25/22 03:04 Resp 17 01/25/22 03:04 BP 141/80 H 01/25/22 03:04 Pulse Ox 98 01/25/22 03:04 BMI result Body Mass Index 26.7 Const: General: no acute distress, awake, confusion and lethargic ( Arousable to painful stimuli) Orientation/consciousness: confusion and lethargic ( Arousable to painful stimuli) Eyes: Sclerae: sclerae normal EOM: EOMs intact bilaterally Neck: Neck: Yes no lymphadenopathy, Yes trachea midline and Yes supple Resp: Effort & Inspection: normal respiratory effort and no respiratory distress Auscultation: clear to auscultation bilaterally and diminished lung sounds Cardio: Rate: regular rate Rhythm: regular rhythm Heart sounds: no gallops, no murmurs and no rubs GI: Palpation (GI): Soft to palpation, Ascites present and Other GI palpation findings present ( Nontender, distended) Auscultation: normal bowel sounds Neuro: Other: Confused General: moves all extremities and confusion Extrem: General: No clubbing, No cyanosis and Yes edema (Trace bilateral) Objective Data Labs CBC & Chem 7: 01/25/22 06:59 01/25/22 06:59 Labs: Laboratory Results - last 24 hr 01/24/22 01/24/22 01/24/22 11:11 11:43 16:32 WBC RBC Hgb Hct MCV MCH MCHC RDW Plt Count MPV Immature Gran % (Auto) Neut % (Auto) Lymph % (Auto) [place] % (Auto) Eos % (Auto) Baso % (Auto) Lymph # (Auto) [place] # (Auto) Eos # (Auto) Baso # (Auto) Abs Immat Gran (auto) Absolute Neuts (auto) Absolute Nucleated RBC Nucleated RBC % (auto) Smear Tech's Comments Sodium Potassium Chloride Carbon Dioxide Anion Gap BUN Creatinine Estim Creat Clear Calc Estimated GFR POC Glucose 110 104 96 Random Glucose Calcium Phosphorus Magnesium Total Bilirubin AST ALT Alkaline Phosphatase Total Protein Albumin Ur Random Sodium 01/24/22 01/24/22 01/25/22 18:18 20:20 06:59 WBC 7.4 RBC 4.50 L Hgb 10.7 L Hct 33.9 L MCV 75.3 L MCH 23.8 L MCHC 31.6 RDW 17.0 H Plt Count 59 L MPV Not Reportable Immature Gran % (Auto) 0.3 Neut % (Auto) 31.8 L Lymph % (Auto) 25.4 [place] % (Auto) 10.0 Eos % (Auto) 31.8 H Baso % (Auto) 0.7 Lymph # (Auto) 1.9 [place] # (Auto) 0.7 Eos # (Auto) 2.4 H Baso # (Auto) 0.1 Abs Immat Gran (auto) 0.02 Absolute Neuts (auto) 2.4 Absolute Nucleated RBC 0.000 Nucleated RBC % (auto) 0.0 Smear Tech's Comments VERIFIED Sodium Potassium Chloride Carbon Dioxide Anion Gap BUN Creatinine Estim Creat Clear Calc Estimated GFR POC Glucose 169 H Random Glucose Calcium Phosphorus Magnesium Total Bilirubin AST ALT Alkaline Phosphatase Total Protein Albumin Ur Random Sodium 126.0 01/25/22 06:59 WBC RBC Hgb Hct MCV MCH MCHC RDW Plt Count MPV Immature Gran % (Auto) Neut % (Auto) Lymph % (Auto) [place] % (Auto) Eos % (Auto) Baso % (Auto) Lymph # (Auto) [place] # (Auto) Eos # (Auto) Baso # (Auto) Abs Immat Gran (auto) Absolute Neuts (auto) Absolute Nucleated RBC Nucleated RBC % (auto) Smear Tech's Comments Sodium 148 H Potassium 4.1 D Chloride 115 H Carbon Dioxide 21 L Anion Gap 14 BUN 21 H Creatinine 1.67 H Estim Creat Clear Calc 40.3 Estimated GFR 41 POC Glucose Random Glucose 90 Calcium 9.6 Phosphorus 3.3 Magnesium 1.8 Total Bilirubin 1.1 H AST 54 H ALT 27 Alkaline Phosphatase 116 Total Protein 7.2 Albumin 3.3 L Ur Random Sodium Microbiology Microbiology Results: Microbiology 01/23/22 08:58 Blood - Venous Blood Culture - Preliminary No growth after 24 hours. 01/23/22 08:05 Blood - Venous Blood Culture - Preliminary No growth after 24 hours. Procedures Date of Service Date of Service: 01/25/22 Assessment & Plan Assessment and plan (1) Acute kidney injury: Status: Acute Plan Acute Kidney injurypre renal resolving DDx HRS; Has CKD 3 b from Diabetic nephropathy with albuminuria Na 148 needs increased free h20 can take PO Getting lactulose. Time Spent With Patient Time: Total time spent is greater than 50% in coordination of care (as documented) at patient's floor/unit and/or counseling patient: Progress Note: Quality Stroke Does the patient have a stroke diagnosis?: No
[2022-01-25 08:25] LABS: Glucose, Whole Blood 84 mg/dL (60-115)
[2022-01-25 11:20] LABS: Glucose, Whole Blood 224 mg/dL (60-115)
[2022-01-25] MEDS: Insulin Lispro 100 UNIT/ML 3 ML VIAL SUBCUT ×2 (11:48→21:18)
[2022-01-25] MEDS: cefTRIAXone sodium 1 GM in 0.9 % Sodium Chloride 50 ML IV (11:49)
[2022-01-25] MEDS: Lactulose 20 GM/30 ML SOLUTION PO ×2 (11:49→21:18)
--- NOTE | 2022-01-25 12:42 | P.PNIM_ITS ---
Subjective Subjective Date of Service: 01/26/22 Interval History: F/u on hepatic encephalopathy interval history: he's now alert and lucid Review of Systems no fever less confused Physical Exam Vital Signs: Vital Signs: Last Vital Signs Temp 97.6 F 01/25/22 12:00 Pulse 111 H 01/25/22 12:00 Resp 20 01/25/22 12:00 BP 137/79 01/25/22 12:00 Pulse Ox 97 01/25/22 12:00 BMI result Body Mass Index 26.7 Const: Other: General: AO X 3, no acute distress Resp: CTA bilateral CVS: S1,S2,RRR GI: +BS, NT, no distention Skin: No rash Neuro: motor grossly intact Psych: appropriate affect Objective Data Active Medications Ceftriaxone Sodium 1 gm/ (Sodium Chloride) 50 mls @ 100 mls/hr IV Q24H [facility] Last Admin: 01/25/22 11:49 Dose: 100 mls/hr Documented by: JOURDAN Insulin Human Lispro (Insulin Lispro 100 Unit/Ml 3 Ml Vial) 0 unit SUBCUT QIDACHS [facility]; Protocol Last Admin: 01/25/22 11:48 Dose: 4 unit Documented by: JOURDAN Lactulose (Lactulose 20 Gm/30 Ml Solution) 20 gm PO BID [facility] Last Admin: 01/25/22 11:49 Dose: 20 gm Documented by: JOURDAN Pharmacy Consult (Consult Rx Perform Med Rec) 1 each MISCELLANE ONCE PRN PRN Reason: Consult order Labs CBC & Chem 7: 01/25/22 06:59 01/26/22 07:17 Labs: Laboratory Results - last 24 hr 01/23/22 01/24/22 01/24/22 08:05 05:02 16:32 MCV MCH MCHC RDW Plt Count MPV Immature Gran % (Auto) Neut % (Auto) Lymph % (Auto) [place] % (Auto) Eos % (Auto) Baso % (Auto) Lymph # (Auto) [place] # (Auto) Eos # (Auto) Baso # (Auto) Abs Immat Gran (auto) Absolute Neuts (auto) Absolute Nucleated RBC Nucleated RBC % (auto) Smear Tech's Comments Sodium 139 146 H Anion Gap Estim Creat Clear Calc Estimated GFR POC Glucose 96 Random Glucose Calcium Phosphorus Magnesium Total Bilirubin AST ALT Alkaline Phosphatase Total Protein Albumin Ur Random Sodium 01/24/22 01/24/22 01/25/22 18:18 20:20 06:59 MCV 75.3 L MCH 23.8 L MCHC 31.6 RDW 17.0 H Plt Count 59 L MPV Not Reportable Immature Gran % (Auto) 0.3 Neut % (Auto) 31.8 L Lymph % (Auto) 25.4 [place] % (Auto) 10.0 Eos % (Auto) 31.8 H Baso % (Auto) 0.7 Lymph # (Auto) 1.9 [place] # (Auto) 0.7 Eos # (Auto) 2.4 H Baso # (Auto) 0.1 Abs Immat Gran (auto) 0.02 Absolute Neuts (auto) 2.4 Absolute Nucleated RBC 0.000 Nucleated RBC % (auto) 0.0 Smear Tech's Comments VERIFIED Sodium Anion Gap Estim Creat Clear Calc Estimated GFR POC Glucose 169 H Random Glucose Calcium Phosphorus Magnesium Total Bilirubin AST ALT Alkaline Phosphatase Total Protein Albumin Ur Random Sodium 126.0 01/25/22 01/25/22 01/25/22 06:59 08:22 11:15 MCV MCH MCHC RDW Plt Count MPV Immature Gran % (Auto) Neut % (Auto) Lymph % (Auto) [place] % (Auto) Eos % (Auto) Baso % (Auto) Lymph # (Auto) [place] # (Auto) Eos # (Auto) Baso # (Auto) Abs Immat Gran (auto) Absolute Neuts (auto) Absolute Nucleated RBC Nucleated RBC % (auto) Smear Tech's Comments Sodium 148 H Anion Gap 14 Estim Creat Clear Calc 40.3 Estimated GFR 41 POC Glucose 84 224 H Random Glucose 90 Calcium 9.6 Phosphorus 3.3 Magnesium 1.8 Total Bilirubin 1.1 H AST 54 H ALT 27 Alkaline Phosphatase 116 Total Protein 7.2 Albumin 3.3 L Ur Random Sodium Microbiology Microbiology Results: Microbiology 01/23/22 08:58 Blood Culture - Preliminary Blood - Venous No growth after 48 hours. 01/23/22 08:05 Blood Culture - Preliminary Blood - Venous No growth after 48 hours. Assessment and Plan (1) Encephalopathy, hepatic: Status: Acute (2) Acute kidney injury: Status: Acute (3) Hyponatremia: Status: Acute Plan 71-year-old gentleman with underlying liver cirrhosis, prior episodes of hepatic encephalopathy, poor medication compliance admitted with alteration of mental status and significant hyperammonemia Hepatic encephalopathy, improving on lactulose, having frequent diarrhea, continue lactulose LORRI--pre renal, IVF Hypernatremia--encourage oral water if not then IV water Pulmonary:? No acute issues. Diabetes--Sliding scale insulin Cirrhosis of liver--medical management HTN--BP on lower side, hold BP meds HLD--hold Lipitor d/t liver disease CAD--no chest pain, resume aspirin tomorrow, BB tomorrow, empiric ceftriaxone fo history of SBP Quality Stroke Does the patient have a stroke diagnosis?: No VTE Prior VTE?: No VTE Risk Level:: Medical - moderate - high VTE Device Contraindication: N/A - Device Ordered VTE Drug Contraindication: Treatment Not Indicated
[2022-01-25 15:28] LABS: Glucose, Whole Blood 90 mg/dL (60-115)
[2022-01-25 20:03] LABS: Glucose, Whole Blood 152 mg/dL (60-115)
[2022-01-25] MEDS: Ezetimibe 10 MG TABLET PO (21:18)
[2022-01-25] MEDS: Ferrous Sulfate 324 MG TABLET.DR PO (21:18)
[2022-01-26 03:29] VITALS: BP 134/78; PULSE 78; RESP 19; TEMP 37.2; O2SAT 97
[2022-01-26 05:56] VITALS: BMI 25.2
[2022-01-26 07:23] LABS: Glucose, Whole Blood 80 mg/dL (60-115)
[2022-01-26 07:55] LABS: Ammonia 39 umol/L (13-55)
[2022-01-26 08:00] VITALS: BP 135/74; PULSE 83; RESP 16; TEMP 35.9; O2SAT 98
[2022-01-26 08:10] LABS: Anion Gap 13 (12-20); Blood Urea Nitrogen 19 mg/dL (9-16); Calcium 8.9 mg/dL (8.4-10.2); Carbon Dioxide 21 mmol/L (22-29); Chloride 111 mmol/L (96-108); Creatinine Clr Calc Pharmacy 49.9; Estimated Glomerular Filt Rate 52; Glucose Random 85 mg/dL (60-115); Sodium 141 mmol/L (135-145)
--- NOTE | 2022-01-26 09:27 | PM.DS ---
DS: Providers Provider Date of Service: 01/26/22 Date of admission: 01/23/22 10:56 Primary care physician: Kimber Pan MD Consults: 01/24/22 07:58 Consult to Nephrology Routine Consulting Provider: [facility] Reason for consultation: LORRI on CKD Has provider been notified: No DS: Diagnosis Discharge Diagnosis (1) Encephalopathy, hepatic: Status: Acute (2) Acute kidney injury: Status: Acute (3) Hyponatremia: Status: Acute DS: Summary Hospital Course Hospital Course: Chief Complaint: ? Alteration of mental status, hepatic encephalopathy 71-year-old gentleman with underlying alcoholic cirrhosis with recent admission to [facility] for hepatic encephalopathy readmitted on 01/23/2022 with worsening lethargy and significant hyperammonemia with underlying history of medication noncompliance.? On ER evaluation patient was noted to be lethargic, but arousable to painful stimuli, with ammonia level of 357.? Nasogastric tube was placed and lactulose was started.? Patient remained significantly surgical with concern for airway protection, thus he was admitted to intensive care unit for further workup and management. Hospital coruse: Patient with known cirrhosis of the liver presented with altered mental status and decrease responsiveness and was noted to be having hepatic encephalopathy with ammonia level of 364 and such was admitted to ICU for closer air way monitor. Also had acute renal insuficinecy due to pre renal azotemia along with mild hypernatremia related to dehydation. During ICU course, he was treated wtih Lacutulose, IVF for renal failure and over the course of hospitalization encephalopathy has resolved. Ammonia level is 39 today. Creatine has imprved from 2 to now 1.3 , there may have componenet of renal failure due to renal hypoperfusion as BP was on the lower side and such stoping home hydralazine dose and decreasing Toprol to 50 daily rather than twice, continue Norvasc and Imdur. To continue Lipitor and ASA as well for CAD. .Advised not to drink alcohol Time Spent with Patient Time attestation: Total time spent providing and/or coordinating discharge services: Discharge coordination time: Greater than 30 minutes Quality: Safe Use of Opioids Does Pt have an Active Cancer Diagnosis on the Problem List?: No Quality: Stroke Does the patient have a stroke diagnosis?: No Physical Exam Vital Signs: Vital Signs: Last Vital Signs Temp 96.7 F L 01/26/22 08:00 Pulse 83 01/26/22 08:00 Resp 16 01/26/22 08:00 BP 135/74 01/26/22 08:00 Pulse Ox 98 01/26/22 08:00 BMI result Body Mass Index 25.2 DS: Data Data Completed and Pending Completed studies during hospitalization [Text1]: Procedures Drainage of Peritoneal Cavity, Percutaneous Approach (01/17/22) Labs on day of discharge: Laboratory Results - last 24 hr 01/25/22 01/25/22 01/25/22 11:15 15:12 19:37 Sodium Potassium Chloride Carbon Dioxide Anion Gap BUN Creatinine Estim Creat Clear Calc Estimated GFR POC Glucose 224 H 90 152 H Random Glucose Calcium Ammonia 01/26/22 01/26/22 01/26/22 07:16 07:17 07:17 Sodium 141 Potassium 4.0 Chloride 111 H Carbon Dioxide 21 L Anion Gap 13 BUN 19 H Creatinine 1.35 Estim Creat Clear Calc 49.9 Estimated GFR 52 POC Glucose 80 Random Glucose 85 Calcium 8.9 D Ammonia 39 Preliminary micro results at discharge 01/23/22 08:58 Blood Culture - Preliminary Blood - Venous No growth after 48 hours. 01/23/22 08:05 Blood Culture - Preliminary Blood - Venous No growth after 48 hours. Discharge Plan Discharge Anticipated Discharge Date/Time: 01/26/22 09:21 Patient Disposition: Home, Self-Care Discharge Diagnosis: Hepatic Encephalopathy Referrals: Kimber Day MD [Primary Care Provider] - 1 Week Discharge Medications: [place] 20 gram packet 20 g PO BID Qty: 120 0RF Continued (DME) blood-glucose meter [Prodigy Autocode Meter] Kit See Rx Instructions .Route Qty: 1 0RF Rx Instructions: As directed (DME) Prodigy No Coding Strip See Rx Instructions .Route Qty: 100 11RF Rx Instructions: 3 times a day (DME) lancets [Prodigy Lancets] 28 gauge misc See Rx Instructions .Route Qty: 100 11RF Rx Instructions: 3 times a day atorvastatin 20 mg tablet 20 mg PO DAILY 30 Days Qty: 90 3RF (DME) FreeStyle Toyin 2 [place] Misc See Rx Instructions .ROUTE .MEDSUPPLY Qty: 1 0RF Rx Instructions: As directed (DME) FreeStyle Toyin 2 Sensor Kit See Rx Instructions .ROUTE .MEDSUPPLY Qty: 2 11RF Rx Instructions: As directed every 2 weeks nitroglycerin 0.4 mg tablet, sublingual 0.4 mg sublingual Q5M PRN (Reason: chest pain) Qty: 25 2RF isosorbide mononitrate 30 mg tablet extended release 24 hr 1 tab PO DAILY 0RF (DME) FreeStyle Lite Strips Strip See Rx Instructions strip MISCELLANEOUS TID 0RF Rx Instructions: As directed to test blood sugar insulin lispro [Humalog KwikPen Insulin] 100 unit/mL insulin pen 12 - 15 unit subcut TIDAC 0RF Rx Instructions: as directed hydralazine 10 mg tablet 1 tab PO TID 0RF omeprazole 40 mg capsule,delayed release(DR/EC) 1 cap PO DAILY 0RF aspirin 81 mg Tablet,Delayed Release (Dr/Ec) 81 mg PO DAILY 0RF ferrous sulfate 325 mg (65 mg iron) Tablet 325 mg PO BID 0RF lactulose [Enulose] 10 gram/15 mL solution 15 ml PO DAILY 0RF ezetimibe 10 mg tablet 1 tab PO BEDTIME 0RF (DME) lancets [FreeStyle Lancets] 28 gauge misc See Rx Instructions .Route Qty: 100 0RF Rx Instructions: test bs three times a day zaleplon 5 mg capsule 5 mg PO BEDTIME PRN (Reason: Insomnia) 0RF amlodipine 10 mg tablet 10 mg PO DAILY Qty: 90 3RF Toujeo SoloStar U-300 Insulin 300 unit/mL (1.5 mL) insulin pen 12 unit subcut DAILY 90 Days Qty: 4.5 3RF Changed metoprolol succinate 50 mg tablet extended release 24 hr 50 mg PO DAILY Qty: 0 0RF Discontinued metformin 500 mg tablet 1 tab PO BID 0RF Diet: advance to usual diet and diabetic diet Activity on Discharge: As tolerated Stand Alone Forms: Patient Portal Discharge page Care Plan Goals: Prevent rehospitalization for hepatic encephalopathy Health Concerns: Cirrhosis of the liver, hepatic encephalopathy Plan of Treatment: Take Lactulose and all other medication as directed and follow up with your Doctor in a week, avoid alcohol.. Hold lactulose if you are having diarrhea Please note that Hydralazine has been stopped, Toprolol Xl dose is changed to once daily. Stop Taking Metformin because of chronic kidney failure Follow up with your Doctor in a week Assessment: As above
[2022-01-26] MEDS: Metoprolol Succinate ER 50 MG TAB.ER.24H PO (10:16)
[2022-01-26] MEDS: Ferrous Sulfate 324 MG TABLET.DR PO (10:16)
[2022-01-26] MEDS: Omeprazole 40 MG CAPSULE.DR PO (10:16)
[2022-01-26] MEDS: amLODIPine Besylate 10 MG TABLET PO (10:16)
[2022-01-26] MEDS: Lactulose 20 GM/30 ML SOLUTION PO (10:16)
[2022-01-26 11:14] LABS: Glucose, Whole Blood 135 mg/dL (60-115)
--- NOTE | 2022-01-26 11:33 | MHC.CM.PN ---
pt dcd home no skilled services ordered by
[2022-01-26] MEDS: cefTRIAXone sodium 1 GM in 0.9 % Sodium Chloride 50 ML IV (11:50)
== END 2022-01-26 13:00 | disposition home or self-care (01) | DRG 441 ==
LOC: HO.ED 08:52 → HO.EDOVER 11:07 → HO.ICU 11:19 → HO.IMC 01-25 01:52
PROVIDERS: Internal Medicine Nephrology; Admitting Provider Internal Medicine Pulmonary Disease; Emergency Provider Emergency Medicine; PCP Internal Medicine; Visit Provider Internal Medicine
DX: K72.90 Hepatic failure, unspecified without coma (principal); N17.0 Acute kidney failure with tubular necrosis; R18.8 Other ascites; M10.9 Gout, unspecified; E78.5 Hyperlipidemia, unspecified; K74.60 Unspecified cirrhosis of liver; E11.69 Type 2 diabetes mellitus with other specified complication; N18.32 Chronic kidney disease, stage 3b; Z91.19 Patient's noncompliance with other medical treatment and regimen; Z91.14 Patient's other noncompliance with medication regimen; E11.22 Type 2 diabetes mellitus with diabetic chronic kidney disease; Z20.822 Contact with and (suspected) exposure to COVID-19; Z91.040 Latex allergy status; Z87.891 Personal history of nicotine dependence; Z79.4 Long term (current) use of insulin; Z79.82 Long term (current) use of aspirin; Z79.899 Other long term (current) drug therapy
CPT/HCPCS: 36415; 70450; 71045; 80048; 80053; 80076; 81001; 81003; 82140; 82803; 82947; 83605; 83690; 83735; 84100; 84300; 84484; 85025; 85610; 85730; 87040; 87635; 93005; 96365; 96366; 96375; 99285; 99291; J0610; J0696; J2405

== ENCOUNTER 2022-02-06 10:12 | Outpatient (REF) | payer MEDICARE, MEDICAID, SELFPAY ==
[2022-02-06 10:55] LABS: Ammonia 113 umol/L (13-55)
[2022-02-06 11:55] LABS: Basophils Absolute Auto 0.1 X10*3/uL (0.0-0.2); Basophils Percent Auto 0.9 % (0-2); Eosinophils Absolute Auto 1.2 X10*3/uL (0.0-0.4); Hematocrit 33.1 % (42.0-52.0); Hemoglobin 10.5 g/dl (14.0-18.0); Imm Gran Abs Auto 0.01 X10*3/uL (0.00-0.03); Imm Gran Pct Auto 0.2 % (0.0-0.4); Lymphocytes Absolute Auto 1.7 X10*3/uL (1.2-4.9); Lymphocytes Percent Auto 30.9 % (20-40); MANUAL DIFF FLAG SCAN; Mean Corpuscular HGB Conc 31.7 g/dl (31.0-36.0); Mean Corpuscular Hemoglobin 24.2 pg (27.0-33.0); Mean Corpuscular Volume 76.3 fL (80.0-98.0); Monocytes Absolute Auto 0.4 X10*3/uL (0.1-1.2); Monocytes Percent Auto 7.1 % (2-11); Neutrophils Percent Auto 37.9 % (45-73); Red Blood Count 4.34 X10*6/uL (4.60-5.80); Red Cell Distribution Width 17.2 % (11.0-16.0); SCAN SMEAR FLAG 1; White Blood Count 5.4 X10*3/uL (4.8-10.8)
[2022-02-06 11:56] LABS: Platelet Count 65 X10*3/uL (160-400)
[2022-02-06 12:54] LABS: Alanine Aminotransferase 25 U/L (0-40); Albumin Level 3.4 g/dL (3.5-5.0); Alkaline Phosphatase 115 U/L (39-117); Anion Gap 13 (12-20); Aspartate Amino Transferase 44 U/L (5-37); Bilirubin Total 0.7 mg/dL (0.0-1.0); Blood Urea Nitrogen 19 mg/dL (9-16); Calcium 9.6 mg/dL (8.4-10.2); Carbon Dioxide 19 mmol/L (22-29); Chloride 114 mmol/L (96-108); Cholesterol 127 mg/dL; Estimated Glomerular Filt Rate 32; Glucose Fasting 74 mg/dL (60-99); HDL Cholesterol 52 mg/dL; Iron 49 mcg/dL (45-160); LDL Cholesterol Calculated 48 mg/dl; Percent Iron Saturation 21 % (15-50); Potassium 5.1 mmol/L (3.3-5.1); Sodium 141 mmol/L (135-145); Total Iron Binding Capacity 235 mcg/dL (228-428); Total Protein 7.2 g/dL (6.5-8.0); Triglycerides 135 mg/dL; Unsaturated Iron Binding 186 ug/dL
[2022-02-06 12:58] LABS: Vitamin D 25-OH Total 17.6 ng/mL (>30)
[2022-02-06 13:00] LABS: Creatinine Urine 353.01 mg/dL; Microalbum/Creatinine Ratio Ur 140.7 ug/mg cr
[2022-02-06 13:05] LABS: SLIDE REVIEW VERIFIED
== END 2022-02-06 10:13 | disposition home or self-care (01) ==
LOC: HO.LAB 10:12
PROVIDERS: PCP Internal Medicine; Visit Provider Internal Medicine
DX: K72.90 Hepatic failure, unspecified without coma (principal); E78.5 Hyperlipidemia, unspecified; E55.9 Vitamin D deficiency, unspecified; D64.9 Anemia, unspecified; E11.69 Type 2 diabetes mellitus with other specified complication
CPT/HCPCS: 36415; 80053; 80061; 82043; 82140; 82306; 83540; 85025

== ENCOUNTER 2022-02-15 10:35 | Outpatient (REF) | payer MEDICARE, MEDICAID, SELFPAY ==
--- NOTE | ~2022-02-15 | CT_ITS ---
EXAMINATION: CT HEAD WITHOUT CONTRAST CLINICAL INFORMATION: Liver failure COMPARISON: Previous head CT scans from January 2022 TECHNIQUE: Contiguous axial imaging was performed from the skull base to vertex without intravenous administration of contrast. This CT examination was performed using dose optimization techniques as appropriate, variously including the following: *Automated exposure control *Adjustment of mA and/or kV according to patient size (this includes techniques or standardized protocols for targeted exams where dose is matched to indication/reason for exam; i.e. extremities or head) *Use of iterative reconstruction technique DLP: 758 mGy-cm FINDINGS: There is no evidence of an extra-axial collection. There is no evidence of intra-axial or extra-axial hemorrhage. The ventricles and extra-axial CSF spaces are appropriate. There is nonspecific periventricular white matter disease similar to previous exams. No mass, mass effect or infarct is seen. There is mild atherosclerotic disease. Review at bone windows is normal. Visualized paranasal sinuses, mastoid air cells and middle ears are clear. CT/CT head/brain wo con IMPRESSION: No acute intracranial. Nonspecific periventricular white matter disease similar to previous exams.
[2022-02-15 12:22] LABS: Blood Urea Nitrogen 36 mg/dL (9-16)
[2022-02-15 13:20] LABS: Estimated Glomerular Filt Rate 14
[2022-02-15 13:34] LABS: Appearance Urine HAZY; Color Urine YELLOW; Glucose Urine UA NEG (NEG); Leukocyte Esterase Urine NEG (NEG); Nitrite Urine NEG (NEG); PH 5.5 (5.0-8.0); Specific Gravity - Urine >= 1.030 (1.005-1.025); UACC Culture Trigger NO; Urine Blood NEG (NEG); Urine Ketones NEG (NEG); Urine Protein 1+ MG/DL (NEG-TRACE)
[2022-02-15 13:42] LABS: Bacteria Urine TRACE /LPF; RBC Urine 0-2 /HPF (0)
[2022-02-15 13:43] LABS: Amorphous Sediment Urine 1+ /LPF; Mucus Urine 2+ /LPF; Squamous Epithelial Cell Urine 1+ /LPF; Urine Talc Crystals 1+ /LPF
== END 2022-02-15 10:36 | disposition home or self-care (01) ==
LOC: HO.CT 10:35
PROVIDERS: Internal Medicine Gastroenterology; Absent Provider Internal Medicine; PCP Internal Medicine; Visit Provider Physician Assistant
DX: Z13.89 Encounter for screening for other disorder (principal)
CPT/HCPCS: 36415; 70450; 81001; 82565; 84520

== ENCOUNTER 2022-02-15 15:45 | Inpatient (IN) | payer MEDICARE, MEDICAID, SELFPAY ==
--- NOTE | ~2022-02-15 | US_ITS ---
EXAMINATION: US-GUIDED PARACENTESIS CLINICAL INFORMATION: Ascites. COMPARISON: None TECHNIQUE: Following explaining ultrasound-guided paracentesis procedure, benefits and risk, a written consent was obtained. Patient was placed supine on ultrasound stretcher and preliminary ultrasound imaging was obtained through the abdomen. An optimal site was selected, marked, cleaned, and draped in the usual sterile manner along the right lower quadrant. 1% lidocaine was injected at puncture site. Through a small skin incision, a 5-Urdu Youkueh catheter was advanced into the right peritoneal space. After observing fluid return, stylet was withdrawn and catheter connected to vacuum bottle via connecting cannula. After obtaining all fluid and observing no more fluid return, the catheter was withdrawn and complete hemostasis achieved at puncture site. Sterile Band-Aid applied postprocedure. Patient tolerated the procedure extremely well. FINDINGS: On preliminary ultrasound imaging, there is moderate ascites noted. Approximately 5 L of clear fluid was drained. US/US paracentesis abd w/image IMPRESSION: Successful ultrasound-guided therapeutic paracentesis performed without immediate complications.
--- NOTE | ~2022-02-15 | US_ITS ---
EXAMINATION: PORTABLE ULTRASOUND PARACENTESIS CLINICAL INFORMATION: Ascites. Pain. Rule out SBP. COMPARISON: None TECHNIQUE: Following explaining ultrasound-guided paracentesis procedure, benefits and risk via a video production specialist, a written consent was obtained. Patient was supine on patient's bed and community ultrasound imaging was obtained through the abdomen. An optimal site was selected along the right lower quadrant and marked. The marked site was cleaned and draped in usual sterile manner. 1% lidocaine was injected puncture site. Through a small skin incision a 5 Faroese HALSCION catheter was advanced into the peritoneal space. After observing fluid return the stylet was withdrawn and a syringe attached to the 5 Faroese sheath and approximately 40 mL of clear light yellowish fluid was aspirated for testing. The catheter was then connected to vacuum bottle via connecting cannula and fluid was drained into vacuum bottles. After observing no more fluid return, catheter was withdrawn and complete hemostasis achieved at puncture site. Sterile dressing applied postprocedure. Patient tolerated procedure extremely well. FINDINGS: On preliminary ultrasound imaging there is large amount of ascites. Approximately 3.1 L of clear yellowish fluid was drained from the right lower quadrant for diagnostic and therapeutic purposes. US/US paracentesis abd w/image IMPRESSION: Portable successful ultrasound-guided diagnostic and therapeutic paracentesis performed.
[2022-02-15 15:55] VITALS: BP 125/70; PULSE 66; RESP 16; TEMP 36.6; O2SAT 97; BMI 31.2
--- NOTE | 2022-02-15 16:03 | ECG_ITS ---
Test Reason : ABNORMAL LABS Blood Pressure : / mmHG Vent. Rate : 064 BPM Atrial Rate : 064 BPM P-R Int : 182 ms QRS Dur : 102 ms QT Int : 448 ms P-R-T Axes : 031 -30 055 degrees QTc Int : 462 ms Normal sinus rhythm Left axis deviation Abnormal ECG When compared with ECG of 23-JAN-2022 08:37, Nonspecific T wave abnormality no longer evident in Inferior leads Referred By: Generic ED Physician Electronically Signed By:dE Peralta
[2022-02-15 16:19] LABS: Basophils Percent Auto 0.7 % (0-2); Imm Gran Abs Auto 0.01 X10*3/uL (0.00-0.03); Imm Gran Pct Auto 0.2 % (0.0-0.4); MANUAL DIFF FLAG SCAN; Mean Corpuscular Hemoglobin 23.7 pg (27.0-33.0); SCAN SMEAR FLAG 1
[2022-02-15 16:21] LABS: Eosinophils Absolute Auto 1.6 X10*3/uL (0.0-0.4); Eosinophils Percent Auto 26.1 % (0-4); Hemoglobin 10.6 g/dl (14.0-18.0); Lymphocytes Absolute Auto 1.8 X10*3/uL (1.2-4.9); Lymphocytes Percent Auto 29.1 % (20-40); Mean Corpuscular HGB Conc 31.2 g/dl (31.0-36.0); Mean Corpuscular Volume 76.1 fL (80.0-98.0); Monocytes Absolute Auto 0.6 X10*3/uL (0.1-1.2); Monocytes Percent Auto 9.9 % (2-11); Neutrophils Absolute Auto 2.1 x10*3/uL (2.0-8.3); Red Blood Count 4.47 X10*6/uL (4.60-5.80); Red Cell Distribution Width 17.6 % (11.0-16.0); White Blood Count 6.1 X10*3/uL (4.8-10.8)
[2022-02-15 16:29] LABS: Ammonia 109 umol/L (13-55)
[2022-02-15 16:38] LABS: PLT ABN DIST 1; Platelet Count 59 X10*3/uL (160-400)
[2022-02-15 16:40] LABS: Alanine Aminotransferase 21 U/L (0-40); Albumin Level 3.8 g/dL (3.5-5.0); Alkaline Phosphatase 109 U/L (39-117); Anion Gap 16 (12-20); Aspartate Amino Transferase 36 U/L (5-37); Blood Urea Nitrogen 36 mg/dL (9-16); Calcium 10.2 mg/dL (8.4-10.2); Carbon Dioxide 14 mmol/L (22-29); Chloride 116 mmol/L (96-108); Creatinine Clr Calc Pharmacy 15.5; Estimated Glomerular Filt Rate 14; Glucose Random 126 mg/dL (60-115); Lipase 96 U/L (8-78); Potassium 4.8 mmol/L (3.3-5.1); Sodium 141 mmol/L (135-145); Total Protein 7.9 g/dL (6.5-8.0)
[2022-02-15 16:41] LABS: SLIDE REVIEW VERIFIED
[2022-02-15 16:45] LABS: Troponin-I High Sensitivity 3.7 ng/L (<3.5-35.0)
--- NOTE | 2022-02-15 16:54 | ED.RECABL ---
HPI - Recheck/Abnormal Lab/Rx General Chief Complaint: Recheck/Abnormal Lab/Rx Stated Complaint: Abnormal labs Time Seen by Provider: 02/15/22 16:29 Source: patient Mode of arrival: ambulatory Limitations: no limitations History of Present Illness HPI narrative: Patient comes to the emergency after he was asked to come to the emergency room by his primary care physician. Patient states that he was told that his ammonia and creatinine are elevated. Patient is known to have chronic renal failure, baseline 2.0. Also, he was told that his ammonia is elevated. Patient states that he has been compliant with his lactulose and has been having diarrhea bowel movements as he is supposed to. Patient does not have any pain, states his belly is distended, chronic, nontender. Denies fever or chills, no URI symptoms. Related Data Home Medications Medication Instructions Recorded Confirmed isosorbide mononitrate 30 mg 1 tab PO DAILY 05/09/21 01/29/22 tablet,extended release 24 hr blood sugar diagnostic (FreeStyle 08/24/21 01/29/22 Lite Strips) zaleplon 5 mg capsule 5 mg PO BEDTIME PRN 09/27/21 01/29/22 metoprolol succinate 50 mg 50 mg PO BID 12/31/21 01/29/22 tablet,extended release 24 hr insulin lispro 100 unit/mL 12 - 15 unit SUBCUT TIDAC 01/17/22 01/29/22 subcutaneous pen (Humalog KwikPen (U-100) Insulin) aspirin 81 mg tablet,delayed 81 mg PO DAILY 01/23/22 01/29/22 release ezetimibe 10 mg tablet 1 tab PO BEDTIME 01/23/22 01/29/22 ferrous sulfate 325 mg (65 mg 325 mg PO BID 01/23/22 01/29/22 iron) tablet hydralazine 10 mg tablet 1 tab PO TID 01/23/22 01/29/22 omeprazole 40 mg capsule,delayed 1 cap PO DAILY 01/23/22 01/29/22 release Previous Rx's Medication Instructions Recorded lancets 28 gauge (FreeStyle #100 ea 05/17/21 Lancets) blood sugar diagnostic (Prodigy No #100 ea 06/13/21 Coding) blood-glucose meter (Prodigy #1 ea 06/13/21 Autocode Meter) lancets 28 gauge (Prodigy Lancets) #100 ea 06/13/21 atorvastatin 20 mg tablet 20 mg PO DAILY 30 Days #90 tab 11/28/21 insulin glargine U-300 conc 300 12 unit (0.04 mL) SUBCUT DAILY 90 12/17/21 unit/mL (1.5 mL) subcutaneous pen Days #4.5 ml (Toujeo SoloStar U-300 Insulin) flash glucose scanning reader #1 ea 12/25/21 (FreeStyle Toyin 2 [place]) flash glucose sensor (FreeStyle #2 ea 12/25/21 Toyin 2 Sensor) amlodipine 10 mg tablet 10 mg PO DAILY #90 tab 12/31/21 nitroglycerin 0.4 mg sublingual 0.4 mg SUBLINGUAL Q5M PRN #25 ea 01/09/22 tablet cefuroxime axetil 500 mg tablet 500 mg PO BID 7 Days #14 tab 01/26/22 lactulose 20 gram oral packet 20 g PO BID #120 ea 01/26/22 (Kristalose) bed rail #2 ea 01/29/22 lactulose 10 gram/15 mL oral 15 ml PO TID 30 Days #1350 ml 01/29/22 solution (Enulose) pull up diapers #200 ea 01/29/22 Allergies Allergy/AdvReac Type Severity Reaction Status Date / Time latex Allergy Unknown Verified 01/29/22 10:13 Review of Systems Review of Systems: Constitutional : No Weight loss, No Fever, No Chills, No Night Sweats, No Fatigue, No Malaise ENT/Mouth : No Hearing loss, No Ear Pain, No Nasal Congestion, No Sinus Pain, No Hoarseness, No sore throat, No Rhinorrhea, No Swallowing Difficulty Eyes: No Eye Pain, No Swelling, No Redness, No Foreign Body, No Discharge, No Vision Changes Cardiovascular : No Chest Pain, No SOB, No Dyspnea on Exertion, No Orthopnea, No Edema, No Palpitations Respiratory : No Cough, No Sputum, No Wheezing, No Smoke Exposure, No Dyspnea Gastrointestinal : No Nausea, No Vomiting, No Diarrhea, No Constipation, No abdominal Pain, No Hematochezia, No Melena, complaining of distended abdomen due to ascites Genitourinary : no irregular bleeding, No Dysuria, No Urinary Frequency, No Hematuria, No Urinary Incontinence, No Urgency, No Flank Pain, No Urinary Flow Changes, No Hesitancy Musculoskeletal : No joint pain, No Myalgias, No Joint Swelling Skin : No Skin Lesions, No rash Neuro : No Weakness, No Numbness, No Paresthesias, No Loss of Consciousness, No Dizziness, No Headache Psych : No Anxiety/Panic, No Depression, No SI/HI/AH/VH, No Social Issues, Heme/Lymph: No Bruising, No Bleeding,No Lymphadenopathy Endocrine : No Polyuria, No Polydipsia, No Temperature Intolerance [facility] Past Medical History Medical History Abnormal myocardial perfusion study Ascending aorta dilatation Ascites Ascites Atherosclerotic cardiovascular disease Bowel incontinence CKD (chronic kidney disease) stage 3, GFR 30-59 ml/min Diabetes Diabetes type 2, uncontrolled Diabetic nephropathy associated with type 2 diabetes mellitus Dyslipidemia Dyslipidemia associated with type 2 diabetes mellitus Essential hypertension Gastroparesis GERD (gastroesophageal reflux disease) Gout Hospital discharge follow-up Hypertension Hypoglycemia 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 with type 2 diabetes mellitus Lactic acidosis senior living (current) use of insulin Obesity due to excess calories 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 cancer Thrombocytopenia Thrombocytopenia Type 2 diabetes mellitus with unspecified complications Surgical History Hx of colonoscopy Family History Family History Father Diabetes CVD (cardiovascular disease) Mother Diabetes Social History Social History Household Members: Spouse and Family Housing: House Do you presently have visiting nurse or other home services: No Alcohol intake: former Patient Tobacco Use Status: Former Tobacco user Tobacco use type: Cigarette e-Cigarette/Vaping Use: Never Used Second Hand Smoke Exposure: No Advance Directives: Yes Advance Directives on File: Yes Advance Directives Date on File: 05/24/21 service: No Current occupational status: retired and disabled Cognitive needs: Yes (Pt has a walker) Hearing needs: No Vision needs: Yes (wear glasses) Physical Exam Vital Signs: Vital Signs: Last Vital Signs Temp 97.9 F 02/15/22 15:55 Pulse 66 02/15/22 17:24 Resp 15 02/15/22 17:24 BP 101/54 L 02/15/22 17:24 Pulse Ox 97 02/15/22 17:24 BMI result Body Mass Index 31.2 Const: Other: Appearance: Alert. Oriented X3. No acute distress. Eyes: Pupils equal, round and reactive to light. ENT: Pharynx normal. Neck: Normal inspection. Neck supple. No lymph nodes noted. No crepitus CVS: Normal heart rate and rhythm. Pulses normal. Normal S1 and S2, loud systolic murmur Respiratory: No respiratory distress. Breath sounds normal. No Wheezing. No rales Abdomen: Soft, distended, nontender Skin: Skin warm and dry. Normal skin color. Normal skin turgor. Extremities: +3 pitting edema bilaterally Neuro: Oriented X 3. No motor deficit. No sensory deficit. Moving all extremities. No slurred speech. CN 2 through 12 grossly intact Psych: calm, cooperative, normal affect Course Course Course Narrative: Patient has not been eating or drinking much. Patient's creatinine is 4.34, above his baseline of 2.0 Patient does not have history of CHF, we will hydrate slowly. Patient likely to be admitted. ammonia is 109, elevated, but patient is alert and oriented x3 I discussed the patient with Dr. [place], patient admitted [facility] - Recheck/Abnormal Lab/Rx Lab Data Result diagrams: 02/15/22 16:13 02/15/22 16:13 Labs: Lab Results 02/15/22 02/15/22 02/15/22 Range/Units 16:13 16:13 16:13 WBC 6.1 (4.8-10.8) X10*3/uL RBC 4.47 L (4.60-5.80) X10*6/uL Hgb 10.6 L (14.0-18.0) g/dl Hct 34.0 L (42.0-52.0) % MCV 76.1 L (80.0-98.0) fL MCH 23.7 L (27.0-33.0) pg MCHC 31.2 (31.0-36.0) g/dl RDW 17.6 H (11.0-16.0) % Plt Count 59 L (160-400) X10*3/uL MPV Not Reportable Immature Gran % (Auto) 0.2 (0.0-0.4) % Neut % (Auto) 34.0 L (45-73) % Lymph % (Auto) 29.1 (20-40) % [place] % (Auto) 9.9 (2-11) % Eos % (Auto) 26.1 H (0-4) % Baso % (Auto) 0.7 (0-2) % Lymph # (Auto) 1.8 (1.2-4.9) X10*3/uL [place] # (Auto) 0.6 (0.1-1.2) X10*3/uL Eos # (Auto) 1.6 H (0.0-0.4) X10*3/uL Baso # (Auto) 0.0 (0.0-0.2) X10*3/uL Abs Immat Gran (auto) 0.01 (0.00-0.03) X10*3/uL Absolute Neuts (auto) 2.1 (2.0-8.3) x10*3/uL Absolute Nucleated RBC 0.000 (0.0-0.012) X10*3/uL Nucleated RBC % (auto) 0.0 (0.0-0.2) /100WBC Smear Tech's Comments VERIFIED PT (9.9-13.0) SEC INR (0.9-1.1) Sodium 141 (135-145) mmol/L Potassium 4.8 (3.3-5.1) mmol/L Chloride 116 H (96-108) mmol/L Carbon Dioxide 14 L (22-29) mmol/L Anion Gap 16 (12-20) BUN 36 H (9-16) mg/dL Creatinine 4.34 H* (0.5-1.4) mg/dL Estim Creat Clear Calc 15.5 Estimated GFR 14 Random Glucose 126 H D (60-115) mg/dL Calcium 10.2 D (8.4-10.2) mg/dL Total Bilirubin 1.0 (0.0-1.0) mg/dL AST 36 (5-37) U/L ALT 21 (0-40) U/L Alkaline Phosphatase 109 (39-117) U/L Ammonia 109 H (13-55) umol/L Troponin I High Sens (<3.5-35.0) ng/L B-Natriuretic Peptide (<100) pg/mL Total Protein 7.9 (6.5-8.0) g/dL Albumin 3.8 (3.5-5.0) g/dL Lipase 96 H (8-78) U/L Urine Color Urine Appearance Urine pH (5.0-8.0) Ur Specific [place] (1.005-1.025) Urine Protein (NEG-TRACE) MG/DL Urine Glucose (UA) (NEG) MG/DL Urine Ketones (NEG) MG/DL Urine Blood (NEG) Urine Nitrite (NEG) Ur Leukocyte Esterase (NEG) Urine RBC (0) /HPF Urine WBC (0-4) /HPF Ur Squamous Epith Cells /LPF Amorphous Sediment /LPF Urine Bacteria /LPF Hyaline Casts /LPF Granular Casts /LPF 02/15/22 02/15/22 02/15/22 Range/Units 16:13 17:17 17:24 WBC (4.8-10.8) X10*3/uL RBC (4.60-5.80) X10*6/uL Hgb (14.0-18.0) g/dl Hct (42.0-52.0) % MCV (80.0-98.0) fL MCH (27.0-33.0) pg MCHC (31.0-36.0) g/dl RDW (11.0-16.0) % Plt Count (160-400) X10*3/uL MPV Immature Gran % (Auto) (0.0-0.4) % Neut % (Auto) (45-73) % Lymph % (Auto) (20-40) % [place] % (Auto) (2-11) % Eos % (Auto) (0-4) % Baso % (Auto) (0-2) % Lymph # (Auto) (1.2-4.9) X10*3/uL [place] # (Auto) (0.1-1.2) X10*3/uL Eos # (Auto) (0.0-0.4) X10*3/uL Baso # (Auto) (0.0-0.2) X10*3/uL Abs Immat Gran (auto) (0.00-0.03) X10*3/uL Absolute Neuts (auto) (2.0-8.3) x10*3/uL Absolute Nucleated RBC (0.0-0.012) X10*3/uL Nucleated RBC % (auto) (0.0-0.2) /100WBC Smear Tech's Comments PT 14.3 H (9.9-13.0) SEC INR 1.3 H (0.9-1.1) Sodium (135-145) mmol/L Potassium (3.3-5.1) mmol/L Chloride (96-108) mmol/L Carbon Dioxide (22-29) mmol/L Anion Gap (12-20) BUN (9-16) mg/dL Creatinine (0.5-1.4) mg/dL Estim Creat Clear Calc Estimated GFR Random Glucose (60-115) mg/dL Calcium (8.4-10.2) mg/dL Total Bilirubin (0.0-1.0) mg/dL AST (5-37) U/L ALT (0-40) U/L Alkaline Phosphatase (39-117) U/L Ammonia (13-55) umol/L Troponin I High Sens 3.7 (<3.5-35.0) ng/L B-Natriuretic Peptide 540 H (<100) pg/mL Total Protein (6.5-8.0) g/dL Albumin (3.5-5.0) g/dL Lipase (8-78) U/L Urine Color YELLOW Urine Appearance CLEAR Urine pH 5.5 (5.0-8.0) Ur Specific [place] 1.025 (1.005-1.025) Urine Protein 1+ H (NEG-TRACE) MG/DL Urine Glucose (UA) NEG (NEG) MG/DL Urine Ketones NEG (NEG) MG/DL Urine Blood NEG (NEG) Urine Nitrite NEG (NEG) Ur Leukocyte Esterase NEG (NEG) Urine RBC 0-2 (0) /HPF Urine WBC 1-4 (0-4) /HPF Ur Squamous Epith Cells 1+ /LPF Amorphous Sediment 1+ /LPF Urine Bacteria NONE /LPF Hyaline Casts 0-2 /LPF Granular Casts 1-4 /LPF Discharge Plan Discharge Clinical Impression: LORRI (acute kidney injury), Increased ammonia level Patient Disposition: Admitted As Inpatient Prescriptions: No Action (DME) blood-glucose meter [Prodigy Autocode Meter] Kit See Rx Instructions .Route Qty: 1 0RF Rx Instructions: As directed (DME) Prodigy No Coding Strip See Rx Instructions .Route Qty: 100 11RF Rx Instructions: 3 times a day (DME) lancets [Prodigy Lancets] 28 gauge misc See Rx Instructions .Route Qty: 100 11RF Rx Instructions: 3 times a day atorvastatin 20 mg tablet 20 mg PO DAILY 30 Days Qty: 90 3RF (DME) FreeStyle Toyin 2 [place] Misc See Rx Instructions .ROUTE .MEDSUPPLY Qty: 1 0RF Rx Instructions: As directed (DME) FreeStyle Toyin 2 Sensor Kit See Rx Instructions .ROUTE .MEDSUPPLY Qty: 2 11RF Rx Instructions: As directed every 2 weeks nitroglycerin 0.4 mg tablet, sublingual 0.4 mg sublingual Q5M PRN (Reason: chest pain) Qty: 25 2RF isosorbide mononitrate 30 mg tablet extended release 24 hr 1 tab PO DAILY 0RF (DME) FreeStyle Lite Strips Strip See Rx Instructions strip MISCELLANEOUS TID 0RF Rx Instructions: As directed to test blood sugar metoprolol succinate 50 mg tablet extended release 24 hr 50 mg PO BID 0RF insulin lispro [Humalog KwikPen Insulin] 100 unit/mL insulin pen 12 - 15 unit subcut TIDAC 0RF Rx Instructions: as directed hydralazine 10 mg tablet 1 tab PO TID 0RF omeprazole 40 mg capsule,delayed release(DR/EC) 1 cap PO DAILY 0RF aspirin 81 mg Tablet,Delayed Release (Dr/Ec) 81 mg PO DAILY 0RF ferrous sulfate 325 mg (65 mg iron) Tablet 325 mg PO BID 0RF ezetimibe 10 mg tablet 1 tab PO BEDTIME 0RF Kristalose 20 gram packet 20 g PO BID Qty: 120 0RF cefuroxime axetil 500 mg tablet 500 mg PO BID 7 Days Qty: 14 0RF (DME) lancets [FreeStyle Lancets] 28 gauge misc See Rx Instructions .Route Qty: 100 0RF Rx Instructions: test bs three times a day zaleplon 5 mg capsule 5 mg PO BEDTIME PRN (Reason: Insomnia) 0RF lactulose [Enulose] 10 gram/15 mL solution 15 ml PO TID 30 Days Qty: 1350 6RF (DME) bed rail See Rx Instructions .Route .MEDSUPPLY Qty: 2 0RF Rx Instructions: As directed (DME) pull up diapers medium See Rx Instructions .Route .MEDSUPPLY Qty: 200 6RF Rx Instructions: As directed amlodipine 10 mg tablet 10 mg PO DAILY Qty: 90 3RF Giovanni SoloStar U-300 Insulin 300 unit/mL (1.5 mL) insulin pen 12 unit subcut DAILY 90 Days Qty: 4.5 3RF
--- NOTE | 2022-02-15 17:14 | P.CNGI_ITS ---
History of Present Illness Data of Consult Service Date: 02/15/22 Requesting physician: Jeimy Quiroz Primary Care Provider: Kimber Pan MD HPI Reason for consult: Cirrhosis with worsening renal function and elevated ammonia level 71 year old Montenegrin-speaking Male with liver cirrhosis, HTN, diabetes, thrombocytopenia, CAD, gastroparesis, HLD, CKD asked to come to [facility] ED due to ab normal labs (worsening BUN, Cr and ammonia levels) Pt was hospitalized at [facility] a month ago with hepaticencephalopathy History obtained with the help of [facility] Pneumatic Tube Repairer from the patient and his who was at the bedside. Patient notes symptoms of poor appetite and nausea for the past 4 days. He has not been eating or drinking very much. He has been taking the lactulose 3 times a day and having 5-6 soft to liquid bowel movements a day. Pt notes worsening abdominal distension and lower extremity edema. he denies any abdominal pain, fevers, chills, chest pain, headache, denies hematemesis or melena 01/18/22 Pt had a LV paracentesis: Approximately 2.3 L of clear yellowish fluid was drained from the right lower quadrant. Part of this fluid was sent to lab as per referring physician's orders. with removal of 1.9 litres of fluid ? Quitted drinking 10 yrs ago (was drinking once a week Patient denies known family history of colon polyps or GI malignancy. A brother has liver problems - hepatitis. Review of Systems Review of Systems: Denies chest pain Denies shortness of breath Admits to nausea no vomiting no diarrhea Denies fever chills Constitutional: Constitutional: Reports as per HPI, Reports poor appetite and Reports weight gain Cardiovascular: Cardiovascular: Denies chest pain and Denies dyspnea on exert ion Respiratory: Respiratory: Reports cough and Denies dyspnea on exertion Gastrointestinal: Gastrointestinal: Denies abdominal pain, Reports bloating, Reports diarrhea and Reports nausea PMFSH Past Medical History Medical History (Updated 02/23/22 @ 00:02 by Background Daemon) Abnormal myocardial perfusion study Acute kidney injury Ascending aorta dilatation Ascites Ascites Atherosclerotic cardiovascular disease Bowel incontinence CKD (chronic kidney disease) stage 3, GFR 30-59 ml/min CKD (chronic kidney disease) stage 3, GFR 30-59 ml/min Diabetes Diabetes type 2, uncontrolled Diabetic nephropathy associated with type 2 diabetes mellitus Dyslipidemia Dyslipidemia associated with type 2 diabetes mellitus Elevated serum creatinine Essential hypertension Gastroparesis GERD (gastroesophageal reflux disease) Gout Hepatorenal syndrome Hospital discharge follow-up Hypertension Hypoglycemia 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 with type 2 diabetes mellitus Increased ammonia level Lactic acidosis 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 Metabolic acidosis Obesity due to excess calories 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 cancer Thrombocytopenia Thrombocytopenia Type 2 diabetes mellitus with unspecified complications Family History Family History Father Diabetes CVD (cardiovascular disease) Mother Diabetes Surgical History Surgical History (Updated 02/19/22 @ 07:59 by Manju Stearns MD) Hx of colonoscopy Social History Social History Household Members: Family Housing: Apartment Do you presently have visiting nurse or other home services: No Alcohol intake: former Patient Tobacco Use Status: Former Tobacco user Tobacco use type: Cigarette e-Cigarette/Vaping Use: Never Used Second Hand Smoke Exposure: No Advance Directives Date on File: 05/24/21 service: No Current occupational status: retired and disabled Cognitive needs: Yes (Pt has a walker) Hearing needs: No Vision needs: Yes (wear glasses) Meds Allergies Allergy/AdvReac Type Severity Reaction Status Date / Time latex Allergy Unknown Verified 01/29/22 10:13 Active Medications: Current Medications Sodium Chloride (Ns) 1,000 mls @ 300 mls/hr IVCONT .Q3H20M ONE Stop: 02/15/22 20:19 Home Medications Medication Instructions Recorded Confirmed Last Taken Type blood sugar diagnostic (FreeStyle 08/24/21 01/29/22 Unknown History Lite Strips) insulin lispro 100 unit/mL 4 unit SUBCUT TIDAC 01/17/22 02/15/22 02/15/22 History subcutaneous pen (Humalog KwikPen (U-100) Insulin) aspirin 81 mg tablet,delayed 81 mg PO DAILY 01/23/22 02/15/22 02/15/22 History release ferrous sulfate 325 mg (65 mg 325 mg PO BID 01/23/22 02/15/22 02/15/22 History iron) tablet omeprazole 40 mg capsule,delayed 1 cap PO DAILY 01/23/22 02/15/22 02/15/22 History release atorvastatin 20 mg tablet 20 mg PO BEDTIME 02/15/22 02/15/22 02/14/22 History mupirocin 2 % topical ointment 1 applic TOPICAL TID PRN 02/15/22 02/15/22 Unknown History Physical Exam Vital Signs: Vital Signs: Last Vital Signs Temp 97.9 F 02/15/22 15:55 Pulse 66 02/15/22 15:55 Resp 16 02/15/22 15:55 BP 125/70 02/15/22 15:55 Pulse Ox 97 02/15/22 15:55 BMI result Body Mass Index 31.2 Const: General: ill appearing Nutritional Appearance: obese Orientation/consciousness: patient oriented x3 Limitations: language barrier HEENT: Head: Yes normal to inspection Ears: hearing grossly normal bilaterally Mouth: Normal oral and palatal mucosa present Eyes: Sclerae: sclerae normal Pupils: Equal, round and reactive pupils present Neck: Neck: Yes normal visual inspection Chest: Chest palpation & inspection: normal inspection of the chest Resp: Effort & Inspection: normal respiratory effort Auscultation: clear to auscultation bilaterally Cardio: Palpation: normal PMI Rate: regular rate Rhythm: regular rhythm Heart sounds: S1 normal heart sound present, S2 normal heart sound present and no murmurs GI: Inspection: Yes distended Palpation (GI): nontender and Splenomegaly present Auscultation: normal bowel sounds Rectal Exam - Male: Yes deferred Skin: General skin exam: no rashes or lesions noted Neuro: General: patient oriented x3, gait normal and moves all extremities Cranial nerves: Yes Equal, round and reactive pupils present Extrem: General: Yes pedal edema (2+ pitting edema, no asterixis) Psych: Appearance: grossly normal Mental Status: mental status grossly normal Results Labs CBC & Chem 7: 02/21/22 06:38 02/22/22 05:55 Labs: Short CBC 02/15/22 Range/Units 16:13 WBC 6.1 (4.8-10.8) X10*3/uL Hgb 10.6 L (14.0-18.0) g/dl Hct 34.0 L (42.0-52.0) % Plt Count 59 L (160-400) X10*3/uL BMP 02/15/22 16:13 Sodium 141 Potassium 4.8 Chloride 116 H Carbon Dioxide 14 L BUN 36 H Creatinine 4.34 H* Calcium 10.2 D Liver Function 02/15/22 Range/Units 16:13 Total Bilirubin 1.0 (0.0-1.0) mg/dL AST 36 (5-37) U/L ALT 21 (0-40) U/L Alkaline Phosphatase 109 (39-117) U/L Albumin 3.8 (3.5-5.0) g/dL Assessment and Plan (1) Cirrhosis of liver with ascites: Qualifiers: Hepatic cirrhosis type: unspecified hepatic cirrhosis Qualified Code(s): K74.60 - Unspecified cirrhosis of liver; R18.8 - Other ascites Status: Acute 71? years old Montenegrin-speaking male with HTN, HLD, diabetes, CKD advised to come to [facility] ED due to abnormal labs (elevated BUN, Cr and ammonia levels) Pt has cirrhosis (unclear etiology - likely due to SEGUNDO or AIH (autoimmune markers were negative) complicated by refractory ascites, hepatic encephalopathy and renal insufficiency (CKD related to DM versus HRS) Diuretics were discontinued due to elevated BUN and Cr Hepatitis B and C serologies were negative. He has a hx of SBP during past hospitalization? ? Pt has had nausea with poor PO intake for the past 4 days. He has been taking lactulose and having multiple BMs (5-6) a day. Worsening renal function is likely associated with dehydration versus type 2 HRS. Labs show markedly elevated eosinophil count - ? parasitic infection, hypereosinophilic syndrome or IgG 4 related disease (2) Elevated serum creatinine: Plan ? RECOMMENDATIONS: 1. Continue lactulose for hepatic encephalopathy and monitor ammonia levels daily - titrate to 3 soft BMs a day. 2. Gentle IV hydration with repeat BUN. Cr 3. Urine sodium 4. IV albumin 100 grams daily x 2 days 5. Nephrology consult 6. Large Volume paracentesis and check cell count to rule out SBP. 7. Hemtology consult for worsening eosinophilia ? ? ? ADDENDUM: MELD SCORE on discharge from the hospital was 24 ?? ? Procedures Date of Service Date of Service: 02/15/22
[2022-02-15 17:23] LABS: B Type Natriuretic Peptide 540 pg/mL (<100)
[2022-02-15 17:24] VITALS: BP 101/54; PULSE 66; RESP 15; O2SAT 97
[2022-02-15] MEDS: 0.9 % Sodium Chloride 1,000 ML 300 ML IVCONT (17:28)
[2022-02-15 17:50] LABS: Appearance Urine CLEAR; Color Urine YELLOW; Glucose Urine UA NEG (NEG); Leukocyte Esterase Urine NEG (NEG); Nitrite Urine NEG (NEG); PH 5.5 (5.0-8.0); Specific Gravity - Urine 1.025 (1.005-1.025); UACC Culture Trigger NO; Urine Blood NEG (NEG); Urine Ketones NEG (NEG); Urine Protein 1+ MG/DL (NEG-TRACE)
[2022-02-15 17:51] LABS: INTERNATIONAL NORM RATIO 1.3 (0.9-1.1); Prothrombin Time 14.3 SEC (9.9-13.0)
--- NOTE | 2022-02-15 17:59 | P.HPHOSP_ITS ---
History of Present Illness Date of Service: 02/15/22 Chief Complaint: LORRI 71-year-old male with known history of chronic renal disease and liver cirrhosis presents today after routine lab evaluation demonstrated an increase in his creatinine and ammonia. He states over the last 3-5 days he has been increasingly nauseous with poor p.o. intake. He states his his abdomen has gotten larger similar to past episodes were he had gotten drained. He denies fever and chills. States he has not drank alcohol and greater than 10 years. (all information gleaned via interpreter and translator) Review of Systems Review of Systems: Denies chest pain Denies shortness of breath Admits to nausea no vomiting no diarrhea Denies fever chills PMFSH Medical History Abnormal myocardial perfusion study Ascending aorta dilatation Ascites Ascites Atherosclerotic cardiovascular disease Bowel incontinence CKD (chronic kidney disease) stage 3, GFR 30-59 ml/min Diabetes Diabetes type 2, uncontrolled Diabetic nephropathy associated with type 2 diabetes mellitus Dyslipidemia Dyslipidemia associated with type 2 diabetes mellitus Essential hypertension Gastroparesis GERD (gastroesophageal reflux disease) Gout Hospital discharge follow-up Hypertension Hypoglycemia 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 with type 2 diabetes mellitus Lactic acidosis meterman (current) use of insulin Obesity due to excess calories 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 cancer Thrombocytopenia Thrombocytopenia Type 2 diabetes mellitus with unspecified complications Family History Father Diabetes CVD (cardiovascular disease) Mother Diabetes Surgical History Hx of colonoscopy Social History Household Members: Spouse and Family Housing: House Do you presently have visiting nurse or other home services: No Alcohol intake: former Patient Tobacco Use Status: Former Tobacco user Tobacco use type: Cigarette e-Cigarette/Vaping Use: Never Used Second Hand Smoke Exposure: No Advance Directives: Yes Advance Directives on File: Yes Advance Directives Date on File: 05/24/21 service: No Current occupational status: retired and disabled Cognitive needs: Yes (Pt has a walker) Hearing needs: No Vision needs: Yes (wear glasses) Meds Allergies Allergy/AdvReac Type Severity Reaction Status Date / Time latex Allergy Unknown Verified 01/29/22 10:13 Active Medications: Current Medications Heparin Sodium (Porcine) (Heparin Sodium,Porcine 5,000 Unit/Ml Vial) 5,000 unit SUBCUT Q12H [facility] Sodium Chloride (Ns) 1,000 mls @ 300 mls/hr IVCONT .Q3H20M ONE Stop: 02/15/22 20:19 Last Admin: 02/15/22 17:28 Dose: 300 mls/hr Documented by: Pharmacy Consult (Consult Rx Perform Med Rec) 1 each MISCELLANE ONCE PRN PRN Reason: Consult order Sodium Chloride (0.9 % Sodium Chloride Flush 3 Ml Syringe) 3 ml IVFLUSH QSHIFT [facility] Home Medications Medication Instructions Recorded Confirmed Last Taken Type isosorbide mononitrate 30 mg 1 tab PO DAILY 05/09/21 01/29/22 01/22/22 History tablet,extended release 24 hr blood sugar diagnostic (FreeStyle 08/24/21 01/29/22 Unknown History Lite Strips) zaleplon 5 mg capsule 5 mg PO BEDTIME PRN 09/27/21 01/29/22 Unknown History metoprolol succinate 50 mg 50 mg PO BID 12/31/21 01/29/22 01/22/22 History tablet,extended release 24 hr insulin lispro 100 unit/mL 12 - 15 unit SUBCUT TIDAC 01/17/22 01/29/22 01/22/22 History subcutaneous pen (Humalog KwikPen (U-100) Insulin) aspirin 81 mg tablet,delayed 81 mg PO DAILY 01/23/22 01/29/22 01/22/22 History release ezetimibe 10 mg tablet 1 tab PO BEDTIME 01/23/22 01/29/22 01/22/22 History ferrous sulfate 325 mg (65 mg 325 mg PO BID 01/23/22 01/29/22 01/22/22 History iron) tablet hydralazine 10 mg tablet 1 tab PO TID 01/23/22 01/29/22 01/22/22 History omeprazole 40 mg capsule,delayed 1 cap PO DAILY 01/23/22 01/29/22 01/22/22 History release Physical Exam Vital Signs and Narrative: Vital Signs: Last Vital Signs Temp 97.9 F 02/15/22 15:55 Pulse 66 02/15/22 17:24 Resp 15 02/15/22 17:24 BP 101/54 L 02/15/22 17:24 Pulse Ox 97 02/15/22 17:24 BMI result Body Mass Index 31.2 Const: Other: Awake alert oriented x3 no acute distress HEENT: Other: Mucous membranes dry Resp: Other: Clear to auscultation bilaterally no rales rhonchi or wheezes Cardio: Other: No S4; positive S1-S2; no S3 murmurs rubs or gallops GI: Other: Distended firm with palpable fluid wave. Bowel sounds quiet Extrem: Other: No edema bilaterally Results Labs CBC and Chem 7: 02/15/22 16:13 02/15/22 16:13 Labs: Laboratory Results - last 24 hr 02/15/22 02/15/22 02/15/22 16:13 16:13 16:13 MCV 76.1 L MCH 23.7 L MCHC 31.2 RDW 17.6 H Plt Count 59 L MPV Not Reportable Immature Gran % (Auto) 0.2 Neut % (Auto) 34.0 L Lymph % (Auto) 29.1 [place] % (Auto) 9.9 Eos % (Auto) 26.1 H Baso % (Auto) 0.7 Lymph # (Auto) 1.8 [place] # (Auto) 0.6 Eos # (Auto) 1.6 H Baso # (Auto) 0.0 Abs Immat Gran (auto) 0.01 Absolute Neuts (auto) 2.1 Absolute Nucleated RBC 0.000 Nucleated RBC % (auto) 0.0 Smear Tech's Comments VERIFIED PT INR Carbon Dioxide 14 L Anion Gap 16 Creatinine 4.34 H* Estim Creat Clear Calc 15.5 Estimated GFR 14 Random Glucose 126 H D Calcium 10.2 D Total Bilirubin 1.0 AST 36 ALT 21 Alkaline Phosphatase 109 Ammonia 109 H Troponin I High Sens B-Natriuretic Peptide Total Protein 7.9 Albumin 3.8 Lipase 96 H Urine Color Urine Appearance Urine pH Ur Specific [place] Urine Protein Urine Glucose (UA) Urine Ketones Urine Blood Urine Nitrite Ur Leukocyte Esterase 02/15/22 02/15/22 02/15/22 16:13 17:17 17:24 MCV MCH MCHC RDW Plt Count MPV Immature Gran % (Auto) Neut % (Auto) Lymph % (Auto) [place] % (Auto) Eos % (Auto) Baso % (Auto) Lymph # (Auto) [place] # (Auto) Eos # (Auto) Baso # (Auto) Abs Immat Gran (auto) Absolute Neuts (auto) Absolute Nucleated RBC Nucleated RBC % (auto) Smear Tech's Comments PT 14.3 H INR 1.3 H Carbon Dioxide Anion Gap Creatinine Estim Creat Clear Calc Estimated GFR Random Glucose Calcium Total Bilirubin AST ALT Alkaline Phosphatase Ammonia Troponin I High Sens 3.7 B-Natriuretic Peptide 540 H Total Protein Albumin Lipase Urine Color YELLOW Urine Appearance CLEAR Urine pH 5.5 Ur Specific [place] 1.025 Urine Protein 1+ H Urine Glucose (UA) NEG Urine Ketones NEG Urine Blood NEG Urine Nitrite NEG Ur Leukocyte Esterase NEG Assessment and Plan (1) Acute kidney injury: Status: Acute (2) Cirrhosis of liver with ascites: Qualifiers: Hepatic cirrhosis type: unspecified hepatic cirrhosis Qualified Code(s): K74.60 - Unspecified cirrhosis of liver; R18.8 - Other ascites Status: Acute (3) Essential hypertension: Status: Acute (4) Diabetes type 2, uncontrolled: Qualifiers: Glycemic state: with hypoglycemia Status: Acute Plan 71-year-old male with known history of cirrhosis and chronic kidney disease 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 He recounts 3-4 days of extreme nausea with increased abdominal firmness. ER labs demonstrate acute elevation of his creatinine along with an ammonia level of 104 1. LORRI in backdrop of CKD -will limit volume secondary to cirrhosis -S PA x4 vials -sodium bicarbonate 650 mg p.o. t.i.d. -follow renals/divalents -renal consult 2. Cirrhosis with ascites -limit IV fluid -SP a x4 vials -ultrasound-guided paracentesis in a.m. -screen for SBP -continue lactulose -GI consult 3. Diabetes type 2 -lispro correctional scale -diabetic diet 4. Hypertension -hold all oral agents secondary to relative hypotension Full code Heparin Will require 2 midnights going forward for treatment of acute kidney injury and treatment of ascites Quality Stroke Does the patient have a stroke diagnosis?: No VTE Prior VTE?: No VTE Risk Level:: Medical - moderate - high VTE Device Contraindication: Treatment Not Indicated VTE Drug Contraindication: N/A - Med Ordered
[2022-02-15 18:07] LABS: Hyaline Casts Urine 0-2 /LPF
[2022-02-15 18:08] LABS: Amorphous Sediment Urine 1+ /LPF; Squamous Epithelial Cell Urine 1+ /LPF
[2022-02-15 18:10] LABS: RBC Urine 0-2 /HPF (0)
[2022-02-15] MEDS: Albumin Human 25 % 100 ML IV (18:38)
[2022-02-15] MEDS: Heparin Sodium,Porcine 5,000 UNIT/ML VIAL 5000 UNIT SUBCUT (18:39)
[2022-02-15 19:42] VITALS: BP 110/67; PULSE 65; RESP 18; TEMP 36.6; O2SAT 97
[2022-02-15] MEDS: Sodium Bicarbonate 650 MG TABLET PO (19:54)
--- NOTE | 2022-02-15 20:01 | PHA.MEDREC ---
Pharmacy Consult ? Medication Reconciliation Pharmacy has completed the medication reconciliation. Pt's family member at bedside with list of medications, she did note that she knows he was prescribed new medications recently but that the list she carries is the most accurate because they are always changing. Maria Teresa Lopez, PharmD
[2022-02-15 20:16] LABS: COVID-19 Test Negative (Negative)
[2022-02-15] MEDS: 0.9 % Sodium Chloride Flush 3 ML SYRINGE IVFLUSH (23:46)
[2022-02-15 23:47] VITALS: BP 94/56; PULSE 67; RESP 14; TEMP 36.4; O2SAT 98
[2022-02-16 00:10] LABS: Glucose, Whole Blood 95 mg/dL (60-115)
[2022-02-16 03:32] VITALS: BP 100/61; PULSE 62; RESP 18; TEMP 36.3; O2SAT 99
[2022-02-16 06:27] LABS: Eosinophils Absolute Auto 1.1 X10*3/uL (0.0-0.4)
[2022-02-16 06:29] LABS: WBCANC 4.5 X10*3/uL
[2022-02-16] MEDS: Heparin Sodium,Porcine 5,000 UNIT/ML VIAL 5000 UNIT SUBCUT ×2 (06:42→18:38)
[2022-02-16] MEDS: Albumin Human 25 % 100 ML IV ×2 (06:42→12:57)
[2022-02-16 08:00] VITALS: BP 101/63; PULSE 63; RESP 20; TEMP 36.8; O2SAT 95
[2022-02-16 08:07] LABS: MANUAL DIFF FLAG NO
[2022-02-16 08:16] LABS: Ammonia 95 umol/L (13-55)
[2022-02-16 08:17] LABS: INTERNATIONAL NORM RATIO 1.3 (0.9-1.1); Prothrombin Time 15.4 SEC (9.9-13.0)
[2022-02-16 08:23] LABS: Red Cell Distribution Width 17.2 % (11.0-16.0); SCAN SMEAR FLAG 1
[2022-02-16 08:25] LABS: Basophils Percent Auto 0.7 % (0-2); Eosinophils Absolute Auto 1.3 X10*3/uL (0.0-0.4); Eosinophils Percent Auto 28.3 % (0-4); Hematocrit 26.9 % (42.0-52.0); Hemoglobin 8.6 g/dl (14.0-18.0); Imm Gran Abs Auto 0.01 X10*3/uL (0.00-0.03); Imm Gran Pct Auto 0.2 % (0.0-0.4); Lymphocytes Absolute Auto 1.5 X10*3/uL (1.2-4.9); Lymphocytes Percent Auto 33.9 % (20-40); Mean Corpuscular Hemoglobin 23.8 pg (27.0-33.0); Mean Corpuscular Volume 74.3 fL (80.0-98.0); Monocytes Absolute Auto 0.4 X10*3/uL (0.1-1.2); Monocytes Percent Auto 9.4 % (2-11); Neutrophils Absolute Auto 1.2 x10*3/uL (2.0-8.3); Neutrophils Percent Auto 27.5 % (45-73); White Blood Count 4.5 X10*3/uL (4.8-10.8)
[2022-02-16] MEDS: 0.9 % Sodium Chloride Flush 3 ML SYRINGE IVFLUSH ×3 (08:25→21:28)
[2022-02-16 08:26] LABS: Alanine Aminotransferase 15 U/L (0-40); Albumin Level 3.5 g/dL (3.5-5.0); Alkaline Phosphatase 80 U/L (39-117); Anion Gap 15 (12-20); Aspartate Amino Transferase 29 U/L (5-37); Blood Urea Nitrogen 35 mg/dL (9-16); Calcium 9.5 mg/dL (8.4-10.2); Carbon Dioxide 15 mmol/L (22-29); Chloride 115 mmol/L (96-108); Creatinine Clr Calc Pharmacy 16.6; Estimated Glomerular Filt Rate 15; Glucose Random 77 mg/dL (60-115); Sodium 141 mmol/L (135-145); Total Protein 6.6 g/dL (6.5-8.0)
[2022-02-16 08:28] LABS: Platelet Count 44 X10*3/uL (160-400)
[2022-02-16 08:29] LABS: PLT ABN DIST 1
[2022-02-16] MEDS: Omeprazole 40 MG CAPSULE.DR PO (08:41)
[2022-02-16] MEDS: Lactulose 20 GM/30 ML SOLUTION 10 GM PO ×3 (08:41→21:27)
[2022-02-16] MEDS: Sodium Bicarbonate 650 MG TABLET PO ×3 (08:41→21:27)
[2022-02-16 09:29] LABS: Red Blood Count 3.62 X10*6/uL (4.60-5.80)
[2022-02-16] MEDS: Ferrous Sulfate 324 MG TABLET.DR PO ×2 (09:44→21:27)
[2022-02-16 12:00] VITALS: BP 100/57; PULSE 68; RESP 20; TEMP 36.9; O2SAT 97
[2022-02-16] MEDS: Lidocaine HCl 1 % MPF 5 ML VIAL SUBCUT (13:22)
[2022-02-16 13:46] LABS: MN% 95.2 %; PMN% 4.8 %
[2022-02-16 13:50] LABS: BF Shift QC OK YES; Man Diluent Bkgrd OK YES; RBC Peritoneal Fluid < 0.002 X10*6/uL
--- NOTE | 2022-02-16 13:52 | P.PNIM_ITS ---
Subjective Subjective Date of Service: 02/16/22 Review of Systems Denies chest pain Denies shortness of breath Admits to nausea no vomiting no diarrhea Denies fever chills Physical Exam Vital Signs: Vital Signs: Last Vital Signs Temp 98.3 F 02/16/22 08:00 Pulse 63 02/16/22 08:00 Resp 20 02/16/22 08:00 BP 101/63 02/16/22 08:00 Pulse Ox 95 02/16/22 08:00 BMI result Body Mass Index 31.2 Const: Other: Awake alert oriented x3 no acute distress HEENT: Other: Mucous membranes dry Resp: Other: Clear to auscultation bilaterally no rales rhonchi or wheezes Cardio: Other: No S4; positive S1-S2; no S3 murmurs rubs or gallops GI: Other: Distended firm with palpable fluid wave. Bowel sounds quiet Extrem: Other: No edema bilaterally Objective Data Active Medications Atorvastatin Calcium (Atorvastatin Calcium 20 Mg Tablet) 20 mg PO BEDTIME [facility] Ferrous Sulfate (Ferrous Sulfate 324 Mg Tablet.) 324 mg PO BID [facility] Last Admin: 02/16/22 09:44 Dose: 324 mg Documented by: JUAREZ Heparin Sodium (Porcine) (Heparin Sodium,Porcine 5,000 Unit/Ml Vial) 5,000 unit SUBCUT Q12H [facility] Last Admin: 02/16/22 06:42 Dose: 5,000 unit Documented by: TEE Lactulose (Lactulose 20 Gm/30 Ml Solution) 10 gm PO TID [facility] Last Admin: 02/16/22 08:41 Dose: 10 gm Documented by: JUAREZ Omeprazole (Omeprazole 40 Mg Capsule.) 40 mg PO DAILY [facility] Last Admin: 02/16/22 08:41 Dose: 40 mg Documented by: JUAREZ Pharmacy Consult (Consult Rx Perform Med Rec) 1 each MISCELLANE ONCE PRN PRN Reason: Consult order Pharmacy Consult (Consult Rx Perform Med Rec) 1 each MISCELLANE ONCE PRN PRN Reason: Consult order Sodium Bicarbonate (Sodium Bicarbonate 650 Mg Tablet) 650 mg PO TID [facility] Last Admin: 02/16/22 08:41 Dose: 650 mg Documented by: JUAREZ Sodium Chloride (0.9 % Sodium Chloride Flush 3 Ml Syringe) 3 ml IVFLUSH QSHIFT [facility] Last Admin: 05/07/22 08:25 Dose: 3 ml Documented by: JUAREZ Labs CBC & Chem 7: 02/16/22 07:55 02/16/22 07:55 Labs: Laboratory Results - last 24 hr 02/15/22 02/15/22 02/15/22 16:13 16:13 16:13 Hgb 10.6 L MCV 76.1 L MCH 23.7 L MCHC 31.2 RDW 17.6 H Plt Count 59 L MPV Not Reportable Immature Gran % (Auto) 0.2 Neut % (Auto) 34.0 L Lymph % (Auto) 29.1 [place] % (Auto) 9.9 Eos % (Auto) 26.1 H Baso % (Auto) 0.7 Lymph # (Auto) 1.8 [place] # (Auto) 0.6 Eos # (Auto) 1.6 H Baso # (Auto) 0.0 Abs Immat Gran (auto) 0.01 Absolute Neuts (auto) 2.1 Absolute Nucleated RBC 0.000 Nucleated RBC % (auto) 0.0 Smear Tech's Comments VERIFIED PT INR Carbon Dioxide 14 L Anion Gap 16 Creatinine 4.34 H* Estim Creat Clear Calc 15.5 Estimated GFR 14 POC Glucose Random Glucose 126 H D Calcium 10.2 D Total Bilirubin 1.0 AST 36 ALT 21 Alkaline Phosphatase 109 Ammonia 109 H Troponin I High Sens B-Natriuretic Peptide Total Protein 7.9 Albumin 3.8 Lipase 96 H Urine Color Urine Appearance Urine pH Ur Specific [place] Urine Protein Urine Glucose (UA) Urine Ketones Urine Blood Urine Nitrite Ur Leukocyte Esterase Urine RBC Urine WBC Ur Squamous Epith Cells Amorphous Sediment Urine Bacteria Hyaline Casts Granular Casts Peritoneal WBC Peritoneal RBC COVID-19 (STEVEN) COVID-19 Clin Com 02/15/22 02/15/22 02/15/22 16:13 17:17 17:24 Hgb MCV MCH MCHC RDW Plt Count MPV Immature Gran % (Auto) Neut % (Auto) Lymph % (Auto) [place] % (Auto) Eos % (Auto) Baso % (Auto) Lymph # (Auto) [place] # (Auto) Eos # (Auto) Baso # (Auto) Abs Immat Gran (auto) Absolute Neuts (auto) Absolute Nucleated RBC Nucleated RBC % (auto) Smear Tech's Comments PT 14.3 H INR 1.3 H Carbon Dioxide Anion Gap Creatinine Estim Creat Clear Calc Estimated GFR POC Glucose Random Glucose Calcium Total Bilirubin AST ALT Alkaline Phosphatase Ammonia Troponin I High Sens 3.7 B-Natriuretic Peptide 540 H Total Protein Albumin Lipase Urine Color YELLOW Urine Appearance CLEAR Urine pH 5.5 Ur Specific [place] 1.025 Urine Protein 1+ H Urine Glucose (UA) NEG Urine Ketones NEG Urine Blood NEG Urine Nitrite NEG Ur Leukocyte Esterase NEG Urine RBC 0-2 Urine WBC 1-4 Ur Squamous Epith Cells 1+ Amorphous Sediment 1+ Urine Bacteria NONE Hyaline Casts 0-2 Granular Casts 1-4 Peritoneal WBC Peritoneal RBC COVID-19 (STEVEN) COVID-19 Clin Com 02/15/22 02/16/22 02/16/22 19:52 00:06 06:00 Hgb MCV MCH MCHC RDW Plt Count MPV Immature Gran % (Auto) Neut % (Auto) Lymph % (Auto) [place] % (Auto) Eos % (Auto) Baso % (Auto) Lymph # (Auto) [place] # (Auto) Eos # (Auto) 1.1 H Baso # (Auto) Abs Immat Gran (auto) Absolute Neuts (auto) Absolute Nucleated RBC Nucleated RBC % (auto) Smear Tech's Comments PT INR Carbon Dioxide Anion Gap Creatinine Estim Creat Clear Calc Estimated GFR POC Glucose 95 Random Glucose Calcium Total Bilirubin AST ALT Alkaline Phosphatase Ammonia Troponin I High Sens B-Natriuretic Peptide Total Protein Albumin Lipase Urine Color Urine Appearance Urine pH Ur Specific [place] Urine Protein Urine Glucose (UA) Urine Ketones Urine Blood Urine Nitrite Ur Leukocyte Esterase Urine RBC Urine WBC Ur Squamous Epith Cells Amorphous Sediment Urine Bacteria Hyaline Casts Granular Casts Peritoneal WBC Peritoneal RBC COVID-19 (STEVEN) Negative COVID-19 Clin Com See Note 02/16/22 02/16/22 02/16/22 07:55 07:55 07:55 Hgb 8.6 L MCV 74.3 L MCH 23.8 L MCHC 32.0 RDW 17.2 H Plt Count 44 L D MPV Not Reportable Immature Gran % (Auto) 0.2 Neut % (Auto) 27.5 L Lymph % (Auto) 33.9 [place] % (Auto) 9.4 Eos % (Auto) 28.3 H Baso % (Auto) 0.7 Lymph # (Auto) 1.5 [place] # (Auto) 0.4 Eos # (Auto) 1.3 H Baso # (Auto) 0.0 Abs Immat Gran (auto) 0.01 Absolute Neuts (auto) 1.2 L Absolute Nucleated RBC 0.000 Nucleated RBC % (auto) 0.0 Smear Tech's Comments PT 15.4 H INR 1.3 H Carbon Dioxide 15 L Anion Gap 15 Creatinine 4.07 H* Estim Creat Clear Calc 16.6 Estimated GFR 15 POC Glucose Random Glucose 77 D Calcium 9.5 D Total Bilirubin 1.0 AST 29 ALT 15 Alkaline Phosphatase 80 D Ammonia Troponin I High Sens B-Natriuretic Peptide Total Protein 6.6 Albumin 3.5 Lipase Urine Color Urine Appearance Urine pH Ur Specific [place] Urine Protein Urine Glucose (UA) Urine Ketones Urine Blood Urine Nitrite Ur Leukocyte Esterase Urine RBC Urine WBC Ur Squamous Epith Cells Amorphous Sediment Urine Bacteria Hyaline Casts Granular Casts Peritoneal WBC Peritoneal RBC COVID-19 (STEVEN) COVID-19 [place] 02/16/22 02/16/22 07:55 12:35 Hgb MCV MCH MCHC RDW Plt Count MPV Immature Gran % (Auto) Neut % (Auto) Lymph % (Auto) [place] % (Auto) Eos % (Auto) Baso % (Auto) Lymph # (Auto) [place] # (Auto) Eos # (Auto) Baso # (Auto) Abs Immat Gran (auto) Absolute Neuts (auto) Absolute Nucleated RBC Nucleated RBC % (auto) Smear Tech's Comments PT INR Carbon Dioxide Anion Gap Creatinine Estim Creat Clear Calc Estimated GFR POC Glucose Random Glucose Calcium Total Bilirubin AST ALT Alkaline Phosphatase Ammonia 95 H Troponin I High Sens B-Natriuretic Peptide Total Protein Albumin Lipase Urine Color Urine Appearance Urine pH Ur Specific [place] Urine Protein Urine Glucose (UA) Urine Ketones Urine Blood Urine Nitrite Ur Leukocyte Esterase Urine RBC Urine WBC Ur Squamous Epith Cells Amorphous Sediment Urine Bacteria Hyaline Casts Granular Casts Peritoneal WBC 0.190 Peritoneal RBC < 0.002 COVID-19 (STEVEN) COVID-19 [place] Assessment and Plan (1) LORRI (acute kidney injury): Status: Acute (2) Cirrhosis of liver with ascites: Status: Acute (3) Essential hypertension: Status: Acute (4) Diabetic nephropathy associated with type 2 diabetes mellitus: Status: Acute Plan 71-year-old male with known history of cirrhosis and chronic kidney disease 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 He recounts 3-4 days of extreme nausea with increased abdominal firmness. ER labs demonstrate acute elevation of his creatinine along with an ammonia level of 104 1. LORRI in backdrop of CKD -will limit volume secondary to cirrhosis -S PA x4 vials -sodium bicarbonate 650 mg p.o. t.i.d. -follow renals/divalents -renal consult 2. Cirrhosis with ascites -limit IV fluid -SPA x4 vials -ultrasound-guided paracentesis done...await cell count -continue lactulose -GI consult 3. Diabetes type 2 -lispro correctional scale -diabetic diet 4. Hypertension -hold all oral agents secondary to relative hypotension Full code Heparin Will require 2 midnights going forward for treatment of acute kidney injury and treatment of ascites Quality Stroke Does the patient have a stroke diagnosis?: No VTE Prior VTE?: No VTE Risk Level:: Medical - moderate - high VTE Device Contraindication: Treatment Not Indicated VTE Drug Contraindication: N/A - Med Ordered
[2022-02-16 14:15] LABS: Lymphocyte Peritoneal Fl 64 %; Monocytes Peritoneal Fl 30 %; Neutrophils Peritoneal Fluid 6 %
--- NOTE | 2022-02-16 14:32 | P.PNNP_ITS ---
Subjective Subjective Date of Service: 02/16/22 Physical Exam Vital Signs: Vital Signs: Last Vital Signs Temp 98.5 F 02/16/22 12:00 Pulse 68 02/16/22 12:00 Resp 20 02/16/22 12:00 BP 100/57 L 02/16/22 12:00 Pulse Ox 97 02/16/22 12:00 BMI result Body Mass Index 31.2 Objective Data Labs CBC & Chem 7: 02/16/22 07:55 02/16/22 07:55 Labs: Laboratory Results - last 24 hr 02/15/22 02/15/22 02/15/22 16:13 16:13 16:13 WBC 6.1 RBC 4.47 L Hgb 10.6 L Hct 34.0 L MCV 76.1 L MCH 23.7 L MCHC 31.2 RDW 17.6 H Plt Count 59 L MPV Not Reportable Immature Gran % (Auto) 0.2 Neut % (Auto) 34.0 L Lymph % (Auto) 29.1 Tillman % (Auto) 9.9 Eos % (Auto) 26.1 H Baso % (Auto) 0.7 Lymph # (Auto) 1.8 [place] # (Auto) 0.6 Eos # (Auto) 1.6 H Baso # (Auto) 0.0 Abs Immat Gran (auto) 0.01 Absolute Neuts (auto) 2.1 Absolute Nucleated RBC 0.000 Nucleated RBC % (auto) 0.0 Smear Tech's Comments VERIFIED PT INR Sodium 141 Potassium 4.8 Chloride 116 H Carbon Dioxide 14 L Anion Gap 16 BUN 36 H Creatinine 4.34 H* Estim Creat Clear Calc 15.5 Estimated GFR 14 POC Glucose Random Glucose 126 H D Calcium 10.2 D Total Bilirubin 1.0 AST 36 ALT 21 Alkaline Phosphatase 109 Ammonia 109 H Troponin I High Sens B-Natriuretic Peptide Total Protein 7.9 Albumin 3.8 Lipase 96 H Urine Color Urine Appearance Urine pH Ur Specific [place] Urine Protein Urine Glucose (UA) Urine Ketones Urine Blood Urine Nitrite Ur Leukocyte Esterase Urine RBC Urine WBC Ur Squamous Epith Cells Amorphous Sediment Urine Bacteria Hyaline Casts Granular Casts Peritoneal WBC Peritoneal RBC Periton Neutrophils Periton Lymphocytes Peritoneal Monocytes COVID-19 (STEVEN) COVID-19 Clin Com 02/15/22 02/15/22 02/15/22 16:13 17:17 17:24 WBC RBC Hgb Hct MCV MCH MCHC RDW Plt Count MPV Immature Gran % (Auto) Neut % (Auto) Lymph % (Auto) [place] % (Auto) Eos % (Auto) Baso % (Auto) Lymph # (Auto) [place] # (Auto) Eos # (Auto) Baso # (Auto) Abs Immat Gran (auto) Absolute Neuts (auto) Absolute Nucleated RBC Nucleated RBC % (auto) Smear Tech's Comments PT 14.3 H INR 1.3 H Sodium Potassium Chloride Carbon Dioxide Anion Gap BUN Creatinine Estim Creat Clear Calc Estimated GFR POC Glucose Random Glucose Calcium Total Bilirubin AST ALT Alkaline Phosphatase Ammonia Troponin I High Sens 3.7 B-Natriuretic Peptide 540 H Total Protein Albumin Lipase Urine Color YELLOW Urine Appearance CLEAR Urine pH 5.5 Ur Specific [place] 1.025 Urine Protein 1+ H Urine Glucose (UA) NEG Urine Ketones NEG Urine Blood NEG Urine Nitrite NEG Ur Leukocyte Esterase NEG Urine RBC 0-2 Urine WBC 1-4 Ur Squamous Epith Cells 1+ Amorphous Sediment 1+ Urine Bacteria NONE Hyaline Casts 0-2 Granular Casts 1-4 Peritoneal WBC Peritoneal RBC Periton Neutrophils Periton Lymphocytes Peritoneal Monocytes COVID-19 (STEVEN) COVID-Bilibot 02/15/22 02/16/22 02/16/22 19:52 00:06 06:00 WBC RBC Hgb Hct MCV MCH MCHC RDW Plt Count MPV Immature Gran % (Auto) Neut % (Auto) Lymph % (Auto) [place] % (Auto) Eos % (Auto) Baso % (Auto) Lymph # (Auto) [place] # (Auto) Eos # (Auto) 1.1 H Baso # (Auto) Abs Immat Gran (auto) Absolute Neuts (auto) Absolute Nucleated RBC Nucleated RBC % (auto) Smear Tech's Comments PT INR Sodium Potassium Chloride Carbon Dioxide Anion Gap BUN Creatinine Estim Creat Clear Calc Estimated GFR POC Glucose 95 Random Glucose Calcium Total Bilirubin AST ALT Alkaline Phosphatase Ammonia Troponin I High Sens B-Natriuretic Peptide Total Protein Albumin Lipase Urine Color Urine Appearance Urine pH Ur Specific [place] Urine Protein Urine Glucose (UA) Urine Ketones Urine Blood Urine Nitrite Ur Leukocyte Esterase Urine RBC Urine WBC Ur Squamous Epith Cells Amorphous Sediment Urine Bacteria Hyaline Casts Granular Casts Peritoneal WBC Peritoneal RBC Periton Neutrophils Periton Lymphocytes Peritoneal Monocytes COVID-19 (STEVEN) Negative COVID-19 CrossCurrent Com See Note 02/16/22 02/16/22 02/16/22 07:55 07:55 07:55 WBC 4.5 L RBC 3.62 L Hgb 8.6 L Hct 26.9 L D MCV 74.3 L MCH 23.8 L MCHC 32.0 RDW 17.2 H Plt Count 44 L D MPV Not Reportable Immature Gran % (Auto) 0.2 Neut % (Auto) 27.5 L Lymph % (Auto) 33.9 [place] % (Auto) 9.4 Eos % (Auto) 28.3 H Baso % (Auto) 0.7 Lymph # (Auto) 1.5 [place] # (Auto) 0.4 Eos # (Auto) 1.3 H Baso # (Auto) 0.0 Abs Immat Gran (auto) 0.01 Absolute Neuts (auto) 1.2 L Absolute Nucleated RBC 0.000 Nucleated RBC % (auto) 0.0 Smear Tech's Comments PT 15.4 H INR 1.3 H Sodium 141 Potassium 4.0 Chloride 115 H Carbon Dioxide 15 L Anion Gap 15 BUN 35 H Creatinine 4.07 H* Estim Creat Clear Calc 16.6 Estimated GFR 15 POC Glucose Random Glucose 77 D Calcium 9.5 D Total Bilirubin 1.0 AST 29 ALT 15 Alkaline Phosphatase 80 D Ammonia Troponin I High Sens B-Natriuretic Peptide Total Protein 6.6 Albumin 3.5 Lipase Urine Color Urine Appearance Urine pH Ur Specific [place] Urine Protein Urine Glucose (UA) Urine Ketones Urine Blood Urine Nitrite Ur Leukocyte Esterase Urine RBC Urine WBC Ur Squamous Epith Cells Amorphous Sediment Urine Bacteria Hyaline Casts Granular Casts Peritoneal WBC Peritoneal RBC Periton Neutrophils Periton Lymphocytes Peritoneal Monocytes COVID-19 (STEVEN) COVID-19 Clin Com 02/16/22 02/16/22 07:55 12:35 WBC RBC Hgb Hct MCV MCH MCHC RDW Plt Count MPV Immature Gran % (Auto) Neut % (Auto) Lymph % (Auto) [place] % (Auto) Eos % (Auto) Baso % (Auto) Lymph # (Auto) [place] # (Auto) Eos # (Auto) Baso # (Auto) Abs Immat Gran (auto) Absolute Neuts (auto) Absolute Nucleated RBC Nucleated RBC % (auto) Smear Tech's Comments PT INR Sodium Potassium Chloride Carbon Dioxide Anion Gap BUN Creatinine Estim Creat Clear Calc Estimated GFR POC Glucose Random Glucose Calcium Total Bilirubin AST ALT Alkaline Phosphatase Ammonia 95 H Troponin I High Sens B-Natriuretic Peptide Total Protein Albumin Lipase Urine Color Urine Appearance Urine pH Ur Specific [place] Urine Protein Urine Glucose (UA) Urine Ketones Urine Blood Urine Nitrite Ur Leukocyte Esterase Urine RBC Urine WBC Ur Squamous Epith Cells Amorphous Sediment Urine Bacteria Hyaline Casts Granular Casts Peritoneal WBC 0.190 Peritoneal RBC < 0.002 Periton Neutrophils 6 Periton Lymphocytes 64 Peritoneal Monocytes 30 COVID-19 (STEVEN) COVID-19 Clin Com Procedures Date of Service Date of Service: 02/16/22 Assessment & Plan Assessment and plan (1) LORRI (acute kidney injury): Status: Acute (2) Metabolic acidosis: Status: Acute (3) CKD (chronic kidney disease) stage 3, GFR 30-59 ml/min: Status: Acute Plan LORRI due to compromised kidney perfusion versus acute tubular injury versus hepao renal syndrome type 1 metabolic acidosis in the setting of LORRI and liver disease 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
[2022-02-16 15:28] VITALS: BP 107/64; PULSE 66; RESP 18; TEMP 36.6; O2SAT 97
--- NOTE | 2022-02-16 16:21 | MHC.CM.PN ---
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 D/C PLAN: HOME VS HOME W/NEW VNA, FAMILY FOR TRANSPORT
[2022-02-16] MEDS: Midodrine HCl 5 MG TABLET PO (16:27)
[2022-02-16 19:19] VITALS: BP 109/55; PULSE 68; RESP 18; TEMP 36.6; O2SAT 94
[2022-02-16] MEDS: Atorvastatin Calcium 20 MG TABLET PO (21:27)
[2022-02-16 22:26] LABS: Sodium Urine Random < 20.0 mmol/L
[2022-02-16 23:34] VITALS: BP 109/52; PULSE 73; RESP 16; TEMP 37.2; O2SAT 96
[2022-02-17 03:18] VITALS: BP 108/54; PULSE 68; RESP 18; TEMP 37; O2SAT 96
[2022-02-17] MEDS: Heparin Sodium,Porcine 5,000 UNIT/ML VIAL 5000 UNIT SUBCUT ×2 (05:58→17:20)
[2022-02-17 06:06] LABS: pH Peritoneal Fluid 7.43
[2022-02-17 06:07] LABS: Albumin Peritoneal Fluid 15
[2022-02-17 06:08] LABS: LDH Peritoneal Fluid 33; Total Protein Peritoneal Fluid 0.7
[2022-02-17 06:10] LABS: Amylase Peritoneal Fluid 15; Glucose Peritoneal Fluid 84
[2022-02-17 08:00] VITALS: BP 130/71; PULSE 79; RESP 20; TEMP 37; O2SAT 97
[2022-02-17] MEDS: Omeprazole 40 MG CAPSULE.DR PO (09:22)
[2022-02-17] MEDS: Sodium Bicarbonate 650 MG TABLET PO ×3 (09:22→22:04)
[2022-02-17] MEDS: Midodrine HCl 5 MG TABLET PO ×3 (09:22→17:10)
[2022-02-17] MEDS: 0.9 % Sodium Chloride Flush 3 ML SYRINGE IVFLUSH ×3 (09:22→22:04)
[2022-02-17] MEDS: Lactulose 20 GM/30 ML SOLUTION 10 GM PO ×3 (09:22→22:04)
[2022-02-17] MEDS: Ferrous Sulfate 324 MG TABLET.DR PO ×2 (09:22→22:04)
[2022-02-17 11:38] VITALS: BP 123/69; PULSE 75; RESP 20; TEMP 36.5; O2SAT 97
--- NOTE | 2022-02-17 12:51 | PM.PNNEP ---
Subjective Subjective Date of Service: 02/17/22 Interval history: seen and examined c/o nausea Physical Exam Vital Signs: Vital Signs: Last Vital Signs Temp 97.7 F 02/17/22 11:38 Pulse 75 02/17/22 11:38 Resp 20 02/17/22 11:38 BP 123/69 02/17/22 11:38 Pulse Ox 97 02/17/22 11:38 BMI result Body Mass Index 31.2 Const: General: no acute distress HEENT: Head: Yes normocephalic and Yes atraumatic Neck: Neck: Yes supple Resp: Auscultation: diminished lung sounds Cardio: Heart sounds: S1 normal heart sound present and S2 normal heart sound present GI: Palpation (GI): Ascites present Extrem: General: Yes normal to inspection Objective Data Labs CBC & Chem 7: 02/16/22 07:55 02/16/22 07:55 Labs: Laboratory Results - last 24 hr 02/16/22 02/16/22 02/16/22 12:35 12:35 12:35 Ur Random Sodium Peritoneal pH 7.43 Peritoneal WBC 0.190 Peritoneal RBC < 0.002 Periton Neutrophils 6 Periton Lymphocytes 64 Peritoneal Monocytes 30 Peritoneal Tot Protein 0.7 Peritoneal Albumin 15 Peritoneal LDH 33 Peritoneal Glucose 84 Peritoneal Amylase 15 02/16/22 22:00 Ur Random Sodium < 20.0 Peritoneal pH Peritoneal WBC Peritoneal RBC Periton Neutrophils Periton Lymphocytes Peritoneal Monocytes Peritoneal Tot Protein Peritoneal Albumin Peritoneal LDH Peritoneal Glucose Peritoneal Amylase Microbiology Microbiology Results: Microbiology 02/16/22 12:35 Ascites Fluid Gram Stain - Final 02/16/22 12:35 Ascites Fluid Anaerobic Culture - Preliminary No growth to date. 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
[2022-02-17] MEDS: ondansetron HCL 4 MG/2 ML VIAL IVPUSH ×2 (12:53→22:18)
[2022-02-17 13:46] LABS: Eosinophils Percent Auto 26.6 % (0-4); Imm Gran Abs Auto 0.01 X10*3/uL (0.00-0.03); Imm Gran Pct Auto 0.2 % (0.0-0.4); MANUAL DIFF FLAG SCAN; SCAN SMEAR FLAG 1
[2022-02-17 13:48] LABS: Basophils Percent Auto 0.4 % (0-2); Eosinophils Absolute Auto 1.3 X10*3/uL (0.0-0.4); Hematocrit 31.4 % (42.0-52.0); Hemoglobin 10.2 g/dl (14.0-18.0); Lymphocytes Absolute Auto 1.5 X10*3/uL (1.2-4.9); Mean Corpuscular HGB Conc 32.5 g/dl (31.0-36.0); Mean Corpuscular Hemoglobin 23.7 pg (27.0-33.0); Monocytes Absolute Auto 0.5 X10*3/uL (0.1-1.2); Neutrophils Absolute Auto 1.6 x10*3/uL (2.0-8.3); Neutrophils Percent Auto 32.8 % (45-73); Red Cell Distribution Width 17.2 % (11.0-16.0)
[2022-02-17 13:49] LABS: Platelet Count 46 X10*3/uL (160-400)
[2022-02-17 13:50] LABS: PLT ABN DIST 1
[2022-02-17 14:03] LABS: Ammonia 226 umol/L (13-55)
[2022-02-17 14:04] LABS: SLIDE REVIEW VERIFIED
[2022-02-17 14:10] LABS: Alanine Aminotransferase 17 U/L (0-40); Albumin Level 3.9 g/dL (3.5-5.0); Alkaline Phosphatase 86 U/L (39-117); Anion Gap 20 (12-20); Aspartate Amino Transferase 33 U/L (5-37); Bilirubin Total 1.3 mg/dL (0.0-1.0); Blood Urea Nitrogen 33 mg/dL (9-16); Calcium 9.6 mg/dL (8.4-10.2); Carbon Dioxide 14 mmol/L (22-29); Chloride 111 mmol/L (96-108); Creatinine Clr Calc Pharmacy 16.6; Estimated Glomerular Filt Rate 15; Glucose Random 146 mg/dL (60-115); Lipase 84 U/L (8-78); Potassium 3.8 mmol/L (3.3-5.1); Sodium 141 mmol/L (135-145); Total Protein 7.3 g/dL (6.5-8.0)
[2022-02-17 15:43] VITALS: BP 144/77; PULSE 84; RESP 18; TEMP 37.1; O2SAT 95
--- NOTE | 2022-02-17 15:54 | P.PNIM_ITS ---
Subjective Subjective Date of Service: 02/17/22 Review of Systems Denies chest pain Denies shortness of breath Admits to nausea no vomiting no diarrhea Denies fever chills Physical Exam Vital Signs: Vital Signs: Last Vital Signs Temp 98.7 F 02/17/22 15:43 Pulse 84 02/17/22 15:43 Resp 18 02/17/22 15:43 BP 144/77 H 02/17/22 15:43 Pulse Ox 95 02/17/22 15:43 BMI result Body Mass Index 31.2 Const: Other: Awake alert oriented x3 no acute distress HEENT: Other: Mucous membranes dry Resp: Other: Clear to auscultation bilaterally no rales rhonchi or wheezes Cardio: Other: No S4; positive S1-S2; no S3 murmurs rubs or gallops GI: Other: Distended firm with palpable fluid wave. Bowel sounds quiet Extrem: Other: No edema bilaterally Objective Data Active Medications Atorvastatin Calcium (Atorvastatin Calcium 20 Mg Tablet) 20 mg PO BEDTIME [facility] Last Admin: 02/16/22 21:27 Dose: 20 mg Documented by: TEE Ferrous Sulfate (Ferrous Sulfate 324 Mg Tablet.) 324 mg PO BID [facility] Last Admin: 02/17/22 09:22 Dose: 324 mg Documented by: CHRIS Heparin Sodium (Porcine) (Heparin Sodium,Porcine 5,000 Unit/Ml Vial) 5,000 unit SUBCUT Q12H [facility] Last Admin: 02/17/22 05:58 Dose: 5,000 unit Documented by: ETE Albumin Human (Kedbumin 25 %) 100 mls @ 100 mls/hr IV Q1H [facility] Stop: 02/17/22 17:59 Lactulose (Lactulose 20 Gm/30 Ml Solution) 10 gm PO TID [facility] Last Admin: 02/17/22 15:42 Dose: 10 gm Documented by: CHRIS Midodrine (Midodrine Hcl 5 Mg Tablet) 5 mg PO TIDWM [facility] Last Admin: 02/17/22 12:36 Dose: 5 mg Documented by: CHRIS Omeprazole (Omeprazole 40 Mg Capsule.) 40 mg PO DAILY [facility] Last Admin: 02/17/22 09:22 Dose: 40 mg Documented by: CHRIS Ondansetron HCl (Ondansetron Hcl 4 Mg/2 Ml Vial) 4 mg IVPUSH Q4H PRN PRN Reason: Nausea and Vomiting Last Admin: 02/17/22 12:53 Dose: 4 mg Documented by: CHRIS Pharmacy Consult (Consult Rx Perform Med Rec) 1 each MISCELLANE ONCE PRN PRN Reason: Consult order Pharmacy Consult (Consult Rx Perform Med Rec) 1 each MISCELLANE ONCE PRN PRN Reason: Consult order Sodium Bicarbonate (Sodium Bicarbonate 650 Mg Tablet) 650 mg PO TID [facility] Last Admin: 02/17/22 15:42 Dose: 650 mg Documented by: CHRIS Sodium Chloride (0.9 % Sodium Chloride Flush 3 Ml Syringe) 3 ml IVFLUSH QSHIFT [facility] Last Admin: 02/17/22 15:44 Dose: 3 ml Documented by: CHRIS Labs CBC & Chem 7: 02/17/22 13:13 02/17/22 13:13 Labs: Laboratory Results - last 24 hr 02/16/22 02/16/22 02/16/22 12:35 12:35 22:00 MCV MCH MCHC RDW Plt Count MPV Immature Gran % (Auto) Neut % (Auto) Lymph % (Auto) [place] % (Auto) Eos % (Auto) Baso % (Auto) Lymph # (Auto) [place] # (Auto) Eos # (Auto) Baso # (Auto) Abs Immat Gran (auto) Absolute Neuts (auto) Absolute Nucleated RBC Nucleated RBC % (auto) Smear Tech's Comments Anion Gap Estim Creat Clear Calc Estimated GFR Random Glucose Calcium Total Bilirubin AST ALT Alkaline Phosphatase Ammonia Total Protein Albumin Lipase Ur Random Sodium < 20.0 Peritoneal pH 7.43 Peritoneal Tot Protein 0.7 Peritoneal Albumin 15 Peritoneal LDH 33 Peritoneal Glucose 84 Peritoneal Amylase 15 02/17/22 02/17/22 02/17/22 13:13 13:13 13:13 MCV 73.0 L MCH 23.7 L MCHC 32.5 RDW 17.2 H Plt Count 46 L MPV Not Reportable Immature Gran % (Auto) 0.2 Neut % (Auto) 32.8 L Lymph % (Auto) 30.0 [place] % (Auto) 10.0 Eos % (Auto) 26.6 H Baso % (Auto) 0.4 Lymph # (Auto) 1.5 [place] # (Auto) 0.5 Eos # (Auto) 1.3 H Baso # (Auto) 0.0 Abs Immat Gran (auto) 0.01 Absolute Neuts (auto) 1.6 L Absolute Nucleated RBC 0.000 Nucleated RBC % (auto) 0.0 Smear Tech's Comments VERIFIED Anion Gap 20 Estim Creat Clear Calc 16.6 Estimated GFR 15 Random Glucose 146 H D Calcium 9.6 Total Bilirubin 1.3 H AST 33 ALT 17 Alkaline Phosphatase 86 Ammonia 226 H Total Protein 7.3 Albumin 3.9 Lipase 84 H Ur Random Sodium Peritoneal pH Peritoneal Tot Protein Peritoneal Albumin Peritoneal LDH Peritoneal Glucose Peritoneal Amylase Microbiology Microbiology Results: Microbiology 02/16/22 12:35 Gram Stain - Final Ascites Fluid Anaerobic Culture - Preliminary No growth to date. 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 He recounts 3-4 days of extreme nausea with increased abdominal firmness. ER labs demonstrate acute elevation of his creatinine along with an ammonia level of 104 1. LORRI in backdrop of CKD -SPA x2 vials -sodium bicarbonate 650 mg p.o. t.i.d. -follow renals/divalents 2. Cirrhosis with ascites -ultrasound-guided paracentesis done...may need additional tap -continue lactulose..add rifimixin -GI consult 3. Diabetes type 2 -lispro correctional scale -diabetic diet 4. Hypertension -hold all oral agents secondary to relative hypotension Full code Heparin Will require treatment of acute kidney injury and treatment of ascites Quality Stroke Does the patient have a stroke diagnosis?: No VTE Prior VTE?: No VTE Risk Level:: Medical - moderate - high VTE Device Contraindication: Treatment Not Indicated VTE Drug Contraindication: N/A - Med Ordered
[2022-02-17] MEDS: Albumin Human 25 % 100 ML IV ×2 (17:11→18:28)
[2022-02-17 18:49] VITALS: BP 119/62; PULSE 88; RESP 18; TEMP 37.1; O2SAT 96
[2022-02-17] MEDS: rifAXIMin 550 MG TABLET PO (22:04)
[2022-02-17] MEDS: Atorvastatin Calcium 20 MG TABLET PO (22:04)
[2022-02-17 23:49] VITALS: BP 94/60; PULSE 69; RESP 20; TEMP 36.8; O2SAT 95
[2022-02-18 03:39] VITALS: BP 94/56; PULSE 63; RESP 16; TEMP 36.6; O2SAT 97
[2022-02-18 06:08] LABS: Vitamin B12 579 pg/mL (200-900)
[2022-02-18 06:10] LABS: Mean Corpuscular HGB Conc 32.5 g/dl (31.0-36.0); Mean Corpuscular Hemoglobin 23.7 pg (27.0-33.0); SCAN SMEAR FLAG 1; White Blood Count 4.7 X10*3/uL (4.8-10.8)
[2022-02-18] MEDS: Heparin Sodium,Porcine 5,000 UNIT/ML VIAL 5000 UNIT SUBCUT ×2 (06:11→18:06)
[2022-02-18 06:13] LABS: Basophils Percent Auto 0.4 % (0-2); Eosinophils Absolute Auto 1.3 X10*3/uL (0.0-0.4); Eosinophils Percent Auto 28.2 % (0-4); Hematocrit 27.4 % (42.0-52.0); Hemoglobin 8.9 g/dl (14.0-18.0); Lymphocytes Absolute Auto 1.3 X10*3/uL (1.2-4.9); Lymphocytes Percent Auto 26.9 % (20-40); MANUAL DIFF FLAG SCAN; Mean Corpuscular Volume 72.9 fL (80.0-98.0); Monocytes Absolute Auto 0.4 X10*3/uL (0.1-1.2); Neutrophils Absolute Auto 1.7 x10*3/uL (2.0-8.3); Neutrophils Percent Auto 35.5 % (45-73); Red Blood Count 3.76 X10*6/uL (4.60-5.80); Red Cell Distribution Width 16.7 % (11.0-16.0)
[2022-02-18 06:14] LABS: Ammonia 68 umol/L (13-55)
[2022-02-18 06:19] LABS: PLT ABN DIST 1; Platelet Count 39 X10*3/uL (160-400)
[2022-02-18 06:35] LABS: Alanine Aminotransferase 14 U/L (0-40); Albumin Level 3.8 g/dL (3.5-5.0); Alkaline Phosphatase 69 U/L (39-117); Anion Gap 15 (12-20); Aspartate Amino Transferase 32 U/L (5-37); Bilirubin Total 1.2 mg/dL (0.0-1.0); Blood Urea Nitrogen 30 mg/dL (9-16); Calcium 9.4 mg/dL (8.4-10.2); Carbon Dioxide 17 mmol/L (22-29); Chloride 114 mmol/L (96-108); Creatinine Clr Calc Pharmacy 16.7; Estimated Glomerular Filt Rate 15; Glucose Fasting 85 mg/dL (60-99); Potassium 3.7 mmol/L (3.3-5.1); Sodium 142 mmol/L (135-145); Total Protein 6.3 g/dL (6.5-8.0)
[2022-02-18 06:37] LABS: SLIDE REVIEW VERIFIED
[2022-02-18 08:00] VITALS: BP 115/66; PULSE 65; RESP 20; TEMP 36.8; O2SAT 98
[2022-02-18] MEDS: rifAXIMin 550 MG TABLET PO ×2 (08:49→21:16)
[2022-02-18] MEDS: Ferrous Sulfate 324 MG TABLET.DR PO ×2 (08:49→21:15)
[2022-02-18] MEDS: Omeprazole 40 MG CAPSULE.DR PO (08:49)
[2022-02-18] MEDS: Midodrine HCl 5 MG TABLET PO ×3 (08:49→18:06)
[2022-02-18] MEDS: Sodium Bicarbonate 650 MG TABLET PO ×3 (08:49→21:15)
[2022-02-18] MEDS: Lactulose 20 GM/30 ML SOLUTION 10 GM PO ×3 (08:49→21:16)
[2022-02-18] MEDS: 0.9 % Sodium Chloride Flush 3 ML SYRINGE IVFLUSH ×3 (08:50→21:16)
[2022-02-18 11:25] VITALS: BP 103/65; PULSE 72; RESP 20; TEMP 36.9; O2SAT 97
--- NOTE | 2022-02-18 11:33 | MHC.CLN ---
NUTRITION ADDED 2 GRAM SODIUM TO DIET ORDER DUE TO CKD STAGE 3. DIET=DIABETIC 2000 KCAL, 2 GRAM SODIUM.
--- NOTE | 2022-02-18 12:49 | CONS_ITS ---
DATE OF SERVICE: 02/17/2022 HISTORY OF PRESENT ILLNESS: This is a 71-year-old patient with a history of chronic kidney disease, end-stage liver disease, who presented to the hospital with worsening kidney function, elevated ammonia. The patient has been complaining of nausea with decreased oral intake and also states that he noticed that his ascites was getting larger. Patient has a history of recurrent ascites that has required paracenteses in the past. At the time of the consultation, he denies any chest pain or shortness of breath. He denies any diarrhea or vomiting. PAST MEDICAL HISTORY: Remarkable for chronic kidney disease, acute kidney injury, end-stage liver disease, diabetes mellitus, hypertension, gout, obesity, coronary artery disease, dyslipidemia, gastroparesis, GERD. MEDICATION: As an outpatient review and included isosorbide, insulin, aspirin, Zetia, hydralazine, omeprazole. ALLERGIES: HE IS NOT ALLERGIC TO MEDICATIONS. SOCIAL HISTORY: Has a history of alcohol abuse. FAMILY HISTORY: Negative for kidney disease. REVIEW OF SYSTEMS: 10-point review is negative except for pertinent in History of Present Illness. PHYSICAL EXAMINATION: VITAL SIGNS: Blood pressure is 100/57, heart rate 68, respiratory rate 20, temperature 98.5. CONSTITUTIONAL: Looks his stated age. No acute distress. NEUROLOGIC: Alert, awake. HEENT: Head is atraumatic, normocephalic. NECK: Supple. LUNGS: Decreased breath sounds. CARDIOVASCULAR: S1, S2. No rub. ABDOMEN: Distended. EXTREMITIES: Peripheral edema. LABORATORY DATA: Showed a white count 4.5, hemoglobin 8.6, platelet count 44. Sodium 141, potassium 4, chloride 115, CO2 of 15, BUN 35, creatinine 4.07. IMPRESSION: 1. Acute kidney injury. 2. Metabolic acidosis. 3. Chronic kidney disease stage 3. PLAN: This is a patient with acute kidney injury due to compromised kidney perfusion versus acute tubular injury versus hepatorenal syndrome type 1. Has a metabolic acidosis in the setting of acute kidney injury on liver disease. He is known to have chronic kidney disease with hepatorenal syndrome type 2. He has diuretic resistant ascites. I would check his urine sodium. Continue with midodrine 5 mg t.i.d. and albumin infusion. I will start him on sodium bicarbonate 650 mg 3 times a day and avoid the IV fluid for now. He does not have any indication for renal placement therapy. We will continue follow closely his kidney function, electrolytes along with vitamin D. Thank you for allowing me to participate in the care of this patient. Bhavna Worley MD GF/MODL / [phone]
[2022-02-18 15:42] VITALS: BP 112/72; PULSE 63; RESP 18; TEMP 36.4; O2SAT 97
--- NOTE | 2022-02-18 16:23 | MHC.CM.PN ---
PT NOT YET MEDICALLY CLEARED FOR DC. DCP REMAINS HOME WITH RESUMPTION OF BILLET ASSEMBLER SERVICES
--- NOTE | 2022-02-18 16:24 | P.PNIM_ITS ---
Subjective Subjective Date of Service: 02/18/22 Interval History: Note stomach to be enlarging. Otherwise no acute medical issues Review of Systems Denies chest pain Denies shortness of breath Admits to nausea no vomiting no diarrhea Denies fever chills Physical Exam Vital Signs: Vital Signs: Last Vital Signs Temp 97.6 F 02/18/22 15:42 Pulse 63 02/18/22 15:42 Resp 18 02/18/22 15:42 BP 112/72 02/18/22 15:42 Pulse Ox 97 02/18/22 15:42 BMI result Body Mass Index 31.2 Const: Other: Awake alert oriented x3 no acute distress HEENT: Other: Mucous membranes dry Resp: Other: Clear to auscultation bilaterally no rales rhonchi or wheezes Cardio: Other: No S4; positive S1-S2; no S3 murmurs rubs or gallops GI: Other: Distended firm with palpable fluid wave. Bowel sounds quiet Extrem: Other: No edema bilaterally Objective Data Active Medications Atorvastatin Calcium (Atorvastatin Calcium 20 Mg Tablet) 20 mg PO BEDTIME [facility] Last Admin: 02/17/22 22:04 Dose: 20 mg Documented by: NANDO Ferrous Sulfate (Ferrous Sulfate 324 Mg Tablet.) 324 mg PO BID [facility] Last Admin: 02/18/22 08:49 Dose: 324 mg Documented by: ANAHI Heparin Sodium (Porcine) (Heparin Sodium,Porcine 5,000 Unit/Ml Vial) 5,000 unit SUBCUT Q12H [facility] Last Admin: 02/18/22 06:11 Dose: 5,000 unit Documented by: NANDO Albumin Human (Kedbumin 25 %) 100 mls @ 100 mls/hr IV Q1H [facility] Stop: 02/18/22 18:29 Lactulose (Lactulose 20 Gm/30 Ml Solution) 10 gm PO TID [facility] Last Admin: 02/18/22 14:46 Dose: 10 gm Documented by: ANAHI Midodrine (Midodrine Hcl 5 Mg Tablet) 5 mg PO TIDWM [facility] Last Admin: 02/18/22 12:09 Dose: 5 mg Documented by: ANAHI Omeprazole (Omeprazole 40 Mg Capsule.) 40 mg PO DAILY [facility] Last Admin: 02/18/22 08:49 Dose: 40 mg Documented by: ANAHI Ondansetron HCl (Ondansetron Hcl 4 Mg/2 Ml Vial) 4 mg IVPUSH Q4H PRN PRN Reason: Nausea and Vomiting Last Admin: 02/17/22 22:18 Dose: 4 mg Documented by: NANDO Pharmacy Consult (Consult Rx Perform Med Rec) 1 each MISCELLANE ONCE PRN PRN Reason: Consult order Pharmacy Consult (Consult Rx Perform Med Rec) 1 each MISCELLANE ONCE PRN PRN Reason: Consult order Rifaximin (Rifaximin 550 Mg Tablet) 550 mg PO BID [facility] Last Admin: 02/18/22 08:49 Dose: 550 mg Documented by: ANAHI Sodium Bicarbonate (Sodium Bicarbonate 650 Mg Tablet) 650 mg PO TID [facility] Last Admin: 02/18/22 14:46 Dose: 650 mg Documented by: ANAHI Sodium Chloride (0.9 % Sodium Chloride Flush 3 Ml Syringe) 3 ml IVFLUSH QSHIFT [facility] Last Admin: 02/18/22 14:47 Dose: 3 ml Documented by: ANAHI Labs CBC & Chem 7: 02/18/22 05:53 02/18/22 05:53 Labs: Laboratory Results - last 24 hr 02/17/22 02/18/22 02/18/22 13:13 05:53 05:53 MCV 72.9 L MCH 23.7 L MCHC 32.5 RDW 16.7 H Plt Count 39 L MPV Not Reportable Immature Gran % (Auto) 0.0 Neut % (Auto) 35.5 L Lymph % (Auto) 26.9 [place] % (Auto) 9.0 Eos % (Auto) 28.2 H Baso % (Auto) 0.4 Lymph # (Auto) 1.3 [place] # (Auto) 0.4 Eos # (Auto) 1.3 H Baso # (Auto) 0.0 Abs Immat Gran (auto) 0.00 Absolute Neuts (auto) 1.7 L Absolute Nucleated RBC 0.000 Nucleated RBC % (auto) 0.0 Smear Tech's Comments VERIFIED Anion Gap 15 Estim Creat Clear Calc 16.7 Estimated GFR 15 Fasting Glucose 85 Calcium 9.4 Total Bilirubin 1.2 H AST 32 ALT 14 Alkaline Phosphatase 69 Ammonia Total Protein 6.3 L Albumin 3.8 Vitamin B12 579 02/18/22 05:53 MCV MCH MCHC RDW Plt Count MPV Immature Gran % (Auto) Neut % (Auto) Lymph % (Auto) [place] % (Auto) Eos % (Auto) Baso % (Auto) Lymph # (Auto) [place] # (Auto) Eos # (Auto) Baso # (Auto) Abs Immat Gran (auto) Absolute Neuts (auto) Absolute Nucleated RBC Nucleated RBC % (auto) Smear Tech's Comments Anion Gap Estim Creat Clear Calc Estimated GFR Fasting Glucose Calcium Total Bilirubin AST ALT Alkaline Phosphatase Ammonia 68 H Total Protein Albumin Vitamin B12 Microbiology Microbiology Results: Microbiology 02/16/22 12:35 Gram Stain - Final Ascites Fluid Anaerobic Culture - Preliminary No growth to date. 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 He recounts 3-4 days of extreme nausea with increased abdominal firmness. ER labs demonstrate acute elevation of his creatinine along with an ammonia level of 104 1.Cirrhosis with ascites -ultrasound-guided paracentesis in am... Discussed with GI -continue lactulose..add rifimixin 2.LORRI in backdrop of CKD -SPA x2 vials -sodium bicarbonate 650 mg p.o. t.i.d. -follow renals/divalents 3. Diabetes type 2 -lispro correctional scale -diabetic diet 4. Hypertension -hold all oral agents secondary to relative hypotension Full code Heparin Will require treatment of acute kidney injury and treatment of ascites Quality Stroke Does the patient have a stroke diagnosis?: No VTE Prior VTE?: No VTE Risk Level:: Medical - moderate - high VTE Device Contraindication: Treatment Not Indicated VTE Drug Contraindication: N/A - Med Ordered
[2022-02-18 16:25] LABS: Glucose, Whole Blood 115 mg/dL (60-115)
[2022-02-18] MEDS: Albumin Human 25 % 100 ML IV ×2 (18:00→19:12)
[2022-02-18 19:51] VITALS: BP 126/80; PULSE 70; RESP 18; TEMP 36.6; O2SAT 98
[2022-02-18] MEDS: Atorvastatin Calcium 20 MG TABLET PO (21:15)
--- NOTE | 2022-02-18 21:53 | PM.PNNEP ---
Subjective Subjective Date of Service: 02/18/22 Interval history: Note stomach to be enlarging. Otherwise no acute medical issues. noted nausea. no change in uop Physical Exam Vital Signs: Vital Signs: Last Vital Signs Temp 98 F 02/18/22 19:51 Pulse 70 02/18/22 19:51 Resp 18 02/18/22 19:51 BP 126/80 02/18/22 19:51 Pulse Ox 98 02/18/22 19:51 BMI result Body Mass Index 31.2 Const: General: cooperative Orientation/consciousness: patient oriented x3 HEENT: Head: Yes normocephalic and Yes atraumatic Neck: Neck: Yes no JVD Resp: Auscultation: clear to auscultation bilaterally Cardio: Jugular venous distension: no JVD Rate: regular rate Rhythm: regular rhythm Heart sounds: S1 normal heart sound present and S2 normal heart sound present GI: Inspection: Yes distended Percussion: Yes tympanic to percussion Auscultation: normal bowel sounds Neuro: General: patient oriented x3 Extrem: General: Yes edema Objective Data Labs CBC & Chem 7: 02/18/22 05:53 02/18/22 05:53 Labs: Laboratory Results - last 24 hr 02/17/22 02/18/22 02/18/22 13:13 05:53 05:53 WBC 4.7 L RBC 3.76 L Hgb 8.9 L Hct 27.4 L MCV 72.9 L MCH 23.7 L MCHC 32.5 RDW 16.7 H Plt Count 39 L MPV Not Reportable Immature Gran % (Auto) 0.0 Neut % (Auto) 35.5 L Lymph % (Auto) 26.9 [place] % (Auto) 9.0 Eos % (Auto) 28.2 H Baso % (Auto) 0.4 Lymph # (Auto) 1.3 [place] # (Auto) 0.4 Eos # (Auto) 1.3 H Baso # (Auto) 0.0 Abs Immat Gran (auto) 0.00 Absolute Neuts (auto) 1.7 L Absolute Nucleated RBC 0.000 Nucleated RBC % (auto) 0.0 Smear Tech's Comments VERIFIED Sodium 142 Potassium 3.7 Chloride 114 H Carbon Dioxide 17 L Anion Gap 15 BUN 30 H Creatinine 4.03 H* Estim Creat Clear Calc 16.7 Estimated GFR 15 POC Glucose Fasting Glucose 85 Calcium 9.4 Total Bilirubin 1.2 H AST 32 ALT 14 Alkaline Phosphatase 69 Ammonia Total Protein 6.3 L Albumin 3.8 Vitamin B12 579 02/18/22 02/18/22 05:53 15:43 WBC RBC Hgb Hct MCV MCH MCHC RDW Plt Count MPV Immature Gran % (Auto) Neut % (Auto) Lymph % (Auto) [place] % (Auto) Eos % (Auto) Baso % (Auto) Lymph # (Auto) [place] # (Auto) Eos # (Auto) Baso # (Auto) Abs Immat Gran (auto) Absolute Neuts (auto) Absolute Nucleated RBC Nucleated RBC % (auto) Smear Tech's Comments Sodium Potassium Chloride Carbon Dioxide Anion Gap BUN Creatinine Estim Creat Clear Calc Estimated GFR POC Glucose 115 Fasting Glucose Calcium Total Bilirubin AST ALT Alkaline Phosphatase Ammonia 68 H Total Protein Albumin Vitamin B12 Microbiology Microbiology Results: Microbiology 02/16/22 12:35 Ascites Fluid Gram Stain - Final 02/16/22 12:35 Ascites Fluid Anaerobic Culture - Preliminary No growth to date. 02/16/22 12:35 Ascites Fluid Body Fluid Culture - Final No growth after 2 days Procedures Date of Service Date of Service: 02/18/22 Assessment & Plan Assessment and plan (1) LORRI (acute kidney injury): Status: Acute (2) CKD (chronic kidney disease) stage 3, GFR 30-59 ml/min: Status: Acute (3) Cirrhosis of liver with ascites: Status: Acute Plan LORRI due to compromised kidney perfusion versus acute tubular injury versus hepao renal syndrome? 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 sodium bicarbonate 650 mg tid no IVF paracentesis in am avoid > 3 L volume removal per Tx to minimize hypotension. no indication for BIOPHARMACEUTICAL REP follow kidney function and electrolytes Time Spent With Patient Time: Total time spent is greater than 50% in coordination of care (as documented) at patient's floor/unit and/or counseling patient: Progress Note: Quality Stroke Does the patient have a stroke diagnosis?: No
[2022-02-18 23:57] VITALS: BP 101/58; PULSE 66; RESP 14; TEMP 36.9; O2SAT 97
[2022-02-19 03:59] VITALS: BP 121/70; PULSE 67; RESP 15; TEMP 36.9; O2SAT 95
[2022-02-19] MEDS: Heparin Sodium,Porcine 5,000 UNIT/ML VIAL 5000 UNIT SUBCUT ×2 (05:50→17:24)
[2022-02-19 06:12] LABS: Basophils Percent Auto 0.7 % (0-2); Imm Gran Abs Auto 0.01 X10*3/uL (0.00-0.03); Imm Gran Pct Auto 0.2 % (0.0-0.4); MANUAL DIFF FLAG SCAN; Red Blood Count 3.91 X10*6/uL (4.60-5.80); SCAN SMEAR FLAG 1
[2022-02-19 06:14] LABS: Eosinophils Absolute Auto 1.5 X10*3/uL (0.0-0.4); Eosinophils Percent Auto 27.8 % (0-4); Hematocrit 28.5 % (42.0-52.0); Hemoglobin 9.4 g/dl (14.0-18.0); Lymphocytes Absolute Auto 1.8 X10*3/uL (1.2-4.9); Mean Corpuscular Volume 72.9 fL (80.0-98.0); Monocytes Absolute Auto 0.5 X10*3/uL (0.1-1.2); Monocytes Percent Auto 9.1 % (2-11); Neutrophils Absolute Auto 1.7 x10*3/uL (2.0-8.3); Neutrophils Percent Auto 30.2 % (45-73); White Blood Count 5.5 X10*3/uL (4.8-10.8)
[2022-02-19 06:17] LABS: Ammonia 45 umol/L (13-55)
[2022-02-19 06:27] LABS: Alanine Aminotransferase 19 U/L (0-40); Albumin Level 4.1 g/dL (3.5-5.0); Alkaline Phosphatase 74 U/L (39-117); Anion Gap 14 (12-20); Aspartate Amino Transferase 41 U/L (5-37); Bilirubin Total 1.4 mg/dL (0.0-1.0); Blood Urea Nitrogen 28 mg/dL (9-16); Calcium 9.6 mg/dL (8.4-10.2); Carbon Dioxide 19 mmol/L (22-29); Chloride 115 mmol/L (96-108); Creatinine Clr Calc Pharmacy 17.8; Estimated Glomerular Filt Rate 16; Glucose Fasting 88 mg/dL (60-99); Platelet Count 39 X10*3/uL (160-400); Sodium 144 mmol/L (135-145); Total Protein 6.9 g/dL (6.5-8.0)
[2022-02-19 06:28] LABS: PLT ABN DIST 1
[2022-02-19 06:43] LABS: SLIDE REVIEW VERIFIED
[2022-02-19 07:02] LABS: INTERNATIONAL NORM RATIO 1.6 (0.9-1.1); Prothrombin Time 17.8 SEC (9.9-13.0)
[2022-02-19 07:57] VITALS: BP 135/77; PULSE 74; RESP 16; TEMP 36.7; O2SAT 96
--- NOTE | 2022-02-19 07:59 | PM.HEMONCCN ---
Subjective - Subjective Chief complaint: Abdominal swelling Patient: new to practice Consult date: 02/19/22 Requesting Physician: Dr. Clifton Primary Care Provider: Kimber Pan MD HPI - Consult Narrative Reason for consult: Eosinophilia Narrative: Phillip Macdonald is a 71 year old male with chronic liver cirrhosis and chronic kidney disease admitted for worsening ascites and renal insufficiency. On blood work he was noted to have chronic eosinophilia and consultation was called for this. Patient denies any history of asthma, acute symptoms to suggest infection, diarrhea or changes to his medications. His main complaint is recurrent swelling of his abdomen. His was at the bedside and green meat grader was used for the interview. Review of Systems - Constitutional Reports as per HPI, Reports fatigue, Denies fever(s), Denies headache(s), Reports lack of energy, Reports malaise, Reports poor appetite, Denies weight loss - ENT Denies lip swelling, Denies tongue swelling - Cardiovascular Reports no additional cardiovascular complaints - Respiratory Reports no additional respiratory complaints - Gastrointestinal Reports no additional gastrointestinal complaints Oncology Screenings - ECOG Performance Status ECOG Performance Status: 3 [facility] Medical History: Medical History (Last Reviewed 02/15/22 @ 18:02 by Beny Orona DO) Abnormal myocardial perfusion study Ascending aorta dilatation Ascites Ascites Atherosclerotic cardiovascular disease Bowel incontinence CKD (chronic kidney disease) stage 3, GFR 30-59 ml/min Diabetes Diabetes type 2, uncontrolled Diabetic nephropathy associated with type 2 diabetes mellitus Dyslipidemia Dyslipidemia associated with type 2 diabetes mellitus Essential hypertension Gastroparesis GERD (gastroesophageal reflux disease) Gout Hospital discharge follow-up Hypertension Hypoglycemia 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 with type 2 diabetes mellitus Lactic acidosis [facility] (current) use of insulin Obesity due to excess calories 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 cancer Thrombocytopenia Thrombocytopenia Type 2 diabetes mellitus with unspecified complications Family History: Family History (Last Reviewed 02/15/22 @ 18:02 by Beny Orona DO) Father Diabetes CVD (cardiovascular disease) Mother Diabetes Surgical History: Surgical History (Last Reviewed 02/15/22 @ 18:02 by Beny Orona DO) Hx of colonoscopy Social History: Social History (Last Reviewed 02/15/22 @ 18:02 by Beny Orona DO) Living Situation History: Household Members: Family Housing: Apartment Do you presently have visiting nurse or other home services: No Alcohol History Details: 1. How often do you have a drink containing alcohol?: a. Never AUDIT-C Alcohol total score: 0 Currently Displaying Signs/Symptoms of Alcohol Withdrawal: No Tobacco History: Patient Tobacco Use Status: Former Tobacco user Tobacco use type: Cigarette e-Cigarette/Vaping Use: Never Used Second Hand Smoke Exposure: No Substance Use History: Currently Displaying Signs/Symptoms of Drug Intoxication Withdrawal: No Advance Directives: Advance Directives: Yes Advance Directives on File: Yes Advance Directives Date on File: 05/24/21 Homicidal Assessment: Do you have thoughts of harming others: None Do you have a plan to hurt others: No Plan Nutrition Assessment: Recently lost weight without trying: No How much weight loss: Not applicable Eating poorly because of decreased appetite: No Nutrition screen score: 0 Nutrition Risks: No Nutritional Risk Occupation Assessmet: service: No Current occupational status: retired Current occupational status: disabled Home Medications and Allergies Current Medications: Current Medications Atorvastatin Calcium (Atorvastatin Calcium 20 Mg Tablet) 20 mg PO BEDTIME [facility] Last Admin: 02/18/22 21:15 Dose: 20 mg Documented by: Ferrous Sulfate (Ferrous Sulfate 324 Mg Tablet.) 324 mg PO BID [facility] Last Admin: 02/18/22 21:15 Dose: 324 mg Documented by: Heparin Sodium (Porcine) (Heparin Sodium,Porcine 5,000 Unit/Ml Vial) 5,000 unit SUBCUT Q12H [facility] Last Admin: 02/19/22 05:50 Dose: 5,000 unit Documented by: Lactulose (Lactulose 20 Gm/30 Ml Solution) 10 gm PO TID [facility] Last Admin: 02/18/22 21:16 Dose: 10 gm Documented by: Midodrine (Midodrine Hcl 5 Mg Tablet) 5 mg PO TIDWM [facility] Last Admin: 02/18/22 18:06 Dose: 5 mg Documented by: Omeprazole (Omeprazole 40 Mg Capsule.) 40 mg PO DAILY [facility] Last Admin: 02/18/22 08:49 Dose: 40 mg Documented by: Ondansetron HCl (Ondansetron Hcl 4 Mg/2 Ml Vial) 4 mg IVPUSH Q4H PRN PRN Reason: Nausea and Vomiting Last Admin: 02/17/22 22:18 Dose: 4 mg Documented by: Pharmacy Consult (Consult Rx Perform Med Rec) 1 each MISCELLANE ONCE PRN PRN Reason: Consult order Pharmacy Consult (Consult Rx Perform Med Rec) 1 each MISCELLANE ONCE PRN PRN Reason: Consult order Rifaximin (Rifaximin 550 Mg Tablet) 550 mg PO BID [facility] Last Admin: 02/18/22 21:16 Dose: 550 mg Documented by: Sodium Bicarbonate (Sodium Bicarbonate 650 Mg Tablet) 650 mg PO TID [facility] Last Admin: 02/18/22 21:15 Dose: 650 mg Documented by: Sodium Chloride (0.9 % Sodium Chloride Flush 3 Ml Syringe) 3 ml IVFLUSH QSHIFT [facility] Last Admin: 02/18/22 21:16 Dose: 3 ml Documented by: Home Medications Medication Instructions Recorded Confirmed Type isosorbide mononitrate 30 mg 1 tab PO DAILY 05/09/21 02/15/22 History tablet,extended release 24 hr blood sugar diagnostic (FreeStyle 08/24/21 01/29/22 History Lite Strips) metoprolol succinate 50 mg 50 mg PO BID 12/31/21 02/15/22 History tablet,extended release 24 hr insulin lispro 100 unit/mL 4 unit SUBCUT TIDAC 01/17/22 02/15/22 History subcutaneous pen (Humalog KwikPen (U-100) Insulin) aspirin 81 mg tablet,delayed 81 mg PO DAILY 01/23/22 02/15/22 History release ferrous sulfate 325 mg (65 mg 325 mg PO BID 01/23/22 02/15/22 History iron) tablet hydralazine 10 mg tablet 1 tab PO DAILY@0700,1200,1700 01/23/22 02/15/22 History omeprazole 40 mg capsule,delayed 1 cap PO DAILY 01/23/22 02/15/22 History release atorvastatin 20 mg tablet 20 mg PO BEDTIME 02/15/22 02/15/22 History linagliptin 5 mg tablet (Tradjenta) 1 tab PO DAILY 02/15/22 02/15/22 History metformin 500 mg tablet 1 tab PO BID 02/15/22 02/15/22 History mupirocin 2 % topical ointment 1 applic TOPICAL TID PRN 02/15/22 02/15/22 History Allergies Allergy/AdvReac Type Severity Reaction Status Date / Time latex Allergy Unknown Verified 01/29/22 10:13 Physical Exam Vital signs: Vital Signs Temp 98.1 F 02/19/22 07:57 Pulse 74 02/19/22 07:57 Resp 16 02/19/22 07:57 BP 135/77 02/19/22 07:57 Pulse Ox 96 02/19/22 07:57 Intake & Output 02/18/22 02/19/22 02/19/22 18:59 06:59 18:59 Intake Total 240 / 540 300 / 540 Balance 240 / 540 300 / 540 Intake: Intake, Oral Amount 240 / 340 100 / 340 Intake, IV Amount 200 / 200 Albumin Human 25 % 100 ml @ 100 200 / 200 mls/hr IV Q1H SAUL Rx#: [id number] Other: Meal Refused No NPO No Breakfast % Eaten 25% Lunch % Eaten 25% Dinner % Eaten 100% Number of Unmeasured Voids 3 0 Number of Bowel Movements 0 Urine Bathroom Bathroom Stool Bathroom Weight 82.554 kg - Constitutional Present: no acute distress - Routine HEENT Exam Head: Present: normal inspection Eye: Present: EOMI - Routine Neck Exam Present: supple. Absent: lymphadenopathy - Routine Respiratory Exam Absent: accessory muscle use, respiratory distress - Routine Cardiovascular Exam Cardiovascular: Present: S1, S2 - Routine Abdominal Exam Present: distended, soft - Routine Extremities Exam Present: normal inspection - Routine Skin Exam Present: intact. Absent: cyanosis Hem/Onc Consult Result - Labs CBC & Chem 7: 02/19/22 06:00 02/19/22 06:00 Labs: Short CBC 02/19/22 Range/Units 06:00 WBC 5.5 (4.8-10.8) X10*3/uL Hgb 9.4 L (14.0-18.0) g/dl Hct 28.5 L (42.0-52.0) % Plt Count 39 L (160-400) X10*3/uL BMP 02/19/22 06:00 Sodium 144 Potassium 4.0 Chloride 115 H Carbon Dioxide 19 L BUN 28 H Creatinine 3.79 H Calcium 9.6 Liver Function 02/19/22 Range/Units 06:00 Total Bilirubin 1.4 H (0.0-1.0) mg/dL AST 41 H (5-37) U/L ALT 19 (0-40) U/L Alkaline Phosphatase 74 (39-117) U/L Albumin 4.1 (3.5-5.0) g/dL Assessment and Plan Patient Active problem list reviewed?: Yes (1) Eosinophilia Status: Chronic Assessment and plan: This is a 71-year-old male with chronic liver cirrhosis, pancytopenia and chronic kidney disease who was noted to have eosinophilia on blood work. This has been present since 2020 with absolute eosinophil count ranging from 1100 to 7500. The absolute count has been varying according to his total WBC count. He reports no symptoms of asthma, allergic rhinitis or atopic dermatitis. No symptoms to suggest any acute parasitic or viral infection. Other etiologies such as medication induced, neoplastic disorders and primary eosinophilic disorders are in the differential diagnosis. Even medications such as hydralazine that he is on can be associated with eosinophilia. His last imaging with CT abdomen and pelvis shows cirrhotic liver with mild splenomegaly. 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 I have submitted serum tryptase level and blood flow cytometry and serum IgE levels. Based on a this, it can be decided if he needs further workup for primary hyper eosinophilic syndrome or malignancy associated eosinophilic syndromes. I thank you for this referral. - Time Spent With Patient Time Spent with Patient (in minutes): 20
[2022-02-19] MEDS: Midodrine HCl 5 MG TABLET PO ×3 (08:50→17:25)
[2022-02-19] MEDS: Lactulose 20 GM/30 ML SOLUTION 10 GM PO ×3 (08:50→20:15)
[2022-02-19] MEDS: Ferrous Sulfate 324 MG TABLET.DR PO ×2 (08:50→20:17)
[2022-02-19] MEDS: rifAXIMin 550 MG TABLET PO ×2 (08:50→20:17)
[2022-02-19] MEDS: Sodium Bicarbonate 650 MG TABLET PO ×3 (08:50→20:17)
[2022-02-19] MEDS: Omeprazole 40 MG CAPSULE.DR PO (08:50)
[2022-02-19] MEDS: 0.9 % Sodium Chloride Flush 3 ML SYRINGE IVFLUSH ×3 (08:52→23:46)
[2022-02-19] MEDS: Albumin Human 25 % 100 ML IV (09:00)
[2022-02-19 11:36] LABS: Immunoglobulin G Subclass 1 678 mg/dL (382-929); Immunoglobulin G Subclass 2 274 mg/dL (241-700); Immunoglobulin G Subclass 3 46 mg/dL (22-178); Immunoglobulin G Subclass 4 162.4 mg/dL (4-86); Immunoglobulin G Total 1280 mg/dL (600-1540)
[2022-02-19] MEDS: Lidocaine HCl 1 % MPF 5 ML VIAL SUBCUT (11:42)
[2022-02-19 12:47] LABS: Alpha Fetoprotein 4.6 ng/mL (<6.1)
[2022-02-19 15:28] VITALS: BP 112/62; PULSE 82; RESP 17; TEMP 37.1; O2SAT 97
--- NOTE | 2022-02-19 16:09 | P.PNIM_ITS ---
Subjective Subjective Date of Service: 02/19/22 Interval History: This history was taken in Hebrew from the patient. C/o abd distension. No GI bleeding. No dyspnea. Discussed prognosis with pt and his at bedside. After consideration of his chronic liver disease and superimposed renal failure, he wishes to change code status to DNR/DNI. No HD or feeding tube. IV hydration OK. MOLST updated. Review of Systems Review of Systems: Yes all other systems are reviewed and are negative Physical Exam Vital Signs: Vital Signs: Last Vital Signs Temp 98.8 F 02/19/22 15:28 Pulse 82 02/19/22 15:28 Resp 17 02/19/22 15:28 BP 112/62 02/19/22 15:28 Pulse Ox 97 02/19/22 15:28 BMI result Body Mass Index 31.2 Gen: chronically ill appearing HEENT: sclera anicteric, moist mucus membranes Neck: supple Lungs: clear to auscultation bilaterally Heart: regular rate and rhythm, no murmurs Abd: distended, fluid wave, bulging flanks Ext: no edema Skin: warm/well-perfused Neuro: alert and oriented x3, no focal findings, no asterixis Psych: appropriate affect Objective Data Active Medications Atorvastatin Calcium (Atorvastatin Calcium 20 Mg Tablet) 20 mg PO BEDTIME [facility] Last Admin: 02/18/22 21:15 Dose: 20 mg Documented by: NANDO Ferrous Sulfate (Ferrous Sulfate 324 Mg Tablet.) 324 mg PO BID [facility] Last Admin: 02/19/22 08:50 Dose: 324 mg Documented by: RAMIRO Heparin Sodium (Porcine) (Heparin Sodium,Porcine 5,000 Unit/Ml Vial) 5,000 unit SUBCUT Q12H [facility] Last Admin: 02/19/22 05:50 Dose: 5,000 unit Documented by: NANDO Albumin Human (Kedbumin 25 %) 100 mls @ 100 mls/hr IV DAILY [facility] Last Infusion: 02/19/22 10:02 Dose: 0 mls/hr Documented by: RAMIRO Lactulose (Lactulose 20 Gm/30 Ml Solution) 10 gm PO TID [facility] Last Admin: 02/19/22 15:32 Dose: 10 gm Documented by: RAMIRO Midodrine (Midodrine Hcl 5 Mg Tablet) 5 mg PO TIDWM [facility] Last Admin: 02/19/22 12:44 Dose: 5 mg Documented by: RAMIRO Omeprazole (Omeprazole 40 Mg Capsule.Dr) 40 mg PO DAILY [facility] Last Admin: 02/19/22 08:50 Dose: 40 mg Documented by: RAMIRO Ondansetron HCl (Ondansetron Hcl 4 Mg/2 Ml Vial) 4 mg IVPUSH Q4H PRN PRN Reason: Nausea and Vomiting Last Admin: 02/17/22 22:18 Dose: 4 mg Documented by: ODRISM Pharmacy Consult (Consult Rx Perform Med Rec) 1 each MISCELLANE ONCE PRN PRN Reason: Consult order Pharmacy Consult (Consult Rx Perform Med Rec) 1 each MISCELLANE ONCE PRN PRN Reason: Consult order Rifaximin (Rifaximin 550 Mg Tablet) 550 mg PO BID [facility] Last Admin: 02/19/22 08:50 Dose: 550 mg Documented by: RAMIRO Sodium Bicarbonate (Sodium Bicarbonate 650 Mg Tablet) 650 mg PO TID [facility] Last Admin: 02/19/22 15:32 Dose: 650 mg Documented by: RAMIRO Sodium Chloride (0.9 % Sodium Chloride Flush 3 Ml Syringe) 3 ml IVFLUSH QSHIFT [facility] Last Admin: 02/19/22 15:34 Dose: 3 ml Documented by: RAMIRO Labs CBC & Chem 7: 02/19/22 06:00 02/19/22 06:00 Labs: Laboratory Results - last 24 hr 02/16/22 02/17/22 02/18/22 06:00 13:13 15:43 MCV MCH MCHC RDW Plt Count MPV Immature Gran % (Auto) Neut % (Auto) Lymph % (Auto) [place] % (Auto) Eos % (Auto) Baso % (Auto) Lymph # (Auto) [place] # (Auto) Eos # (Auto) Baso # (Auto) Abs Immat Gran (auto) Absolute Neuts (auto) Absolute Nucleated RBC Nucleated RBC % (auto) Smear Tech's Comments PT INR Anion Gap Estim Creat Clear Calc Estimated GFR POC Glucose 115 Fasting Glucose Calcium Total Bilirubin AST ALT Alkaline Phosphatase Ammonia Total Protein Albumin Alpha Fetoprotein 4.6 Ur Random Sodium IgG Total 1280 IgG Subclass 1 678 IgG Subclass 2 274 IgG Subclass 3 46 IgG Subclass 4 162.4 H 02/19/22 02/19/22 02/19/22 06:00 06:00 06:00 MCV MCH MCHC RDW Plt Count MPV Immature Gran % (Auto) Neut % (Auto) Lymph % (Auto) [place] % (Auto) Eos % (Auto) Baso % (Auto) Lymph # (Auto) [place] # (Auto) Eos # (Auto) Baso # (Auto) Abs Immat Gran (auto) Absolute Neuts (auto) Absolute Nucleated RBC Nucleated RBC % (auto) Smear Tech's Comments PT 17.8 H INR 1.6 H Anion Gap 14 Estim Creat Clear Calc 17.8 Estimated GFR 16 POC Glucose Fasting Glucose 88 Calcium 9.6 Total Bilirubin 1.4 H AST 41 H ALT 19 Alkaline Phosphatase 74 Ammonia 45 Total Protein 6.9 Albumin 4.1 Alpha Fetoprotein Ur Random Sodium IgG Total IgG Subclass 1 IgG Subclass 2 IgG Subclass 3 IgG Subclass 4 02/19/22 02/19/22 06:00 12:30 MCV 72.9 L MCH 24.0 L MCHC 33.0 RDW 17.0 H Plt Count 39 L MPV Not Reportable Immature Gran % (Auto) 0.2 Neut % (Auto) 30.2 L Lymph % (Auto) 32.0 [place] % (Auto) 9.1 Eos % (Auto) 27.8 H Baso % (Auto) 0.7 Lymph # (Auto) 1.8 [place] # (Auto) 0.5 Eos # (Auto) 1.5 H Baso # (Auto) 0.0 Abs Immat Gran (auto) 0.01 Absolute Neuts (auto) 1.7 L Absolute Nucleated RBC 0.000 Nucleated RBC % (auto) 0.0 Smear Tech's Comments VERIFIED PT INR Anion Gap Estim Creat Clear Calc Estimated GFR POC Glucose Fasting Glucose Calcium Total Bilirubin AST ALT Alkaline Phosphatase Ammonia Total Protein Albumin Alpha Fetoprotein Ur Random Sodium 26.0 IgG Total IgG Subclass 1 IgG Subclass 2 IgG Subclass 3 IgG Subclass 4 Microbiology Microbiology Results: Microbiology 02/16/22 12:35 Gram Stain - Final Ascites Fluid Anaerobic Culture - Preliminary No growth to date. Body Fluid Culture - Final No growth after 2 days Assessment and Plan (1) Cirrhosis of liver with ascites: Status: Acute (2) Acute kidney injury: Status: Acute (3) Essential hypertension: Status: Acute Plan hospital d#5 71yo M with cirrhosis with ascites and CKD3, sent in by [employer] strip gauger due to elevated BUN/Cr # LORRI/CKD3 - suspect HRS, Nephrology following, continue daily albumin + midodrine; discuss octreotide. continue oral bicarbonate # cirrhosis with ascites - repeat paracentesis today, no more than 3L to be removed - suspected SEGUNDO cirrhosis # HTN - amlodipine, hydralazine, Imdur + metoprolol on hold due to relative hypotension # hepatic encephaloapthy - lactulose + rifaxmin # DM2 - correction-dose lipsor # VTE ppx - UFH In my clinical judgment, the patient requires continued hospitalization for the following reasons:renal failure, paracentesis Quality Stroke Does the patient have a stroke diagnosis?: No VTE Prior VTE?: No VTE Risk Level:: Medical - moderate - high VTE Device Contraindication: Treatment Not Indicated VTE Drug Contraindication: N/A - Med Ordered
[2022-02-19 19:30] VITALS: BP 124/78; PULSE 75; RESP 18; TEMP 37.3; O2SAT 96
[2022-02-19 20:09] LABS: Glucose, Whole Blood 161 mg/dL (60-115)
[2022-02-19] MEDS: Atorvastatin Calcium 20 MG TABLET PO (20:17)
[2022-02-19] MEDS: Insulin Lispro 100 UNIT/ML 3 ML VIAL SUBCUT (20:17)
--- NOTE | 2022-02-19 21:19 | P.PNNP_ITS ---
Subjective Subjective Date of Service: 02/19/22 Interval history: CHart Reviewed. Events noted. MOLST update noted. Physical Exam Vital Signs: Vital Signs: Last Vital Signs Temp 99.2 F 02/19/22 19:30 Pulse 75 02/19/22 19:30 Resp 18 02/19/22 19:30 BP 124/78 02/19/22 19:30 Pulse Ox 96 02/19/22 19:30 BMI result Body Mass Index 31.2 Const: General: cooperative and no acute distress HEENT: Head: Yes normal to inspection, Yes normocephalic and Yes atraumatic Neck: Neck: Yes no JVD Resp: Effort & Inspection: normal respiratory effort Auscultation: clear to auscultation bilaterally Cardio: Jugular venous distension: no JVD Rate: regular rate Rhythm: regular rhythm Heart sounds: S1 normal heart sound present and S2 normal heart sound present Extrem: Right upper extremity: edema Objective Data Labs CBC & Chem 7: 02/19/22 06:00 02/19/22 06:00 Labs: Laboratory Results - last 24 hr 02/15/22 02/16/22 02/17/22 16:13 06:00 13:13 WBC RBC Hgb Hct MCV MCH MCHC RDW Plt Count MPV Immature Gran % (Auto) Neut % (Auto) Lymph % (Auto) [place] % (Auto) Eos % (Auto) Baso % (Auto) Lymph # (Auto) [place] # (Auto) Eos # (Auto) Baso # (Auto) Abs Immat Gran (auto) Absolute Neuts (auto) Absolute Nucleated RBC Nucleated RBC % (auto) Smear Tech's Comments PT INR Sodium Potassium Chloride Carbon Dioxide Anion Gap BUN Creatinine 4.34 H* Estim Creat Clear Calc Estimated GFR POC Glucose Fasting Glucose Calcium Total Bilirubin AST ALT Alkaline Phosphatase Ammonia Total Protein Albumin Alpha Fetoprotein 4.6 Ur Random Sodium IgG Total 1280 IgG Subclass 1 678 IgG Subclass 2 274 IgG Subclass 3 46 IgG Subclass 4 162.4 H 02/19/22 02/19/22 02/19/22 06:00 06:00 06:00 WBC RBC Hgb Hct MCV MCH MCHC RDW Plt Count MPV Immature Gran % (Auto) Neut % (Auto) Lymph % (Auto) [place] % (Auto) Eos % (Auto) Baso % (Auto) Lymph # (Auto) [place] # (Auto) Eos # (Auto) Baso # (Auto) Abs Immat Gran (auto) Absolute Neuts (auto) Absolute Nucleated RBC Nucleated RBC % (auto) Smear Tech's Comments PT 17.8 H INR 1.6 H Sodium 144 Potassium 4.0 Chloride 115 H Carbon Dioxide 19 L Anion Gap 14 BUN 28 H Creatinine 3.79 H Estim Creat Clear Calc 17.8 Estimated GFR 16 POC Glucose Fasting Glucose 88 Calcium 9.6 Total Bilirubin 1.4 H AST 41 H ALT 19 Alkaline Phosphatase 74 Ammonia 45 Total Protein 6.9 Albumin 4.1 Alpha Fetoprotein Ur Random Sodium IgG Total IgG Subclass 1 IgG Subclass 2 IgG Subclass 3 IgG Subclass 4 02/19/22 02/19/22 02/19/22 06:00 12:30 19:32 WBC 5.5 RBC 3.91 L Hgb 9.4 L Hct 28.5 L MCV 72.9 L MCH 24.0 L MCHC 33.0 RDW 17.0 H Plt Count 39 L MPV Not Reportable Immature Gran % (Auto) 0.2 Neut % (Auto) 30.2 L Lymph % (Auto) 32.0 [place] % (Auto) 9.1 Eos % (Auto) 27.8 H Baso % (Auto) 0.7 Lymph # (Auto) 1.8 [place] # (Auto) 0.5 Eos # (Auto) 1.5 H Baso # (Auto) 0.0 Abs Immat Gran (auto) 0.01 Absolute Neuts (auto) 1.7 L Absolute Nucleated RBC 0.000 Nucleated RBC % (auto) 0.0 Smear Tech's Comments VERIFIED PT INR Sodium Potassium Chloride Carbon Dioxide Anion Gap BUN Creatinine Estim Creat Clear Calc Estimated GFR POC Glucose 161 H Fasting Glucose Calcium Total Bilirubin AST ALT Alkaline Phosphatase Ammonia Total Protein Albumin Alpha Fetoprotein Ur Random Sodium 26.0 IgG Total IgG Subclass 1 IgG Subclass 2 IgG Subclass 3 IgG Subclass 4 Microbiology Microbiology Results: Microbiology 02/16/22 12:35 Ascites Fluid Gram Stain - Final 02/16/22 12:35 Ascites Fluid Anaerobic Culture - Preliminary No growth to date. 02/16/22 12:35 Ascites Fluid Body Fluid Culture - Final No growth after 2 days Procedures Date of Service Date of Service: 02/19/22 Assessment & Plan Assessment and plan (1) LORRI (acute kidney injury): Status: Acute Assessment and Plan: LORRI due to compromised kidney perfusion versus acute tubular injury versus hepao renal syndrome? 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 Suggest initiation if If S-Cr worsens. albumin infusion per GI. sodium bicarbonate 650 mg tid no IVF no indication for COATING MACHINE HELPER follow kidney function and electrolytes (2) Metabolic acidosis: Status: Acute (3) CKD (chronic kidney disease) stage 3, GFR 30-59 ml/min: Status: Acute Time Spent With Patient Time: Total time spent is greater than 50% in coordination of care (as documented) at patient's floor/unit and/or counseling patient: Progress Note: Quality Stroke Does the patient have a stroke diagnosis?: No
[2022-02-19 23:44] VITALS: BP 117/61; PULSE 56; RESP 17; TEMP 37.1; O2SAT 95
[2022-02-20 03:58] VITALS: BP 124/76; PULSE 59; RESP 14; TEMP 37.1; O2SAT 97
[2022-02-20] MEDS: Heparin Sodium,Porcine 5,000 UNIT/ML VIAL 5000 UNIT SUBCUT ×2 (05:38→16:42)
[2022-02-20 06:06] LABS: Ammonia 42 umol/L (13-55)
[2022-02-20 06:19] LABS: Alanine Aminotransferase 21 U/L (0-40); Albumin Level 3.9 g/dL (3.5-5.0); Alkaline Phosphatase 78 U/L (39-117); Anion Gap 12 (12-20); Aspartate Amino Transferase 44 U/L (5-37); Bilirubin Total 1.3 mg/dL (0.0-1.0); Blood Urea Nitrogen 26 mg/dL (9-16); Calcium 9.6 mg/dL (8.4-10.2); Carbon Dioxide 21 mmol/L (22-29); Chloride 112 mmol/L (96-108); Creatinine Clr Calc Pharmacy 19.2; Estimated Glomerular Filt Rate 17; Glucose Fasting 90 mg/dL (60-99); Potassium 4.3 mmol/L (3.3-5.1); Sodium 141 mmol/L (135-145); Total Protein 6.6 g/dL (6.5-8.0)
[2022-02-20 07:47] LABS: Glucose, Whole Blood 84 mg/dL (60-115)
[2022-02-20 07:56] VITALS: BP 124/74; PULSE 59; RESP 16; TEMP 36.6; O2SAT 96
[2022-02-20] MEDS: Midodrine HCl 5 MG TABLET PO ×3 (08:18→16:42)
[2022-02-20] MEDS: Omeprazole 40 MG CAPSULE.DR PO (08:18)
[2022-02-20] MEDS: Ferrous Sulfate 324 MG TABLET.DR PO ×2 (08:18→20:26)
[2022-02-20] MEDS: Lactulose 20 GM/30 ML SOLUTION 10 GM PO ×3 (08:18→20:27)
[2022-02-20] MEDS: Sodium Bicarbonate 650 MG TABLET PO ×3 (08:18→20:26)
[2022-02-20] MEDS: rifAXIMin 550 MG TABLET PO ×2 (08:18→20:25)
[2022-02-20] MEDS: Albumin Human 25 % 100 ML IV (08:18)
[2022-02-20] MEDS: 0.9 % Sodium Chloride Flush 3 ML SYRINGE IVFLUSH ×3 (08:26→20:29)
[2022-02-20 11:32] LABS: Glucose, Whole Blood 103 mg/dL (60-115)
[2022-02-20 11:57] VITALS: BP 134/78; PULSE 73; RESP 17; TEMP 36.6; O2SAT 96
--- NOTE | 2022-02-20 12:37 | HO.PM.IMPN ---
Subjective Subjective Date of Service: 02/20/22 Interval History: This history was taken in [place] from the patient. Paracentesis done yesterday with removal of 5L ascites. Feels much better, less distended. No N/V. Review of Systems Review of Systems: Yes all other systems are reviewed and are negative Physical Exam Vital Signs: Vital Signs: Last Vital Signs Temp 97.9 F 02/20/22 11:57 Pulse 73 02/20/22 11:57 Resp 17 02/20/22 11:57 BP 134/78 02/20/22 11:57 Pulse Ox 96 02/20/22 11:57 BMI result Body Mass Index 31.2 Gen: chronically ill appearing HEENT: sclera anicteric, moist mucus membranes Neck: supple Lungs: clear to auscultation bilaterally Heart: regular rate and rhythm, no murmurs Abd: soft, nontender, paracentesis site with dry dressing Ext: no edema Skin: warm/well-perfused Neuro: alert and oriented x3, no focal findings, no asterixis Psych: appropriate affect Objective Data Active Medications Atorvastatin Calcium (Atorvastatin Calcium 20 Mg Tablet) 20 mg PO BEDTIME [facility] Last Admin: 02/19/22 20:17 Dose: 20 mg Documented by: FABRICIO Dextrose (Dextrose 50 % 25 Gm/50 Ml Syringe) 25 gm IVPUSH Q15M PRN; Protocol PRN Reason: per Hypoglycemia Standing Ord. Ferrous Sulfate (Ferrous Sulfate 324 Mg Tablet.) 324 mg PO BID [facility] Last Admin: 02/20/22 08:18 Dose: 324 mg Documented by: RAMIRO Glucose (Glucose Gel 15 Gm Gel..Gram.) 15 gm PO Q15M PRN; Protocol PRN Reason: per Hypoglycemia Standing Ord. Heparin Sodium (Porcine) (Heparin Sodium,Porcine 5,000 Unit/Ml Vial) 5,000 unit SUBCUT Q12H [facility] Last Admin: 02/20/22 05:38 Dose: 5,000 unit Documented by: FABRICIO Albumin Human (Kedbumin 25 %) 100 mls @ 100 mls/hr IV DAILY [facility] Last Infusion: 02/20/22 09:23 Dose: 0 mls/hr Documented by: RAMIRO Insulin Human Lispro (Insulin Lispro 100 Unit/Ml 3 Ml Vial) 0 unit SUBCUT QIDACHS [facility]; Protocol Last Admin: 02/20/22 11:35 Dose: Not Given Documented by: RAMIRO Non-Admin Reason: No Insulin Coverage Lactulose (Lactulose 20 Gm/30 Ml Solution) 10 gm PO TID [facility] Last Admin: 02/20/22 08:18 Dose: 10 gm Documented by: RAMIRO Midodrine (Midodrine Hcl 5 Mg Tablet) 5 mg PO TIDWM [facility] Last Admin: 02/20/22 12:06 Dose: 5 mg Documented by: RAMIRO Omeprazole (Omeprazole 40 Mg Capsule.Dr) 40 mg PO DAILY [facility] Last Admin: 02/20/22 08:18 Dose: 40 mg Documented by: RAMIRO Ondansetron HCl (Ondansetron Hcl 4 Mg/2 Ml Vial) 4 mg IVPUSH Q4H PRN PRN Reason: Nausea and Vomiting Last Admin: 02/17/22 22:18 Dose: 4 mg Documented by: NANDO Pharmacy Consult (Consult Rx Perform Med Rec) 1 each MISCELLANE ONCE PRN PRN Reason: Consult order Pharmacy Consult (Consult Rx Perform Med Rec) 1 each MISCELLANE ONCE PRN PRN Reason: Consult order Rifaximin (Rifaximin 550 Mg Tablet) 550 mg PO BID [facility] Last Admin: 02/20/22 08:18 Dose: 550 mg Documented by: RAMIRO Sodium Bicarbonate (Sodium Bicarbonate 650 Mg Tablet) 650 mg PO TID [facility] Last Admin: 02/20/22 08:18 Dose: 650 mg Documented by: RAMIRO Sodium Chloride (0.9 % Sodium Chloride Flush 3 Ml Syringe) 3 ml IVFLUSH QSHIFT [facility] Last Admin: 02/20/22 08:26 Dose: 3 ml Documented by: RAMIRO Labs CBC & Chem 7: 02/19/22 06:00 02/20/22 05:49 Labs: Laboratory Results - last 24 hr 02/17/22 02/18/22 02/19/22 13:13 15:33 12:30 Anion Gap Estim Creat Clear Calc Estimated GFR POC Glucose Fasting Glucose Calcium Total Bilirubin AST ALT Alkaline Phosphatase Ammonia Total Protein Albumin Tryptase 13.3 H Alpha Fetoprotein 4.6 Ur Random Sodium 26.0 02/19/22 02/20/22 02/20/22 19:32 05:49 05:49 Anion Gap 12 Estim Creat Clear Calc 19.2 Estimated GFR 17 POC Glucose 161 H Fasting Glucose 90 Calcium 9.6 Total Bilirubin 1.3 H AST 44 H ALT 21 Alkaline Phosphatase 78 Ammonia 42 Total Protein 6.6 Albumin 3.9 Tryptase Alpha Fetoprotein Ur Random Sodium 02/20/22 02/20/22 07:40 11:28 Anion Gap Estim Creat Clear Calc Estimated GFR POC Glucose 84 103 Fasting Glucose Calcium Total Bilirubin AST ALT Alkaline Phosphatase Ammonia Total Protein Albumin Tryptase Alpha Fetoprotein Ur Random Sodium Microbiology Microbiology Results: Microbiology 02/16/22 12:35 Gram Stain - Final Ascites Fluid Anaerobic Culture - Preliminary No growth to date. 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 SCr improving slowly. Continue bicarbonate supplementation # cirrhosis with ascites - paracentesis 02/16 with removal of 3.1L of fluid, repeat 02/19 with removal of 5L of fluid - suspected SEGUNDO cirrhosis # HTN - amlodipine, hydralazine, Imdur + metoprolol on hold due to relative hypotension # hepatic encephaloapthy - lactulose + rifaxmin # DM2 - correction-dose lisprp # VTE ppx - UFH In my clinical judgment, the patient requires continued hospitalization for the following reasons: renal failure Quality Stroke Does the patient have a stroke diagnosis?: No VTE Prior VTE?: No VTE Risk Level:: Medical - moderate - high VTE Device Contraindication: Treatment Not Indicated VTE Drug Contraindication: N/A - Med Ordered
[2022-02-20 15:19] VITALS: BP 116/79; PULSE 68; RESP 18; TEMP 38.1; O2SAT 96
[2022-02-20 15:54] LABS: Glucose, Whole Blood 171 mg/dL (60-115)
--- NOTE | 2022-02-20 16:27 | PM.PNNEP ---
Subjective Subjective Date of Service: 02/20/22 Interval history: Chart Reviewed. Events noted. Physical Exam Vital Signs: Vital Signs: Last Vital Signs Temp 100.6 F H 02/20/22 15:19 Pulse 68 02/20/22 15:19 Resp 18 02/20/22 15:19 BP 116/79 02/20/22 15:19 Pulse Ox 96 02/20/22 15:19 BMI result Body Mass Index 31.2 Const: General: cooperative and no acute distress Orientation/consciousness: patient oriented x3 HEENT: Head: Yes normocephalic and Yes atraumatic Neck: Neck: Yes no JVD Resp: Auscultation: crackles Cardio: Jugular venous distension: no JVD Rate: regular rate Rhythm: regular rhythm Heart sounds: S1 normal heart sound present and S2 normal heart sound present Neuro: General: patient oriented x3 Extrem: General: Yes edema Objective Data Labs CBC & Chem 7: 02/19/22 06:00 02/20/22 05:49 Labs: Laboratory Results - last 24 hr 02/18/22 02/19/22 02/20/22 15:33 19:32 05:49 Sodium 141 Potassium 4.3 Chloride 112 H Carbon Dioxide 21 L Anion Gap 12 BUN 26 H Creatinine 3.52 H Estim Creat Clear Calc 19.2 Estimated GFR 17 POC Glucose 161 H Fasting Glucose 90 Calcium 9.6 Total Bilirubin 1.3 H AST 44 H ALT 21 Alkaline Phosphatase 78 Ammonia Total Protein 6.6 Albumin 3.9 Tryptase 13.3 H 02/20/22 02/20/22 02/20/22 05:49 07:40 11:28 Sodium Potassium Chloride Carbon Dioxide Anion Gap BUN Creatinine Estim Creat Clear Calc Estimated GFR POC Glucose 84 103 Fasting Glucose Calcium Total Bilirubin AST ALT Alkaline Phosphatase Ammonia 42 Total Protein Albumin Tryptase 02/20/22 15:24 Sodium Potassium Chloride Carbon Dioxide Anion Gap BUN Creatinine Estim Creat Clear Calc Estimated GFR POC Glucose 171 H Fasting Glucose Calcium Total Bilirubin AST ALT Alkaline Phosphatase Ammonia Total Protein Albumin Tryptase Microbiology Microbiology Results: Microbiology 02/16/22 12:35 Ascites Fluid Gram Stain - Final 02/16/22 12:35 Ascites Fluid Anaerobic Culture - Preliminary No growth to date. 02/16/22 12:35 Ascites Fluid Body Fluid Culture - Final No growth after 2 days Procedures Date of Service Date of Service: 02/20/22 Assessment & Plan Assessment and plan (1) Acute kidney injury: Status: Acute (2) CKD (chronic kidney disease) stage 3, GFR 30-59 ml/min: Status: Acute Plan #)LORRI due to compromised kidney perfusion versus acute tubular injury versus hepatorenal syndrome type 1 U-Na improved indicating appropriate renal perfusion. S-Cr slowly down-trending. Adequate MAP. 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 sodium bicarbonate 650 mg tid no IVF no indication for [employer]. Patient does not want HD follow kidney function and electrolytes Time Spent With Patient Time: Total time spent is greater than 50% in coordination of care (as documented) at patient's floor/unit and/or counseling patient: Progress Note: Quality Stroke Does the patient have a stroke diagnosis?: No
[2022-02-20] MEDS: Insulin Lispro 100 UNIT/ML 3 ML VIAL SUBCUT (16:41)
[2022-02-20 19:19] VITALS: BP 109/68; PULSE 71; RESP 18; TEMP 37.4; O2SAT 96
[2022-02-20 19:33] LABS: Glucose, Whole Blood 143 mg/dL (60-115)
[2022-02-20 20:22] LABS: Immunoglobulin E 2913 kU/L (<OR=114)
[2022-02-20] MEDS: Atorvastatin Calcium 20 MG TABLET PO (20:26)
[2022-02-20 23:47] VITALS: BP 115/61; PULSE 62; RESP 14; TEMP 37.4; O2SAT 95
[2022-02-21 03:50] VITALS: BP 133/74; PULSE 62; RESP 14; TEMP 37.1; O2SAT 96
[2022-02-21] MEDS: Heparin Sodium,Porcine 5,000 UNIT/ML VIAL 5000 UNIT SUBCUT ×2 (05:52→17:45)
[2022-02-21 07:37] VITALS: BP 127/82; PULSE 70; RESP 15; TEMP 36.6; O2SAT 96
[2022-02-21 07:45] LABS: Glucose, Whole Blood 94 mg/dL (60-115)
[2022-02-21 08:03] LABS: Hematocrit 30.5 % (42.0-52.0); Hemoglobin 9.9 g/dl (14.0-18.0); Mean Corpuscular HGB Conc 32.5 g/dl (31.0-36.0); Mean Corpuscular Hemoglobin 23.9 pg (27.0-33.0); Mean Corpuscular Volume 73.7 fL (80.0-98.0); Red Blood Count 4.14 X10*6/uL (4.60-5.80); White Blood Count 5.9 X10*3/uL (4.8-10.8)
[2022-02-21 08:04] LABS: Platelet Count 37 X10*3/uL (160-400)
[2022-02-21 08:15] LABS: Anion Gap 15 (12-20); Blood Urea Nitrogen 26 mg/dL (9-16); Calcium 9.8 mg/dL (8.4-10.2); Carbon Dioxide 22 mmol/L (22-29); Chloride 109 mmol/L (96-108); Creatinine Clr Calc Pharmacy 20.1; Estimated Glomerular Filt Rate 18; Glucose Random 84 mg/dL (60-115); Potassium 5.1 mmol/L (3.3-5.1); Sodium 141 mmol/L (135-145)
[2022-02-21] MEDS: rifAXIMin 550 MG TABLET PO ×2 (08:17→19:56)
[2022-02-21] MEDS: Midodrine HCl 5 MG TABLET PO ×3 (08:17→15:56)
[2022-02-21] MEDS: Sodium Bicarbonate 650 MG TABLET PO ×3 (08:17→19:56)
[2022-02-21] MEDS: Ferrous Sulfate 324 MG TABLET.DR PO ×2 (08:17→19:56)
[2022-02-21] MEDS: Omeprazole 40 MG CAPSULE.DR PO (08:17)
[2022-02-21] MEDS: Lactulose 20 GM/30 ML SOLUTION 10 GM PO ×3 (08:18→19:56)
[2022-02-21] MEDS: Albumin Human 25 % 100 ML IV (08:18)
[2022-02-21] MEDS: 0.9 % Sodium Chloride Flush 3 ML SYRINGE IVFLUSH ×3 (08:26→19:57)
[2022-02-21 11:40] LABS: Glucose, Whole Blood 117 mg/dL (60-115)
[2022-02-21 12:00] VITALS: BP 126/79; PULSE 70; RESP 14; TEMP 36.6; O2SAT 96
--- NOTE | 2022-02-21 13:36 | P.PNIM_ITS ---
Subjective Subjective Date of Service: 02/21/22 Interval History: This history was taken in [place] from the patient. SCr slowly improving No nausea/vomiting No hematemesis, melena, or hematochezia Review of Systems Review of Systems: Yes all other systems are reviewed and are negative Physical Exam Vital Signs: Vital Signs: Last Vital Signs Temp 97.9 F 02/21/22 12:00 Pulse 70 02/21/22 12:00 Resp 14 02/21/22 12:00 BP 126/79 02/21/22 12:00 Pulse Ox 96 02/21/22 12:00 BMI result Body Mass Index 31.2 Gen: chronically ill appearing HEENT: sclera anicteric, moist mucus membranes Neck: supple Lungs: clear to auscultation bilaterally Heart: regular rate and rhythm, no murmurs Abd: soft, nontender, paracentesis site with dry dressing Ext: no edema Skin: warm/well-perfused Neuro: alert and oriented x3, no focal findings, no asterixis Psych: appropriate affect Objective Data Active Medications Atorvastatin Calcium (Atorvastatin Calcium 20 Mg Tablet) 20 mg PO BEDTIME [facility] Last Admin: 02/20/22 20:26 Dose: 20 mg Documented by: FABRICIO Dextrose (Dextrose 50 % 25 Gm/50 Ml Syringe) 25 gm IVPUSH Q15M PRN; Protocol PRN Reason: per Hypoglycemia Standing Ord. Ferrous Sulfate (Ferrous Sulfate 324 Mg Tablet.) 324 mg PO BID [facility] Last Admin: 02/21/22 08:17 Dose: 324 mg Documented by: RAMIRO Glucose (Glucose Gel 15 Gm Gel..Gram.) 15 gm PO Q15M PRN; Protocol PRN Reason: per Hypoglycemia Standing Ord. Heparin Sodium (Porcine) (Heparin Sodium,Porcine 5,000 Unit/Ml Vial) 5,000 unit SUBCUT Q12H [facility] Last Admin: 02/21/22 05:52 Dose: 5,000 unit Documented by: FABRICIO Albumin Human (Kedbumin 25 %) 100 mls @ 100 mls/hr IV DAILY [facility] Last Infusion: 02/21/22 09:22 Dose: 0 mls/hr Documented by: RAMIRO Insulin Human Lispro (Insulin Lispro 100 Unit/Ml 3 Ml Vial) 0 unit SUBCUT QIDACHS [facility]; Protocol Last Admin: 02/21/22 11:32 Dose: Not Given Documented by: RAMIRO Non-Admin Reason: No Insulin Coverage Lactulose (Lactulose 20 Gm/30 Ml Solution) 10 gm PO TID [facility] Last Admin: 02/21/22 08:18 Dose: 10 gm Documented by: RAMIRO Midodrine (Midodrine Hcl 5 Mg Tablet) 5 mg PO TIDWM [facility] Last Admin: 02/21/22 11:32 Dose: 5 mg Documented by: RAMIRO Omeprazole (Omeprazole 40 Mg Capsule.Dr) 40 mg PO DAILY [facility] Last Admin: 02/21/22 08:17 Dose: 40 mg Documented by: RAMIRO Ondansetron HCl (Ondansetron Hcl 4 Mg/2 Ml Vial) 4 mg IVPUSH Q4H PRN PRN Reason: Nausea and Vomiting Last Admin: 02/17/22 22:18 Dose: 4 mg Documented by: NANDO Pharmacy Consult (Consult Rx Perform Med Rec) 1 each MISCELLANE ONCE PRN PRN Reason: Consult order Pharmacy Consult (Consult Rx Perform Med Rec) 1 each MISCELLANE ONCE PRN PRN Reason: Consult order Rifaximin (Rifaximin 550 Mg Tablet) 550 mg PO BID [facility] Last Admin: 02/21/22 08:17 Dose: 550 mg Documented by: RAMIRO Sodium Bicarbonate (Sodium Bicarbonate 650 Mg Tablet) 650 mg PO TID [facility] Last Admin: 02/21/22 08:17 Dose: 650 mg Documented by: RAMIRO Sodium Chloride (0.9 % Sodium Chloride Flush 3 Ml Syringe) 3 ml IVFLUSH QSHIFT [facility] Last Admin: 02/21/22 08:26 Dose: 3 ml Documented by: RAMIRO Labs CBC & Chem 7: 02/21/22 06:38 02/21/22 06:38 Labs: Laboratory Results - last 24 hr 02/18/22 02/20/22 02/20/22 05:53 15:24 19:17 MCV MCH MCHC RDW Plt Count MPV Absolute Nucleated RBC Nucleated RBC % (auto) Anion Gap Estim Creat Clear Calc Estimated GFR POC Glucose 171 H 143 H Random Glucose Calcium IgE 2913 H 02/21/22 02/21/22 02/21/22 06:38 06:38 07:35 MCV 73.7 L MCH 23.9 L MCHC 32.5 RDW 17.0 H Plt Count 37 L MPV Not Reportable Absolute Nucleated RBC 0.000 Nucleated RBC % (auto) 0.0 Anion Gap 15 Estim Creat Clear Calc 20.1 Estimated GFR 18 POC Glucose 94 Random Glucose 84 D Calcium 9.8 IgE 02/21/22 11:27 MCV MCH MCHC RDW Plt Count MPV Absolute Nucleated RBC Nucleated RBC % (auto) Anion Gap Estim Creat Clear Calc Estimated GFR POC Glucose 117 H Random Glucose Calcium IgE Microbiology Microbiology Results: Microbiology 02/16/22 12:35 Gram Stain - Final Ascites Fluid Anaerobic Culture - Final NO GROWTH AFTER 5 DAYS Body Fluid Culture - Final No growth after 2 days Assessment and Plan (1) Cirrhosis of liver with ascites: Status: Acute (2) Acute kidney injury: Status: Acute (3) Essential hypertension: Status: Acute Plan hospital d#7 71yo M with cirrhosis with ascites and CKD3, 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 SCr improving slowly. Continue bicarbonate supplementation. pt declines HD; MOLST completed # cirrhosis with ascites - paracentesis 02/16 with removal of 3.1L of fluid, repeat 02/19 with removal of 5L of fluid - suspected SEGUNDO cirrhosis # HTN - amlodipine, hydralazine, Imdur + metoprolol on hold due to relative hypotension # hepatic encephaloapthy - lactulose + rifaxmin # DM2 - correction-dose lisprp # VTE ppx - UFH In my clinical judgment, the patient requires continued hospitalization for the following reasons: renal failure Quality Stroke Does the patient have a stroke diagnosis?: No VTE Prior VTE?: No VTE Risk Level:: Medical - moderate - high VTE Device Contraindication: Treatment Not Indicated VTE Drug Contraindication: N/A - Med Ordered
--- NOTE | 2022-02-21 14:45 | MHC.CM.PN ---
PLAN IS FOR PATIENT TO RETURN HOME Friday02/22/22 [facility] REFERRAL PLACED PER REQUEST OF .
[2022-02-21 15:18] VITALS: BP 106/63; PULSE 62; RESP 14; TEMP 37; O2SAT 95
[2022-02-21 15:48] LABS: Glucose, Whole Blood 173 mg/dL (60-115)
--- NOTE | 2022-02-21 15:55 | P.PNNP_ITS ---
Subjective Subjective Date of Service: 02/21/22 Interval history: This history was taken in Thai from the patient. SCr slowly improving No nausea/vomiting No hematemesis, melena, or hematochezia Physical Exam Vital Signs: Vital Signs: Last Vital Signs Temp 98.6 F 02/21/22 15:18 Pulse 62 02/21/22 15:18 Resp 14 02/21/22 15:18 BP 106/63 02/21/22 15:18 Pulse Ox 95 02/21/22 15:18 BMI result Body Mass Index 31.2 Const: General: cooperative, comfortable and no acute distress Orientation/consciousness: patient oriented x3 HEENT: Head: Yes normocephalic Neck: Neck: Yes no JVD Resp: Auscultation: clear to auscultation bilaterally Cardio: Jugular venous distension: no JVD Rate: regular rate Rhythm: regular rhythm Heart sounds: S1 normal heart sound present and S2 normal heart sound present Neuro: General: patient oriented x3 and no focal motor deficits Extrem: General: Yes edema Objective Data Labs CBC & Chem 7: 02/21/22 06:38 02/21/22 06:38 Labs: Laboratory Results - last 24 hr 02/18/22 02/20/22 02/20/22 05:53 15:24 19:17 WBC RBC Hgb Hct MCV MCH MCHC RDW Plt Count MPV Absolute Nucleated RBC Nucleated RBC % (auto) Sodium Potassium Chloride Carbon Dioxide Anion Gap BUN Creatinine Estim Creat Clear Calc Estimated GFR POC Glucose 171 H 143 H Random Glucose Calcium IgE 2913 H 02/21/22 02/21/22 02/21/22 06:38 06:38 07:35 WBC 5.9 RBC 4.14 L Hgb 9.9 L Hct 30.5 L MCV 73.7 L MCH 23.9 L MCHC 32.5 RDW 17.0 H Plt Count 37 L MPV Not Reportable Absolute Nucleated RBC 0.000 Nucleated RBC % (auto) 0.0 Sodium 141 Potassium 5.1 Chloride 109 H Carbon Dioxide 22 Anion Gap 15 BUN 26 H Creatinine 3.35 H Estim Creat Clear Calc 20.1 Estimated GFR 18 POC Glucose 94 Random Glucose 84 D Calcium 9.8 IgE 02/21/22 02/21/22 11:27 15:42 WBC RBC Hgb Hct MCV MCH MCHC RDW Plt Count MPV Absolute Nucleated RBC Nucleated RBC % (auto) Sodium Potassium Chloride Carbon Dioxide Anion Gap BUN Creatinine Estim Creat Clear Calc Estimated GFR POC Glucose 117 H 173 H Random Glucose Calcium IgE Microbiology Microbiology Results: Microbiology 02/16/22 12:35 Ascites Fluid Gram Stain - Final 02/16/22 12:35 Ascites Fluid Anaerobic Culture - Final NO GROWTH AFTER 5 DAYS 02/16/22 12:35 Ascites Fluid Body Fluid Culture - Final No growth after 2 days Procedures Date of Service Date of Service: 02/21/22 Assessment & Plan Assessment and plan (1) CKD (chronic kidney disease) stage 3, GFR 30-59 ml/min: Status: Acute (2) Acute kidney injury: Status: Acute Assessment and Plan: #)LORRI due to compromised kidney perfusion versus acute tubular injury versus hepatorenal syndrome? type 1 U-Na improved indicating appropriate renal perfusion. S-Cr slowly down-trending. Adequate MAP. 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 Initiate octreotide if S-Cr becomes worse. Change sodium bicarbonate to 650 mg tid to daily as S-Cr is improving. no IVF no indication for [employer]. Patient does not want HD follow kidney function and electrolytes Time Spent With Patient Time: Total time spent is greater than 50% in coordination of care (as documented) at patient's floor/unit and/or counseling patient: Progress Note: Quality Stroke Does the patient have a stroke diagnosis?: No
[2022-02-21] MEDS: Insulin Lispro 100 UNIT/ML 3 ML VIAL SUBCUT ×2 (15:56→19:57)
[2022-02-21 18:47] VITALS: BP 112/69; PULSE 63; RESP 16; TEMP 37.8; O2SAT 95
[2022-02-21 19:33] LABS: Glucose, Whole Blood 160 mg/dL (60-115)
[2022-02-21] MEDS: Atorvastatin Calcium 20 MG TABLET PO (19:56)
[2022-02-21 23:27] VITALS: BP 107/57; PULSE 64; RESP 14; TEMP 37.2; O2SAT 98
[2022-02-22 03:08] VITALS: BP 109/64; PULSE 57; RESP 16; TEMP 36.6; O2SAT 96
[2022-02-22] MEDS: Heparin Sodium,Porcine 5,000 UNIT/ML VIAL 5000 UNIT SUBCUT (05:55)
[2022-02-22 06:54] VITALS: BP 109/66; PULSE 52; RESP 18; TEMP 37.2; O2SAT 96
[2022-02-22 06:56] LABS: Anion Gap 10 (12-20); Blood Urea Nitrogen 27 mg/dL (9-16); Calcium 9.4 mg/dL (8.4-10.2); Carbon Dioxide 26 mmol/L (22-29); Chloride 107 mmol/L (96-108); Creatinine Clr Calc Pharmacy 20.4; Estimated Glomerular Filt Rate 19; Glucose Random 103 mg/dL (60-115); Potassium 5.3 mmol/L (3.3-5.1); Sodium 138 mmol/L (135-145)
[2022-02-22 07:07] LABS: Glucose, Whole Blood 97 mg/dL (60-115)
[2022-02-22] MEDS: Lactulose 20 GM/30 ML SOLUTION 10 GM PO (08:17)
[2022-02-22] MEDS: Omeprazole 40 MG CAPSULE.DR PO (08:18)
[2022-02-22] MEDS: Ferrous Sulfate 324 MG TABLET.DR PO (08:18)
[2022-02-22] MEDS: Albumin Human 25 % 100 ML IV (08:18)
[2022-02-22] MEDS: Midodrine HCl 5 MG TABLET PO ×2 (08:18→11:22)
[2022-02-22] MEDS: Sodium Bicarbonate 650 MG TABLET PO (08:18)
[2022-02-22] MEDS: rifAXIMin 550 MG TABLET PO (08:18)
[2022-02-22] MEDS: 0.9 % Sodium Chloride Flush 3 ML SYRINGE IVFLUSH (08:20)
--- NOTE | 2022-02-22 10:36 | W.MHC.F2F ---
Service Date Service Date: 02/22/22 Encounter Date of encounter: 02/22/22 Reasons for Services Signs and symptoms assessed: renal function cirrhosis Reason for intermediate: neurological assessment, medication management, medication treatment and teach disease management Reason for physical therapy: home safety and mobility, therapeutic exercises, gait/transfer training, assess need for DME, ADL training and energy conservation MD Overseeing Care: Kimber Pan Homebound: Leaving the home is medically contraindicated at this time without the asist of a device and/or another person due th the listed conditions above and below. Reason homebound: unsteady gait / fall risk, poor balance / fall risk and weakness related to hospital stay Certification: Based on the above findings, I certify that this patient is confined to the home and needs intermittent intermediate care, physical therapy and/or speech therapy, or continues to need occupational therapy. The patient is under my care, and I have initiated the establishment of the plan of care. The patient will be followed by a physician who will periodically review the plan of care.
[2022-02-22 10:56] VITALS: BP 119/75; PULSE 59; RESP 18; TEMP 36.7; O2SAT 98
--- NOTE | 2022-02-22 11:15 | P.DS_ITS ---
DS: Providers Provider Date of Service: 02/22/22 Date of admission: 02/15/22 17:56 Date of discharge: 02/22/22 Primary care physician: Kimber Pan MD Consults: 02/16/22 13:51 Consult to Nephrology Routine Consulting Provider: Barrett Worley Reason for consultation: LORRI Has provider been notified: No 02/18/22 07:57 Consult to Hematology / Oncology Routine Consulting Provider: Alesha Rawls Reason for consultation: pt with cirrhosis, eosinophil count of 26 to 28% Has provider been notified: No DS: Diagnosis Discharge Diagnosis (1) Hepatorenal syndrome: Status: Acute (2) Acute worsening of stage 3 chronic kidney disease: Status: Acute (3) Metabolic acidosis: Status: Acute (4) Eosinophilia: Status: Chronic (5) Cirrhosis of liver with ascites: Status: Acute (6) Hepatic encephalopathy: Status: Acute DS: Summary Hospital Course Hospital Course: from admission H+P by hospitalist Beny Orona DO, 02/15/22: 71-year-old male with known history of chronic renal disease and liver cirrhosis presents today after routine lab evaluation demonstrated an increase in his creatinine and ammonia.? He states over the last 3-5 days he has been increasingly nauseous with poor p.o. intake.? He states his his abdomen has gotten larger similar to past episodes were he had gotten drained.? He denies fever and chills.? States he has not drank alcohol and greater than 10 years.? (all information gleaned via personal injury litigation paralegal Hospital course by problem: This 71yo M with cirrhosis with ascites and CKD3 was sent in by his child development associate teacher due to elevated BUN/Cr and ammonia. # LORRI/CKD3 - Suspected hepatorenal syndrome. Treated with albumin infusions and midodrine; did not require ostreotide. Serum creatinine slowly improved, though not yet at baseline. Bicarbonate supplementation initiatied due to metabolic acidosis. Discharged on sodium bicarbonate and midodrine; all anithypertensives discontinued [amlodipine, isosorbide mononitrate, metoprolol, hydralazine] due to relative hypotension. Will need to repeat BMP on 02/25/22, and follow up with his child development associate teacher in 1 week. # cirrhosis with ascites - Underwent paracentesis on 02/16/22 with removal of 3.1L of fluid. No evidence of SBP or malignancy on the ascites. Repeat paracentesis done for therapeutic purposes 02/19/22 with removal of 5L of fluid. Patient instructed to restrict sodium and fluid intake as for diuretic-resistant ascites. # hepatic encephalopathy - Rifaximin added to lactulose. No asterixis on the day of discharge. Mental status normal/baseline. # eosinophilia - Hematology consulted. Workup initiated and he will follow up as an outpatient with Dr Stearns. # type 2 diabetes, history - Did not require any pharmacotherapy other than sliding-scale lispro. A1c over the last 1 yr has been in the mid-5's range. As such, Tradjenta and Toujeo were discontinued. Metformin also discontinued due to decompensated cirrhosis. He was left on low-dose prandial Humalog. # goals of care - Extensive discussion with patient and his . Given poor long-term prognosis, he changed his code status to DNR/DNI and declined future artificial nutrition or dialysis. A MOLST was filled out reflecting these desires. He was discharged home with VNA services. Time Spent with Patient Time attestation: Total time spent providing and/or coordinating discharge services: 45 Discharge coordination time: Greater than 30 minutes Quality: Safe Use of Opioids Does Pt have an Active Cancer Diagnosis on the Problem List?: No Quality: Stroke Does the patient have a stroke diagnosis?: No Physical Exam Vital Signs: Vital Signs: Last Vital Signs Temp 98.0 F 02/22/22 10:56 Pulse 59 02/22/22 10:56 Resp 18 02/22/22 10:56 BP 119/75 02/22/22 10:56 Pulse Ox 98 02/22/22 10:56 BMI result Body Mass Index 31.2 Gen: chronically ill appearing HEENT: sclera anicteric, moist mucus membranes Neck: supple Lungs: clear to auscultation bilaterally Heart: regular rate and rhythm, no murmurs Abd: soft, nontender, paracentesis site with dry dressing Ext: no edema Skin: warm/well-perfused Neuro: alert and oriented x3, no focal findings, no asterixis Psych: appropriate affect DS: Data Data Completed and Pending Completed studies during hospitalization [Text1]: Laboratory Results WBC 5.9 X10*3/uL (4.8-10.8) 02/21/22 06:38 RBC 4.14 X10*6/uL (4.60-5.80) L 02/21/22 06:38 Hgb 9.9 g/dl (14.0-18.0) L 02/21/22 06:38 Hct 30.5 % (42.0-52.0) L 02/21/22 06:38 MCV 73.7 fL (80.0-98.0) L 02/21/22 06:38 MCH 23.9 pg (27.0-33.0) L 02/21/22 06:38 MCHC 32.5 g/dl (31.0-36.0) 02/21/22 06:38 RDW 17.0 % (11.0-16.0) H 02/21/22 06:38 Plt Count 37 X10*3/uL (160-400) L 02/21/22 06:38 MPV Not Reportable 02/21/22 06:38 Immature Gran % (Auto) 0.2 % (0.0-0.4) 02/19/22 06:00 Neut % (Auto) 30.2 % (45-73) L 02/19/22 06:00 Lymph % (Auto) 32.0 % (20-40) 02/19/22 06:00 [place] % (Auto) 9.1 % (2-11) 02/19/22 06:00 Eos % (Auto) 27.8 % (0-4) H 02/19/22 06:00 Baso % (Auto) 0.7 % (0-2) 02/19/22 06:00 Lymph # (Auto) 1.8 X10*3/uL (1.2-4.9) 02/19/22 06:00 [place] # (Auto) 0.5 X10*3/uL (0.1-1.2) 02/19/22 06:00 Eos # (Auto) 1.5 X10*3/uL (0.0-0.4) H 02/19/22 06:00 Baso # (Auto) 0.0 X10*3/uL (0.0-0.2) 02/19/22 06:00 Abs Immat Gran (auto) 0.01 X10*3/uL (0.00-0.03) 02/19/22 06:00 Absolute Neuts (auto) 1.7 x10*3/uL (2.0-8.3) L 02/19/22 06:00 Absolute Nucleated RBC 0.000 X10*3/uL (0.0-0.012) 02/21/22 06:38 Nucleated RBC % (auto) 0.0 /100WBC (0.0-0.2) 02/21/22 06:38 Smear Tech's Comments VERIFIED 02/19/22 06:00 PT 17.8 SEC (9.9-13.0) H 02/19/22 06:00 INR 1.6 (0.9-1.1) H 02/19/22 06:00 Sodium 138 mmol/L (135-145) 02/22/22 05:55 Potassium 5.3 mmol/L (3.3-5.1) H 02/22/22 05:55 Chloride 107 mmol/L (96-108) 02/22/22 05:55 Carbon Dioxide 26 mmol/L (22-29) 02/22/22 05:55 Anion Gap 10 (12-20) L 02/22/22 05:55 BUN 27 mg/dL (9-16) H 02/22/22 05:55 Creatinine 3.30 mg/dL (0.5-1.4) H 02/22/22 05:55 Estim Creat Clear Calc 20.4 02/22/22 05:55 Estimated GFR 19 02/22/22 05:55 POC Glucose 97 mg/dL (60-115) 02/22/22 06:56 Random Glucose 103 mg/dL (60-115) 02/22/22 05:55 Fasting Glucose 90 mg/dL (60-99) 02/20/22 05:49 Calcium 9.4 mg/dL (8.4-10.2) 02/22/22 05:55 Total Bilirubin 1.3 mg/dL (0.0-1.0) H 02/20/22 05:49 AST 44 U/L (5-37) H 02/20/22 05:49 ALT 21 U/L (0-40) 02/20/22 05:49 Alkaline Phosphatase 78 U/L (39-117) 02/20/22 05:49 Ammonia 42 umol/L (13-55) 05/11/22 05:49 Troponin I High Sens 3.7 ng/L (<3.5-35.0) 02/15/22 16:13 B-Natriuretic Peptide 540 pg/mL (<100) H 02/15/22 16:13 Total Protein 6.6 g/dL (6.5-8.0) 02/20/22 05:49 Albumin 3.9 g/dL (3.5-5.0) 02/20/22 05:49 Lipase 84 U/L (8-78) H 02/17/22 13:13 Tryptase 13.3 mcg/L (<11.0) H 02/18/22 15:33 Alpha Fetoprotein 4.6 ng/mL (<6.1) 02/17/22 13:13 Vitamin B12 579 pg/mL (200-900) 02/17/22 13:13 Urine Color YELLOW 02/15/22 17:24 Urine Appearance CLEAR 02/15/22 17:24 Urine pH 5.5 (5.0-8.0) 02/15/22 17:24 Ur Specific [place] 1.025 (1.005-1.025) 02/15/22 17:24 Urine Protein 1+ MG/DL (NEG-TRACE) H 02/15/22 17:24 Urine Glucose (UA) NEG MG/DL (NEG) 02/15/22 17:24 Urine Ketones NEG MG/DL (NEG) 02/15/22 17:24 Urine Blood NEG (NEG) 02/15/22 17:24 Urine Nitrite NEG (NEG) 02/15/22 17:24 Ur Leukocyte Esterase NEG (NEG) 02/15/22 17:24 Urine RBC 0-2 /HPF (0) 02/15/22 17:24 Urine WBC 1-4 /HPF (0-4) 02/15/22 17:24 Ur Squamous Epith Cells 1+ /LPF 02/15/22 17:24 Amorphous Sediment 1+ /LPF 02/15/22 17:24 Urine Bacteria NONE /LPF 02/15/22 17:24 Hyaline Casts 0-2 /LPF 02/15/22 17:24 Granular Casts 1-4 /LPF 02/15/22 17:24 Ur Random Sodium 26.0 mmol/L 02/19/22 12:30 Peritoneal pH 7.43 05/07/22 12:35 Peritoneal WBC 0.190 X10*3/uL 02/16/22 12:35 Peritoneal RBC < 0.002 X10*6/uL 02/16/22 12:35 Periton Neutrophils 6 % 02/16/22 12:35 Periton Lymphocytes 64 % 02/16/22 12:35 Peritoneal Monocytes 30 % 02/16/22 12:35 Peritoneal Tot Protein 0.7 02/16/22 12:35 Peritoneal Albumin 15 02/16/22 12:35 Peritoneal LDH 33 02/16/22 12:35 Peritoneal Glucose 84 02/16/22 12:35 Peritoneal Amylase 15 02/16/22 12:35 IgG Total 1280 mg/dL (600-1540) 02/16/22 06:00 IgG Subclass 1 678 mg/dL (382-929) 02/16/22 06:00 IgG Subclass 2 274 mg/dL (241-700) 02/16/22 06:00 IgG Subclass 3 46 mg/dL (22-178) 02/16/22 06:00 IgG Subclass 4 162.4 mg/dL (4-86) H 02/16/22 06:00 IgE 2913 kU/L (<SW=536) H 02/18/22 05:53 COVID-19 (STEVEN) Negative (Negative) 02/15/22 19:52 COVID-19 Clin Com See Note 02/15/22 19:52 Impressions Paracentesis Ultrasound 02/19/22 12:17 IMPRESSION: Successful ultrasound-guided therapeutic paracentesis performed without immediate complications. Pathology (02/16/22) Diagnosis Ascites, paracentesis:? No malignancy identified.? See comment. COMMENT:? Cellular specimen consisting of scattered reactive appearing mesothelial cells, macrophages and background lymphocytes and neutrophils. Discharge Plan Discharge Patient Disposition: Home Health Service Discharge Diagnosis: acute/chronic kidney disease stage 3, hepatorenal syndrome, cirrhosis with ascites Referrals: Waqas Gonzalez MD [Physician] - 1 Week Carissa Clifton MD [Physician] - 2 Weeks Alesha Rawls MD [Physician] - 2 Weeks Kimber Day MD [Primary Care Provider] - 1 Week Discharge Medications: New Xifaxan 550 mg Tablet 550 mg PO BID Qty: 60 0RF midodrine 5 mg Tablet 5 mg PO TIDWM Qty: 90 0RF sodium bicarbonate 650 mg Tablet 650 mg PO DAILY Qty: 30 0RF Continued (DME) blood-glucose meter [Prodigy Autocode Meter] Kit See Rx Instructions .Route Qty: 1 0RF Rx Instructions: As directed (DME) Prodigy No Coding Strip See Rx Instructions .Route Qty: 100 11RF Rx Instructions: 3 times a day (DME) lancets [Prodigy Lancets] 28 gauge misc See Rx Instructions .Route Qty: 100 11RF Rx Instructions: 3 times a day (DME) FreeStyle Toyin 2 [place] Misc See Rx Instructions .ROUTE .MEDSUPPLY Qty: 1 0RF Rx Instructions: As directed (DME) FreeStyle Toyin 2 Sensor Kit See Rx Instructions .ROUTE .MEDSUPPLY Qty: 2 11RF Rx Instructions: As directed every 2 weeks nitroglycerin 0.4 mg tablet, sublingual 0.4 mg sublingual Q5M PRN (Reason: chest pain) Qty: 25 2RF (DME) FreeStyle Lite Strips Strip See Rx Instructions strip MISCELLANEOUS TID 0RF Rx Instructions: As directed to test blood sugar insulin lispro [Humalog KwikPen Insulin] 100 unit/mL insulin pen 4 unit subcut TIDAC 0RF Rx Instructions: as directed mupirocin 2 % ointment 1 applic topical TID PRN (Reason: Inflammation) 0RF atorvastatin 20 mg tablet 20 mg PO BEDTIME 0RF omeprazole 40 mg capsule,delayed release(DR/EC) 1 cap PO DAILY 0RF aspirin 81 mg Tablet,Delayed Release (Dr/Ec) 81 mg PO DAILY 0RF ferrous sulfate 325 mg (65 mg iron) Tablet 325 mg PO BID 0RF (DME) lancets [FreeStyle Lancets] 28 gauge misc See Rx Instructions .Route Qty: 100 0RF Rx Instructions: test bs three times a day lactulose [Enulose] 10 gram/15 mL solution 15 ml PO TID 30 Days Qty: 1350 6RF (DME) bed rail See Rx Instructions .Route .MEDSUPPLY Qty: 2 0RF Rx Instructions: As directed (DME) pull up diapers medium See Rx Instructions .Route .MEDSUPPLY Qty: 200 6RF Rx Instructions: As directed Discontinued isosorbide mononitrate 30 mg tablet extended release 24 hr 1 tab PO DAILY 0RF metoprolol succinate 50 mg tablet extended release 24 hr 50 mg PO BID 0RF metformin 500 mg tablet 1 tab PO BID 0RF Tradjenta 5 mg tablet 1 tab PO DAILY 0RF hydralazine 10 mg tablet 1 tab PO DAILY@0700,1200,1700 0RF amlodipine 10 mg tablet 10 mg PO DAILY Qty: 90 3RF Toujeo SoloStar U-300 Insulin 300 unit/mL (1.5 mL) insulin pen 12 unit subcut DAILY 90 Days Qty: 4.5 3RF Discharge Orders: Discharge Order (Routine); Ordered 02/22/22 Ordered By: Chang Nuñez Diet: diabetic diet and low salt diet Activity on Discharge: As tolerated Stand Alone Forms: Patient Portal Discharge page Other Ambulatory Orders: Basic Metabolic Panel (Routine) Timeframe: 1 Week Facility: [facility] - Location: Laboratory Ordered By: Chang Nuñez Activity Restrictions/Additional Instructions: less than 2000 mg of sodium daily less than 1.5 liters of fluid daily Care Plan Goals: improved liver and kidney health Health Concerns: acute/chronic kidney disease, hepatorenal syndrome cirhosis with ascites hepatic encephalopathy eosinophilia Plan of Treatment: acute/chronic kidney disease, hepatorenal syndrome: recheck labs on 02/25/22 (BMP = basic metabolic panel), start midodrine 5 mg 3 times daily, take sodium bicarbonate 650 mg once daily, follow up with Dr Roberto [child development associate teacher] in 1 week cirrhosis with ascites: restrict sodium to 2000 mg daily, restrict fluid to 1.5 liters daily, follow up with Dr Clifton [client relationship consultant] in 2 weeks hepatic encephalopathy: continue lactulose, add rifaximin 550 mg twice daily eosinohpilia: follow up with Dr Rawls [labor law professor] in 2-4 weeks Stop blood pressure medications [amlodipine, hydralazine, isosorbide mononitrate] Stop diabetic medications [metformin, Toujeo, Tradjenta] except for Humalog Assessment: See Discharge Summary Patient Instructions: Cirrhosis (DC), Ascites (DC)
[2022-02-22] MEDS: Sodium Zirconium Cyclosilicate 5 GM POWD.PACK PO (11:22)
[2022-02-22 11:27] LABS: Glucose, Whole Blood 153 mg/dL (60-115)
[2022-02-22] MEDS: Insulin Lispro 100 UNIT/ML 3 ML VIAL SUBCUT (11:58)
--- NOTE | 2022-02-22 16:54 | MHC.CM.PN ---
PT MEDICALLY CLEARED FOR D/C HOME W/NEW [facility] FOR SN/OT/PT, FAMILY HAS TRANSPORTED PT
== END 2022-02-22 14:49 | disposition home health service (06) | DRG 441 ==
LOC: HO.ED 18:27 → HO.EDOVER 18:28 → HO.S3 21:40
PROVIDERS: Internal Medicine; Internal Medicine Gastroenterology; Internal Medicine Nephrology; Admitting Provider Hospitalist; Emergency Provider Emergency Medicine; PCP Internal Medicine; Visit Provider Family Medicine
DX: K76.7 Hepatorenal syndrome (principal); N17.0 Acute kidney failure with tubular necrosis; R18.8 Other ascites; E87.2 Acidosis; D61.818 Other pancytopenia; K74.60 Unspecified cirrhosis of liver; Z66 Do not resuscitate; I12.9 Hypertensive chronic kidney disease with stage 1 through stage 4 chronic kidney disease, or unspecified chronic kidney disease; N18.30 Chronic kidney disease, stage 3 unspecified; D72.10 Eosinophilia, unspecified; E11.22 Type 2 diabetes mellitus with diabetic chronic kidney disease; K75.81 Nonalcoholic steatohepatitis (NASH); E11.649 Type 2 diabetes mellitus with hypoglycemia without coma; K72.90 Hepatic failure, unspecified without coma; Z20.822 Contact with and (suspected) exposure to COVID-19; Z87.891 Personal history of nicotine dependence; Z91.040 Latex allergy status; Z79.4 Long term (current) use of insulin; Z79.01 Long term (current) use of anticoagulants; Z79.82 Long term (current) use of aspirin; Z79.899 Other long term (current) drug therapy
CPT/HCPCS: 36415; 49083; 70450; 80048; 80053; 81001; 82042; 82105; 82140; 82150; 82565; 82607; 82784; 82785; 82945; 82947; 83520; 83615; 83690; 83880; 83986; 84157; 84300; 84484; 84520; 85025; 85027; 85610; 87070; 87073; 87116; 87177; 87205; 87209; 87635; 88112; 89051; 93005; 96360; 99285; J2405; P9047

== ENCOUNTER 2022-02-25 10:22 | Outpatient (REF) | payer MEDICARE, MEDICAID, SELFPAY ==
[2022-02-25 11:31] LABS: Anion Gap 14 (12-20); Blood Urea Nitrogen 25 mg/dL (9-16); Calcium 10.4 mg/dL (8.4-10.2); Carbon Dioxide 27 mmol/L (22-29); Chloride 106 mmol/L (96-108); Estimated Glomerular Filt Rate 20; Glucose Random 88 mg/dL (60-115); Potassium 5.5 mmol/L (3.3-5.1); Sodium 141 mmol/L (135-145)
== END 2022-02-25 10:23 | disposition home or self-care (01) ==
LOC: HO.LAB 10:22
PROVIDERS: Absent Provider Internal Medicine Nephrology; PCP Internal Medicine; Visit Provider Family Medicine
DX: R60.0 Localized edema (principal); I12.9 Hypertensive chronic kidney disease with stage 1 through stage 4 chronic kidney disease, or unspecified chronic kidney disease; N18.32 Chronic kidney disease, stage 3b; N17.9 Acute kidney failure, unspecified
CPT/HCPCS: 36415; 80048

== ENCOUNTER → 2022-03-04 07:36 | Outpatient (BNVA) | payer MEDICARE, MEDICAID, SELFPAY | PROVIDERS: PCP Internal Medicine; Visit Provider Internal Medicine Gastroenterology | DX: Z13.89 Encounter for screening for other disorder (principal) | CPT/HCPCS: Q3014 ==

== ENCOUNTER 2022-03-08 07:23 | Day surgery (SDC) | payer MEDICARE, MEDICAID, SELFPAY ==
--- NOTE | 2022-03-07 11:45 | PC.NURSE ---
Preprocedure instructions relayed to pt's spouse indira @ [phone] for scheduled 03/08/22 0900am paracentesis with 0730am arrival time to hospital.
--- NOTE | ~2022-03-08 | US_ITS ---
EXAMINATION: US GUIDED PARACENTESIS CLINICAL INFORMATION: Ascites COMPARISON: None TECHNIQUE: Following explaining ultrasound-guided paracentesis procedure, benefits and risk via a elevator mechanic apprentice, a written consent was obtained. Patient was placed supine on ultrasound stretcher and preliminary ultrasound imaging was obtained. An optimal site was selected along the left lower quadrant, marked, cleaned and draped in usual sterile manner. 1% lidocaine was injected at puncture site. Through a small skin incision a [employer] catheter was advanced into the peritoneal space. After observing fluid return, the stylet was withdrawn and catheter connected to vacuum bottle. After obtaining all fluid and observing no more fluid remaining, the catheter was withdrawn and complete hemostasis achieved at puncture site. Sterile Band-Aid applied postprocedure. Patient tolerated procedure extremely well. Patient was monitored by a nurse during the procedure. FINDINGS: On preliminary ultrasound imaging, there is moderate fluid seen in the left abdomen and smaller fluid in the right abdomen. Approximately 2.4 L of dark yellowish fluid was drained from the left lower quadrant. US/US paracentesis abd w/image IMPRESSION: Successful ultrasound-guided therapeutic left lower quadrant paracentesis performed.
[2022-03-08 08:05] VITALS: BMI 25.9
[2022-03-08 08:11] LABS: Glucose, Whole Blood 93 mg/dL (60-115)
[2022-03-08 09:25] VITALS: BP 164/93; PULSE 57; RESP 16; TEMP 36.7; O2SAT 98
[2022-03-08 09:40] VITALS: BP 169/92; PULSE 74; RESP 16; O2SAT 98
[2022-03-08 09:55] VITALS: BP 166/88; PULSE 59; RESP 16; O2SAT 95
[2022-03-08 10:10] VITALS: BP 160/88; PULSE 62; RESP 16; O2SAT 97
[2022-03-08 10:25] VITALS: BP 159/93; PULSE 64; RESP 16; TEMP 36.9; O2SAT 97
[2022-03-08] MEDS: Lidocaine HCl 1 % MPF 5 ML VIAL SUBCUT (14:13)
== END 2022-03-08 10:43 | disposition home or self-care (01) ==
LOC: HO.SSS 07:23
PROVIDERS: Radiology Diagnostic Radiology; PCP Internal Medicine; Visit Provider Student in an Organized Health Care Education/Training Program
DX: R18.8 Other ascites (principal); K74.60 Unspecified cirrhosis of liver; N18.30 Chronic kidney disease, stage 3 unspecified; E87.2 Acidosis; I25.10 Atherosclerotic heart disease of native coronary artery without angina pectoris; I10 Essential (primary) hypertension; E11.40 Type 2 diabetes mellitus with diabetic neuropathy, unspecified; E11.649 Type 2 diabetes mellitus with hypoglycemia without coma; E11.69 Type 2 diabetes mellitus with other specified complication; E78.5 Hyperlipidemia, unspecified; D69.6 Thrombocytopenia, unspecified; K72.90 Hepatic failure, unspecified without coma; K76.7 Hepatorenal syndrome; Z79.4 Long term (current) use of insulin; Z79.82 Long term (current) use of aspirin; Z79.899 Other long term (current) drug therapy; Z91.040 Latex allergy status; Z87.891 Personal history of nicotine dependence
CPT/HCPCS: 49083; 82947

== ENCOUNTER 2022-03-25 10:15 | Outpatient (REF) | payer MEDICARE, MEDICAID, SELFPAY ==
[2022-03-25 10:48] LABS: Ammonia 43 umol/L (13-55)
[2022-03-25 11:00] LABS: Basophils Percent Auto 0.6 % (0-2); Eosinophils Percent Auto 20.3 % (0-4); Hematocrit 32.9 % (42.0-52.0); Hemoglobin 10.2 g/dl (14.0-18.0); Lymphocytes Absolute Auto 1.6 X10*3/uL (1.2-4.9); Lymphocytes Percent Auto 32.3 % (20-40); MANUAL DIFF FLAG SCAN; Mean Corpuscular Hemoglobin 23.2 pg (27.0-33.0); Mean Corpuscular Volume 74.9 fL (80.0-98.0); Monocytes Absolute Auto 0.4 X10*3/uL (0.1-1.2); Monocytes Percent Auto 7.2 % (2-11); Neutrophils Percent Auto 39.6 % (45-73); Red Blood Count 4.39 X10*6/uL (4.60-5.80); Red Cell Distribution Width 15.4 % (11.0-16.0); SCAN SMEAR FLAG 1
[2022-03-25 11:01] LABS: Platelet Count 58 X10*3/uL (160-400)
[2022-03-25 11:17] LABS: Alanine Aminotransferase 28 U/L (0-40); Albumin Level 3.8 g/dL (3.5-5.0); Alkaline Phosphatase 116 U/L (39-117); Anion Gap 11 (12-20); Aspartate Amino Transferase 36 U/L (5-37); Bilirubin Total 1.4 mg/dL (0.0-1.0); Blood Urea Nitrogen 18 mg/dL (9-16); Calcium 9.4 mg/dL (8.4-10.2); Carbon Dioxide 28 mmol/L (22-29); Chloride 109 mmol/L (96-108); Estimated Glomerular Filt Rate 33; Glucose Fasting 101 mg/dL (60-99); Potassium 4.2 mmol/L (3.3-5.1); Sodium 144 mmol/L (135-145); Total Protein 7.4 g/dL (6.5-8.0)
[2022-03-25 12:15] LABS: SLIDE REVIEW VERIFIED
== END 2022-03-25 10:16 | disposition home or self-care (01) ==
LOC: HO.LAB 10:15
PROVIDERS: Absent Provider Internal Medicine Gastroenterology; PCP Internal Medicine; Visit Provider Nurse Practitioner Family
DX: I12.9 Hypertensive chronic kidney disease with stage 1 through stage 4 chronic kidney disease, or unspecified chronic kidney disease (principal); N18.30 Chronic kidney disease, stage 3 unspecified; K74.60 Unspecified cirrhosis of liver; R18.8 Other ascites; E78.00 Pure hypercholesterolemia, unspecified; D72.10 Eosinophilia, unspecified
CPT/HCPCS: 36415; 80053; 82140; 85025

== ENCOUNTER 2022-04-12 11:32 | Day surgery (SDC) | payer MEDICARE, MEDICAID, SELFPAY ==
[2022-04-08 13:51] VITALS: BMI 25.9
--- NOTE | 2022-04-11 10:24 | P.CONAN_ITS ---
Documented by User: Gilma Zeng NP 04/11/22 10:42 HPI - Anesthesia Eval Consult details Narrative: 71yo M for Upper Endoscopy cirrhosis r/t ETOH (none x 10 years) ? Recent code status change to DNR [facility] admission 02/2022 with hepatorenal syndrome, cirrhosis. Multiple paracentesi s. Last para 03/08/22 as outpatient removed 2.4L PMFSH Active Problems Active Problems: All Active Problems (Updated 04/08/22 @ 14:02 by Myra Morales RN) Diabetes type 2, uncontrolled (Acute) intermediate card tender (current) use of insulin (Acute) Diabetic nephropathy associated with type 2 diabetes mellitus (Acute) Dyslipidemia (Acute) Gout (Acute) Hypoglycemia 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 with type 2 diabetes mellitus (Acute) Atherosclerotic cardiovascular disease (Acute) Abnormal myocardial perfusion study (Acute) Ascites (Acute) Cirrhosis of liver with ascites (Acute) Ascending aorta dilatation (Acute) Essential hypertension (Acute) Biliary colic (Acute) Cholecystitis (Acute) 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 cancer (Acute) Glaucoma (Acute) Adult general medical exam (Acute) Dyslipidemia associated with type 2 diabetes mellitus (Acute) Obesity due to excess calories (Acute) Bowel incontinence (Acute) Hospital discharge follow-up (Acute) Lactic acidosis (Acute) LORRI (acute kidney injury) (Acute) Eosinophilia (Chronic) Hepatorenal syndrome (Acute) Acute worsening of stage 3 chronic kidney disease (Acute) Hepatic encephalopathy (Acute) Eosinophilia (Chronic) Past Medical History Medical History Abnormal myocardial perfusion study Acute kidney injury Ascending aorta dilatation Ascites Ascites Atherosclerotic cardiovascular disease Bowel incontinence CKD (chronic kidney disease) stage 3, GFR 30-59 ml/min CKD (chronic kidney disease) stage 3, GFR 30-59 ml/min Diabetes Diabetes type 2, uncontrolled Diabetic nephropathy associated with type 2 diabetes mellitus Dyslipidemia Dyslipidemia associated with type 2 diabetes mellitus Elevated serum creatinine Essential hypertension Gastroparesis GERD (gastroesophageal reflux disease) Gout Hepatorenal syndrome History of abdominal paracentesis Hospital discharge follow-up Hypertension Hypoglycemia 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 with type 2 diabetes mellitus Increased ammonia level Lactic acidosis care home (current) use of insulin Metabolic acidosis Obesity due to excess calories 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 cancer Thrombocytopenia Thrombocytopenia Type 2 diabetes mellitus with unspecified complications Family History Family History Father Diabetes CVD (cardiovascular disease) Mother Diabetes Surgical History Surgical History Hx of colonoscopy Social History Social History Household Members: Spouse and Family Housing: Apartment Are you a primary day care assistant to a significant other at home: No Do you presently have visiting nurse or other home services: No Alcohol intake: former Patient Tobacco Use Status: Former Tobacco user Tobacco use type: Cigarette e-Cigarette/Vaping Use: Never Used Second Hand Smoke Exposure: No Are you DNR?: Yes Advance Directives: Yes Advance Directives on File: Yes Advance Directives Date on File: 05/24/21 Recently lost weight without trying: No Nutrition Risks: No Nutritional Risk service: No Current occupational status: retired and disabled Cognitive needs: Yes (Pt has a walker) Hearing needs: No Vision needs: Yes (wear glasses) Meds Allergies Allergy/AdvReac Type Severity Reaction Status Date / Time latex Allergy Unknown Verified 03/27/22 13:37 Home Medications Medication Instructions Recorded Confirmed Last Taken Type blood sugar diagnostic (FreeStyle 08/24/21 03/27/22 Unknown History Lite Strips) insulin lispro 100 unit/mL 4 unit subcut TIDAC 01/17/22 03/27/22 02/15/22 History subcutaneous pen (Humalog KwikPen (U-100) Insulin) aspirin 81 mg tablet,delayed 81 mg PO DAILY 01/23/22 03/27/22 02/15/22 History release omeprazole 40 mg capsule,delayed 1 cap PO DAILY 01/23/22 03/27/22 02/15/22 History release atorvastatin 20 mg tablet 20 mg PO BEDTIME 02/15/22 03/27/22 02/14/22 History mupirocin 2 % topical ointment 1 applic topical TID PRN 02/15/22 03/27/22 Unknown History Inflammation ezetimibe 10 mg tablet 1 tab PO DAILY 03/27/22 03/27/22 Unknown History spironolactone 25 mg tablet 1 tab PO DAILY 03/27/22 03/27/22 Unknown History Exam Exam Date and Time: April 11, 2022 1024 Height,Weight and Vital Signs: Height 5 ft 4 in Weight 68.492 kg Pertinent Lab Results Pertinent Lab Results: Laboratory Tests 03/25/22 03/25/22 10:33 10:33 WBC 5.0 Hgb 10.2 L Hct 32.9 L Plt Count 58 L D Sodium 144 Potassium 4.2 D Chloride 109 H Carbon Dioxide 28 BUN 18 H Creatinine 2.00 H Narrative Narrative: EKG 02/2022 Vent. Rate : 064 BPM ? ? Atrial Rate : 064 BPM ?? P-R Int : 182 ms? QRS Dur : 102 ms ? ? QT Int : 448 ms ? ? ? P-R-T Axes : 031 -30 055 degrees ?? QTc Int : 462 ms ? Normal sinus rhythm Left axis deviation Abnormal ECG When compared with ECG of 23-JAN-2022 08:37, Nonspecific T wave abnormality no longer evident in Inferior leads Assessment and Plan Assessment Anesthesia Assessment: Chart Reviewed Documented by User: Monica Moreno MD 04/12/22 14:10 [facility] Past Medical History Medical History Abnormal myocardial perfusion study Acute kidney injury Ascending aorta dilatation Ascites Ascites Atherosclerotic cardiovascular disease Bowel incontinence CKD (chronic kidney disease) stage 3, GFR 30-59 ml/min CKD (chronic kidney disease) stage 3, GFR 30-59 ml/min Diabetes Diabetes type 2, uncontrolled Diabetic nephropathy associated with type 2 diabetes mellitus Dyslipidemia Dyslipidemia associated with type 2 diabetes mellitus Elevated serum creatinine Essential hypertension Gastroparesis GERD (gastroesophageal reflux disease) Gout Hepatorenal syndrome History of abdominal paracentesis Hospital discharge follow-up Hypertension Hypoglycemia 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 with type 2 diabetes mellitus Increased ammonia level Lactic acidosis intermediate card tender (current) use of insulin Metabolic acidosis Obesity due to excess calories 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 cancer Thrombocytopenia Thrombocytopenia Type 2 diabetes mellitus with unspecified complications Family History Family History Father Diabetes CVD (cardiovascular disease) Mother Diabetes Surgical History Surgical History Hx of colonoscopy History of Problems with Anesthesia: No Social History Social History Household Members: Spouse and Family Housing: Apartment Are you a primary day care assistant to a significant other at home: No Do you presently have visiting nurse or other home services: No Alcohol intake: former Patient Tobacco Use Status: Former Tobacco user Tobacco use type: Cigarette e-Cigarette/Vaping Use: Never Used Second Hand Smoke Exposure: No Are you DNR?: Yes Advance Directives: Yes Advance Directives on File: Yes Advance Directives Date on File: 05/24/21 Recently lost weight without trying: No Nutrition Risks: No Nutritional Risk service: No Current occupational status: retired and disabled Cognitive needs: Yes (Pt has a walker) Hearing needs: No Vision needs: Yes (wear glasses) Meds Allergies Allergy/AdvReac Type Severity Reaction Status Date / Time latex Allergy Unknown Verified 03/27/22 13:37 Home Medications Medication Instructions Recorded Confirmed Last Taken Type blood sugar diagnostic (FreeStyle 08/24/21 03/27/22 Unknown History Lite Strips) insulin lispro 100 unit/mL 4 unit subcut TIDAC 01/17/22 03/27/22 02/15/22 History subcutaneous pen (Humalog KwikPen (U-100) Insulin) aspirin 81 mg tablet,delayed 81 mg PO DAILY 01/23/22 03/27/22 02/15/22 History release omeprazole 40 mg capsule,delayed 1 cap PO DAILY 01/23/22 03/27/22 02/15/22 History release atorvastatin 20 mg tablet 20 mg PO BEDTIME 02/15/22 03/27/22 02/14/22 History mupirocin 2 % topical ointment 1 applic topical TID PRN 02/15/22 03/27/22 Unknown History Inflammation ezetimibe 10 mg tablet 1 tab PO DAILY 03/27/22 03/27/22 Unknown History spironolactone 25 mg tablet 1 tab PO DAILY 03/27/22 03/27/22 Unknown History Exam Airway Mallampati Class: II TM Dist: >3cm Neck ROM: Full Loose/Missing/Broken Teeth: No Heart: RRR Lungs: CTA Assessment and Plan Assessment Anesthesia Assessment: Anesthesia Plan Discussed Final Anesthetic Review History of Problems with Anesthesia: No NPO: Yes ASA Class: III Final Preanesthetic Review: Meds/Allgs Chart Reviewed, Consent Obtained/Reviewed and Anes Risks/Benef Reviewed Patient Risk: Intermediate Procedure Risk: Intermediate Anesthetic Plan Anesthetic Plan: MAC: Disposition: Standard PACU
[2022-04-12] VITALS (7 sets, daily range): BP systolic 110–159; BP diastolic 73–98; PULSE 58–80; RESP 16–18; TEMP 36.2–36.9; O2SAT 97–100
--- NOTE | 2022-04-12 | ECG_ITS ---
Test Reason : preop Blood Pressure : / mmHG Vent. Rate : 059 BPM Atrial Rate : 059 BPM P-R Int : 168 ms QRS Dur : 096 ms QT Int : 460 ms P-R-T Axes : 035 -35 -09 degrees QTc Int : 455 ms Sinus bradycardia Left axis deviation Nonspecific ST and T wave abnormality Abnormal ECG When compared with ECG of 15-FEB-2022 16:01, T wave inversion now evident in Inferior leads Nonspecific T wave abnormality now evident in Anterior leads Referred By: Carissa Clifton Electronically Signed By:TOBY TRUJILLO
[2022-04-12 12:14] LABS: Hematocrit 32.7 % (42.0-52.0); Hemoglobin 10.3 g/dl (14.0-18.0); Mean Corpuscular HGB Conc 31.5 g/dl (31.0-36.0); Mean Corpuscular Hemoglobin 23.4 pg (27.0-33.0); Mean Corpuscular Volume 74.1 fL (80.0-98.0); Red Blood Count 4.41 X10*6/uL (4.60-5.80); White Blood Count 4.5 X10*3/uL (4.8-10.8)
[2022-04-12 12:15] LABS: Platelet Count 57 X10*3/uL (160-400)
[2022-04-12 12:21] LABS: Anion Gap 12 (12-20); Blood Urea Nitrogen 22 mg/dL (9-16); Calcium 9.5 mg/dL (8.4-10.2); Carbon Dioxide 21 mmol/L (22-29); Chloride 112 mmol/L (96-108); Creatinine Clr Calc Pharmacy 25.2; Estimated Glomerular Filt Rate 28; Glucose Fasting 137 mg/dL (60-99); Potassium 5.4 mmol/L (3.3-5.1); Sodium 140 mmol/L (135-145)
[2022-04-12 12:58] LABS: Glucose, Whole Blood 127 mg/dL (60-115)
[2022-04-12] MEDS: 0.9 % Sodium Chloride 300 ML 999 ML IV (13:54)
--- NOTE | 2022-04-12 13:56 | MHC.SHP ---
Pre-Procedural Eval Section A Date of Service: 04/12/22 The patient is an INPATIENT: No The History & Physical has been completed within 30 days and I have reviewed it.: No Section B Chief Complaint: reflux Relevant Family History (Specify if Yes): No Relevant Social History: Tobacco Use (former smoker) Present Medications: see Short Stay Collaborative assessment Medical History: Significant History (Abnormal myocardial perfusion study Acute kidney injury Ascending aorta dilatation Ascites Ascites Atherosclerotic cardiovascular disease Bowel incontinence CKD (chronic kidney disease) stage 3, GFR 30-59 ml/min CKD (chronic kidney disease) stage 3, GFR 30-59 ml/min Diabetes Diabetes type 2, uncontr) History of Previous Operations: Relevant previous surgery/procedure and date(s) (History of colonoscopy) Allergies: Allergies Allergy/AdvReac Type Severity Reaction Status Date / Time latex Allergy Unknown Verified 03/27/22 13:37 Review of Systems Sugical H&P ROS: Negative: Cardiovascular and Respiratory and Yes, Specify: Constitution (ill appearing) and Gastrointestinal (ascites) Exam Surgical H&P Exam: Normal: Heart, Normal: Lungs and Normal: Extremities and Significant Findings: Abdomen (distended due to ascites) Plan Diagnosis/Plan: Unchanged I have reviewed the history and physical and performed a pertinent physical examination on my patient. No changes have occurred unless specified.
--- NOTE | 2022-04-12 14:00 | P.BOP_ITS ---
Brief Operative Note Date of Service: 04/12/22 Pre-op diagnosis: cirrhosis, screen for varices Post-op diagnosis: other (Esophageal varices, portal hypertensive gastropathy gastritis with superficial antral ulcers) Procedure: FLEXIBLE TRANSORAL UPPER GASTROINTESTINAL ENDOSCOPY WITH BIOPSIES AND BAND LIGATION OF ESOPHAGEAL VARICES Consent: Indications for the procedure and potential complications of bleeding, perforation, reaction to medications and missed diagnosis were discussed with the patient and informed consent was obtained. Instrument: Olympus GIF H 190 mid size upper endoscope Monitoring: Vital signs and clinical assessment, continuous EKG monitoring, Pulse oximetry, Carbon Dioxide monitoring and blood pressure monitoring were done throughout the procedure. Procedure: The patient was placed in the left lateral decubitis position and pre-procedure medications were administered and a bite block was placed. The endoscope was inserted into the mouth and advanced under direct vision to the third part of duodenum. A careful inspection was made as the upper endoscope was withdrawn including a retroflexed examination of the proximal stomach; Findings and interventions are described below. Findings: Larynx: Normal Esophagus: GE junction at 38 cms. A grade 4 varix was noted from 30 to 38 cms with red aminta signs. Two additional grade 1 varix which flattened completely with air insufflation. Band ligation was performed and 3 rubber bands were placed with flattening of the large varix. Stomach: Severe portal gastropathy. Mild gastric erythema with two 5 mm superficial ulcers in the antrum. Biopsies were obtained. Grade 2 flap valve on retroflexed examination of the cardia. Duodenum: Normal bulb and descending duodenum Intervention: Biopsies as noted above Impression and Post Procedure Diagnosis: Endoscopy Findings: ESOPHAGUS: GE junction at 38 cms. A grade 4 varix was noted from 30 to 38 cms with red aminta signs. Two additional grade 1 varices which flattened completely with air insufflation. Band ligation of the large varix was performed and 3 rubber bands were placed with flattening. STOMACH: Severe portal gastropathy. Mild gastric erythema with two 5 mm superficial ulcers in the antrum. Biopsies were obtained. Plan: Patient has an appointment on 05/23/22 in the GI Clinic with Carissa Clifton M.D. Repeat EGD in 3-4 months (if pt agrees) Esophageal Varices and Esophageal Banding handouts were given in the discharge area Surgeon: Carissa Clifton MD Anesthesia: MAC (Dr Moreno) Was an Backend Python Developer used for this Procedure?: No Backend Python Developer: Adenike Elena Estimated blood loss (mL): 0 Pathology: other (A. antral bxs, R/O H. pylori) Condition: stable Disposition: PACU
[2022-04-12 15:09] LABS: Potassium 5.1 mmol/L (3.3-5.1)
--- NOTE | 2022-04-13 12:18 | P.OP_ITS ---
Operative Note Operative Note Date of Service: 04/12/22 Narrative: Pre-op diagnosis: cirrhosis, screen for varices Post-op diagnosis:?other (Esophageal varices, portal hypertensive gastropathy gastritis with superficial antral ulcers) Procedure: FLEXIBLE TRANSORAL UPPER GASTROINTESTINAL ENDOSCOPY WITH BIOPSIES AND BAND LIGATION OF ESOPHAGEAL VARICES Consent:?Indications for the procedure and potential complications of bleeding, perforation, reaction to medications and missed diagnosis were discussed with the patient and informed consent was obtained. Instrument:?Olympus GIF H 190 mid size upper endoscope Monitoring: Vital signs and clinical assessment, continuous EKG monitoring, Pulse oximetry, Carbon Dioxide monitoring and blood pressure monitoring were done throughout the procedure. Procedure:?The patient was placed in the left lateral decubitis position and pre-procedure medications were administered and a bite block was placed. The endoscope was inserted into the mouth and advanced under direct vision to the third part of duodenum. A careful inspection was made as the upper endoscope was withdrawn including a retroflexed examination of the proximal stomach; Findings and interventions are described below. Findings: Larynx:? Normal Esophagus: GE junction at 38 cms. A grade 4 varix was noted from 30 to 38 cms with red aminta signs.? Two additional grade 1 varix which flattened completely with air insufflation. Band ligation was performed and 3 rubber bands were placed with flattening of the large varix. Stomach: Severe portal gastropathy. Mild gastric erythema with two 5 mm superficial ulcers in the antrum. Biopsies were obtained. Grade 2 flap valve on retroflexed examination of the cardia. Duodenum: Normal bulb and descending duodenum Intervention: Biopsies as noted above Impression and Post Procedure Diagnosis: Endoscopy Findings: ESOPHAGUS:? GE junction at 38 cms. A grade 4 varix was noted from 30 to 38 cms with red aminta signs.? Two additional grade 1 varices which flattened completely with air insufflation. Band ligation of the large varix was performed and 3 rubber bands were placed with flattening. STOMACH: Severe portal gastropathy. Mild gastric erythema with two 5 mm superficial ulcers in the antrum. Biopsies were obtained. Plan: Patient has an appointment on 05/23/22 in the GI Clinic with Carissa Clifton M.D. Repeat EGD in 3-4 months (if pt agrees) Esophageal Varices and Esophageal Banding handouts were given in the discharge area Surgeon: Carissa Clifton MD Anesthesia:?MAC (Dr Moreno) Was an Senior Systems Analyst used for this Procedure?:?No Senior Systems Analyst:?Adenike Elena Estimated blood loss (mL):?0 Pathology:?other (A. antral bxs, R/O H. pylori) Condition:?stable Disposition:?PACU
== END 2022-04-12 16:05 | disposition home or self-care (01) ==
PROVIDERS: Anesthesiology; Nurse Practitioner; PCP Internal Medicine; Visit Provider Internal Medicine Gastroenterology
PROC: 0DJ08ZZ Inspection of Upper Intestinal Tract, Via Natural or Artificial Opening Endoscopic (ICD-10-PCS; CPT 43235; principal; 2022-04-12 13:40)
DX: K74.60 Unspecified cirrhosis of liver (principal); R18.8 Other ascites; I85.10 Secondary esophageal varices without bleeding; K21.9 Gastro-esophageal reflux disease without esophagitis; K76.6 Portal hypertension; K25.9 Gastric ulcer, unspecified as acute or chronic, without hemorrhage or perforation; E11.22 Type 2 diabetes mellitus with diabetic chronic kidney disease; I12.9 Hypertensive chronic kidney disease with stage 1 through stage 4 chronic kidney disease, or unspecified chronic kidney disease; N18.30 Chronic kidney disease, stage 3 unspecified; E78.49 Other hyperlipidemia; K72.90 Hepatic failure, unspecified without coma; K76.7 Hepatorenal syndrome; Z87.891 Personal history of nicotine dependence; Z79.82 Long term (current) use of aspirin; Z79.4 Long term (current) use of insulin; Z79.899 Other long term (current) drug therapy; Z91.040 Latex allergy status; Z66 Do not resuscitate
CPT/HCPCS: 43239; 43244; 36415; 80048; 82947; 84132; 85027; 88305; 88342; 93005

== ENCOUNTER 2022-04-17 13:20 | Outpatient (RCR) | payer MEDICARE, MEDICAID, SELFPAY ==
[2022-03-27 13:33] VITALS: BP 172/94; PULSE 65; RESP 14; TEMP 37.1; O2SAT 97; BMI 27.3
--- NOTE | 2022-03-27 13:43 | PM.HEMONCPN ---
Medical Summary - Medical Summary Date of Service: 03/27/22 Chief complaint: None reported Medical Summary: Diagnosis: Chronic eosinophilia, liver cirrhosis, hepatorenal syndrome Interval History Interval history: Patient is here accompanied by his in follow-up. He offers no complaints today. Since discharge from the hospital he has had multiple appointments with doctors. At this time he denies any acute complaints such as chest pain, shortness of breath, fever or chills. Review of Systems - Constitutional Reports as per HPI, Reports no additional constitutional complaints - Cardiovascular Reports no additional cardiovascular complaints - Respiratory Reports no additional respiratory complaints - Gastrointestinal Reports no additional gastrointestinal complaints [facility] Medical History: Medical History (Last Reviewed 03/27/22 @ 13:35 by Racquel Novak CMA) Acute kidney injury Ascites CKD (chronic kidney disease) stage 3, GFR 30-59 ml/min CKD (chronic kidney disease) stage 3, GFR 30-59 ml/min Diabetes Elevated serum creatinine Gastroparesis GERD (gastroesophageal reflux disease) Hypertension Increased ammonia level Metabolic acidosis Thrombocytopenia Thrombocytopenia Type 2 diabetes mellitus with unspecified complications Family History: Family History (Last Reviewed 03/27/22 @ 13:36 by Racquel Novak CMA) Father Diabetes CVD (cardiovascular disease) Mother Diabetes Surgical History: Surgical History (Last Reviewed 03/27/22 @ 13:35 by Racquel Novak CMA) Hx of colonoscopy Social History: Social History (Last Updated 03/27/22 @ 13:37 by Racquel Novak CMA) Living Situation History: Household Members: Spouse Household Members: Family Housing: Apartment Are you a primary hearing healthcare practitioner to a significant other at home: No Do you presently have visiting nurse or other home services: No Alcohol History Details: 1. How often do you have a drink containing alcohol?: a. Never Tobacco History: Patient Tobacco Use Status: Former Tobacco user Tobacco use type: Cigarette e-Cigarette/Vaping Use: Never Used Second Hand Smoke Exposure: No Substance Use History: Use of substances other than those prescribed or required for medical reasons: No Domestic Abuse History: Have you been hit, kicked, punched, or otherwise hurt by someone within the past year? If so, by whom?: No Do you feel safe in your current relationship?: Yes Advance Directives: Advance Directives Date on File: 05/24/21 Homicidal Assessment: Do you have thoughts of harming others: None Do you have a plan to hurt others: No Plan Do you have the means to hurt others: No Nutrition Assessment: Recently lost weight without trying: No Occupation Assessmet: service: No Current occupational status: retired Current occupational status: disabled Oncology Screenings - ECOG Performance Status ECOG Performance Status: 2 Home Medications and Allergies Home Medications Medication Instructions Recorded Confirmed Type blood sugar diagnostic (FreeStyle 08/24/21 03/27/22 History Lite Strips) insulin lispro 100 unit/mL 4 unit subcut TIDAC 01/17/22 03/27/22 History subcutaneous pen (Humalog KwikPen (U-100) Insulin) aspirin 81 mg tablet,delayed 81 mg PO DAILY 01/23/22 03/27/22 History release ferrous sulfate 325 mg (65 mg 325 mg PO BID 01/23/22 03/27/22 History iron) tablet omeprazole 40 mg capsule,delayed 1 cap PO DAILY 01/23/22 03/27/22 History release atorvastatin 20 mg tablet 20 mg PO BEDTIME 02/15/22 03/27/22 History mupirocin 2 % topical ointment 1 applic topical TID PRN 02/15/22 03/27/22 History Inflammation ezetimibe 10 mg tablet 1 tab PO DAILY 03/27/22 03/27/22 History spironolactone 25 mg tablet 1 tab PO DAILY 03/27/22 03/27/22 History Allergies Allergy/AdvReac Type Severity Reaction Status Date / Time latex Allergy Unknown Verified 03/27/22 13:37 Exam Vital signs: Vital Signs Temp 98.8 F 03/27/22 13:33 Pulse 65 03/27/22 13:33 Resp 14 03/27/22 13:33 BP 172/94 H 03/27/22 13:33 Pulse Ox 97 03/27/22 13:33 O2 Del Method 03/27/22 13:33 Intake & Output 03/26/22 03/27/22 03/27/22 18:59 06:59 18:59 Other: Weight 70 kg [place] Weight in Grams 16110 Weight 70 kg BMI result Body Mass Index 27.3 - Constitutional Present: no acute distress, average body habitus - Routine HEENT Exam Head: Present: normal inspection Eye: Present: EOMI, PERRL - Routine Neck Exam Absent: lymphadenopathy - Routine Respiratory Exam Present: CTAB. Absent: accessory muscle use - Routine Cardiovascular Exam Cardiovascular: Present: RRR, S1, S2 - Routine Abdominal Exam Present: distended, hypoactive bowel sounds Assessment and Plan Patient Active problem list reviewed?: Yes (1) Eosinophilia Status: Chronic Assessment and plan: 1. is a 71-year-old male with chronic liver cirrhosis, pancytopenia and chronic kidney disease who was noted to have eosinophilia on blood work. This has been present since 2020 with absolute eosinophil count ranging from 1100 to 7500. He has no asthma, allergic rhinitis or atopic dermatitis. No symptoms or signs of parasitic or viral infections. Other etiologies such as medication induced, neoplastic disorders and primary eosinophilic disorders are in the differential diagnosis. His last imaging with CT abdomen and pelvis shows cirrhotic liver with mild splenomegaly. Vitamin B12 level is normal, serum tryptase mildly elevated at 13.3 mcg/L. Previously serum protein electrophoresis and urine immunofixation was negative for monoclonal protein. This is being repeated. Blood for flow cytometry has been submitted. IgE level elevated at 2913 KU/L. 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 He has chronic kidney disease related to diabetes mellitus. Most likely his eosinophilia and elevated IgE levels is related to atopy. If his blood flow cytometry shows any abnormality, further evaluation with a bone marrow biopsy to rule out hematological malignancy will be performed. Follow-up in 2-3 weeks. - Time Spent With Patient Time Spent with Patient (in minutes): 15
--- NOTE | 2022-03-27 16:38 | MHC.HEMONCMA ---
Pt was in for consult. Clinical summary reviewed and updated, VSS. Labs were drawn. Pt to return in a month.
[2022-04-01 12:22] LABS: IgA 830 mg/dL (70-320); IgG 1527 mg/dL (600-1540); IgM 74 mg/dL (50-300)
--- NOTE | 2022-04-17 13:10 | PM.HEMONCPN ---
Medical Summary - Medical Summary Date of Service: 04/17/22 Chief complaint: Follow-up Medical Summary: Diagnosis: Chronic eosinophilia, liver cirrhosis, hepatorenal syndrome Interval History Interval history: Patient is here accompanied by his in follow-up. He offers no complaints today. He is accompanied by his daughter. He recently underwent EGD and biopsy. Abdominal girth has come down. He denies any complaints such as fever, chills, nausea or abdominal pain. Review of Systems - Constitutional Reports as per HPI, Reports no additional constitutional complaints - Cardiovascular Reports no additional cardiovascular complaints - Respiratory Reports no additional respiratory complaints [facility] Medical History: Medical History (Last Reviewed 04/17/22 @ 13:26 by Tiffanie Crowe) Abnormal myocardial perfusion study Acute kidney injury Ascending aorta dilatation Ascites Ascites Atherosclerotic cardiovascular disease Bowel incontinence CKD (chronic kidney disease) stage 3, GFR 30-59 ml/min CKD (chronic kidney disease) stage 3, GFR 30-59 ml/min Diabetes Diabetes type 2, uncontrolled Diabetic nephropathy associated with type 2 diabetes mellitus Dyslipidemia Dyslipidemia associated with type 2 diabetes mellitus Elevated serum creatinine Essential hypertension Gastroparesis GERD (gastroesophageal reflux disease) Gout Hepatorenal syndrome History of abdominal paracentesis Hospital discharge follow-up Hypertension Hypoglycemia 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 with type 2 diabetes mellitus Increased ammonia level Lactic acidosis long-term (current) use of insulin Metabolic acidosis Obesity due to excess calories 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 cancer Thrombocytopenia Thrombocytopenia Type 2 diabetes mellitus with unspecified complications Family History: Family History (Last Reviewed 04/17/22 @ 13:27 by Tiffanie Crowe) Father Diabetes CVD (cardiovascular disease) Mother Diabetes Surgical History: Surgical History (Last Reviewed 04/17/22 @ 13:27 by Tiffanie Crowe) Hx of colonoscopy Social History: Social History (Last Updated 04/17/22 @ 13:27 by Tiffanie Crowe) Living Situation History: Household Members: Spouse Household Members: Family Housing: Apartment Are you a primary caregiver services home to a significant other at home: No Do you presently have visiting nurse or other home services: No Alcohol History Details: 1. How often do you have a drink containing alcohol?: a. Never Tobacco History: Patient Tobacco Use Status: Former Tobacco user Tobacco use type: Cigarette e-Cigarette/Vaping Use: Never Used Second Hand Smoke Exposure: No Substance Use History: Use of substances other than those prescribed or required for medical reasons: No Domestic Abuse History: Have you been hit, kicked, punched, or otherwise hurt by someone within the past year? If so, by whom?: No Do you feel safe in your current relationship?: No Current Relationship Advance Directives: Advance Directives Date on File: 05/24/21 Homicidal Assessment: Do you have thoughts of harming others: None Do you have a plan to hurt others: No Plan Do you have the means to hurt others: No Nutrition Assessment: Recently lost weight without trying: No Occupation Assessmet: service: No Current occupational status: retired Current occupational status: disabled Oncology Screenings - ECOG Performance Status ECOG Performance Status: 2 Home Medications and Allergies Home Medications Medication Instructions Recorded Confirmed Type blood sugar diagnostic (FreeStyle 08/24/21 04/17/22 History Lite Strips) insulin lispro 100 unit/mL 4 unit subcut TIDAC 01/17/22 04/17/22 History subcutaneous pen (Humalog KwikPen (U-100) Insulin) aspirin 81 mg tablet,delayed 81 mg PO DAILY 01/23/22 04/17/22 History release omeprazole 40 mg capsule,delayed 1 cap PO DAILY 01/23/22 04/17/22 History release atorvastatin 20 mg tablet 20 mg PO BEDTIME 02/15/22 04/17/22 History mupirocin 2 % topical ointment 1 applic topical TID PRN 02/15/22 03/27/22 History Inflammation ezetimibe 10 mg tablet 1 tab PO DAILY 03/27/22 04/17/22 History spironolactone 25 mg tablet 1 tab PO DAILY 03/27/22 04/17/22 History lactulose 10 gram/15 mL oral 15 g PO TID 04/17/22 04/17/22 History solution (Enulose) Allergies Allergy/AdvReac Type Severity Reaction Status Date / Time latex Allergy Unknown Verified 03/27/22 13:37 Exam Vital signs: Vital Signs Temp 98.8 F 03/27/22 13:33 Pulse 65 03/27/22 13:33 Resp 14 03/27/22 13:33 BP 172/94 H 03/27/22 13:33 Pulse Ox 97 03/27/22 13:33 O2 Del Method 03/27/22 13:33 Weight 70 kg BMI result Body Mass Index 27.3 - Constitutional Present: no acute distress, average body habitus - Routine HEENT Exam Head: Present: normal inspection - Routine Neck Exam Absent: lymphadenopathy - Routine Respiratory Exam Present: CTAB. Absent: accessory muscle use - Routine Cardiovascular Exam Cardiovascular: Present: RRR, S1, S2 - Routine Abdominal Exam Present: distended, hypoactive bowel sounds Data - Labs Labs: 03/27/22 14:12 Immunofixation Pnl, Serum Routine Leukemia/Lymphoma Eval. Blood Routine Laboratory Last Values IgG Total 1527 mg/dL (600-1540) 03/27/22 14:12 IgA Total 830 mg/dL (70-320) H 03/27/22 14:12 IgM 74 mg/dL (50-300) 03/27/22 14:12 PHILIPPE Interpretation SEE NOTE 03/27/22 14:12 Leuk/Lym Interpretation See Note 03/27/22 14:12 Assessment and Plan Patient Active problem list reviewed?: Yes (1) Eosinophilia Status: Chronic Assessment and plan: 1. This is a 71-year-old male with chronic liver cirrhosis, pancytopenia and chronic kidney disease who was noted to have eosinophilia on blood work. This has been present since 2020 with absolute eosinophil count ranging from 1100 to 7500. He has no asthma, allergic rhinitis or atopic dermatitis. No symptoms or signs of parasitic or viral infections. Other etiologies such as medication induced, neoplastic disorders and primary eosinophilic disorders are in the differential diagnosis. His last imaging with CT abdomen and pelvis shows cirrhotic liver with mild splenomegaly. Vitamin B12 level is normal, serum tryptase mildly elevated at 13.3 mcg/L. Previously serum protein electrophoresis and urine immunofixation was negative for monoclonal protein. This is being repeated. Blood for flow cytometry was negative for clonal expansion. IgE level elevated at 2913 KU/L. 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 He has chronic kidney disease related to diabetes mellitus. Most likely his eosinophilia and elevated IgE levels is related to atopy. Results explained to patient and his daughter. Follow-up in 6 months. - Time Spent With Patient Time Spent with Patient (in minutes): 15
[2022-04-17 13:23] VITALS: BP 177/100; RESP 16; TEMP 36.4; O2SAT 97; BMI 25.4
--- NOTE | 2022-04-17 13:59 | MHC.HEMONCMA ---
Patient here today for follow up to Chronic kidney disease, liver cirrosis, VSS and follow up in 6 months.
== END 2022-12-25 | disposition home or self-care (01) ==
LOC: HO.ONC 13:20
PROVIDERS: PCP Internal Medicine; Referring Provider Nurse Practitioner Family; Visit Provider Internal Medicine
DX: D72.10 Eosinophilia, unspecified (principal); D61.818 Other pancytopenia; D50.9 Iron deficiency anemia, unspecified; E11.22 Type 2 diabetes mellitus with diabetic chronic kidney disease; N18.9 Chronic kidney disease, unspecified; K74.60 Unspecified cirrhosis of liver
CPT/HCPCS: 36415; 82784; 86334; 88184; 88185; 99213; 99214

== ENCOUNTER 2022-05-03 18:45 | Inpatient (IN) | payer MEDICARE, MEDICAID, SELFPAY ==
--- NOTE | ~2022-05-03 | MR_ITS ---
EXAMINATION: MR ABDOMEN WITHOUT AND WITH CONTRAST CLINICAL INFORMATION: Hepatic cirrhosis with possible portal venous thrombosis COMPARISON: Abdominal ultrasound from 05/05/2022 TECHNIQUE: MR abdomen was performed without and with use of 5 mL intravenous Gadavist gadolinium contrast. Postcontrast images are performed in multiphase dynamic sequences. Imaging was performed in 3 planes. FINDINGS: LUNG BASES: The visualized lung bases are unremarkable. LIVER, GALLBLADDER, AND BILIARY TREE: Liver is cirrhotic with nodular contour and heterogeneous signal intensity on post gadolinium enhancement images but without masses on noncontrast or postcontrast sequences. There is no portal venous thrombosis. Splenic vein is patent with normal caliber, hepatic vein is diminutive, but not occluded. Gall bladder is distended with sludge and small stones in the gallbladder neck. There is small amount of ascites surrounding right lobe of the liver and gallbladder fossa. PANCREAS: Unremarkable. SPLEEN: Spleen is enlarged, measured approximately 10.5 x 13.6 x 9.0 cm ADRENAL GLANDS: Normal. KIDNEYS AND URETERS: Right kidney revealed numerous small cysts no hydroureteronephrosis or stones Left kidney revealed few small cysts no hydroureteronephrosis or masses. GASTROINTESTINAL TRACT: No bowel obstruction. No ascites or fluid collection. ABDOMINAL WALL: No significant hernia is appreciated. LYMPH NODES: No lymphadenopathy. VASCULAR: There is no evidence of portal venous thrombosis portal vein appears to be mildly diminished in size OSSEOUS STRUCTURES: Marrow signal normal. MR/MR abdomen wo/w con IMPRESSION: Mild ascites and hepatic cirrhosis with splenomegaly, without portal venous thrombosis. Cholelithiasis, without cholecystitis. Numerous small cysts right more than left.
--- NOTE | ~2022-05-03 | US_ITS ---
EXAMINATION: US ABDOMEN COMPLETE CLINICAL INFORMATION: Liver cirrhosis. Evaluate for hepatocellular carcinoma. COMPARISON: Abdomen CT from 05/08/2021 and ultrasound from 05/09/2021. TECHNIQUE: Real-time imaging of the abdominal viscera. FINDINGS: PANCREAS: The pancreatic tail is obscured by bowel gas. The visualized pancreas is normal. ABDOMINAL AORTA: The proximal, mid, and distal segments are normal in caliber. INFERIOR VENA CAVA: Visualized portions are normal. OTHER VASCULATURE: Normal flow direction is detected within the visualized, patent splenic vein. However, no visible Doppler flow within the main portal vein. This is a finding that can be seen in the setting of portal venous hypertension with or without any underlying venous thrombosis. CT imaging in the venous phase with IV contrast would help to clarify whether there is any venous thrombosis. LIVER: The cirrhotic liver, which has slightly coarse parenchymal echotexture, has nodular surface contour. No focal liver lesion is sonographically detected. No intrahepatic bile duct dilatation. GALLBLADDER: The gallbladder is underdistended and contains shadowing calculi. Difficult to acquire accurate measurement of gallbladder wall thickness due to lack of distention and presence of shadowing stones. No pericholecystic fluid. COMMON BILE DUCT: The CBD cannot be visualized. However, no dilated ducts are seen. RIGHT KIDNEY: 11 cm in length. There appear to be a few Bosniak category 1 and category 2 renal cysts. No imaging follow-up recommended. No nephrolithiasis or hydronephrosis. LEFT KIDNEY: 10.2 cm in length. Simple cysts of the mid and lower pole measure up to 1.7 cm and 1.1 cm, respectively. No nephrolithiasis or hydronephrosis. SPLEEN: Mildly enlarged spleen measures up to 13.6 cm. FREE FLUID: Small volume of ascitic fluid is detected within the abdomen. US/US abdomen complete IMPRESSION: * Cirrhotic liver, small volume of ascites and splenomegaly. * There is no visible Doppler flow within the main portal vein. It is uncertain whether this is due to portal venous hypertension or venous thrombosis. If clinically warranted, a multiphase contrast-enhanced CT or MR imaging examination of the abdomen may be performed. * Cholelithiasis without evidence of acute cholecystitis or biliary tract obstruction.
--- NOTE | ~2022-05-03 | CT_ITS ---
EXAM: CT HEAD WITHOUT CONTRAST CT CERVICAL SPINE INDICATION: Fall TECHNIQUE: A noncontrast CT scan was performed from the skull base to the vertex. A noncontrast CT scan of the cervical spine was performed from the base of the skull through T1. Coronal and sagittal reformats were obtained at the acquisition workstation. Dose length product is 1086 mGy-cm. This CT examination was performed using dose optimization techniques as appropriate, variously including the following: *Automated exposure control *Adjustment of mA and/or kV according to patient size (this includes techniques or standardized protocols for targeted exams where dose is matched to indication/reason for exam; i.e. extremities or head) *Use of iterative reconstruction technique COMPARISON: Head CT 02/15/2022 FINDINGS: Head: No evidence of acute intracranial hemorrhage or extra-axial fluid collection. No evidence of mass lesion, mass effect or midline shift. No acute territorial infarction. Ventricles are symmetric in configuration and normal in size. The basal cisterns are patent. The calvarium is intact. Limited views of the paranasal sinuses are unremarkable. Mastoid air cells are well aerated and middle ear cavities are clear. Orbits are unremarkable. Cervical Spine: Cervical vertebral bodies are normal in height and alignment. Facet joints are anatomically aligned bilaterally. Spinous processes are intact and well aligned. The atlantodens intervals within normal limits. No prevertebral soft tissue swelling. The atlantooccipital junction is within normal limits. Intervertebral disc spaces are preserved. The dens process is intact. Limited views of the lung apices are unremarkable. Thyroid unremarkable. No bulky cervical adenopathy. Paravertebral muscles and muscle planes are well preserved. CT/CT cervical spine wo con IMPRESSION: No evidence of acute intracranial abnormality or acute traumatic injury to the cervical spine.
--- NOTE | ~2022-05-03 | XR_ITS ---
EXAMINATION: XR CHEST CLINICAL INFORMATION: Weakness COMPARISON: 01/23/2022 TECHNIQUE: Frontal view of the chest was obtained. FINDINGS: No focal consolidation, pleural effusion or pneumothorax. Heart size is normal. Tortuosity and atherosclerosis thoracic aorta. No acute osseous abnormality. XR/XR chest 1V IMPRESSION: No acute pulmonary process.
[2022-05-03 18:52] VITALS: BP 160/90; PULSE 84; O2SAT 96
--- NOTE | 2022-05-03 18:52 | ECG_ITS ---
Test Reason : FALL Blood Pressure : / mmHG Vent. Rate : 083 BPM Atrial Rate : 083 BPM P-R Int : 158 ms QRS Dur : 104 ms QT Int : 390 ms P-R-T Axes : 038 -49 043 degrees QTc Int : 458 ms Normal sinus rhythm Incomplete right bundle branch block Left anterior fascicular block Abnormal ECG When compared with ECG of 12-APR-2022 13:07, T wave inversion no longer evident in Inferior leads Nonspecific T wave abnormality no longer evident in Anterior leads Referred By: Erasmo Amezcua Electronically Signed By:Ed Peralta
[2022-05-03 19:01] VITALS: BP 155/101; BP 160/96; PULSE 90; RESP 16; TEMP 37; O2SAT 97; O2SAT 98; BMI 23.7
[2022-05-03] MEDS: 0.9 % Sodium Chloride 1,000 ML 999 ML IV (19:31)
[2022-05-03 19:32] VITALS: BP 159/102; PULSE 82; RESP 18; O2SAT 96
--- NOTE | 2022-05-03 19:33 | PC.NURSE ---
iv placed, labs sent, ekg and CT scan done, fluids running through IV per dec orders. call shahid within reach. at bedside. pt in c-collar. denies pain, resting comfortably. will continue to monitor closely
[2022-05-03 19:36] LABS: Red Cell Distribution Width 15.2 % (11.0-16.0); SCAN SMEAR FLAG 1
[2022-05-03 19:38] LABS: Basophils Percent Auto 0.7 % (0-2); Eosinophils Absolute Auto 0.5 X10*3/uL (0.0-0.4); Eosinophils Percent Auto 9.3 % (0-4); Hematocrit 37.2 % (42.0-52.0); Imm Gran Abs Auto 0.01 X10*3/uL (0.00-0.03); Imm Gran Pct Auto 0.2 % (0.0-0.4); Lymphocytes Absolute Auto 1.5 X10*3/uL (1.2-4.9); Lymphocytes Percent Auto 27.2 % (20-40); MANUAL DIFF FLAG SCAN; Mean Corpuscular HGB Conc 32.3 g/dl (31.0-36.0); Mean Corpuscular Hemoglobin 23.5 pg (27.0-33.0); Mean Corpuscular Volume 72.8 fL (80.0-98.0); Monocytes Absolute Auto 0.5 X10*3/uL (0.1-1.2); Monocytes Percent Auto 8.8 % (2-11); Neutrophils Absolute Auto 3.1 x10*3/uL (2.0-8.3); Neutrophils Percent Auto 53.8 % (45-73); Red Blood Count 5.11 X10*6/uL (4.60-5.80); White Blood Count 5.7 X10*3/uL (4.8-10.8)
[2022-05-03 19:41] LABS: INTERNATIONAL NORM RATIO 1.2 (0.9-1.1); Prothrombin Time 13.7 SEC (10.0-13.1)
[2022-05-03 19:43] LABS: Ammonia 188 umol/L (13-55)
[2022-05-03 19:49] LABS: PLT ABN DIST 1; Platelet Count 70 X10*3/uL (160-400)
[2022-05-03 19:50] LABS: Lactic Acid 2.2 mmol/L (0.5-2.0)
[2022-05-03 19:52] LABS: Alanine Aminotransferase 28 U/L (0-40); Albumin Level 3.9 g/dL (3.5-5.0); Alkaline Phosphatase 116 U/L (39-117); Anion Gap 16 (12-20); Aspartate Amino Transferase 34 U/L (5-37); Blood Urea Nitrogen 36 mg/dL (9-16); COVID-19 Test Negative (Negative); Carbon Dioxide 20 mmol/L (22-29); Chloride 106 mmol/L (96-108); Creatinine Clr Calc Pharmacy 23.3; Estimated Glomerular Filt Rate 22; Glucose Random 163 mg/dL (60-115); Potassium 4.3 mmol/L (3.3-5.1); Sodium 138 mmol/L (135-145)
[2022-05-03 20:07] LABS: SLIDE REVIEW VERIFIED
--- NOTE | 2022-05-03 20:07 | ED_ITS ---
HPI - General Adult General Chief complaint: Fall Stated complaint: INCR CONFU X'S 1 M,FALL THIS AM,VOMITING PER EMS Time Seen by Provider: 05/03/22 18:51 Source: family and EMS Mode of arrival: ambulatory Limitations: no limitations History of Present Illness HPI narrative: Patient's history of dementia diabetes, hypertension, hepatic cirrhosis secondary to SEGUNDO? hepatic encephalopathy,CKD been going downhill for last few days with increased confusion with unsteady gait and apparently patient fell today without hitting significantly his head. Patient is on Eliquis nauseated and vomited 1 time earlier today per family patient taking lactulose used to be on rifaximin per medication list is not on that now Related Data Home Medications Medication Instructions Recorded Confirmed blood sugar diagnostic (FreeStyle 08/24/21 04/17/22 Lite Strips) insulin lispro 100 unit/mL 4 unit subcut TIDAC 01/17/22 04/17/22 subcutaneous pen (Humalog KwikPen (U-100) Insulin) aspirin 81 mg tablet,delayed 81 mg PO DAILY 01/23/22 04/17/22 release omeprazole 40 mg capsule,delayed 1 cap PO DAILY 01/23/22 04/17/22 release atorvastatin 20 mg tablet 20 mg PO BEDTIME 02/15/22 04/17/22 mupirocin 2 % topical ointment 1 applic topical TID PRN 02/15/22 03/27/22 Inflammation ezetimibe 10 mg tablet 1 tab PO DAILY 03/27/22 04/17/22 spironolactone 25 mg tablet 1 tab PO DAILY 03/27/22 04/17/22 lactulose 10 gram/15 mL oral 15 g PO TID 04/17/22 04/17/22 solution (Enulose) Previous Rx's Medication Instructions Recorded lancets 28 gauge (FreeStyle #100 ea 05/17/21 Lancets) blood sugar diagnostic (Prodigy No #100 ea 06/13/21 Coding strips) blood-glucose meter (Prodigy #1 ea 06/13/21 Autocode Meter kit) lancets 28 gauge (Prodigy Lancets) #100 ea 06/13/21 flash glucose scanning reader #1 ea 12/25/21 (FreeStyle Toy[place] 2 [place]) flash glucose sensor (FreeStyle #2 ea 12/25/21 Toyin 2 Sensor kit) bed rail #2 ea 01/29/22 pull up diapers #200 ea 01/29/22 ferrous sulfate 325 mg (65 mg 325 mg PO BID 28 days #56 tabs 04/03/22 iron) tablet nitroglycerin 0.4 mg sublingual 0.4 mg sublingual Q5M PRN chest 04/04/22 tablet pain #25 ea Allergies Allergy/AdvReac Type Severity Reaction Status Date / Time latex Allergy Unknown Verified 03/27/22 13:37 Review of Systems Review of Systems: Yes Unobtainable due to mental status FORMERLY [facility], [facility] Past Medical History Medical History Abnormal myocardial perfusion study Acute kidney injury Ascending aorta dilatation Ascites Ascites Atherosclerotic cardiovascular disease Bowel incontinence CKD (chronic kidney disease) stage 3, GFR 30-59 ml/min CKD (chronic kidney disease) stage 3, GFR 30-59 ml/min Diabetes Diabetes type 2, uncontrolled Diabetic nephropathy associated with type 2 diabetes mellitus Dyslipidemia Dyslipidemia associated with type 2 diabetes mellitus Elevated serum creatinine Essential hypertension Gastroparesis GERD (gastroesophageal reflux disease) Gout Hepatorenal syndrome History of abdominal paracentesis Hospital discharge follow-up Hypertension Hypoglycemia 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 with type 2 diabetes mellitus Increased ammonia level Lactic acidosis halfway (current) use of insulin Metabolic acidosis Obesity due to excess calories 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 cancer Thrombocytopenia Thrombocytopenia Type 2 diabetes mellitus with unspecified complications Surgical History Hx of colonoscopy Family History Family History Father Diabetes CVD (cardiovascular disease) Mother Diabetes Social History Social History Household Members: Spouse and Family Housing: Apartment Are you a primary human services care specialist to a significant other at home: No Do you presently have visiting nurse or other home services: No Alcohol intake: former Patient Tobacco Use Status: Former Tobacco user Tobacco use type: Cigarette e-Cigarette/Vaping Use: Never Used Second Hand Smoke Exposure: No Advance Directives: No Advance Directives Information Provided: Yes Advance Directives Date on File: 05/24/21 service: No Current occupational status: retired and disabled Cognitive needs: Yes (Pt has a walker) Hearing needs: No Vision needs: Yes (wear glasses) Physical Exam ED Vital Signs: Vital Signs - 24 hr 05/03/22 19:01 05/03/22 19:32 05/03/22 21:43 Temperature 98.6 F 98.8 F Pulse Rate 90 82 84 Respiratory Rate 16 18 16 Blood Pressure 155/101 H 159/102 H 157/105 H Pulse Oximetry 97 96 98 Oxygen Delivery Method Room Air Room Air Room Air BMI result Body Mass Index 23.7 Appearance: Alert. And awake lethargic No acute distress. Eyes: PERRLA, No Nystagmus ENT: Pharynx normal. Oral Mucosa moist Neck: Normal inspection. Neck supple. CVS: Normal heart rate and rhythm. Pulses normal. Respiratory: No respiratory distress. Equal air entry bilateral, no wheezing/rales/rhonchi Abdomen: Soft and nontender. Not distended Bowel sounds are present, no mass palpable, no CVA tenderness Skin: Skin warm and dry. Normal skin color. Normal skin turgor. Extremities: No lower extremity edema. No calf tenderness Neuro: Alert awake lethargic with slow response no focal deficit no hepatic flaps Medical Decision Making MDM Narrative Medical decision making narrative: Patient with hepatic encephalopathy with ammonia level of 188 patient is taking lactulose at home will admit patient for further management and aggressive management will add rifaximin Lab Data Lab results reviewed: Yes I reviewed the patient's lab results. Result diagrams: 05/03/22 19:25 05/03/22 19:25 Labs: Lab Results 05/03/22 05/03/22 05/03/22 Range/Units 19:25 19:25 19:25 WBC 5.7 (4.8-10.8) X10*3/uL RBC 5.11 (4.60-5.80) X10*6/uL Hgb 12.0 L (14.0-18.0) g/dl Hct 37.2 L (42.0-52.0) % MCV 72.8 L (80.0-98.0) fL MCH 23.5 L (27.0-33.0) pg MCHC 32.3 (31.0-36.0) g/dl RDW 15.2 (11.0-16.0) % Plt Count 70 L (160-400) X10*3/uL MPV Not Reportable Immature Gran % (Auto) 0.2 (0.0-0.4) % Neut % (Auto) 53.8 (45-73) % Lymph % (Auto) 27.2 (20-40) % [place] % (Auto) 8.8 (2-11) % Eos % (Auto) 9.3 H (0-4) % Baso % (Auto) 0.7 (0-2) % Lymph # (Auto) 1.5 (1.2-4.9) X10*3/uL [place] # (Auto) 0.5 (0.1-1.2) X10*3/uL Eos # (Auto) 0.5 H (0.0-0.4) X10*3/uL Baso # (Auto) 0.0 (0.0-0.2) X10*3/uL Abs Immat Gran (auto) 0.01 (0.00-0.03) X10*3/uL Absolute Neuts (auto) 3.1 (2.0-8.3) x10*3/uL Absolute Nucleated RBC 0.000 (0.0-0.012) X10*3/uL Nucleated RBC % (auto) 0.0 (0.0-0.2) /100WBC Smear Tech's Comments VERIFIED PT (10.0-13.1) SEC INR (0.9-1.1) Sodium (135-145) mmol/L Potassium (3.3-5.1) mmol/L Chloride (96-108) mmol/L Carbon Dioxide (22-29) mmol/L Anion Gap (12-20) BUN (9-16) mg/dL Creatinine (0.5-1.4) mg/dL Estim Creat Clear Calc Estimated GFR Random Glucose (60-115) mg/dL Lactic Acid (0.5-2.0) mmol/L Lactic Acid F/U @ 2Hr (0.5-2.0) mmol/L Calcium (8.4-10.2) mg/dL Total Bilirubin (0.0-1.0) mg/dL AST (5-37) U/L ALT (0-40) U/L Alkaline Phosphatase (39-117) U/L Ammonia 188 H (13-55) umol/L Troponin I High Sens (<3.5-35.0) ng/L Total Protein (6.5-8.0) g/dL Albumin (3.5-5.0) g/dL COVID-19 (STEVEN) Negative (Negative) COVID-19 Clin Com See Note 05/03/22 05/03/22 05/03/22 Range/Units 19:25 19:25 19:25 WBC (4.8-10.8) X10*3/uL RBC (4.60-5.80) X10*6/uL Hgb (14.0-18.0) g/dl Hct (42.0-52.0) % MCV (80.0-98.0) fL MCH (27.0-33.0) pg MCHC (31.0-36.0) g/dl RDW (11.0-16.0) % Plt Count (160-400) X10*3/uL MPV Immature Gran % (Auto) (0.0-0.4) % Neut % (Auto) (45-73) % Lymph % (Auto) (20-40) % [place] % (Auto) (2-11) % Eos % (Auto) (0-4) % Baso % (Auto) (0-2) % Lymph # (Auto) (1.2-4.9) X10*3/uL [place] # (Auto) (0.1-1.2) X10*3/uL Eos # (Auto) (0.0-0.4) X10*3/uL Baso # (Auto) (0.0-0.2) X10*3/uL Abs Immat Gran (auto) (0.00-0.03) X10*3/uL Absolute Neuts (auto) (2.0-8.3) x10*3/uL Absolute Nucleated RBC (0.0-0.012) X10*3/uL Nucleated RBC % (auto) (0.0-0.2) /100WBC Smear Tech's Comments PT 13.7 H (10.0-13.1) SEC INR 1.2 H (0.9-1.1) Sodium 138 (135-145) mmol/L Potassium 4.3 (3.3-5.1) mmol/L Chloride 106 (96-108) mmol/L Carbon Dioxide 20 L (22-29) mmol/L Anion Gap 16 (12-20) BUN 36 H D (9-16) mg/dL Creatinine 2.89 H (0.5-1.4) mg/dL Estim Creat Clear Calc 23.3 Estimated GFR 22 Random Glucose 163 H D (60-115) mg/dL Lactic Acid (0.5-2.0) mmol/L Lactic Acid F/U @ 2Hr (0.5-2.0) mmol/L Calcium 10.0 (8.4-10.2) mg/dL Total Bilirubin 1.0 (0.0-1.0) mg/dL AST 34 (5-37) U/L ALT 28 (0-40) U/L Alkaline Phosphatase 116 (39-117) U/L Ammonia (13-55) umol/L Troponin I High Sens 5.9 D (<3.5-35.0) ng/L Total Protein 8.0 (6.5-8.0) g/dL Albumin 3.9 (3.5-5.0) g/dL COVID-19 (STEVEN) (Negative) COVID-19 Clin Com 05/03/22 05/03/22 Range/Units 19:25 21:57 WBC (4.8-10.8) X10*3/uL RBC (4.60-5.80) X10*6/uL Hgb (14.0-18.0) g/dl Hct (42.0-52.0) % MCV (80.0-98.0) fL MCH (27.0-33.0) pg MCHC (31.0-36.0) g/dl RDW (11.0-16.0) % Plt Count (160-400) X10*3/uL MPV Immature Gran % (Auto) (0.0-0.4) % Neut % (Auto) (45-73) % Lymph % (Auto) (20-40) % [place] % (Auto) (2-11) % Eos % (Auto) (0-4) % Baso % (Auto) (0-2) % Lymph # (Auto) (1.2-4.9) X10*3/uL [place] # (Auto) (0.1-1.2) X10*3/uL Eos # (Auto) (0.0-0.4) X10*3/uL Baso # (Auto) (0.0-0.2) X10*3/uL Abs Immat Gran (auto) (0.00-0.03) X10*3/uL Absolute Neuts (auto) (2.0-8.3) x10*3/uL Absolute Nucleated RBC (0.0-0.012) X10*3/uL Nucleated RBC % (auto) (0.0-0.2) /100WBC Smear Tech's Comments PT (10.0-13.1) SEC INR (0.9-1.1) Sodium (135-145) mmol/L Potassium (3.3-5.1) mmol/L Chloride (96-108) mmol/L Carbon Dioxide (22-29) mmol/L Anion Gap (12-20) BUN (9-16) mg/dL Creatinine (0.5-1.4) mg/dL Estim Creat Clear Calc Estimated GFR Random Glucose (60-115) mg/dL Lactic Acid 2.2 H* (0.5-2.0) mmol/L Lactic Acid F/U @ 2Hr 1.6 (0.5-2.0) mmol/L Calcium (8.4-10.2) mg/dL Total Bilirubin (0.0-1.0) mg/dL AST (5-37) U/L ALT (0-40) U/L Alkaline Phosphatase (39-117) U/L Ammonia (13-55) umol/L Troponin I High Sens (<3.5-35.0) ng/L Total Protein (6.5-8.0) g/dL Albumin (3.5-5.0) g/dL COVID-19 (STEVEN) (Negative) COVID-19 Clin Com Discharge Plan Discharge Clinical Impression: Acute hepatic encephalopathy, Weakness Patient Disposition: Admitted As Inpatient
[2022-05-03 20:08] LABS: Troponin-I High Sensitivity 5.9 ng/L (<3.5-35.0)
[2022-05-03 21:32] LABS: Reflex Lactate? Lactic Acid Added
[2022-05-03 21:43] VITALS: BP 157/105; PULSE 84; RESP 16; TEMP 37.1; O2SAT 98
[2022-05-03 22:14] LABS: ~Lactic Acid-LAB USE ONLY 1.6 mmol/L (0.5-2.0)
--- NOTE | 2022-05-03 22:31 | P.HPHOSP_ITS ---
History of Present Illness Date of Service: 05/03/22 Chief Complaint: Confusion 71-year-old male with a past medical history of hypertension, hyperlipidemia, diabetes, CAD, CKD, liver cirrhosis, ascites, aortic aneurysm, thrombocytopenia, obesity, presented to the hospital today with a chief complaint of not feeling well. Most of the history obtained from the patient's family at bedside. PA patient reportedly has been not feeling well for the past couple days. Noted to be increasingly confused today. Denies having any falls or loss of consciousness. Denies patient complaining of any chest pain palpitations lightheadedness or dizziness. Reports patient is generally slow; and appears to be weak. Reports patient has decreased oral intake. Also reported that the patient noted to be sick to his stomach for today. And was unsteady on his gait. Review of all other systems is negative except mentioned above ER course: Per ER team patient on presentation noted to be lethargic; on labs noted to have elevated ammonia levels; concerning for hepatic encephalopathy. Admitted for further management. [facility] Medical History Abnormal myocardial perfusion study Acute kidney injury Ascending aorta dilatation Ascites Ascites Atherosclerotic cardiovascular disease Bowel incontinence CKD (chronic kidney disease) stage 3, GFR 30-59 ml/min CKD (chronic kidney disease) stage 3, GFR 30-59 ml/min Diabetes Diabetes type 2, uncontrolled Diabetic nephropathy associated with type 2 diabetes mellitus Dyslipidemia Dyslipidemia associated with type 2 diabetes mellitus Elevated serum creatinine Essential hypertension Gastroparesis GERD (gastroesophageal reflux disease) Gout Hepatorenal syndrome History of abdominal paracentesis Hospital discharge follow-up Hypertension Hypoglycemia 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 with type 2 diabetes mellitus Increased ammonia level Lactic acidosis [facility] (current) use of insulin Metabolic acidosis Obesity due to excess calories 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 cancer Thrombocytopenia Thrombocytopenia Type 2 diabetes mellitus with unspecified complications Family History Father Diabetes CVD (cardiovascular disease) Mother Diabetes Surgical History Hx of colonoscopy Social History Household Members: Spouse and Family Housing: Apartment Are you a primary career consultant to a significant other at home: No Do you presently have visiting nurse or other home services: No Alcohol intake: former Patient Tobacco Use Status: Former Tobacco user Tobacco use type: Cigarette e-Cigarette/Vaping Use: Never Used Second Hand Smoke Exposure: No Advance Directives: No Advance Directives Information Provided: Yes Advance Directives Date on File: 05/24/21 service: No Current occupational status: retired and disabled Cognitive needs: Yes (Pt has a walker) Hearing needs: No Vision needs: Yes (wear glasses) Meds Allergies Allergy/AdvReac Type Severity Reaction Status Date / Time latex Allergy Unknown Verified 03/27/22 13:37 Active Medications: Current Medications Acetaminophen (Acetaminophen 325 Mg Tablet) 650 mg PO Q6H PRN PRN Reason: Pain, Mild (Pain Scale 1-3) Melatonin (Melatonin 3 Mg Tablet) 6 mg PO BEDTIME PRN PRN Reason: Insomnia Senna (Sennosides 8.6 Mg Tablet) 17.2 mg PO BEDTIME PRN PRN Reason: Constipation Sodium Chloride (0.9 % Sodium Chloride Flush 3 Ml Syringe) 3 ml IVFLUSH [facility] Home Medications Medication Instructions Recorded Confirmed Last Taken Type blood sugar diagnostic (FreeStyle 08/24/21 04/17/22 Unknown History Lite Strips) insulin lispro 100 unit/mL See Protocol subcut TIDAC 01/17/22 05/04/22 02/15/22 History subcutaneous pen (Humalog KwikPen (U-100) Insulin) aspirin 81 mg tablet,delayed 81 mg PO DAILY 01/23/22 05/04/22 02/15/22 History release (Adult Low Dose Aspirin) omeprazole 40 mg capsule,delayed 1 cap PO DAILY 01/23/22 05/04/22 02/15/22 History release atorvastatin 20 mg tablet 20 mg PO BEDTIME 02/15/22 05/04/22 02/14/22 History mupirocin 2 % topical ointment 1 applic topical TID PRN 02/15/22 03/27/22 Unknown History Inflammation ezetimibe 10 mg tablet 1 tab PO BEDTIME 03/27/22 05/04/22 Unknown History spironolactone 25 mg tablet 1 tab PO DAILY 03/27/22 05/04/22 Unknown History lactulose 10 gram/15 mL oral 15 g PO TID 04/17/22 05/04/22 Unknown History solution (Enulose) Physical Exam Vital Signs and Narrative: Vital Signs: Last Vital Signs Temp 98.8 F 05/03/22 21:43 Pulse 84 05/03/22 21:43 Resp 16 05/03/22 21:43 BP 157/105 H 05/03/22 21:43 Pulse Ox 98 05/03/22 21:43 O2 Del Method 05/03/22 21:43 BMI result Body Mass Index 23.7 Gen: Appears be in no acute distress HEENT: NCAT, Moist mucosa. Pulmonary: Vesicular breath sounds, fair air entry CVS: Normal S1-S2 Abdomen: BS+, Soft, Nontender Extremities: Warm well perfused Neuro: Mildly drowsy; responds to verbal commands; moves all extremities equally Results Labs CBC and Chem 7: 05/03/22 19:25 05/03/22 19:25 Labs: Laboratory Results - last 24 hr 05/03/22 05/03/22 05/03/22 19:25 19:25 19:25 MCV 72.8 L MCH 23.5 L MCHC 32.3 RDW 15.2 Plt Count 70 L MPV Not Reportable Immature Gran % (Auto) 0.2 Neut % (Auto) 53.8 Lymph % (Auto) 27.2 [place] % (Auto) 8.8 Eos % (Auto) 9.3 H Baso % (Auto) 0.7 Lymph # (Auto) 1.5 [place] # (Auto) 0.5 Eos # (Auto) 0.5 H Baso # (Auto) 0.0 Abs Immat Gran (auto) 0.01 Absolute Neuts (auto) 3.1 Absolute Nucleated RBC 0.000 Nucleated RBC % (auto) 0.0 Smear Tech's Comments VERIFIED PT INR Anion Gap Estim Creat Clear Calc Estimated GFR Random Glucose Lactic Acid Lactic Acid F/U @ 2Hr Calcium Total Bilirubin AST ALT Alkaline Phosphatase Ammonia 188 H Troponin I High Sens Total Protein Albumin COVID-19 (STEVEN) Negative COVID-19 Clin Com See Note 05/03/22 05/03/22 05/03/22 19:25 19:25 19:25 MCV MCH MCHC RDW Plt Count MPV Immature Gran % (Auto) Neut % (Auto) Lymph % (Auto) [place] % (Auto) Eos % (Auto) Baso % (Auto) Lymph # (Auto) [place] # (Auto) Eos # (Auto) Baso # (Auto) Abs Immat Gran (auto) Absolute Neuts (auto) Absolute Nucleated RBC Nucleated RBC % (auto) Smear Tech's Comments PT 13.7 H INR 1.2 H Anion Gap 16 Estim Creat Clear Calc 23.3 Estimated GFR 22 Random Glucose 163 H D Lactic Acid Lactic Acid F/U @ 2Hr Calcium 10.0 Total Bilirubin 1.0 AST 34 ALT 28 Alkaline Phosphatase 116 Ammonia Troponin I High Sens 5.9 D Total Protein 8.0 Albumin 3.9 COVID-19 (STEVEN) COVID-19 Clin Com 05/03/22 05/03/22 19:25 21:57 MCV MCH MCHC RDW Plt Count MPV Immature Gran % (Auto) Neut % (Auto) Lymph % (Auto) [place] % (Auto) Eos % (Auto) Baso % (Auto) Lymph # (Auto) [place] # (Auto) Eos # (Auto) Baso # (Auto) Abs Immat Gran (auto) Absolute Neuts (auto) Absolute Nucleated RBC Nucleated RBC % (auto) Smear Tech's Comments PT INR Anion Gap Estim Creat Clear Calc Estimated GFR Random Glucose Lactic Acid 2.2 H* Lactic Acid F/U @ 2Hr 1.6 Calcium Total Bilirubin AST ALT Alkaline Phosphatase Ammonia Troponin I High Sens Total Protein Albumin COVID-19 (STEVEN) COVID-19 Clin Com Imaging Radiologist's Impressions: Impressions Cervical Spine CT 05/03/22 19:07 IMPRESSION: No evidence of acute intracranial abnormality or acute traumatic injury to the cervical spine. Head CT 05/03/22 19:07 IMPRESSION: No evidence of acute intracranial abnormality or acute traumatic injury to the cervical spine. Chest X-Ray 05/03/22 20:16 IMPRESSION: No acute pulmonary process. Assessment and Plan (1) AMS (altered mental status): Status: Acute (2) Diabetes type 2, uncontrolled: Qualifiers: Glycemic state: with hypoglycemia Status: Acute Plan 71-year-old male with a past medical history of hypertension, hyperlipidemia, diabetes, CAD, CKD, liver cirrhosis, ascites, aortic aneurysm, thrombocytopenia, obesity, presented to the hospital today with a chief complaint of not feeling well/nausea/abdominal discomfort/generalized weakness/confusion. Noted to have elevated ammonia levels concerning for hepatic encephalopathy. Admitted for further management. Altered mental status: Likely in the setting of hepatic encephalopathy. Patient has elevated ammonia levels to 188. Will give the patient lactulose and rifaximin. GI consult NPO Supportive care Aspiration precautions, fall precautions Mild LORRI on CKD: Likely in the setting of poor oral intake. Hold home diuretics. Gentle IV fluids. Patient's baseline creatinine around 2.3. Creatinine on presentation is 2.89. History of diabetes: Insulin sliding scale History of liver cirrhosis: Continue home Aldactone History of thrombocytopenia: Stable. Denies any signs of bleeding. DVT prophylaxis: SCD boots. No pharmacologic agent Given thrombocytopenia. Code status: DNR/DNI. Confirm with the family at bedside. Quality Stroke Does the patient have a stroke diagnosis?: No VTE Prior VTE?: No VTE Risk Level:: Medical - moderate - high VTE Device Contraindication: Treatment Not Indicated VTE Drug Contraindication: N/A - Med Ordered
[2022-05-03] MEDS: Lactulose 20 GM/30 ML SOLUTION 30 GM PO (23:06)
[2022-05-03 23:07] VITALS: BP 147/96; PULSE 76; RESP 16; O2SAT 96
[2022-05-04 00:58] VITALS: PULSE 86; RESP 15; O2SAT 97
[2022-05-04] MEDS: 0.9 % Sodium Chloride Flush 3 ML SYRINGE IVFLUSH ×2 (02:51→10:21)
[2022-05-04] MEDS: 0.9 % Sodium Chloride 1,000 ML 50 ML IVCONT (05:31)
[2022-05-04 05:32] VITALS: BP 129/82; PULSE 80; RESP 14; TEMP 36.7; O2SAT 98
[2022-05-04 07:12] LABS: Basophils Percent Auto 0.5 % (0-2); Hemoglobin 11.8 g/dl (14.0-18.0); Imm Gran Abs Auto 0.02 X10*3/uL (0.00-0.03); Imm Gran Pct Auto 0.3 % (0.0-0.4); Mean Corpuscular Volume 72.9 fL (80.0-98.0)
[2022-05-04 07:14] LABS: Eosinophils Absolute Auto 0.5 X10*3/uL (0.0-0.4); Eosinophils Percent Auto 8.7 % (0-4); Hematocrit 36.9 % (42.0-52.0); Lymphocytes Absolute Auto 1.4 X10*3/uL (1.2-4.9); Lymphocytes Percent Auto 24.2 % (20-40); Mean Corpuscular Hemoglobin 23.3 pg (27.0-33.0); Monocytes Absolute Auto 0.4 X10*3/uL (0.1-1.2); Monocytes Percent Auto 7.5 % (2-11); Neutrophils Absolute Auto 3.5 x10*3/uL (2.0-8.3); Neutrophils Percent Auto 58.8 % (45-73); Red Blood Count 5.06 X10*6/uL (4.60-5.80); Red Cell Distribution Width 15.5 % (11.0-16.0); White Blood Count 5.9 X10*3/uL (4.8-10.8)
[2022-05-04 07:31] LABS: Glucose, Whole Blood 145 mg/dL (60-115)
[2022-05-04 07:46] LABS: Platelet Count 66 X10*3/uL (160-400)
[2022-05-04 07:56] LABS: Anion Gap 17 (12-20); Blood Urea Nitrogen 34 mg/dL (9-16); Calcium 9.8 mg/dL (8.4-10.2); Carbon Dioxide 18 mmol/L (22-29); Chloride 110 mmol/L (96-108); Creatinine Clr Calc Pharmacy 23.6; Estimated Glomerular Filt Rate 22; Glucose Random 144 mg/dL (60-115); Potassium 4.3 mmol/L (3.3-5.1); Sodium 141 mmol/L (135-145)
[2022-05-04] MEDS: Aspirin Enteric Coated 81 MG TABLET.DR PO (08:29)
[2022-05-04] MEDS: Lactulose 20 GM/30 ML SOLUTION PO ×2 (08:29→21:20)
[2022-05-04] MEDS: Omeprazole 40 MG CAPSULE.DR PO (08:29)
[2022-05-04] MEDS: rifAXIMin 550 MG TABLET PO ×2 (09:31→21:20)
--- NOTE | 2022-05-04 09:33 | P.CNGI_ITS ---
History of Present Illness Data of Consult Service Date: 05/04/22 Requesting physician: Herrera Schreiber Primary Care Provider: Kimber Pan MD [facility] Reason for consult: Hepatic encephalopathy 71-year-old Citizen Of [place]-speaking male with htn, HLD, diabetes, CAD, CKD, liver cirrhosis, ascites, aortic aneurysm, thrombocytopenia, obesity, seen at [facility] ED on 05/03/22 with confusion, nausea, decreased oral intake and not feeling well for the past 3-4 days.? Most of the history obtained with the help of Mary, [facility] Citizen Of [place] Hearing Instrument Specialist, from the patient and his at bedside.? Pt's denies fever, chills or sweating, dark stools or blood in the stools. Pt denies abd pain or worsening abd distension Per pt has been compliant with Lactulose - taking it 2-3 times a day and having 2-3 BMs daily. She gives him Ensure a few times a week if he does not eat. Pt has been loosing wt from 160 to 146 lbs Per ED note, pt fell on 05/03/22 without hitting significantly his head.? Patient is on Eliquis and was nauseated and had an episode of vomiting Pt was taking lactulose and rifaximin for hepatic encephalopathy and stopped taking Rifaximin ( received a message from the pharmacy that they are waiting for approval from his insurance co for a medication) Denies patient complaining of any chest pain palpitations lightheadedness or dizziness.? Reports patient is generally slow; and appears to be weak.? Pt denies ETOH use for the past 35 yrs LABS SHOWED: Microcytic hypochromic anemia with H&H of 12 and 37.2, INR 1.2, platelets 66. BUN 36, creatinine 2.89, lactic acid 2.2, normal LFTs. Ammonia elevated at 188 ER course: Per ER team patient on presentation noted to be lethargic; on labs noted to have elevated ammonia levels; concerning for hepatic encephalopathy.? Admitted for further management. IMAGING STUDIES: 05/03/[address] SCAN SHOWED: No evidence of acute intracranial abnormality or acute traumatic injury to the cervical spine. Review of Systems Constitutional: Constitutional: Denies chills, Reports fatigue, Denies fever(s), Reports lethargy and Reports poor appetite Eyes: Eyes: Denies eye discharge and Denies irritation ENT: Denies dysphagia and Denies sore throat Cardiovascular: Cardiovascular: Denies chest pain Gastrointestinal: Gastrointestinal: Denies abdominal pain, Denies constipation and Denies dysphagia Genitourinary: Genitourinary: Denies dysuria Neurologic: Reports confusion Psychiatric: Psychiatric: Reports confusion Endocrine: Endocrine: Reports fatigue [facility] Past Medical History Medical History (Updated 05/23/22 @ 12:54 by Carissa Clifton MD) Abnormal myocardial perfusion study Acute kidney injury Ascending aorta dilatation Ascites Ascites Atherosclerotic cardiovascular disease Bowel incontinence Cirrhosis of liver with ascites CKD (chronic kidney disease) stage 3, GFR 30-59 ml/min CKD (chronic kidney disease) stage 3, GFR 30-59 ml/min Diabetes Diabetes type 2, uncontrolled Diabetic nephropathy associated with type 2 diabetes mellitus Dyslipidemia Dyslipidemia associated with type 2 diabetes mellitus Elevated serum creatinine Essential hypertension Gastroparesis GERD (gastroesophageal reflux disease) Gout Hepatorenal syndrome History of abdominal paracentesis Hospital discharge follow-up Hypertension Hypoglycemia 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 with type 2 diabetes mellitus Increased ammonia level Lactic acidosis nursing home (current) use of insulin Metabolic acidosis Obesity due to excess calories 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 cancer Thrombocytopenia Thrombocytopenia Type 2 diabetes mellitus with unspecified complications Family History Family History Father Diabetes CVD (cardiovascular disease) Mother Diabetes Surgical History Surgical History Hx of colonoscopy Social History Social History Household Members: Spouse and Children Housing: Apartment Are you a primary progressive care nurse to a significant other at home: No Do you presently have visiting nurse or other home services: Yes ([facility]) Alcohol intake: former Patient Tobacco Use Status: Former Tobacco user Tobacco use type: Cigarette e-Cigarette/Vaping Use: Never Used Second Hand Smoke Exposure: No Advance Directives Date on File: 05/24/21 service: No Current occupational status: disabled Cognitive needs: Yes (Pt has a walker) Hearing needs: No Vision needs: Yes (wear glasses) Meds Allergies Allergy/AdvReac Type Severity Reaction Status Date / Time latex Allergy Unknown Verified 05/23/22 12:27 Active Medications: Current Medications Acetaminophen (Acetaminophen 325 Mg Tablet) 650 mg PO Q6H PRN PRN Reason: Pain, Mild (Pain Scale 1-3) Aspirin (Aspirin Enteric Coated 81 Mg Tablet.) 81 mg PO DAILY [facility] Last Admin: 05/04/22 08:29 Dose: 81 mg Atorvastatin Calcium (Atorvastatin Calcium 20 Mg Tablet) 20 mg PO BEDTIME [facility] Dextrose (Dextrose 50 % 25 Gm/50 Ml Syringe) 25 gm IVPUSH Q15M PRN; Protocol PRN Reason: per Hypoglycemia Standing Ord. Glucose (Glucose Gel 15 Gm Gel..Gram.) 15 gm PO Q15M PRN; Protocol PRN Reason: per Hypoglycemia Standing Ord. Sodium Chloride (Ns) 1,000 mls @ 50 mls/hr IVCONT .Q20H [facility] Last Admin: 05/04/22 05:31 Dose: 50 mls/hr Insulin Human Lispro (Insulin Lispro 100 Unit/Ml 3 Ml Vial) 0 unit SUBCUT QIDACHS [facility]; Protocol Last Admin: 05/04/22 07:54 Dose: Not Given Lactulose (Lactulose 20 Gm/30 Ml Solution) 20 gm PO BID [facility] Last Admin: 05/04/22 08:29 Dose: 20 gm Melatonin (Melatonin 3 Mg Tablet) 6 mg PO BEDTIME PRN PRN Reason: Insomnia Omeprazole (Omeprazole 40 Mg Capsule.) 40 mg PO DAILY [facility] Last Admin: 05/04/22 08:29 Dose: 40 mg Rifaximin (Rifaximin 550 Mg Tablet) 550 mg PO BID [facility] Last Admin: 05/04/22 09:31 Dose: 550 mg Senna (Sennosides 8.6 Mg Tablet) 17.2 mg PO BEDTIME PRN PRN Reason: Constipation Sodium Chloride (0.9 % Sodium Chloride Flush 3 Ml Syringe) 3 ml IVFLUSH QSHIFT [facility] Last Admin: 05/04/22 02:51 Dose: 3 ml Home Medications Medication Instructions Recorded Confirmed Last Taken Type blood sugar diagnostic (FreeStyle 08/24/21 05/23/22 Unknown History Lite Strips) insulin lispro 100 unit/mL 5 unit subcut TIDAC 01/17/22 05/23/22 02/15/22 History subcutaneous pen (Humalog KwikPen (U-100) Insulin) aspirin 81 mg tablet,delayed 81 mg PO DAILY 01/23/22 05/23/22 02/15/22 History release (Adult Low Dose Aspirin) atorvastatin 20 mg tablet 20 mg PO BEDTIME 05/04/0305/23/22 02/14/22 History ezetimibe 10 mg tablet 1 tab PO BEDTIME 03/27/22 05/23/22 Unknown History spironolactone 25 mg tablet 1 tab PO DAILY 03/27/22 05/23/22 Unknown History Physical Exam Vital Signs: Vital Signs: Last Vital Signs Temp 98.0 F 05/04/22 05:32 Pulse 80 05/04/22 05:32 Resp 14 05/04/22 05:32 BP 129/82 05/04/22 05:32 Pulse Ox 98 05/04/22 05:32 O2 Del Method 05/04/22 05:32 BMI result Body Mass Index 23.7 Const: General: no acute distress and confusion Nutritional Appearance: average body habitus Orientation/consciousness: confusion Limitations: language barrier HEENT: Head: Yes normal to inspection Ears: hearing grossly normal bilaterally Eyes: Sclerae: sclerae normal Pupils: Equal, round and reactive pupils present Neck: Neck: Yes normal visual inspection Chest: Chest palpation & inspection: normal inspection of the chest Resp: Effort & Inspection: normal respiratory effort Auscultation: clear to auscultation bilaterally Cardio: Palpation: normal PMI Rate: regular rate Rhythm: regular rhythm Heart sounds: S1 normal heart sound present, S2 normal heart sound present and no murmurs GI: Inspection: Yes distended Palpation (GI): Soft to palpation, nontender and No hepatosplenomegaly present Auscultation: normal bowel sounds Rectal Exam - Male: Yes deferred Skin: General skin exam: no rashes or lesions noted Neuro: General: confusion Cranial nerves: Yes Equal, round and reactive pupils present Psych: Appearance: grossly normal Mental Status: mental status grossly normal Results Labs CBC & Chem 7: 05/04/22 06:25 05/06/22 04:33 Labs: Short CBC 05/03/22 05/04/22 Range/Units 19:25 06:25 WBC 5.7 5.9 (4.8-10.8) X10*3/uL Hgb 12.0 L 11.8 L (14.0-18.0) g/dl Hct 37.2 L 36.9 L (42.0-52.0) % Plt Count 70 L 66 L (160-400) X10*3/uL BMP 05/03/22 05/04/22 19:25 06:25 Sodium 138 141 Potassium 4.3 4.3 Chloride 106 110 H Carbon Dioxide 20 L 18 L BUN 36 H D 34 H Creatinine 2.89 H 2.85 H Calcium 10.0 9.8 Liver Function 05/03/22 Range/Units 19:25 Total Bilirubin 1.0 (0.0-1.0) mg/dL AST 34 (5-37) U/L ALT 28 (0-40) U/L Alkaline Phosphatase 116 (39-117) U/L Albumin 3.9 (3.5-5.0) g/dL Assessment and Plan (1) Acute hepatic encephalopathy: Status: Resolved (2) AMS (altered mental status): Status: Resolved (3) Cirrhosis of liver with ascites: Qualifiers: Hepatic cirrhosis type: unspecified hepatic cirrhosis Qualified Code(s): K74.60 - Unspecified cirrhosis of liver; R18.8 - Other ascites Status: Acute Plan 71 year old Citizen [place]-speaking male (known to me from FU in the GI clinic) with diabetes, hypertension, hyperlipidemia and gout hospitalized in January 2020 admitted with confusion, nausea and decreased PO intake for the past 3-4 days. Pt has cirrhosis (unclear etiology - likely due to SEGUNDO or AIH (autoimmune markers were negative) complicated by ascites, hepatic encephalopathy and renal insufficiency (CKD related to DM versus HRS) Diuretics were discontinued due to elevated BUN and Cr and ascites is being managed with intermittent large volume paracentesis (last in Feb, 2022) Hepatitis B and C serologies were negative. Pt has a hx of SBP during past hospitalization? ? Ammonia level was elevated to 188 and BUN and Cr above baseline Pt has been compliant with lactulose and Rifaximin was discontinued (? waiting for approval from his insurance) Worsening renal function is likely associated with dehydration versus type 2 HRS. ?RECOMMENDATIONS: 1. Continue lactulose and Rifaximin for hepatic encephalopathy and monitor ammonia levels daily - titrate to 3 soft BMs a day. 2.? Gentle IV hydration with repeat BUN. Cr 3.? Urine sodium - order placed 4.? Abdominal US - order placed 5.? Nephrology consult 6.? Diagnostic paracentesis and check cell count to rule out SBP. QUESTION OF LIVER TRANSPLANTATION: ??# goals of care - Extensive discussion by the hospitalist during past hospitalization with patient and his during recent hospitalization.? Given poor long-term prognosis, he changed his code status to DNR/DNI and declined future artificial nutrition or dialysis.? A MOLST was filled out reflecting these desires.? Procedures Date of Service Date of Service: 05/04/22
--- NOTE | 2022-05-04 09:46 | PHA.MEDREC ---
Pharmacy Consult ? Medication Reconciliation Pharmacy has reviewed the medication reconciliation completed by RN Nerissa. Patients reports patient use 5 units Lispro TIDAC instead of a sliding scale. Also confirmed patient is no longer on Furosemide even thought there is a recent filled history for it. Eloisa Brower, PharmD
[2022-05-04 13:01] LABS: Glucose, Whole Blood 188 mg/dL (60-115)
[2022-05-04] MEDS: Insulin Lispro 100 UNIT/ML 3 ML VIAL SUBCUT ×3 (13:21→22:02)
--- NOTE | 2022-05-04 15:31 | HO.PM.IMPN ---
Subjective Subjective Date of Service: 05/04/22 Review of Systems Follow up hepatic encephalopathy eating better today no chest pain or sob Physical Exam Vital Signs: Vital Signs: Last Vital Signs Temp 98.0 F 05/04/22 05:32 Pulse 80 05/04/22 05:32 Resp 14 05/04/22 05:32 BP 129/82 05/04/22 05:32 Pulse Ox 98 05/04/22 05:32 O2 Del Method 05/04/22 05:32 BMI result Body Mass Index 23.7 Appearing in no acute distress lung sounds are clear to auscultation heart regular rate rhythm, clear S1, S2 positive bowel sounds, abdomen is soft, nontender neuro patient is alert x3, no focal deficits Objective Data Active Medications Acetaminophen (Acetaminophen 325 Mg Tablet) 650 mg PO Q6H PRN PRN Reason: Pain, Mild (Pain Scale 1-3) Aspirin (Aspirin Enteric Coated 81 Mg Tablet.) 81 mg PO DAILY [facility] Last Admin: 05/04/22 08:29 Dose: 81 mg Documented By: SUKHI Atorvastatin Calcium (Atorvastatin Calcium 20 Mg Tablet) 20 mg PO BEDTIME [facility] Dextrose (Dextrose 50 % 25 Gm/50 Ml Syringe) 25 gm IVPUSH Q15M PRN; Protocol PRN Reason: per Hypoglycemia Standing Ord. Glucose (Glucose Gel 15 Gm Gel..Gram.) 15 gm PO Q15M PRN; Protocol PRN Reason: per Hypoglycemia Standing Ord. Sodium Chloride (Ns) 1,000 mls @ 50 mls/hr IVCONT .Q20H [facility] Last Admin: 05/04/22 05:31 Dose: 50 mls/hr Documented By: ESTELLE Insulin Human Lispro (Insulin Lispro 100 Unit/Ml 3 Ml Vial) 0 unit SUBCUT QIDACHS [facility]; Protocol Last Admin: 05/04/22 13:21 Dose: 2 unit Documented By: SUKHI Lactulose (Lactulose 20 Gm/30 Ml Solution) 20 gm PO BID [facility] Last Admin: 05/04/22 08:29 Dose: 20 gm Documented By: SUKHI Melatonin (Melatonin 3 Mg Tablet) 6 mg PO BEDTIME PRN PRN Reason: Insomnia Omeprazole (Omeprazole 40 Mg Capsule.) 40 mg PO DAILY [facility] Last Admin: 05/04/22 08:29 Dose: 40 mg Documented By: HO.CONND Rifaximin (Rifaximin 550 Mg Tablet) 550 mg PO BID [facility] Last Admin: 05/04/22 09:31 Dose: 550 mg Documented By: SUKHI Senna (Sennosides 8.6 Mg Tablet) 17.2 mg PO BEDTIME PRN PRN Reason: Constipation Sodium Chloride (0.9 % Sodium Chloride Flush 3 Ml Syringe) 3 ml IVFLUSH QSHIFT [facility] Last Admin: 05/04/22 10:21 Dose: 3 ml Documented By: SUKHI Labs CBC & Chem 7: 05/04/22 06:25 05/04/22 06:25 Labs: Laboratory Results - last 24 hr 05/03/22 05/03/22 05/03/22 19:25 19:25 19:25 MCV 72.8 L MCH 23.5 L MCHC 32.3 RDW 15.2 Plt Count 70 L MPV Not Reportable Immature Gran % (Auto) 0.2 Neut % (Auto) 53.8 Lymph % (Auto) 27.2 [place] % (Auto) 8.8 Eos % (Auto) 9.3 H Baso % (Auto) 0.7 Lymph # (Auto) 1.5 [place] # (Auto) 0.5 Eos # (Auto) 0.5 H Baso # (Auto) 0.0 Abs Immat Gran (auto) 0.01 Absolute Neuts (auto) 3.1 Absolute Nucleated RBC 0.000 Nucleated RBC % (auto) 0.0 Smear Tech's Comments VERIFIED PT INR Anion Gap Estim Creat Clear Calc Estimated GFR POC Glucose Random Glucose Lactic Acid Lactic Acid F/U @ 2Hr Calcium Total Bilirubin AST ALT Alkaline Phosphatase Ammonia 188 H Troponin I High Sens Total Protein Albumin COVID-19 (STEVEN) Negative COVID-19 Clin Com See Note 05/03/22 05/03/22 05/03/22 19:25 19:25 19:25 MCV MCH MCHC RDW Plt Count MPV Immature Gran % (Auto) Neut % (Auto) Lymph % (Auto) [place] % (Auto) Eos % (Auto) Baso % (Auto) Lymph # (Auto) [place] # (Auto) Eos # (Auto) Baso # (Auto) Abs Immat Gran (auto) Absolute Neuts (auto) Absolute Nucleated RBC Nucleated RBC % (auto) Smear Tech's Comments PT 13.7 H INR 1.2 H Anion Gap 16 Estim Creat Clear Calc 23.3 Estimated GFR 22 POC Glucose Random Glucose 163 H D Lactic Acid Lactic Acid F/U @ 2Hr Calcium 10.0 Total Bilirubin 1.0 AST 34 ALT 28 Alkaline Phosphatase 116 Ammonia Troponin I High Sens 5.9 D Total Protein 8.0 Albumin 3.9 COVID-19 (STEVEN) COVID-19 Clin Com 05/03/22 05/03/22 05/04/22 19:25 21:57 06:25 MCV 72.9 L MCH 23.3 L MCHC 32.0 RDW 15.5 Plt Count 66 L MPV Not Reportable Immature Gran % (Auto) 0.3 Neut % (Auto) 58.8 Lymph % (Auto) 24.2 [place] % (Auto) 7.5 Eos % (Auto) 8.7 H Baso % (Auto) 0.5 Lymph # (Auto) 1.4 [place] # (Auto) 0.4 Eos # (Auto) 0.5 H Baso # (Auto) 0.0 Abs Immat Gran (auto) 0.02 Absolute Neuts (auto) 3.5 Absolute Nucleated RBC 0.000 Nucleated RBC % (auto) 0.0 Smear Tech's Comments PT INR Anion Gap Estim Creat Clear Calc Estimated GFR POC Glucose Random Glucose Lactic Acid 2.2 H* Lactic Acid F/U @ 2Hr 1.6 Calcium Total Bilirubin AST ALT Alkaline Phosphatase Ammonia Troponin I High Sens Total Protein Albumin COVID-19 (STEVEN) COVID-19 Clin Com 05/04/22 05/04/22 05/04/22 06:25 07:21 12:56 MCV MCH MCHC RDW Plt Count MPV Immature Gran % (Auto) Neut % (Auto) Lymph % (Auto) [place] % (Auto) Eos % (Auto) Baso % (Auto) Lymph # (Auto) [place] # (Auto) Eos # (Auto) Baso # (Auto) Abs Immat Gran (auto) Absolute Neuts (auto) Absolute Nucleated RBC Nucleated RBC % (auto) Smear Tech's Comments PT INR Anion Gap 17 Estim Creat Clear Calc 23.6 Estimated GFR 22 POC Glucose 145 H 188 H Random Glucose 144 H Lactic Acid Lactic Acid F/U @ 2Hr Calcium 9.8 Total Bilirubin AST ALT Alkaline Phosphatase Ammonia Troponin I High Sens Total Protein Albumin COVID-19 (STEVEN) COVID-19 Clin Com Assessment and Plan (1) Acute hepatic encephalopathy: Status: Acute Plan 71-year-old male with a past medical history of hypertension, hyperlipidemia, diabetes, CAD, CKD, liver cirrhosis, ascites, aortic aneurysm, thrombocytopenia, obesity, presented to the hospital today with a chief complaint of not feeling well/nausea/abdominal discomfort/generalized weakness/confusion.? Noted to have elevated ammonia levels concerning for hepatic encephalopathy.? Admitted for further management.? Hepatic encephalopathy.? elevated ammonia levels to 188.? lactulose and rifaximin titrate to 3 BMS daily GI consult NPO Supportive care Aspiration precautions, fall precautions check ammonia in am Mild LORRI on CKD Likely in the setting of poor oral intake.? Hold home diuretics.? Gentle IV fluids. nephrology consult History of diabetes ss, ada diet when able History of liver cirrhosis Continue home Aldactone History of thrombocytopenia Stable.? Denies any signs of bleeding. DVT prophylaxis:? SCD boots.? No pharmacologic agent? Given thrombocytopenia. Code status: DNR/DNI.? Confirm with the family at bedside. Attending Dr. Burden Quality Stroke Does the patient have a stroke diagnosis?: No VTE Prior VTE?: No VTE Risk Level:: Medical - moderate - high VTE Device Contraindication: Treatment Not Indicated VTE Drug Contraindication: N/A - Med Ordered
[2022-05-04 18:18] LABS: Glucose, Whole Blood 257 mg/dL (60-115)
[2022-05-04] MEDS: Atorvastatin Calcium 20 MG TABLET PO (21:20)
[2022-05-04 22:08] LABS: Glucose, Whole Blood 164 mg/dL (60-115)
--- NOTE | 2022-05-04 23:46 | PC.NURSE ---
pt sleeping comfortably on stretcher, family at bedside. equal chest rise and fall, no respiratory distress. bedtime medications given, call shahid within reach. will continue to monitor.
[2022-05-05 03:43] LABS: Glucose, Whole Blood 116 mg/dL (60-115)
[2022-05-05 04:00] VITALS: BP 145/88; PULSE 77; TEMP 36.7; O2SAT 96
[2022-05-05] MEDS: 0.9 % Sodium Chloride 1,000 ML 50 ML IVCONT (04:37)
[2022-05-05 07:39] VITALS: BP 155/90; PULSE 65; RESP 18; TEMP 36.6; O2SAT 98
[2022-05-05 07:45] LABS: Ammonia 159 umol/L (13-55)
[2022-05-05 07:52] LABS: Glucose, Whole Blood 115 mg/dL (60-115)
[2022-05-05 08:11] LABS: Anion Gap 14 (12-20); Blood Urea Nitrogen 30 mg/dL (9-16); Carbon Dioxide 17 mmol/L (22-29); Chloride 111 mmol/L (96-108); Creatinine Clr Calc Pharmacy 26.2; Estimated Glomerular Filt Rate 25; Glucose Random 120 mg/dL (60-115); Potassium 4.1 mmol/L (3.3-5.1); Sodium 138 mmol/L (135-145)
[2022-05-05 08:26] LABS: Calcium 9.3 mg/dL (8.4-10.2)
--- NOTE | 2022-05-05 08:55 | P.PNIM_ITS ---
Subjective Subjective Date of Service: 05/05/22 Review of Systems Follow up hepatic encephalopathy no abd pain, nausea or vomiting Physical Exam Vital Signs: Vital Signs: Last Vital Signs Temp 97.8 F 05/05/22 07:39 Pulse 65 05/05/22 07:39 Resp 18 05/05/22 07:39 BP 155/90 H 05/05/22 07:39 Pulse Ox 98 05/05/22 07:39 O2 Del Method 05/05/22 07:39 BMI result Body Mass Index 23.7 Appearing in no acute distress lung sounds are clear to auscultation heart regular rate rhythm, clear S1, S2 positive bowel sounds, abdomen is soft, nontender neuro patient is alert x3, no focal deficits Objective Data Active Medications Acetaminophen (Acetaminophen 325 Mg Tablet) 650 mg PO Q6H PRN PRN Reason: Pain, Mild (Pain Scale 1-3) Aspirin (Aspirin Enteric Coated 81 Mg Tablet.) 81 mg PO DAILY [facility] Last Admin: 05/04/22 08:29 Dose: 81 mg Documented By: SUKHI Atorvastatin Calcium (Atorvastatin Calcium 20 Mg Tablet) 20 mg PO BEDTIME [facility] Last Admin: 05/04/22 21:20 Dose: 20 mg Documented By: ESTELLE Dextrose (Dextrose 50 % 25 Gm/50 Ml Syringe) 25 gm IVPUSH Q15M PRN; Protocol PRN Reason: per Hypoglycemia Standing Ord. Glucose (Glucose Gel 15 Gm Gel..Gram.) 15 gm PO Q15M PRN; Protocol PRN Reason: per Hypoglycemia Standing Ord. Sodium Chloride (Ns) 1,000 mls @ 50 mls/hr IVCONT .Q20H [facility] Last Admin: 05/05/22 04:37 Dose: 50 mls/hr Documented By: MANINDER Insulin Human Lispro (Insulin Lispro 100 Unit/Ml 3 Ml Vial) 0 unit SUBCUT QIDACHS [facility]; Protocol Last Admin: 05/05/22 08:10 Dose: Not Given Documented By: ESPERANZA Non-Admin Reason: No Insulin Coverage Lactulose (Lactulose 20 Gm/30 Ml Solution) 20 gm PO BID [facility] Last Admin: 05/04/22 21:20 Dose: 20 gm Documented By: ESTELLE Melatonin (Melatonin 3 Mg Tablet) 6 mg PO BEDTIME PRN PRN Reason: Insomnia Omeprazole (Omeprazole 40 Mg Capsule.) 40 mg PO DAILY [facility] Last Admin: 05/04/22 08:29 Dose: 40 mg Documented By: SUKHI Rifaximin (Rifaximin 550 Mg Tablet) 550 mg PO BID [facility] Last Admin: 05/04/22 21:20 Dose: 550 mg Documented By: ESTELLE Senna (Sennosides 8.6 Mg Tablet) 17.2 mg PO BEDTIME PRN PRN Reason: Constipation Sodium Chloride (0.9 % Sodium Chloride Flush 3 Ml Syringe) 3 ml IVFLUSH QSHIFT [facility] Last Admin: 05/05/22 07:56 Dose: Not Given Documented By: MANINDER Non-Admin Reason: Prior shifts Labs CBC & Chem 7: 05/04/22 06:25 05/05/22 06:31 Labs: Laboratory Results - last 24 hr 05/04/22 05/04/22 05/04/22 12:56 17:29 18:12 Anion Gap Estim Creat Clear Calc Estimated GFR POC Glucose 188 H 257 H Random Glucose Calcium Ammonia Ur Random Sodium 87.0 05/04/22 05/05/22 05/05/22 21:48 03:39 06:31 Anion Gap 14 Estim Creat Clear Calc 26.2 Estimated GFR 25 POC Glucose 164 H 116 H Random Glucose 120 H Calcium 9.3 Ammonia Ur Random Sodium 05/05/22 05/05/22 06:31 07:41 Anion Gap Estim Creat Clear Calc Estimated GFR POC Glucose 115 Random Glucose Calcium Ammonia 159 H Ur Random Sodium Assessment and Plan (1) Acute hepatic encephalopathy: Status: Acute Plan 71-year-old male with a past medical history of hypertension, hyperlipidemia, diabetes, CAD, CKD, liver cirrhosis, ascites, aortic aneurysm, thrombocytopenia, obesity, presented to the hospital today with a chief complaint of not feeling well/nausea/abdominal discomfort/generalized weakness/confusion.? Noted to have elevated ammonia levels concerning for hepatic encephalopathy.? Admitted for further management.? Hepatic encephalopathy.? elevated ammonia levels to 159 lactulose and rifaximin titrate to 3 BMS daily GI following Supportive care Aspiration precautions, fall precautions abd us showing ? of portal venous HTN vs venous thrombosis, MR of abd ordered for am Mild LORRI on CKD 4 Likely in the setting of poor oral intake.? Hold home diuretics.? Gentle IV fluids. nephrology consult History of diabetes ss, ada diet History of liver cirrhosis Continue home Aldactone History of thrombocytopenia Stable.? Denies any signs of bleeding. DVT prophylaxis:? SCD boots.? No pharmacologic agent? Given thrombocytopenia. Code status: DNR/DNI.? Attending Dr. Burden continued hopsitalization for treatment of hepatic encephalopathy Quality Stroke Does the patient have a stroke diagnosis?: No VTE Prior VTE?: No VTE Risk Level:: Medical - moderate - high VTE Device Contraindication: Treatment Not Indicated VTE Drug Contraindication: N/A - Med Ordered
[2022-05-05 10:36] LABS: Appearance Urine CLEAR; Color Urine YELLOW; Glucose Urine UA NEG (NEG); Leukocyte Esterase Urine NEG (NEG); Nitrite Urine NEG (NEG); PH 5.5 (5.0-8.0); Specific Gravity - Urine >= 1.030 (1.005-1.025); UACC Culture Trigger NO; Urine Blood NEG (NEG); Urine Ketones 5 MG/DL (NEG); Urine Protein 3+ MG/DL (NEG-TRACE)
[2022-05-05 10:48] LABS: RBC Urine 0 /HPF (0); Squamous Epithelial Cell Urine TRACE /LPF; WBC Urine 0-2 /HPF (0-4)
[2022-05-05 11:19] VITALS: BP 153/82; PULSE 55; RESP 18; TEMP 36.8; O2SAT 98
[2022-05-05] MEDS: Lactulose 20 GM/30 ML SOLUTION PO ×3 (11:27→21:27)
[2022-05-05] MEDS: Aspirin Enteric Coated 81 MG TABLET.DR PO (11:28)
[2022-05-05] MEDS: 0.9 % Sodium Chloride Flush 3 ML SYRINGE IVFLUSH ×3 (11:28→21:27)
[2022-05-05] MEDS: rifAXIMin 550 MG TABLET PO ×2 (11:28→21:27)
[2022-05-05] MEDS: Omeprazole 40 MG CAPSULE.DR PO (11:28)
[2022-05-05 11:39] LABS: Glucose, Whole Blood 117 mg/dL (60-115)
[2022-05-05 15:18] VITALS: BP 153/90; PULSE 69; RESP 18; TEMP 36.6; O2SAT 97
[2022-05-05 15:53] LABS: Glucose, Whole Blood 185 mg/dL (60-115)
[2022-05-05] MEDS: Insulin Lispro 100 UNIT/ML 3 ML VIAL SUBCUT ×2 (17:34→21:27)
[2022-05-05 19:04] VITALS: BP 136/87; PULSE 70; RESP 18; TEMP 36.5; O2SAT 96
[2022-05-05 19:50] LABS: Glucose, Whole Blood 161 mg/dL (60-115)
[2022-05-05] MEDS: Atorvastatin Calcium 20 MG TABLET PO (21:27)
--- NOTE | 2022-05-05 21:32 | PM.EVENT ---
Event Note Date of Service: 05/05/22 Event Note: Chart reviewed Pt seen and examined 1. 71-year-old male with LORRI - Perrenal 2. CKD stage 4 3. liver cirrhosis 4. nausea/abdominal discomfort/generalized weakness/confusion.? 5. hepatic encephalopathy.? Admitted for further management.? -lactulose and rifaximin -IV hydration - No Diuretics - abd us showing ? of portal venous HTN vs venous thrombosis, MR of abd ordered for am - Continue home Aldactone Thx D/w Medical team
[2022-05-05 23:32] VITALS: BP 125/81; PULSE 75; RESP 16; TEMP 36.8; O2SAT 99
[2022-05-06 03:41] VITALS: BP 154/88; PULSE 89; RESP 20; TEMP 37; O2SAT 96
[2022-05-06 05:06] LABS: Anion Gap 15 (12-20); Blood Urea Nitrogen 32 mg/dL (9-16); Calcium 9.2 mg/dL (8.4-10.2); Carbon Dioxide 18 mmol/L (22-29); Chloride 113 mmol/L (96-108); Estimated Glomerular Filt Rate 24; Glucose Random 114 mg/dL (60-115); Potassium 4.7 mmol/L (3.3-5.1); Sodium 141 mmol/L (135-145)
[2022-05-06 06:17] LABS: Ammonia 71 umol/L (13-55)
[2022-05-06 07:18] VITALS: BP 140/79; PULSE 64; RESP 20; TEMP 36.7; O2SAT 98
[2022-05-06 07:25] LABS: Glucose, Whole Blood 107 mg/dL (60-115)
[2022-05-06] MEDS: Aspirin Enteric Coated 81 MG TABLET.DR PO (09:13)
[2022-05-06] MEDS: rifAXIMin 550 MG TABLET PO ×2 (09:13→21:26)
[2022-05-06] MEDS: 0.9 % Sodium Chloride Flush 3 ML SYRINGE IVFLUSH ×3 (09:13→21:27)
[2022-05-06] MEDS: Lactulose 20 GM/30 ML SOLUTION PO ×3 (09:13→21:25)
[2022-05-06] MEDS: Omeprazole 40 MG CAPSULE.DR PO (09:13)
--- NOTE | 2022-05-06 09:55 | MHC.CM.PN ---
Patient presents with s/s of confusion at times; CM spoke with /HCP/Benita @ [phone], with the assist of a Telephonic Head Athletic Trainer/Strength Coach and CM addressed IMM with her (original will be mailed certified letter to her and a copy will be placed on the chart). 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 Patient is active with [facility] and has both AM & PM [employer] CREAM [employer]ZER services through [facility]. Home resume said services vs STR pending PT eval is the goal and CM has initiated and will follow for dc planning. Patient has received Covid J&J and [address] Kimber Vazquez.
[2022-05-06 11:05] LABS: Glucose, Whole Blood 107 mg/dL (60-115)
[2022-05-06 11:31] VITALS: BP 140/78; PULSE 68; RESP 20; TEMP 37.2; O2SAT 97
--- NOTE | 2022-05-06 12:49 | P.PNIM_ITS ---
Subjective Subjective Date of Service: 05/06/22 Review of Systems Follow up hepatic encephalopathy no abd pain, nausea or vomiting Physical Exam Vital Signs: Vital Signs: Last Vital Signs Temp 98.9 F 05/06/22 11:31 Pulse 68 05/06/22 11:31 Resp 20 05/06/22 11:31 BP 140/78 H 05/06/22 11:31 Pulse Ox 97 05/06/22 11:31 O2 Del Method 05/06/22 11:31 BMI result Body Mass Index 23.7 Appearing in no acute distress lung sounds are clear to auscultation heart regular rate rhythm, clear S1, S2 positive bowel sounds, abdomen is soft, nontender neuro patient is alert x3, no focal deficits Objective Data Active Medications Acetaminophen (Acetaminophen 325 Mg Tablet) 650 mg PO Q6H PRN PRN Reason: Pain, Mild (Pain Scale 1-3) Aspirin (Aspirin Enteric Coated 81 Mg Tablet.) 81 mg PO DAILY [facility] Last Admin: 05/06/22 09:13 Dose: 81 mg Documented By: KRISTA Atorvastatin Calcium (Atorvastatin Calcium 20 Mg Tablet) 20 mg PO BEDTIME [facility] Last Admin: 05/05/22 21:27 Dose: 20 mg Documented By: JAN Dextrose (Dextrose 50 % 25 Gm/50 Ml Syringe) 25 gm IVPUSH Q15M PRN; Protocol PRN Reason: per Hypoglycemia Standing Ord. Glucose (Glucose Gel 15 Gm Gel..Gram.) 15 gm PO Q15M PRN; Protocol PRN Reason: per Hypoglycemia Standing Ord. Insulin Human Lispro (Insulin Lispro 100 Unit/Ml 3 Ml Vial) 0 unit SUBCUT QIDACHS [facility]; Protocol Last Admin: 05/06/22 11:13 Dose: Not Given Documented By: KRISTA Non-Admin Reason: No Insulin Coverage Lactulose (Lactulose 20 Gm/30 Ml Solution) 20 gm PO TID [facility] Last Admin: 05/06/22 09:13 Dose: 20 gm Documented By: KRISTA Melatonin (Melatonin 3 Mg Tablet) 6 mg PO BEDTIME PRN PRN Reason: Insomnia Omeprazole (Omeprazole 40 Mg Capsule.) 40 mg PO DAILY [facility] Last Admin: 05/06/22 09:13 Dose: 40 mg Documented By: KRISTA Rifaximin (Rifaximin 550 Mg Tablet) 550 mg PO BID [facility] Last Admin: 05/06/22 09:13 Dose: 550 mg Documented By: KRISTA Senna (Sennosides 8.6 Mg Tablet) 17.2 mg PO BEDTIME PRN PRN Reason: Constipation Sodium Chloride (0.9 % Sodium Chloride Flush 3 Ml Syringe) 3 ml IVFLUSH QSHIFT [facility] Last Admin: 05/06/22 09:13 Dose: 3 ml Documented By: KRISTA Labs CBC & Chem 7: 05/04/22 06:25 05/06/22 04:33 Labs: Laboratory Results - last 24 hr 05/05/22 05/05/22 05/06/22 15:23 19:09 04:33 Anion Gap 15 Estim Creat Clear Calc 25.0 Estimated GFR 24 POC Glucose 185 H 161 H Random Glucose 114 Calcium 9.2 Ammonia 05/06/22 05/06/22 05/06/22 05:46 07:21 11:01 Anion Gap Estim Creat Clear Calc Estimated GFR POC Glucose 107 107 Random Glucose Calcium Ammonia 71 H Assessment and Plan (1) Acute hepatic encephalopathy: Status: Acute Plan 71-year-old male with a past medical history of hypertension, hyperlipidemia, diabetes, CAD, CKD, liver cirrhosis, ascites, aortic aneurysm, thrombocytopenia, obesity, presented to the hospital today with a chief complaint of not feeling well/nausea/abdominal discomfort/generalized weakness/confusion.? Noted to have elevated ammonia levels concerning for hepatic encephalopathy.? Admitted for further management.? Hepatic encephalopathy.? Resolved elevated ammonia levels lactulose and rifaximin titrate to 3 BMS daily GI following Supportive care Aspiration precautions, fall precautions abd us showing ? of portal venous HTN vs venous thrombosis, MR of abd pending Mild LORRI on CKD 4 Likely in the setting of poor oral intake.? Hold home diuretics.? Gentle IV fluids. nephrology consult History of diabetes ss, ada diet History of liver cirrhosis Continue home Aldactone History of thrombocytopenia Stable.? Denies any signs of bleeding. DVT prophylaxis:? SCD boots.? No pharmacologic agent? Given thrombocytopenia. Code status: DNR/DNI.? Attending Dr. Márquez Dispo home with when medically stable continued hopsitalization for treatment of hepatic encephalopathy Quality Stroke Does the patient have a stroke diagnosis?: No VTE Prior VTE?: No VTE Risk Level:: Medical - moderate - high VTE Device Contraindication: Treatment Not Indicated VTE Drug Contraindication: N/A - Med Ordered
--- NOTE | 2022-05-06 13:13 | P.DS_ITS ---
DS: Providers Provider Date of Service: 05/07/22 Date of admission: 05/03/22 22:26 Primary care physician: Kimber Pan MD Consults: 05/03/22 22:26 Consult to Gastroenterology Routine Consulting Provider: Carissa Clifton Reason for consultation: hepatic encephaloapthy 05/04/22 15:42 Consult to Nephrology Routine Consulting Provider: Yvon Keller Reason for consultation: lorri Has provider been notified: No Attending physician on discharge: Jose Márquez Discharging clinician: Angela Bashir DS: Diagnosis Discharge Diagnosis (1) Acute hepatic encephalopathy: Status: Acute DS: Summary Hospital Course Hospital Course: HP as per admitting provider 71-year-old male with a past medical history of hypertension, hyperlipidemia, diabetes, CAD, CKD, liver cirrhosis, ascites, aortic aneurysm, thrombocytopenia, obesity, presented to the hospital today with a chief complaint of not feeling well.? Most of the history obtained from the patient's family at bedside.?PA patient reportedly has been not feeling well for the past couple days.? Noted to be increasingly confused today.? Denies having any falls or loss of consciousness.?Denies patient complaining of any chest pain palpitations lightheadedness or dizziness.?Reports patient is generally slow; and appears to be weak.?Reports patient has decreased oral intake.?Also reported that the patient noted to be sick to his stomach for today.? And was unsteady on his gait. Review of all other systems is negative except mentioned above ER course: Per ER team patient on presentation noted to be lethargic; on labs noted to have elevated ammonia levels; concerning for hepatic encephalopathy.? Admitted for further management . Hepatic encephalopathy.? elevated ammonia 188>71 lactulose and rifaximin titrated to 3 BMS daily GI following Supportive care Aspiration precautions, fall precautions continue previous home medications Mild LORRI on CKD 4 Likely in the setting of poor oral intake.? Hold home diuretics.? Gentle IV fluids. nephrology evaluated History of diabetes ss, ada diet continue home medications History of liver cirrhosis Continue home Aldactone History of thrombocytopenia Stable.? Denies any signs of bleeding. Time Spent with Patient Time attestation: Total time spent providing and/or coordinating discharge services: Discharge coordination time: Greater than 30 minutes Quality: Safe Use of Opioids Does Pt have an Active Cancer Diagnosis on the Problem List?: No Quality: Stroke Does the patient have a stroke diagnosis?: No Physical Exam Vital Signs: Vital Signs: Last Vital Signs Temp 98.9 F 05/06/22 11:31 Pulse 68 05/06/22 11:31 Resp 20 05/06/22 11:31 BP 140/78 H 05/06/22 11:31 Pulse Ox 97 05/06/22 11:31 O2 Del Method 05/06/22 11:31 BMI result Body Mass Index 23.7 Appearing in no acute distress head is normocephalic atraumatic eyes pupils are PERRLA sclera is anicteric mouth throat mucous membranes are intact and moist neck is supple no lymphadenopathy, no JVD noted lung sounds are clear to auscultation heart regular rate rhythm, clear S1, S2 positive bowel sounds, abdomen is soft, nontender neuro patient is alert x3, no focal deficits DS: Data Data Completed and Pending Completed studies during hospitalization [Text1]: Procedures Drainage of Peritoneal Cavity, Percutaneous Approach (02/15/22) Labs on day of discharge: Laboratory Results - last 24 hr 05/05/22 05/05/22 05/06/22 15:23 19:09 04:33 Sodium 141 Potassium 4.7 Chloride 113 H Carbon Dioxide 18 L Anion Gap 15 BUN 32 H Creatinine 2.69 H Estim Creat Clear Calc 25.0 Estimated GFR 24 POC Glucose 185 H 161 H Random Glucose 114 Calcium 9.2 Ammonia 05/06/22 05/06/22 05/06/22 05:46 07:21 11:01 Sodium Potassium Chloride Carbon Dioxide Anion Gap BUN Creatinine Estim Creat Clear Calc Estimated GFR POC Glucose 107 107 Random Glucose Calcium Ammonia 71 H Discharge Plan Discharge Anticipated Discharge Date/Time: 05/07/22 10:43 Patient Disposition: Home, Self-Care Discharge Diagnosis: Hepatic encephalopathy LORRI on CKD 4 Referrals: Kimber Day MD [Primary Care Provider] - 1 Week Discharge Medications: Continued (DME) blood-glucose meter [Prodigy Autocode Meter] Kit See Rx Instructions .Route Qty: 1 0RF Rx Instructions: As directed (DME) Prodigy No Coding Strip See Rx Instructions .Route Qty: 100 11RF Rx Instructions: 3 times a day (DME) lancets [Prodigy Lancets] 28 gauge misc See Rx Instructions .Route Qty: 100 11RF Rx Instructions: 3 times a day (DME) FreeStyle Toyin 2 [place] Misc See Rx Instructions .ROUTE .MEDSUPPLY Qty: 1 0RF Rx Instructions: As directed (DME) FreeStyle Toyin 2 Sensor Kit See Rx Instructions .ROUTE .MEDSUPPLY Qty: 2 11RF Rx Instructions: As directed every 2 weeks ferrous sulfate 325 mg (65 mg iron) tablet 325 mg PO BID 28 Days Qty: 56 3RF nitroglycerin 0.4 mg tablet, sublingual 0.4 mg sublingual Q5M PRN (Reason: chest pain) Qty: 25 1RF (DME) FreeStyle Lite Strips Strip See Rx Instructions MISCELLANEOUS TID Rx Instructions: As directed to test blood sugar insulin lispro [Humalog KwikPen Insulin] 100 unit/mL insulin pen 5 unit subcut TIDAC Rx Instructions: as directed atorvastatin 20 mg tablet 20 mg PO BEDTIME spironolactone 25 mg tablet 1 tab PO DAILY ezetimibe 10 mg tablet 1 tab PO BEDTIME lactulose [Enulose] 10 gram/15 mL solution 15 g PO TID omeprazole 40 mg capsule,delayed release(DR/EC) 1 cap PO DAILY aspirin [Adult Low Dose Aspirin] 81 mg Tablet,Delayed Release (Dr/Ec) 81 mg PO DAILY (DME) lancets [FreeStyle Lancets] 28 gauge misc See Rx Instructions .Route Qty: 100 0RF Rx Instructions: test bs three times a day (DME) bed rail See Rx Instructions .Route .MEDSUPPLY Qty: 2 0RF Rx Instructions: As directed (DME) pull up diapers medium See Rx Instructions .Route .MEDSUPPLY Qty: 200 6RF Rx Instructions: As directed Discharge Orders: Discharge Order (Routine); Ordered 05/07/22 Ordered By: Angela Bashir Diet: Advance to usual diet Activity on Discharge: As tolerated Stand Alone Forms: Patient Portal Discharge page Care Plan Goals: Resolution of symptoms Health Concerns: Hepatic encephalopathy LORRI on CKD 4 Plan of Treatment: Follow-up with primary care provider as needed Take all medications as prescribed Assessment: See discharge summary
[2022-05-06 16:10] LABS: Glucose, Whole Blood 128 mg/dL (60-115)
[2022-05-06 18:37] LABS: Complement C3 99 mg/dL (82-185)
[2022-05-06 19:06] VITALS: BP 175/108; PULSE 82; RESP 18; TEMP 36.7; O2SAT 97
[2022-05-06 19:56] LABS: Glucose, Whole Blood 167 mg/dL (60-115)
[2022-05-06] MEDS: Atorvastatin Calcium 20 MG TABLET PO (21:26)
[2022-05-06] MEDS: Insulin Lispro 100 UNIT/ML 3 ML VIAL SUBCUT (21:27)
[2022-05-06 23:12] VITALS: BP 131/81; PULSE 71; RESP 18; TEMP 36.7; O2SAT 99
[2022-05-07 04:00] VITALS: BP 153/84; PULSE 60; RESP 18; TEMP 36.8; O2SAT 100
[2022-05-07 07:17] LABS: Glucose, Whole Blood 109 mg/dL (60-115)
[2022-05-07 07:36] VITALS: PULSE 61; RESP 20; TEMP 36.4; O2SAT 97
[2022-05-07] MEDS: 0.9 % Sodium Chloride Flush 3 ML SYRINGE IVFLUSH (09:25)
[2022-05-07] MEDS: Lactulose 20 GM/30 ML SOLUTION PO (09:26)
[2022-05-07] MEDS: Aspirin Enteric Coated 81 MG TABLET.DR PO (09:26)
[2022-05-07] MEDS: Omeprazole 40 MG CAPSULE.DR PO (09:26)
[2022-05-07] MEDS: rifAXIMin 550 MG TABLET PO (09:26)
--- NOTE | 2022-05-07 11:03 | MHC.CM.PN ---
Patient has been medically cleared for dc to home today, self care. Last IMM addressed on 05/06/22.
[2022-05-07 18:52] LABS: Immunoglobulin G Subclass 1 801 mg/dL (382-929); Immunoglobulin G Subclass 2 364 mg/dL (241-700); Immunoglobulin G Subclass 3 52 mg/dL (22-178); Immunoglobulin G Subclass 4 164.9 mg/dL (4-86); Immunoglobulin G Total 1437 mg/dL (600-1540)
== END 2022-05-07 11:08 | disposition home or self-care (01) | DRG 432 ==
LOC: HO.ED 19:32 → HO.EDOVER 22:34 → HO.IMC 05-05 02:22
PROVIDERS: Internal Medicine Gastroenterology; Admitting Provider Hospitalist; Emergency Provider Internal Medicine; PCP Internal Medicine; Visit Provider Nurse Practitioner Acute Care
DX: K74.60 Unspecified cirrhosis of liver (principal); K72.00 Acute and subacute hepatic failure without coma; N17.9 Acute kidney failure, unspecified; N18.4 Chronic kidney disease, stage 4 (severe); R18.8 Other ascites; Z66 Do not resuscitate; E78.5 Hyperlipidemia, unspecified; E11.42 Type 2 diabetes mellitus with diabetic polyneuropathy; K75.81 Nonalcoholic steatohepatitis (NASH); I12.9 Hypertensive chronic kidney disease with stage 1 through stage 4 chronic kidney disease, or unspecified chronic kidney disease; D69.6 Thrombocytopenia, unspecified; K21.9 Gastro-esophageal reflux disease without esophagitis; E11.22 Type 2 diabetes mellitus with diabetic chronic kidney disease; Z20.822 Contact with and (suspected) exposure to COVID-19; Z87.891 Personal history of nicotine dependence; Z91.040 Latex allergy status; Z79.4 Long term (current) use of insulin; Z79.82 Long term (current) use of aspirin; Z79.899 Other long term (current) drug therapy
CPT/HCPCS: 36415; 70450; 71045; 72125; 74183; 76700; 80048; 80053; 81001; 82140; 82784; 82947; 83605; 84300; 84484; 85025; 85610; 86160; 87635; 93005; 96360; 99285; A9585

== ENCOUNTER 2022-05-16 10:52 | Outpatient (REF) | payer MEDICARE, MEDICAID, SELFPAY ==
[2022-05-16 11:23] LABS: MANUAL DIFF FLAG NO
[2022-05-16 11:39] LABS: Basophils Percent Auto 0.8 % (0-2); Eosinophils Absolute Auto 0.8 X10*3/uL (0.0-0.4); Eosinophils Percent Auto 16.2 % (0-4); Hematocrit 37.5 % (42.0-52.0); Hemoglobin 11.7 g/dl (14.0-18.0); Imm Gran Abs Auto 0.01 X10*3/uL (0.00-0.03); Imm Gran Pct Auto 0.2 % (0.0-0.4); Lymphocytes Absolute Auto 1.7 X10*3/uL (1.2-4.9); Lymphocytes Percent Auto 34.8 % (20-40); Mean Corpuscular HGB Conc 31.2 g/dl (31.0-36.0); Mean Corpuscular Hemoglobin 23.1 pg (27.0-33.0); Mean Corpuscular Volume 74.1 fL (80.0-98.0); Monocytes Absolute Auto 0.3 X10*3/uL (0.1-1.2); Monocytes Percent Auto 6.7 % (2-11); Neutrophils Percent Auto 41.3 % (45-73); Platelet Count 52 X10*3/uL (160-400); Red Blood Count 5.06 X10*6/uL (4.60-5.80); Red Cell Distribution Width 15.5 % (11.0-16.0); White Blood Count 4.9 X10*3/uL (4.8-10.8)
[2022-05-16 11:40] LABS: Ammonia 110 umol/L (13-55)
[2022-05-16 12:05] LABS: Alanine Aminotransferase 32 U/L (0-40); Albumin Level 3.9 g/dL (3.5-5.0); Alkaline Phosphatase 125 U/L (39-117); Anion Gap 15 (12-20); Aspartate Amino Transferase 32 U/L (5-37); Bilirubin Total 0.9 mg/dL (0.0-1.0); Blood Urea Nitrogen 31 mg/dL (9-16); Calcium 9.3 mg/dL (8.4-10.2); Carbon Dioxide 23 mmol/L (22-29); Chloride 108 mmol/L (96-108); Estimated Glomerular Filt Rate 22; Glucose Random 132 mg/dL (60-115); Potassium 4.4 mmol/L (3.3-5.1); Sodium 142 mmol/L (135-145); Total Protein 7.8 g/dL (6.5-8.0)
[2022-05-16 12:40] LABS: Appearance Urine CLEAR; Color Urine YELLOW; Glucose Urine UA NEG (NEG); Leukocyte Esterase Urine NEG (NEG); Nitrite Urine NEG (NEG); PH 5.5 (5.0-8.0); Specific Gravity - Urine >= 1.030 (1.005-1.025); UACC Culture Trigger NO; Urine Blood NEG (NEG); Urine Ketones NEG (NEG); Urine Protein 2+ MG/DL (NEG-TRACE)
[2022-05-16 12:55] LABS: WBC Urine 0-2 /HPF (0-4)
[2022-05-16 12:56] LABS: Mucus Urine 2+ /LPF; RBC Urine 0-2 /HPF (0); Sperm Urine NOTED; Squamous Epithelial Cell Urine TRACE /LPF
== END 2022-05-16 10:53 | disposition home or self-care (01) ==
LOC: HO.LAB 10:52
PROVIDERS: Physician Assistant; PCP Internal Medicine; Visit Provider Internal Medicine Gastroenterology
DX: R18.8 Other ascites (principal); K74.60 Unspecified cirrhosis of liver
CPT/HCPCS: 36415; 80053; 81001; 82140; 85025

== ENCOUNTER → 2022-05-23 12:17 | Outpatient (BNVA) | payer MEDICARE, MEDICAID, SELFPAY | PROVIDERS: PCP Internal Medicine; Visit Provider Internal Medicine Gastroenterology | DX: K72.90 Hepatic failure, unspecified without coma (principal); K76.7 Hepatorenal syndrome; K74.60 Unspecified cirrhosis of liver; R18.8 Other ascites | CPT/HCPCS: 99212 ==

== ENCOUNTER 2022-06-03 10:46 | Outpatient (REF) | payer MEDICARE, MEDICAID, SELFPAY ==
[2022-06-03 11:13] LABS: MANUAL DIFF FLAG NO
[2022-06-03 11:40] LABS: Basophils Absolute Auto 0.1 X10*3/uL (0.0-0.2); Basophils Percent Auto 1.1 % (0-2); Eosinophils Absolute Auto 0.7 X10*3/uL (0.0-0.4); Eosinophils Percent Auto 15.2 % (0-4); Hematocrit 39.8 % (42.0-52.0); Hemoglobin 12.3 g/dl (14.0-18.0); Imm Gran Abs Auto 0.01 X10*3/uL (0.00-0.03); Imm Gran Pct Auto 0.2 % (0.0-0.4); Lymphocytes Absolute Auto 1.8 X10*3/uL (1.2-4.9); Lymphocytes Percent Auto 39.4 % (20-40); Mean Corpuscular HGB Conc 30.9 g/dl (31.0-36.0); Mean Corpuscular Hemoglobin 23.2 pg (27.0-33.0); Mean Corpuscular Volume 75.1 fL (80.0-98.0); Monocytes Absolute Auto 0.3 X10*3/uL (0.1-1.2); Monocytes Percent Auto 6.6 % (2-11); Neutrophils Absolute Auto 1.7 x10*3/uL (2.0-8.3); Neutrophils Percent Auto 37.5 % (45-73); Red Cell Distribution Width 15.1 % (11.0-16.0); White Blood Count 4.5 X10*3/uL (4.8-10.8)
[2022-06-03 11:41] LABS: Platelet Count 53 X10*3/uL (160-400)
[2022-06-03 11:55] LABS: Ammonia 109 umol/L (13-55)
[2022-06-03 12:22] LABS: Alanine Aminotransferase 36 U/L (0-40); Albumin Level 3.9 g/dL (3.5-5.0); Alkaline Phosphatase 113 U/L (39-117); Anion Gap 19 (12-20); Aspartate Amino Transferase 36 U/L (5-37); Bilirubin Total 1.3 mg/dL (0.0-1.0); Blood Urea Nitrogen 28 mg/dL (9-16); Calcium 9.4 mg/dL (8.4-10.2); Carbon Dioxide 18 mmol/L (22-29); Chloride 110 mmol/L (96-108); Cholesterol 142 mg/dL; Estimated Glomerular Filt Rate 20; Glucose Fasting 107 mg/dL (60-99); HDL Cholesterol 70 mg/dL; LDL Cholesterol Calculated 56 mg/dl; Potassium 4.5 mmol/L (3.3-5.1); Sodium 142 mmol/L (135-145); Total Protein 7.8 g/dL (6.5-8.0); Triglycerides 83 mg/dL
== END 2022-06-03 10:47 | disposition home or self-care (01) ==
LOC: HO.LAB 10:46
PROVIDERS: PCP Internal Medicine; Visit Provider Internal Medicine
DX: K72.90 Hepatic failure, unspecified without coma (principal); D64.9 Anemia, unspecified; E11.21 Type 2 diabetes mellitus with diabetic nephropathy; E78.5 Hyperlipidemia, unspecified; D72.10 Eosinophilia, unspecified
CPT/HCPCS: 36415; 80053; 80061; 82140; 85025

== ENCOUNTER → 2022-06-06 14:33 | Outpatient (BNVA) | payer MEDICARE, MEDICAID, SELFPAY | PROVIDERS: PCP Internal Medicine; Visit Provider Registered Nurse Diabetes Educator | DX: E11.649 Type 2 diabetes mellitus with hypoglycemia without coma (principal); E11.21 Type 2 diabetes mellitus with diabetic nephropathy; N18.30 Chronic kidney disease, stage 3 unspecified; Z79.4 Long term (current) use of insulin | CPT/HCPCS: 99211 ==

== ENCOUNTER 2022-06-18 10:39 | Outpatient (REF) | payer MEDICARE, MEDICAID, SELFPAY ==
[2022-06-18 11:02] LABS: Ammonia 129 umol/L (13-55)
== END 2022-06-18 10:40 | disposition home or self-care (01) ==
LOC: HO.LAB 10:39
PROVIDERS: PCP Internal Medicine; Visit Provider Internal Medicine
DX: K72.90 Hepatic failure, unspecified without coma (principal)
CPT/HCPCS: 36415; 82140

== ENCOUNTER → 2022-06-20 09:47 | Outpatient (BNVA) | payer MEDICARE, MEDICAID, SELFPAY | PROVIDERS: PCP Internal Medicine; Visit Provider Registered Nurse Diabetes Educator | DX: E11.21 Type 2 diabetes mellitus with diabetic nephropathy (principal) | CPT/HCPCS: 99211 ==

== ENCOUNTER → 2022-07-18 10:03 | Outpatient (BNVA) | payer MEDICARE, MEDICAID, SELFPAY | PROVIDERS: PCP Internal Medicine; Visit Provider Registered Nurse Diabetes Educator | DX: E11.21 Type 2 diabetes mellitus with diabetic nephropathy (principal) | CPT/HCPCS: 99211 ==

== ENCOUNTER → 2022-08-15 10:14 | Outpatient (BNVA) | payer MEDICARE, MEDICAID, SELFPAY | PROVIDERS: PCP Internal Medicine; Visit Provider Registered Nurse Diabetes Educator | DX: E11.21 Type 2 diabetes mellitus with diabetic nephropathy (principal); Z79.4 Long term (current) use of insulin | CPT/HCPCS: 99211 ==

== ENCOUNTER 2022-08-19 09:07 | Outpatient (REF) | payer MEDICARE, MEDICAID, SELFPAY ==
[2022-08-19 10:19] LABS: Basophils Absolute Auto 0.1 X10*3/uL (0.0-0.2); Basophils Percent Auto 0.8 % (0-2); Eosinophils Absolute Auto 2.6 X10*3/uL (0.0-0.4); Eosinophils Percent Auto 40.2 % (0-4); Hemoglobin 11.9 g/dl (14.0-18.0); Imm Gran Abs Auto 0.01 X10*3/uL (0.00-0.03); Imm Gran Pct Auto 0.2 % (0.0-0.4); Lymphocytes Absolute Auto 1.7 X10*3/uL (1.2-4.9); Lymphocytes Percent Auto 25.8 % (20-40); MANUAL DIFF FLAG SCAN; Mean Corpuscular HGB Conc 31.3 g/dl (31.0-36.0); Mean Corpuscular Hemoglobin 23.6 pg (27.0-33.0); Mean Corpuscular Volume 75.4 fL (80.0-98.0); Monocytes Absolute Auto 0.4 X10*3/uL (0.1-1.2); Monocytes Percent Auto 5.5 % (2-11); Neutrophils Absolute Auto 1.8 x10*3/uL (2.0-8.3); Neutrophils Percent Auto 27.5 % (45-73); Platelet Count 62 X10*3/uL (160-400); Red Blood Count 5.04 X10*6/uL (4.60-5.80); Red Cell Distribution Width 14.9 % (11.0-16.0); SCAN SMEAR FLAG 1; White Blood Count 6.5 X10*3/uL (4.8-10.8)
[2022-08-19 10:42] LABS: Alanine Aminotransferase 37 U/L (0-40); Albumin Level 3.7 g/dL (3.5-5.0); Alkaline Phosphatase 136 U/L (39-117); Anion Gap 18 (12-20); Aspartate Amino Transferase 38 U/L (5-37); Blood Urea Nitrogen 29 mg/dL (9-16); Calcium 9.3 mg/dL (8.4-10.2); Carbon Dioxide 21 mmol/L (22-29); Chloride 108 mmol/L (96-108); Cholesterol 127 mg/dL; Estimated Glomerular Filt Rate 22; Glucose Fasting 124 mg/dL (60-99); HDL Cholesterol 56 mg/dL; LDL Cholesterol Calculated 50 mg/dl; Potassium 4.9 mmol/L (3.3-5.1); SLIDE REVIEW VERIFIED; Sodium 142 mmol/L (135-145); Total Protein 7.3 g/dL (6.5-8.0); Triglycerides 107 mg/dL
[2022-08-19 11:06] LABS: Vitamin D 25-OH Total 19.5 ng/mL (>30)
[2022-08-19 11:19] LABS: Creatinine Urine 220.17 mg/dL
[2022-08-19 11:40] LABS: Microalbum/Creatinine Ratio Ur 340.1 ug/mg cr
== END 2022-08-19 09:08 | disposition home or self-care (01) ==
LOC: HO.LAB 09:07
PROVIDERS: PCP Internal Medicine; Visit Provider Internal Medicine
DX: K74.60 Unspecified cirrhosis of liver (principal); R18.8 Other ascites; E55.9 Vitamin D deficiency, unspecified; E11.9 Type 2 diabetes mellitus without complications; E78.5 Hyperlipidemia, unspecified; D64.9 Anemia, unspecified
CPT/HCPCS: 36415; 80053; 80061; 82043; 82140; 82306; 85025

== ENCOUNTER → 2022-09-12 09:41 | Outpatient (BNVA) | payer MEDICARE, MEDICAID, SELFPAY | PROVIDERS: PCP Internal Medicine; Visit Provider Internal Medicine Gastroenterology | DX: K74.60 Unspecified cirrhosis of liver (principal); R18.8 Other ascites; K72.90 Hepatic failure, unspecified without coma; K80.50 Calculus of bile duct without cholangitis or cholecystitis without obstruction; K81.9 Cholecystitis, unspecified | CPT/HCPCS: Q3014 ==

== ENCOUNTER → 2022-09-13 10:00 | Outpatient (BNVA) | payer MEDICARE, MEDICAID, SELFPAY | PROVIDERS: PCP Internal Medicine; Visit Provider Registered Nurse Diabetes Educator | DX: E11.21 Type 2 diabetes mellitus with diabetic nephropathy (principal); Z79.4 Long term (current) use of insulin | CPT/HCPCS: 99211 ==

== ENCOUNTER 2022-09-19 11:26 | Emergency (ER) | payer MEDICARE, MEDICAID, SELFPAY ==
--- NOTE | ~2022-09-19 | CT_ITS ---
EXAMINATION: CT ABDOMEN AND PELVIS WITHOUT CONTRAST CLINICAL INFORMATION: Left lower quadrant and right lower quadrant abdominal pain COMPARISON: MRI abdomen 05/06/2022, ultrasound abdomen 05/05/2022, CT abdomen pelvis 05/08/2021 TECHNIQUE: Multidetector volumetric imaging was performed from the superior aspect of the liver through the pubic symphysis. Sagittal and coronal reformatted images were obtained on the technologist's workstation. This CT examination was performed using dose optimization techniques as appropriate, variously including the following: *Automated exposure control *Adjustment of mA and/or kV according to patient size (this includes techniques or standardized protocols for targeted exams where dose is matched to indication/reason for exam; i.e. extremities or head) *Use of iterative reconstruction technique DLP: 551 mGy-cm FINDINGS: LUNG BASES: Heart size is normal. Extensive coronary calcifications are present. The ascending aorta appears dilated measuring 4.6 x 4.3 cm in transverse dimension. Unfortunately, none of the prior abdominal CT scans extend high in order to see the ascending aorta. LIVER, GALLBLADDER, AND BILIARY TREE: The liver surface appears nodular with hypertrophy caudate and left lobe consistent with cirrhosis which has been seen previously. Small volume ascites is present. The gallbladder is filled with small stones without obvious pericholecystic inflammatory changes. PANCREAS: Unremarkable. SPLEEN: Unremarkable. LYMPH NODES/RETROPERITONEUM: Again seen are small skinny hepatis and periceliac lymph nodes. Multiple small lymph nodes are present in the mesentery which itself appears edematous, similar to prior. There is thickening of the anterior pararenal fascia bilaterally, left greater than right. KIDNEYS AND URETERS: The kidneys are normal in size, shape, and attenuation. No hydronephrosis, hydroureter, or calculi seen. No perinephric stranding. BLADDER: Unremarkable. GASTROINTESTINAL TRACT: There is some minimal edematous change in the rectosigmoid with colonic diverticula seen. No evidence of acute diverticulitis. Changes in the colon might be secondary to portal colopathy. These changes are new when compared to the prior study. The small and large bowel are otherwise unremarkable. The appendix is unremarkable. ABDOMINAL WALL: No significant hernia is appreciated. ADRENAL GLANDS: Normal. VASCULAR: Aortic and iliofemoral calcification seen without aneurysm. PELVIC VISCERA: Mild BPH. Normal-appearing seminal vesicles OSSEOUS STRUCTURES: Unremarkable. CT/CT abdomen pelvis wo IV con IMPRESSION: 1. Cirrhotic-appearing liver with small volume ascites. 2. Cholelithiasis without cholecystitis. 3. Colonic diverticulosis without diverticulitis. 4. Edematous changes in the rectosigmoid. This could be secondary to portal colopathy. 5. Other incidental findings as described above including some edema in the mesentery with multiple mesenteric nodes and upper abdominal nodes without gross adenopathy, unchanged from prior. Fleischner guidelines were followed.
[2022-09-19 11:45] VITALS: BP 136/80; PULSE 72; O2SAT 98
[2022-09-19 11:46] VITALS: BP 111/67; PULSE 75; RESP 17; TEMP 37.3; O2SAT 98; BMI 27.3
[2022-09-19 12:09] LABS: Hemoglobin 10.7 g/dl (14.0-18.0); Mean Corpuscular Hemoglobin 23.6 pg (27.0-33.0); Red Blood Count 4.53 X10*6/uL (4.60-5.80); SCAN SMEAR FLAG 1
[2022-09-19 12:11] LABS: Basophils Percent Auto 0.4 % (0-2); Eosinophils Absolute Auto 3.3 X10*3/uL (0.0-0.4); Hematocrit 34.1 % (42.0-52.0); Imm Gran Abs Auto 0.01 X10*3/uL (0.00-0.03); Imm Gran Pct Auto 0.1 % (0.0-0.4); Lymphocytes Absolute Auto 1.2 X10*3/uL (1.2-4.9); Lymphocytes Percent Auto 14.6 % (20-40); Mean Corpuscular HGB Conc 31.4 g/dl (31.0-36.0); Mean Corpuscular Volume 75.3 fL (80.0-98.0); Monocytes Absolute Auto 0.5 X10*3/uL (0.1-1.2); Monocytes Percent Auto 6.6 % (2-11); Neutrophils Percent Auto 36.9 % (45-73); Red Cell Distribution Width 14.6 % (11.0-16.0); White Blood Count 8.1 X10*3/uL (4.8-10.8)
[2022-09-19 12:14] LABS: PLT ABN DIST 1
[2022-09-19 12:15] LABS: Eosinophils Percent Auto 41.4 % (0-4); MANUAL DIFF FLAG NO; Platelet Count 49 X10*3/uL (160-400)
[2022-09-19 12:22] LABS: Alanine Aminotransferase 18 U/L (0-40); Albumin Level 3.3 g/dL (3.5-5.0); Alkaline Phosphatase 114 U/L (39-117); Anion Gap 10 (12-20); Aspartate Amino Transferase 20 U/L (5-37); Bilirubin Total 1.6 mg/dL (0.0-1.0); Blood Urea Nitrogen 26 mg/dL (9-16); Calcium 8.8 mg/dL (8.4-10.2); Carbon Dioxide 21 mmol/L (22-29); Chloride 109 mmol/L (96-108); Estimated Glomerular Filt Rate 26; Glucose Random 211 mg/dL (60-115); Potassium 4.7 mmol/L (3.3-5.1); Sodium 135 mmol/L (135-145); Total Protein 6.5 g/dL (6.5-8.0)
--- NOTE | 2022-09-19 12:40 | ED_ITS ---
HPI - General Adult General Chief complaint: General Medical Stated complaint: Diarrhea x3days, dark stool today per EMS Time Seen by Provider: 09/19/22 11:51 Source: patient Mode of arrival: ambulatory Limitations: language barrier History of Present Illness HPI narrative: 72-year-old male speaking male with past medical history of type 2 diabetes, liver cirrhosis with history of ascites and hepatic encephalopathy, known ascending aorta dilation, essential hypertension, presents emergency department today for complaints of a 3 day history of diarrhea, rectal bleeding, and dark stools today. He also endorses recent nausea and vomiting, with clear thick emesis without blood, which he believes to be sputum. On interview, with social insurance specialist, patient reports stools have been brown and loose with with blood noted when he wipes. He denies any recent illness, sick contacts, fever, chills, headache, change in vision, black tarry stools. Onset (ago): day(s) Location: abdomen Radiation: non-radiation Severity: mild Severity scale (1-10): 4 Quality: aching and dull Related Data Home Medications Medication Instructions Recorded Confirmed blood sugar diagnostic (FreeStyle 08/24/21 09/12/22 Lite Strips) insulin lispro 100 unit/mL 5 unit subcut TIDAC 01/17/22 09/12/22 subcutaneous pen (Humalog KwikPen (U-100) Insulin) aspirin 81 mg tablet,delayed 81 mg PO DAILY 01/23/22 09/12/22 release (Adult Low Dose Aspirin) atorvastatin 20 mg tablet 20 mg PO BEDTIME 02/15/22 09/12/22 ezetimibe 10 mg tablet 1 tab PO BEDTIME 03/27/22 09/12/22 spironolactone 25 mg tablet 1 tab PO DAILY 03/27/22 09/12/22 Previous Rx's Medication Instructions Recorded lancets 28 gauge (FreeStyle #100 ea 05/17/21 Lancets) blood sugar diagnostic (Prodigy No #100 ea 06/13/21 Coding strips) blood-glucose meter (Prodigy #1 ea 06/13/21 Autocode Meter kit) lancets 28 gauge (Prodigy Lancets) #100 ea 06/13/21 flash glucose scanning reader #1 ea 12/25/21 (FreeStyle Toyin 2 Walker) flash glucose sensor (FreeStyle #2 ea 12/25/21 Toyin 2 Sensor kit) bed rail #2 ea 01/29/22 pull up diapers #200 ea 01/29/22 Ucare pen needles ##200 05/15/22 lactulose 10 gram/15 mL oral 15 ml PO TID 30 days #1,350 mL 06/13/22 solution (Enulose) omeprazole 40 mg capsule,delayed 40 mg PO DAILY 90 days #90 caps 06/13/22 release ferrous sulfate 325 mg (65 mg 325 mg PO BID 28 days #56 tabs 08/08/22 iron) tablet insulin glargine 100 unit/mL (3 5 unit (0.05 mL) subcut QPM #15 mL 09/11/22 mL) subcutaneous pen (Lantus Solostar U-100 Insulin) nitroglycerin 0.4 mg sublingual 0.4 mg sublingual Q5M #25 ea 09/11/22 tablet Allergies Allergy/AdvReac Type Severity Reaction Status Date / Time latex Allergy Unknown Verified 09/12/22 09:41 Review of Systems Review of Systems: Yes all other systems are reviewed and are negative Constitutional: Constitutional: Reports no additional constitutional complaints, Denies body ache(s), Denies chills, Denies fever(s) and Denies headache(s) Eyes: Eyes: Reports no additional eye complaints and Denies change in vision ENT: Reports system reviewed and no additional complaints, except as documented, Reports Normal hearing present, Denies dizziness and Denies headache(s) Cardiovascular: Cardiovascular: Reports no additional cardiovascular complaints, Denies chest pain and Denies dyspnea Respiratory: Respiratory: Reports no additional respiratory complaints, Denies cough and Denies dyspnea Gastrointestinal: Gastrointestinal: Reports no additional gastrointestinal complaints, Reports abdominal pain, Denies melena, Reports hematochezia, Denies constipation, Denies diarrhea, Reports nausea and Reports vomiting Genitourinary: Genitourinary: Reports no additional male genitourinary complaints, Denies oliguria and Denies difficulty urinating Musculoskeletal: Musculoskeletal: Reports no additional musculoskeletal complaints, Denies numbness and Denies tingling Integumentary/Breasts: Skin/Breast: Reports system reviewed and no additional complaints, except as docu, Denies lesions, Denies rash, Denies sores and Denies wounds Neurologic: Reports system reviewed and no additional complaints, except as documented, Reports Normal hearing present, Denies dizziness, Denies headache(s), Denies numbness and Denies tingling PMFSH Past Medical History Attestation statement: The following information was validated with the patient. Source: old records reviewed and obtained from family Medical History Abnormal myocardial perfusion study Acute kidney injury Ascending aorta dilatation Ascites Ascites Atherosclerotic cardiovascular disease Bowel incontinence Cirrhosis of liver with ascites CKD (chronic kidney disease) stage 3, GFR 30-59 ml/min CKD (chronic kidney disease) stage 3, GFR 30-59 ml/min Diabetes Diabetes type 2, uncontrolled Diabetic nephropathy associated with type 2 diabetes mellitus Dyslipidemia Dyslipidemia associated with type 2 diabetes mellitus Elevated serum creatinine Essential hypertension Gastroparesis GERD (gastroesophageal reflux disease) Gout Hepatorenal syndrome History of abdominal paracentesis Hospital discharge follow-up Hypertension Hypoglycemia 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 with type 2 diabetes mellitus Increased ammonia level Lactic acidosis 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 Metabolic acidosis Obesity due to excess calories 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 cancer Thrombocytopenia Thrombocytopenia Type 2 diabetes mellitus with unspecified complications Surgical History Hx of colonoscopy Family History Family History Father Diabetes CVD (cardiovascular disease) Mother Diabetes Social History Social History Household Members: Spouse and Children Housing: Apartment Are you a primary wound care physician to a significant other at home: No Do you presently have visiting nurse or other home services: Yes ([employer]MENT [employer]PA[employer]) Alcohol intake: former Patient Tobacco Use Status: Former Tobacco user Tobacco use type: Cigarette e-Cigarette/Vaping Use: Never Used Second Hand Smoke Exposure: No Advance Directives: Yes Advance Directives Information Provided: Yes Advance Directives on File: No Advance Directives Date on File: 05/24/21 service: No Current occupational status: disabled Cognitive needs: Yes (Pt has a walker) Hearing needs: No Vision needs: Yes (wear glasses) Physical Exam ED Vital Signs: Vital Signs - 24 hr 09/19/22 11:46 09/19/22 13:36 09/19/22 14:11 Temperature 99.1 F 98.5 F Pulse Rate 75 77 71 Respiratory Rate 17 16 14 Blood Pressure 111/67 155/89 H 113/73 Pulse Oximetry 98 98 97 Oxygen Delivery Method Room Air Room Air Room Air BMI result Body Mass Index 27.3 Const General: cooperative, alert and awake Nutritional Appearance: average body habitus Orientation/consciousness: patient oriented x3 Limitations: language barrier HENRI Head: Yes normal to inspection, Yes normocephalic and Yes atraumatic Ears: hearing grossly normal bilaterally and external ears normal General nose exam: Normal external nose present and Normal nares present Face and sinus: Yes normal facial exam and Yes face symmetric Mouth: Normal oral and palatal mucosa present Eyes General: appearance normal, both eyes and all related structures Visual Hopper: normal visual hopper by confrontation Alignment and Position: alignment normal Periorbital: periorbital findings normal Eyelids: Yes eyelids normal Conjunctivae: conjunctivae normal Sclerae: sclerae normal Corneas: corneas normal Pupils: Equal, round and reactive pupils present EOM: EOMs intact bilaterally Neck Neck: Yes normal visual inspection, Yes full ROM and Yes no lymphadenopathy Chest Chest palpation & inspection: normal inspection of the chest Resp Effort & Inspection: normal respiratory effort, no cough and not labored Auscultation: clear to auscultation bilaterally, no crackles, no rhonchi and no wheezes Cardio Rate: regular rate Rhythm: regular rhythm Heart sounds: S1 normal heart sound present and S2 normal heart sound present GI Inspection: Yes normal to inspection and Yes distended Palpation (GI): Soft to palpation and nontender Auscultation: normal bowel sounds Rectal Exam - Male: Yes visual inspection normal, Yes normal sphincter tone, No fecal impaction and No hemorrhoids General: Yes no CVA tenderness Back/Spine/Pelvis Back: no CVA tenderness Cervical Spine: cervical ROM normal Thoracic/Lumbar Spine: thoraco-lumbar ROM normal Skin General skin exam: no rashes or lesions noted Neuro General: patient oriented x3 Cranial nerves: Yes Equal, round and reactive pupils present and Yes Normal hearing present Cognition (Neuro): normal cognition Gait exam (Neuro): Normal gait present Motor exam (neuro): 5/5 motor strength present throughout Extrem General: Yes normal to inspection, Yes full ROM and Yes capillary refill normal Medical Decision Making Medical Decision Making MDM Narrative: 72-year-old male speaking male with past medical history of type 2 diabetes, liver cirrhosis with history of ascites and hepatic encephalopathy, known ascending aorta dilation, essential hypertension, presents emergency department today for complaints of a 3 day history of diarrhea, rectal bleeding, and dark stools today. H/H decreased compared to last H/H on 08/19/22, however; consistent with historical H/Hs. Chemistries unremarkable with no concern for acute liver disease or pancreatic disease. CT abdomen showing: Cirrhotic- appearing liver with small volume ascites. Cholelithiasis without cholecystitis. Colonic diverticulosis without diverticulitis. Edematous changes in the rectosigmoid. This could be secondary to portal colopathy. Other incidental findings as described above including some edema in the mesentery with multiple mesenteric nodes and upper abdominal nodes without gross adenopathy, unchanged from prior. Low suspicion for acute intra-abdominal disease or processes. Plan to discharge patient with outpatient GI follow-up for continued management. Pt safe for discharge. HPI, physical, diagnostics, and plan discussed with patient with no answer questions at this time. Educated to return to the emergency department for increased bleeding, black tarry stools, hematemesis, uncontrolled vomiting, or any other concerning symptoms. Recommended follow-up with a primary care provider. Recommend follow-up with Gastroenterology regarding bleeding Discharge Plan Discharge Clinical Impression: Abdominal pain, Rectal bleeding Patient Disposition: Home, Self-Care Instructions: Rectal Bleeding (ED), Abdominal Pain (ED) Additional Instructions: Please return to the emergency department for increased bleeding, black tarry stools, bloody vomit, uncontrolled vomiting, or any other concerning symptoms. Recommended follow-up with your primary care provider. Recommend follow-up with Gastroenterology regarding bleeding Prescriptions: No Action (DME) blood-glucose meter [Prodigy Autocode Meter] Kit See Rx Instructions .Route Qty: 1 0RF Rx Instructions: As directed (DME) Prodigy No Coding Strip See Rx Instructions .Route Qty: 100 11RF Rx Instructions: 3 times a day (DME) lancets [Prodigy Lancets] 28 gauge misc See Rx Instructions .Route Qty: 100 11RF Rx Instructions: 3 times a day (DME) FreeStyle Toyin 2 Walker Misc See Rx Instructions .ROUTE .MEDSUPPLY Qty: 1 0RF Rx Instructions: As directed (DME) FreeStyle Toyin 2 Sensor Kit See Rx Instructions .ROUTE .MEDSUPPLY Qty: 2 11RF Rx Instructions: As directed every 2 weeks (DME) Ucare pen needles [id number] See Rx Instructions .Route .MEDSUPPLY Qty: 200 5RF Rx Instructions: As directed 5 times a day lactulose [Enulose] 10 gram/15 mL solution 15 ml PO TID 30 Days Qty: 1350 6RF omeprazole 40 mg capsule,delayed release(DR/EC) 40 mg PO DAILY 90 Days Qty: 90 3RF ferrous sulfate 325 mg (65 mg iron) tablet 325 mg PO BID 28 Days Qty: 56 3RF insulin glargine [Lantus Solostar U-100 Insulin] 100 unit/mL (3 mL) insulin pen 5 unit subcut QPM Qty: 15 2RF nitroglycerin 0.4 mg tablet, sublingual 0.4 mg sublingual Q5M Qty: 25 1RF Rx Instructions: Take one tablet under the tongue every 5 minutes. Maximum of 3 tablets. (DME) FreeStyle Lite Strips Strip See Rx Instructions MISCELLANEOUS TID Rx Instructions: As directed to test blood sugar insulin lispro [Humalog KwikPen Insulin] 100 unit/mL insulin pen 5 unit subcut TIDAC Rx Instructions: as directed atorvastatin 20 mg tablet 20 mg PO BEDTIME spironolactone 25 mg tablet 1 tab PO DAILY ezetimibe 10 mg tablet 1 tab PO BEDTIME aspirin [Adult Low Dose Aspirin] 81 mg Tablet,Delayed Release (Dr/Ec) 81 mg PO DAILY (DME) lancets [FreeStyle Lancets] 28 gauge misc See Rx Instructions .Route Qty: 100 0RF Rx Instructions: test bs three times a day (DME) bed rail See Rx Instructions .Route .MEDSUPPLY Qty: 2 0RF Rx Instructions: As directed (DME) pull up diapers medium See Rx Instructions .Route .MEDSUPPLY Qty: 200 6RF Rx Instructions: As directed Referrals: Carissa Clifton MD [Physician] - Kimber Day MD [Primary Care Provider] - Print Language: Citizen Of [place]
[2022-09-19 13:04] LABS: Amylase 96 U/L (28-100); Lipase 28 U/L (8-78)
[2022-09-19 13:36] VITALS: BP 155/89; PULSE 77; RESP 16; O2SAT 98
[2022-09-19 14:11] VITALS: BP 113/73; PULSE 71; RESP 14; TEMP 36.9; O2SAT 97
[2022-09-19 16:03] VITALS: BP 123/83; PULSE 70; RESP 18; TEMP 37; O2SAT 96
[2022-09-19 16:19] LABS: OBS Int Ctl Valid YES; OBS1 POSITIVE (NEGATIVE)
== END 2022-09-19 16:22 | disposition home or self-care (01) ==
PROVIDERS: Nurse Practitioner Family; Emergency Provider Emergency Medicine; PCP Internal Medicine
DX: R10.32 Left lower quadrant pain (principal); K62.5 Hemorrhage of anus and rectum; R10.31 Right lower quadrant pain; E11.9 Type 2 diabetes mellitus without complications; Z79.4 Long term (current) use of insulin; Z79.899 Other long term (current) drug therapy; Z87.891 Personal history of nicotine dependence
CPT/HCPCS: 36415; 74176; 80053; 82150; 82272; 83690; 85025; 99283; 99284

== ENCOUNTER 2022-09-26 10:43 | Outpatient (REF) | payer MEDICARE, MEDICAID, SELFPAY ==
[2022-09-26 11:16] LABS: Ammonia 101 umol/L (13-55); Hematocrit 36.2 % (42.0-52.0); Hemoglobin 11.4 g/dl (14.0-18.0); Mean Corpuscular HGB Conc 31.5 g/dl (31.0-36.0); Mean Corpuscular Hemoglobin 23.9 pg (27.0-33.0); Mean Corpuscular Volume 76.1 fL (80.0-98.0); Red Blood Count 4.76 X10*6/uL (4.60-5.80); White Blood Count 6.5 X10*3/uL (4.8-10.8)
[2022-09-26 11:19] LABS: Platelet Count 77 X10*3/uL (160-400)
[2022-09-26 11:20] LABS: INTERNATIONAL NORM RATIO 1.3 (0.9-1.1); Prothrombin Time 14.5 SEC (10.0-13.1)
[2022-09-26 13:05] LABS: Blood Urea Nitrogen 32 mg/dL (9-16); Estimated Glomerular Filt Rate 27
[2022-09-26 13:28] LABS: Prostate Specific Antigen 0.31 ng/mL (<0.05-4.0)
== END 2022-09-26 10:44 | disposition home or self-care (01) ==
LOC: HO.LAB 10:43
PROVIDERS: Nurse Practitioner Family; PCP Internal Medicine; Visit Provider Internal Medicine Gastroenterology
DX: K74.60 Unspecified cirrhosis of liver (principal); K72.90 Hepatic failure, unspecified without coma; R18.8 Other ascites; Z12.5 Encounter for screening for malignant neoplasm of prostate; Z79.899 Other long term (current) drug therapy; Z79.4 Long term (current) use of insulin
CPT/HCPCS: 36415; 82140; 82565; 84153; 84520; 85027; 85610; 99212

== ENCOUNTER 2022-09-27 11:06 | Day surgery (SDC) | payer MEDICARE, MEDICAID, SELFPAY ==
--- NOTE | 2022-09-26 13:19 | HO.ANESPROP2 ---
Documented by User: Gilma Zeng NP 09/26/22 13:42 HPI - Anesthesia Eval Consult details Narrative: 72yo M for Upper Endoscopy cirrhosis r/t ETOH (none x 10 years) s/p EGD with varices banding 04/2022 with MAC Last para 03/08/22 as outpatient removed 2.4L PMFSH Active Problems Active Problems: All Active Problems (Updated 09/20/22 @ 00:02 by Risa Garcia) Type 2 diabetes mellitus with unspecified complications (Acute) 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 cancer (Acute) Cirrhosis of liver with ascites (Acute) 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 (Acute) Diabetic nephropathy associated with type 2 diabetes mellitus (Acute) Dyslipidemia (Acute) Gout (Acute) Hypoglycemia 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 with type 2 diabetes mellitus (Acute) Atherosclerotic cardiovascular disease (Acute) Abnormal myocardial perfusion study (Acute) Ascites (Acute) Ascending aorta dilatation (Acute) Essential hypertension (Acute) Biliary colic (Acute) Cholecystitis (Acute) 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 cancer (Acute) Glaucoma (Acute) Adult general medical exam (Acute) Dyslipidemia associated with type 2 diabetes mellitus (Acute) Obesity due to excess calories (Acute) Bowel incontinence (Acute) Hospital discharge follow-up (Acute) Lactic acidosis (Acute) LORRI (acute kidney injury) (Acute) Eosinophilia (Chronic) Hepatorenal syndrome (Acute) Acute worsening of stage 3 chronic kidney disease (Acute) Hepatic encephalopathy (Acute) Eosinophilia (Chronic) Past Medical History Medical History Abnormal myocardial perfusion study Acute kidney injury Ascending aorta dilatation Ascites Ascites Atherosclerotic cardiovascular disease Bowel incontinence Cirrhosis of liver with ascites CKD (chronic kidney disease) stage 3, GFR 30-59 ml/min CKD (chronic kidney disease) stage 3, GFR 30-59 ml/min Diabetes Diabetes type 2, uncontrolled Diabetic nephropathy associated with type 2 diabetes mellitus Dyslipidemia Dyslipidemia associated with type 2 diabetes mellitus Elevated serum creatinine Essential hypertension Gastroparesis GERD (gastroesophageal reflux disease) Gout Hepatorenal syndrome History of abdominal paracentesis Hospital discharge follow-up Hypertension Hypoglycemia 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 with type 2 diabetes mellitus Increased ammonia level Lactic acidosis 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 Metabolic acidosis Obesity due to excess calories 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 cancer Thrombocytopenia Thrombocytopenia Type 2 diabetes mellitus with unspecified complications Family History Family History Father Diabetes CVD (cardiovascular disease) Mother Diabetes Surgical History Surgical History Hx of colonoscopy History of Problems with Anesthesia: No Social History Social History Household Members: Spouse and Children Housing: Apartment Are you a primary career technology teacher to a significant other at home: No Do you presently have visiting nurse or other home services: 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) Alcohol intake: former Patient Tobacco Use Status: Former Tobacco user Tobacco use type: Cigarette e-Cigarette/Vaping Use: Never Used Second Hand Smoke Exposure: No Use of substances other than those prescribed or required for medical reasons: No Are you DNR?: Yes Advance Directives: No Advance Directives Information Provided: Yes Advance Directives Date on File: 05/24/21 service: No Current occupational status: disabled Cognitive needs: Yes (Pt has a walker) Hearing needs: No Vision needs: Yes (wear glasses) Meds Allergies Allergy/AdvReac Type Severity Reaction Status Date / Time latex Allergy Unknown Verified 09/26/22 09:35 Home Medications Medication Instructions Recorded Confirmed Last Taken Type blood sugar diagnostic (FreeStyle 08/24/21 09/26/22 Unknown History Lite Strips) insulin lispro 100 unit/mL 5 unit subcut TIDAC 01/17/22 09/26/22 02/15/22 History subcutaneous pen (Humalog KwikPen (U-100) Insulin) aspirin 81 mg tablet,delayed 81 mg PO DAILY 01/23/22 09/26/22 02/15/22 History release (Adult Low Dose Aspirin) atorvastatin 20 mg tablet 20 mg PO BEDTIME 02/15/22 09/26/22 02/14/22 History ezetimibe 10 mg tablet 1 tab PO BEDTIME 03/27/22 09/26/22 Unknown History spironolactone 25 mg tablet 1 tab PO DAILY 03/27/22 09/26/22 Unknown History Exam Exam Date and Time: September 26, 2022 1319 Pertinent Lab Results Pertinent Lab Results: Laboratory Tests 09/19/22 09/26/22 09/26/22 11:58 10:59 10:59 WBC 6.5 Hgb 11.4 L Hct 36.2 L Plt Count 77 L D Sodium 135 Potassium 4.7 Chloride 109 H Carbon Dioxide 21 L BUN 32 H Creatinine 2.41 H Narrative Narrative: EKG 02/2022 Vent. Rate : 064 BPM ? ? Atrial Rate : 064 BPM ?? P-R Int : 182 ms? QRS Dur : 102 ms ? ? QT Int : 448 ms ? ? ? P-R-T Axes : 031 -30 055 degrees ?? QTc Int : 462 ms ? Normal sinus rhythm Left axis deviation Abnormal ECG When compared with ECG of 23-JAN-2022 08:37, Nonspecific T wave abnormality no longer evident in Inferior leads Assessment and Plan Assessment Anesthesia Assessment: Chart Reviewed Final Anesthetic Review History of Problems with Anesthesia: No Documented by User: Constance Miller MD 09/27/22 12:16 [facility] Past Medical History Medical History Abnormal myocardial perfusion study Acute kidney injury Ascending aorta dilatation Ascites Ascites Atherosclerotic cardiovascular disease Bowel incontinence Cirrhosis of liver with ascites CKD (chronic kidney disease) stage 3, GFR 30-59 ml/min CKD (chronic kidney disease) stage 3, GFR 30-59 ml/min Diabetes Diabetes type 2, uncontrolled Diabetic nephropathy associated with type 2 diabetes mellitus Dyslipidemia Dyslipidemia associated with type 2 diabetes mellitus Elevated serum creatinine Essential hypertension Gastroparesis GERD (gastroesophageal reflux disease) Gout Hepatorenal syndrome History of abdominal paracentesis Hospital discharge follow-up Hypertension Hypoglycemia 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 with type 2 diabetes mellitus Increased ammonia level Lactic acidosis 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 Metabolic acidosis Obesity due to excess calories 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 cancer Thrombocytopenia Thrombocytopenia Type 2 diabetes mellitus with unspecified complications Family History Family History Father Diabetes CVD (cardiovascular disease) Mother Diabetes Family history of problems with anesthesia: No Surgical History Surgical History Hx of colonoscopy Social History Social History Household Members: Spouse and Children Housing: Apartment Are you a primary career technology teacher to a significant other at home: No Do you presently have visiting nurse or other home services: 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) Alcohol intake: former Patient Tobacco Use Status: Former Tobacco user Tobacco use type: Cigarette e-Cigarette/Vaping Use: Never Used Second Hand Smoke Exposure: No Use of substances other than those prescribed or required for medical reasons: No Are you DNR?: Yes Advance Directives: No Advance Directives Information Provided: Yes Advance Directives Date on File: 05/24/21 service: No Current occupational status: disabled Cognitive needs: Yes (Pt has a walker) Hearing needs: No Vision needs: Yes (wear glasses) Meds Allergies Allergy/AdvReac Type Severity Reaction Status Date / Time latex Allergy Unknown Verified 09/26/22 09:35 Home Medications Medication Instructions Recorded Confirmed Last Taken Type blood sugar diagnostic (FreeStyle 08/24/21 09/26/22 Unknown History Lite Strips) insulin lispro 100 unit/mL 5 unit subcut TIDAC 01/17/22 09/26/22 02/15/22 History subcutaneous pen (Humalog KwikPen (U-100) Insulin) aspirin 81 mg tablet,delayed 81 mg PO DAILY 01/23/22 09/26/22 02/15/22 History release (Adult Low Dose Aspirin) atorvastatin 20 mg tablet 20 mg PO BEDTIME 02/15/22 09/26/22 02/14/22 History ezetimibe 10 mg tablet 1 tab PO BEDTIME 03/27/22 09/26/22 Unknown History spironolactone 25 mg tablet 1 tab PO DAILY 03/27/22 09/26/22 Unknown History Exam Airway Mallampati Class: II TM Dist: >3cm Neck ROM: Full Loose/Missing/Broken Teeth: No Heart: rr Lungs: cta Assessment and Plan Assessment Anesthesia Assessment: Anesthesia Plan Discussed Final Anesthetic Review Family History of Problems with Anesthesia: No NPO: Yes ASA Class: IV Final Preanesthetic Review: No Changes in Pt Med Stat, Meds/Allgs Chart Reviewed, Consent Obtained/Reviewed, Anes Risks/Benef Reviewed and DNR Form (If Appl.) Patient Risk: High Procedure Risk: Intermediate Anesthetic Plan Anesthetic Plan: MAC: Disposition: Standard PACU
[2022-09-27 11:30] VITALS: BMI 26.5
--- NOTE | 2022-09-27 11:31 | P.BOP_ITS ---
Brief Operative Note Date of Service: 09/27/22 Pre-op diagnosis: follow-up of esophageal varices Post-op diagnosis: other ( esophageal varices, portal hypertensive gastropathy) Procedure: UPPER GI ENDOSCOPY WITH BAND LIGATION OF ESOPHAGEAL VARICES Surgeon: Carissa Clifton MD Anesthesia: MAC Was an Electric Motor Winders Assembler used for this Procedure?: Yes Electric Motor Winders Assembler: Jv Vasquez Estimated blood loss (mL): 0 Pathology: none sent Condition: stable Disposition: PACU
--- NOTE | 2022-09-27 11:31 | MHC.SHP ---
Pre-Procedural Eval Section A Date of Service: 09/27/22 The patient is an INPATIENT: No Changes since office visit: Yes Patient answered all questions; No Cold of Flu in the past 2 weeks, No New Medical Problems and No Changes in Medication The History & Physical has been completed within 30 days and I have reviewed it.: Yes Section B Chief Complaint: cirrhosis of liver,hepatic failure, Allergies: Allergies Allergy/AdvReac Type Severity Reaction Status Date / Time latex Allergy Unknown Verified 09/26/22 09:35 Plan I have reviewed the history and physical and performed a pertinent physical examination on my patient. No changes have occurred unless specified. Time Spent With Patient Time: Total time managing care of this patient today ____ minutes.
--- NOTE | 2022-09-27 11:32 | W.PM.OPN ---
Operative Note Operative Note Date of Service: 09/27/22 Narrative: Pre-op diagnosis: follow-up of esophageal varices Post-op diagnosis:?other ( esophageal varices, portal hypertensive gastropathy) Surgeon: Carissa Clifton MD Anesthesia:?MAC FLEXIBLE TRANSORAL UPPER GASTROINTESTINAL ENDOSCOPY WITH BAND LIGATION OF ESOPHAGEAL VARICES Consent: Indications for the procedure and potential complications of bleeding, perforation, reaction to medications and missed diagnosis were discussed with the patient and informed consent was obtained. Instrument: Olympus GIF H 190 mid size upper endoscope Monitoring: Vital signs and clinical assessment, continuous EKG monitoring, Pulse oximetry, Carbon Dioxide monitoring and blood pressure monitoring were done throughout the procedure. Procedure: The patient was placed in the left lateral decubitis position and pre-procedure medications were administered and a bite block was placed. The endoscope was inserted into the mouth and advanced under direct vision to the third part of duodenum. A careful inspection was made as the upper endoscope was withdrawn including a retroflexed examination of the proximal stomach; Findings and interventions are described below. Findings: Larynx: Normal Esophagus: GE junction at 38 cms. A grade 3- 4 varix was noted from 30 to 38 cms with red aminta signs.? Two additional grade 1 varices which flattened completely with air insufflation. Band ligation was performed and 2 rubber bands were placed with flattening of the large varix. Stomach: Severe portal gastropathy. Two ulcers seen in the antrum during previous EGD have mary. Grade 2 flap valve on retroflexed examination of the cardia. Duodenum: Normal bulb and descending duodenum Intervention: Biopsies as noted above Impression and Post Procedure Diagnosis: Endoscopy Findings: ESOPHAGUS:? GE junction at 38 cms. A grade 4 varix was noted from 30 to 38 cms with red aminta signs.? Two additional grade 1 varices which flattened completely with air insufflation. Band ligation of the large varix was performed and 2 rubber bands were placed with flattening. STOMACH: Severe portal gastropathy. Mild gastric erythema with two 5 mm superficial ulcers in the antrum. Biopsies were obtained. Plan: Await pathology results Patient has an appointment on 12/26/22 in the GI Clinic with Carissa Clifton M.D. Above findings were reviewed with the patient and Esophageal Banding handout was given in the discharge area
[2022-09-27 11:53] VITALS: BP 129/63; PULSE 62; RESP 16; TEMP 36.7; O2SAT 98
[2022-09-27] MEDS: Lactated Ringers 1,000 ML 100 ML IVCONT (11:59)
[2022-09-27] MEDS: Ampicillin Sodium 2 GM in 0.9 % Sodium Chloride 100 ML IV (11:59)
[2022-09-27 12:55] VITALS: BP 104/66; PULSE 63; RESP 14; TEMP 36.3; O2SAT 98
[2022-09-27 13:07] VITALS: BP 116/73; PULSE 65; RESP 16; TEMP 36.2; O2SAT 99
== END 2022-09-27 13:45 | disposition home or self-care (01) ==
PROVIDERS: PCP Internal Medicine; Visit Provider Internal Medicine Gastroenterology
PROC: 0DJ08ZZ Inspection of Upper Intestinal Tract, Via Natural or Artificial Opening Endoscopic (ICD-10-PCS; CPT 43235; principal; 2022-09-27 12:00)
DX: I85.10 Secondary esophageal varices without bleeding (principal); K76.6 Portal hypertension; K74.60 Unspecified cirrhosis of liver; R18.8 Other ascites; K31.89 Other diseases of stomach and duodenum; K72.90 Hepatic failure, unspecified without coma; K25.9 Gastric ulcer, unspecified as acute or chronic, without hemorrhage or perforation; E11.22 Type 2 diabetes mellitus with diabetic chronic kidney disease; I12.9 Hypertensive chronic kidney disease with stage 1 through stage 4 chronic kidney disease, or unspecified chronic kidney disease; N18.30 Chronic kidney disease, stage 3 unspecified; E78.5 Hyperlipidemia, unspecified; Z79.4 Long term (current) use of insulin; Z79.899 Other long term (current) drug therapy; Z79.82 Long term (current) use of aspirin; Z91.040 Latex allergy status; Z66 Do not resuscitate; Z87.891 Personal history of nicotine dependence
CPT/HCPCS: 43244; 43239; J0290

== ENCOUNTER → 2022-10-17 10:51 | Outpatient (BNVA) | payer MEDICARE, MEDICAID, SELFPAY | PROVIDERS: PCP Internal Medicine; Visit Provider Registered Nurse Diabetes Educator | DX: E11.22 Type 2 diabetes mellitus with diabetic chronic kidney disease (principal); E11.65 Type 2 diabetes mellitus with hyperglycemia; E11.21 Type 2 diabetes mellitus with diabetic nephropathy; E11.649 Type 2 diabetes mellitus with hypoglycemia without coma; I12.9 Hypertensive chronic kidney disease with stage 1 through stage 4 chronic kidney disease, or unspecified chronic kidney disease; N18.30 Chronic kidney disease, stage 3 unspecified; Z79.4 Long term (current) use of insulin | CPT/HCPCS: 99211 ==

== ENCOUNTER 2022-10-22 10:15 | Outpatient (REF) | payer MEDICARE, MEDICAID, SELFPAY ==
--- NOTE | ~2022-10-22 | US_ITS ---
EXAMINATION: US ABDOMEN LIMITED CLINICAL INFORMATION: Unspecified cirrhosis of liver. COMPARISON: CT abdomen and pelvis 09/19/2022. MRI abdomen 05/06/2022. Ultrasound abdomen complete 05/05/2022. Limited abdominal ultrasound with elastography 10/24/2021. TECHNIQUE: Real-time imaging of the right upper quadrant abdominal viscera. FINDINGS: PANCREAS: The head and body of the pancreas are homogeneous in echotexture. The tail is obscured by overlying gas. LIVER: The liver is normal in size. The liver contour is slightly lobulated. Parenchymal echogenicity is coarse. No focal hepatic lesion. There is no intrahepatic biliary duct dilatation seen. There is hepatopedal flow seen in the middle portal vein with some residual thrombus seen in the MPV and portosplenic confluence. Previously the entire portal vein had thrombus. GALLBLADDER: The gallbladder is physiologically distended. Multiple mobile gallstones are present. No evidence of gallbladder wall thickening or pericholecystic fluid. COMMON BILE DUCT: Normal in caliber measuring 0.3 cm in diameter. RIGHT KIDNEY: There are multiple anechoic cysts with the largest cyst measuring 1.5 x 1.5 x 1.7 cm. Normal hepatopedal flow seen in middle portal vein on Doppler exam. No hydronephrosis or renal calculi. The kidney measures 9.6 cm in maximum dimension. FREE FLUID: There is small amount of free fluid. US/US abdomen limited IMPRESSION: 1. Cholelithiasis without wall thickening. 2. Cirrhotic-appearing liver with mild increased echogenicity. No focal lesion. 3. Multiple right renal cysts with largest cyst measuring 1.7 cm. 4. The previously thrombosed portal vein has now normal Doppler flow. There is some residual thrombus at the junction of the middle portal vein and portosplenic confluence.
== END 2022-10-22 10:16 | disposition home or self-care (01) ==
LOC: HO.US 10:15
PROVIDERS: Visit Provider Internal Medicine Gastroenterology
DX: K74.60 Unspecified cirrhosis of liver (principal); R18.8 Other ascites
CPT/HCPCS: 76705